=== PATIENT | female | born 1980 | race Caucasian/White ===

== ENCOUNTER 2018-04-12 13:35 | Day surgery (SDC) | payer BC, OTHER ==
[2018-04-09 17:32] VITALS: BMI 43.0
[2018-04-12 14:33] VITALS: BP 146/87; PULSE 96; TEMP 98.4
== END 2018-04-12 19:50 | disposition home or self-care (01) ==
LOC: UNDOADMIN 13:35 → JSAMEDAYSX 13:35 → JASUSAT 13:35 → EDSTATUS 15:00 → JASUSAT 19:50 → UNDODISIN 19:50
PROVIDERS: ATTEND Orthopaedic Surgery Orthopaedic Surgery of the Spine
PROC: 0SJC4ZZ Inspection of Right Knee Joint, Percutaneous Endoscopic Approach (ICD-10-PCS; principal; 2018-04-12)
DX: Z53.8 Procedure and treatment not carried out for other reasons (principal)
CPT/HCPCS: 36415; 84703; 86850; 86900; 86901

== ENCOUNTER 2018-04-19 06:12 | Inpatient (IN) | payer BC, OTHER ==
[~2018-04-19 06:12] MED LIST: VANCOMYCIN 1,000 MG VIAL (RESTRICTED TO ID ONLY) IVPB ONE; ceFAZolin SODIUM 1 GM VIAL IVPB ONE
[2018-04-19] MEDS ORDERED: HEPARIN NA (PORCINE) 5,000 UNITS/ML 1ML VIAL ONE (07:14)
[2018-04-19] MEDS ORDERED: THROMBIN (BOVINE) 20,000 UNIT VIAL TP ONE (07:14)
[2018-04-19] MEDS ORDERED: MIDAZOLAM HCL 2 MG/2 ML SINGLE DOSE VIAL ONE ×2 (08:07→08:32)
[2018-04-19] MEDS ORDERED: fentaNYL CITRATE 250 MCG/5 ML VIAL ONE (08:08)
[2018-04-19] MEDS ORDERED: ROCURONIUM BROMIDE 50 MG/5 ML VIAL ONE ×2 (08:08→09:48)
[2018-04-19] MEDS ORDERED: SUCCINYLCHOLINE CHLORIDE 200 MG/10 ML VIAL ONE (08:08)
[2018-04-19] MEDS ORDERED: PROPOFOL 20 ML ONE ×27 (08:08→12:50)
[2018-04-19] MEDS ORDERED: ceFAZolin SODIUM 1 GM VIAL IVPB ONE ×2 (08:53→13:05)
[2018-04-19] MEDS ORDERED: VANCOMYCIN 1,000 MG VIAL (RESTRICTED TO ID ONLY) IVPB ONE (09:05)
[2018-04-19] MEDS ORDERED: TRANEXAMIC ACID 1000 MG/10 ML VIAL ONE (09:56)
[2018-04-19] MEDS ORDERED: LIDOCAINE HCL 2% JELLY (5 ML/TUBE) ONE (09:56)
[2018-04-19] MEDS ORDERED: ceFAZolin SODIUM 1 GM VIAL ONE ×2 (09:56→13:04)
[2018-04-19] MEDS ORDERED: VANCOMYCIN 1,000 MG VIAL (RESTRICTED TO ID ONLY) ONE (09:56)
[2018-04-19] MEDS ORDERED: ONDANSETRON 4 MG/2 ML VIAL ONE (09:56)
[2018-04-19] MEDS ORDERED: DEXAMETHASONE SOD PHOSPHATE 4 MG/1 ML VIAL ONE (09:56)
[2018-04-19] MEDS ORDERED: LIDOCAINE HCL/PF 2% SDV 5ML VIAL ONE (09:56)
[2018-04-19] MEDS ORDERED: METOPROLOL TARTRATE 5 MG/5 ML VIAL ONE (09:56)
[2018-04-19] MEDS ORDERED: LABETALOL HCL 5 MG/1 ML (100MG/20 ML VIAL) ONE (10:29)
[2018-04-19] MEDS ORDERED: CARVEDILOL 3.125 MG TABLET (FP) PO PRN (13:57)
[2018-04-19] MEDS ORDERED: ONDANSETRON 4 MG/2 ML VIAL IVPUSH PRN ×2 (14:04→14:23)
--- NOTE | 2018-04-19 14:04 | PN ---
Progress Note (short form) - Note Progress Note: 38F s/p L4-S1 laminectomies, L4-L5 PLIF, L3-S1 PISF POD #0. -Pain control: per anaesthesia team; recommend CUSTODY OFFICER. -DVT PPx: - Mechanical only: BONITA's, SCD's. -Incentive spirometry. -PT/OT/Rehab, OOB. -WBAT B/L LE. -q4h B/L LE NV checks. -Post-op antibiotics x 2 doses. -NPO until flatus. -f/u AM labs. -f/u drain output. -(+) Cloudy urine; f/u UA; d/c cruz catheter when ambulating. -Care per medical hospitalist team. -Discharge planning: f/u 7-10 days after discharge at [facility] office; call for appointment; . -Will follow. Brant Arana MD (Orthopaedic Surgery).
--- NOTE | 2018-04-19 14:11 | OP ---
Operative Note - Note: Operative Date: 04/19/18 Pre-Operative Diagnosis: Lumbar spinal stenosis Operation: 1. L4-S1 laminectomies. 2. L4-L5 PLIF. 3. L3-S1 PISF. 4. Autograft. 5. Allograft Post-Operative Diagnosis: Same as Pre-op Surgeon: Brant Arana Desk Director: Wilian Arana Anesthesiologist/FACILITATOR: Chelita Hickman MD Anesthesia: General Estimated Blood Loss (mls): 800 Blood Volume Replaced (mls): 250 (Cell Saver) Fluid Volume Replaced (mls): 3,000 (Crystalloid) Operative Report Dictated: Yes
[2018-04-19] MEDS ORDERED: LACTATED RINGERS SOLUTION 1,000 ML IV SCH (14:15)
[2018-04-19] MEDS ORDERED: PROMETHAZINE HCL 25 MG/1 ML VIAL IVPB PRN (14:23)
[2018-04-19] MEDS ORDERED: DEXAMETHASONE SOD PHOSPHATE 4 MG/1 ML VIAL IVPUSH PRN (14:23)
[2018-04-19] MEDS ORDERED: ACETAMINOPHEN INJECTION 100 ML IVPB ONE (14:27)
[2018-04-19] MEDS ORDERED: HYDROmorphone *PCA* 10MG/50ML DISP.SYRIN PCA SCH ×2 (14:30→20:00)
[2018-04-19] MEDS: ACETAMINOPHEN 1000 MG/100 ML VIAL (NON FORMULARY) IVPB SCH ×2 (14:35→22:49)
[2018-04-19] MEDS ORDERED: LORazepam 2 MG/ML SDV VIAL ONE (14:45)
[2018-04-19] MEDS: LACTATED RINGERS SOLUTION 1,000 ML IV SCH (14:45)
[2018-04-19] MEDS ORDERED: CALCITRIOL 0.25 MCG CAPSULE (FP) PO ONE (16:30)
--- NOTE | 2018-04-19 16:33 | CONSULT ---
Consultation: REQUESTING PROVIDER: Dr. Arana CONSULT REQUEST: We have been asked to medically evaluate this patient for (post -op). HISTORY OF PRESENT ILLNESS: 38 yo female admitted to the ICU s/p L4-S1 Laminectomy, L4-L5 PLIF, L3-S1 PISF. Post-op Day 0. Pt is still drowsy from anesthesia and not responding to questioning. She is arousable by conversation, but goes back to sleep soon after. No complaints or visual signs of pain currently. Pt is moving around in the bed. Intra-op note states 800cc blood loss, 250 cc replaced via cell-saver, 3L crystalloid fluid replacement. No reported complications. REVIEW OF SYSTEMS: CONSTITUTIONAL: Absent: fever, chills, diaphoresis, generalized weakness, malaise, loss of appetite, weight change HEENT: Absent: rhinorrhea, nasal congestion, throat pain, throat swelling, difficulty swallowing, mouth swelling, ear pain, eye pain, visual changes CARDIOVASCULAR: Absent: chest pain, syncope, palpitations, irregular heart rate, lightheadedness , peripheral edema RESPIRATORY: Absent: cough, shortness of breath, dyspnea with exertion, orthopnea, wheezing, stridor, hemoptysis GASTROINTESTINAL: Absent: abdominal pain, abdominal distension, nausea, vomiting, diarrhea, constipation, melena, hematochezia GENITOURINARY: Absent: dysuria, frequency, urgency, hesitancy, hematuria, flank pain, genital pain MUSCULOSKELETAL: Absent: myalgia, arthralgia, joint swelling, back pain, neck pain SKIN: Absent: rash, itching, pallor HEMATOLOGIC/IMMUNOLOGIC: Absent: easy bleeding, easy bruising, lymphadenopathy, frequent infections ENDOCRINE: Absent: unexplained weight gain, unexplained weight loss, heat intolerance, cold intolerance NEUROLOGIC: Absent: headache, focal weakness or paresthesias, dizziness, unsteady gait, seizure, mental status changes, bladder or bowel incontinence PSYCHIATRIC: Absent: anxiety, depression, suicidal or homicidal ideation, hallucinations. PHYSICAL EXAMINATION Vital Signs - 24 hr 04/19/18 06:49 Temperature 98.7 F Pulse Rate 88 Respiratory 20 Rate Blood Pressure 121/85 O2 Sat by Pulse 100 Oximetry (%) GENERAL: in no acute distress. HEAD: Normal with no signs of trauma. EYES: sclera anicteric, conjunctiva clear. No lid lag. EARS, NOSE, THROAT: Ears normal, nares patent, oropharynx clear without exudates. Moist mucous membranes. NECK: supple without lymphadenopathy, JVD, or masses. LUNGS: Breath sounds equal, clear to auscultation bilaterally. No wheezes, and no crackles. No accessory muscle use. HEART: Tachycardic with regular rhythm, normal S1 and S2 without murmur, rub or gallop. ABDOMEN: Obese, Soft, nontender, not distended, hypoactive bowel sounds, no guarding, no rebound, no masses. MUSCULOSKELETAL: No bony deformities or tenderness. No CVA tenderness. UPPER EXTREMITIES: 2+ pulses, warm, well-perfused. No cyanosis. No clubbing. Cap refill <2 seconds. No peripheral edema. LOWER EXTREMITIES: 2+ pulses, warm, well-perfused. No calf tenderness. No peripheral edema. NEUROLOGICAL: Cranial nerves II-XII grossly intact. Normal gait. SKIN: Warm, dry, normal turgor, no rashes or lesions noted. Laboratory Results - last 24 hr 04/19/18 06:16 Urine HCG, Qual Negative Active Medications Generic Name Dose Route Start Last Admin Trade Name Freq PRN Reason Stop Dose Admin Acetaminophen 1,000 mg 04/19/18 14:15 Ofirmev Injection - IVPB 04/21/18 06:16 Q8H RANDAL Carvedilol 3.125 mg 04/19/18 13:57 Coreg - PO PRN PRN RAPID HEART RATE Dexamethasone Sodium Phosphate 4 mg 04/19/18 14:23 Decadron Injection - IVPUSH ONCE PRN NAUSEA AND/OR VOMITING Diphenhydramine HCl 12.5 mg 04/19/18 14:23 Benadryl Injection - IVPUSH ONCE PRN FOR ITCHING Fentanyl 50 mcg 04/19/18 14:23 Sublimaze Injection - IVPUSH [id number] PRN PAIN-PACU ORDER X 4 DOSES ONLY Hydromorphone HCl 0 mg 04/19/18 14:30 Dilaudid Machine Made Shoe Unit Worker - LIPCOAT SPRAYER 04/26/18 14:24 LIPCOAT SPRAYER [facility] Protocol Lactated Ringer's 1,000 mls @ 125 mls/hr 04/19/18 14:30 Lactated Ringers Solution IV ASDIR RANDAL Cefazolin Sodium/Dextrose 2 gm in 50 mls @ 100 mls/hr 04/19/18 19:00 Ancef 2 Gm Premixed Ivpb - IVPB 04/20/18 07:29 Q6H RANDAL Levothyroxine Sodium 150 mcg 04/20/18 07:00 Synthroid - PO DAILY@0700 RANDAL Ondansetron HCl 4 mg 04/19/18 14:23 Zofran Injection IVPUSH Q6H PRN NAUSEA AND/OR VOMITING Ondansetron HCl 4 mg 04/19/18 14:23 Zofran Injection IVPUSH Q4H PRN NAUSEA AND/OR VOMITING Promethazine HCl 12.5 mg 04/19/18 14:23 Phenergan Injection - IVPB Q6H PRN NAUSEA AND/OR VOMITING Thyroid 60 mg 04/20/18 10:00 [place] Thyroid - PO DAILY RANDAL ASSESSMENT/PLAN: 38 yo Female admitted to the ICU s/p L4-S1 laminectomy, L4-L5 PLIF, L3-S1 PISF. Post-op day 0 Neuro -post-op day 0 -Neuro checks Q4 as per surgery recommendation Cardio -Rapid heart rate reported intra-op Coreg 3.125 mg PO PRN to keep rate <130 states she has seen cardiology in the past and elevated HR is most likely due to thyroid condition -Post-op CBC Respiratory -No known respiratory problems -Incentive spirometry to decrease risk of post-op atelectasis/pneumonia GI -NPO until flatus -Will add bowel regimen as necessary -Zofran and Promethazine PRN for nausea/vomiting Endocrine -Hx Hypothyroidism Synthroid 150mcg PO Daily [place] Thyroid 60 mg PO Daily Post-op Management -Pain control: LIPCOAT SPRAYER as per anesthesia Will monitor pain and switch to PO pain medication when able -OOB as tolerated -Post-op Ancef X 2 doses -d/c cruz when Ambulating DVT Prophylaxis -TEDs/SCDs only as per surgery FEN -Fluids: LR @ 125 cc/hr -Electrolytes: No known electrolyte abnormalities as of now, BMP in AM -Nutrition: NPO until Flatus Disposition Monitor in the ICU for now Visit type - Emergency Visit Emergency Visit: No - New Patient This patient is new to me today: Yes Date on this admission: 04/19/18 - Critical Care Critical Care patient: Yes Total Critical Care Time (in minutes): 35 Critical Care Statement: The care of this patient involved high complexity decision making to prevent further life threatening deterioration of the patient 's condition and/or to evaluate & treat vital organ system(s) failure or risk of failure.
[2018-04-19] MEDS ORDERED: LORazepam 2 MG/ML SDV VIAL IVPUSH ONE (16:45)
[2018-04-19] MEDS: CEFAZOLIN 2 GM/D5W 2 GM/50 ML ML IVPB SCH (18:02)
[2018-04-19] MEDS: ONDANSETRON 4 MG/2 ML VIAL IVPUSH PRN (18:23)
[2018-04-19] MEDS ORDERED: ceFAZolin 2 GRAM PREMIX BAG IVPB SCH (19:00)
[2018-04-19] MEDS ORDERED: LORazepam 2 MG/ML SDV VIAL IVPUSH PRN (19:53)
--- NOTE | 2018-04-19 21:03 | OP ---
DATE OF OPERATION: 04/19/2018 SURGEON: Brant Arana MD GROUND SCHOOL INSTRUCTOR: Wilian Arana MD ANESTHESIA: General. PREOPERATIVE DIAGNOSIS: Spinal stenosis L3-L4, L5-S1 with associated segmental instability secondary to lumbar spondylosis and disk prolapse disease. POSTOPERATIVE DIAGNOSIS: Spinal stenosis L3-L4, L5-S1 with associated segmental instability secondary to lumbar spondylosis and disk prolapse disease. OPERATION PERFORMED: 1. Laminectomy, L3 to S1. 2. Posterior lumbar interbody fusion, L4-5. 3. Transpedicular instrumented stabilization with pedicle screw fixation L3-L4, L5-S1. 4. Posterior lateral arthrodesis L3-L4, L5-S1. 5. Complex wound closure, 30 cm. 6. Use of biplanar fluoroscopy and intraoperative neuromonitoring. ANTIBIOTICS USED: Kefzol 2 g, vancomycin 1 g. OPERATION DETAILS: With the patient correctly identified, brought to the operating room, placed prone on a gel roll spinal frame table. The pelvis was held in as much extension as possible. The lumbar spine was prepped with Betadine scrub solution, wiped off with alcohol, DuraPrep applied. Draping was routine window draping accordingly. Neuromonitoring was set up appropriately. All pressure points were padded appropriately in detail with the anesthesia team and the nursing team. Timeout was called. Imaging was available for intraoperative evaluation. A midline incision utilized. Dissection was taken down to the tips of the spinous processes, over the lamina, over the facet joints, to the tips of the transverse processes. The muscle was gently dissected off the transverse processes to the intertransverse plane, packed with graft. The appropriate levels were identified using lateral fluoroscopic x-ray with appropriate anatomical guidelines. Midline dissection was performed. All bone was removed and saved for bone graft; that was spinous processes and laminae. An undercutting facetectomy was performed, freeing the entire theca and all nerve roots, all clearly identified and evaluated. The dura was freed completely. The right-sided L4-5 level was exposed, explored. A bipolar Bovie was utilized in order to diathermize the epidural veins. The disk was identified. This was a heaped up, large, bulging disk. This was resected in the following manner. An annulotomy with an 11 blade, shaving to size 9 and a size 10 cage ultimately inserted. This was a TETRAfuse cage called Fortilink spacer inserted into the interbody space. Prior to that, after the entire disk had been removed and the endplate bleeding, healthy bone visualized, the disk interbody space was packed with autologous bone that was milled in the [employer] from the dissection of the posterior elements and the saved bone. This was packed into the interbody space. The cage was then followed, reconstituting the disk height significantly. Once this had been performed, it was elected to leave all the other disks alone as their heights were well maintained. Pedicle screws at L3-L4, L5-S1 were inserted. We used anatomical guidelines as well as lateral fluoroscopy. Each screw measured 40 x 6.5. Each screw was tested with appropriate neuromonitoring team, well above the safe zones of each screw. Once this had been ascertained, the rods were contoured to the screw heads, fixed solidly into position with the caps. The torque device finally tightened all screws onto the rods appropriately. The rods were bent into lordosis. The remaining procedure was as follows. The muscle was lifted off the intertransverse plane, packed with a combination of allograft mixed, expanding the autograft but more importantly, 120 mL of marrow was aspirated from her left posterior ilium using a Jamshidi needle, this spun down for the CD34 cells. This was then mixed with the bone graft. Combined with all these factors, this was packed into the intertransverse plane for a rich bone grafting of the intertransverse plane right down to the denuded ala of the sacrum, all to form a fusion mass. The wounds were thoroughly lavaged throughout. The rods were then augmented with 1 crosslink. The bone graft being in situ, the wound was noted to be completely dry. We elected to close without a drain as follows. Muscle was debrided gently, muscle 1 Vicryl, fascia 1 Vicryl, subcutaneous 1 and 2-0 Vicryl, skin 3-0 Monocryl with Steri-Strips. This completed a 30-cm complex wound closure. No complications. MD LEONILA Ibrahim/[id number]
[2018-04-19] MEDS: CARVEDILOL 6.25 MG TABLET (FP) PO SCH ×2 (21:41→23:38)
[2018-04-20] MEDS: CEFAZOLIN 2 GM/D5W 2 GM/50 ML ML IVPB SCH ×2 (00:31→06:14)
[2018-04-20] MEDS ORDERED: MORPHINE SULFATE 2 MG/ML VIAL IVPUSH ONE (01:07)
[2018-04-20] MEDS: LORazepam 2 MG/ML SDV VIAL IVPUSH PRN ×2 (03:58→09:16)
[2018-04-20] MEDS: ACETAMINOPHEN 1000 MG/100 ML VIAL (NON FORMULARY) IVPB SCH ×3 (05:33→22:02)
[2018-04-20] MEDS: LACTATED RINGERS SOLUTION 1,000 ML IV SCH ×2 (05:55→16:43)
[2018-04-20] MEDS: LEVOTHYROXINE NA 150 MCG TABLET PO SCH (06:15)
[2018-04-20 06:27] LABS: HEMATOCRIT 35.5 % (32.4-45.2); HEMOGLOBIN 12.1 GM/dL (10.7-15.3); MCH 29.6 pg (25.7-33.7); MCHC 34.1 g/dl (32.0-36.0); MEAN CELL VOLUME 86.7 fl (80-96); MEAN PLT VOLUME 7.9 fl (7.5-11.1); PLATELET COUNT 327 K/MM3 (134-434); RDW 13.4 % (11.6-15.6); WHITE BLOOD COUNT 13.2 K/mm3 (4.0-10.0)
[2018-04-20 06:52] LABS: CHLORIDE 102 mmol/L (98-107); POTASSIUM 3.8 mmol/L (3.5-5.1); SODIUM 138 mmol/L (136-145)
[2018-04-20 06:59] LABS: INR 1.2 (0.82-1.09); PROTHROMBIN TIME (PATIENT) 13.6 SEC (9.7-13.0)
[2018-04-20 07:00] LABS: ANION GAP 8 (8-16); BLOOD UREA NITROGEN 6 mg/dL (7-18); CALCIUM 7.8 mg/dL (8.5-10.1); CO2 28 mmol/L (21-32); CREATININE 0.6 mg/dL (0.55-1.02); GLUCOSE,RANDOM 123 mg/dL (74-106); MAGNESIUM 1.8 mg/dL (1.8-2.4)
[2018-04-20] MEDS: ONDANSETRON 4 MG/2 ML VIAL IVPUSH PRN (07:04)
[2018-04-20] MEDS ORDERED: MAGNESIUM OXIDE 400 MG TABLET (FP) PO ONE (08:00)
--- NOTE | 2018-04-20 08:18 | PN ---
Physical Exam: SUBJECTIVE: Patient seen and examined in the ICU. Resting in bed. Fell back asleep multiple times during conversation. Complaining that she is "in agony." States she has not passed flatus yet or moved her bowels. Has had some nausea and received zofran which helped. OBJECTIVE: Vital Signs Period Temp Pulse Resp BP Sys/Donnelly Pulse Ox Last 24 Hr 98.6 F-99.7 F 88-137 10-23 109-163/64-100 95-100 GENERAL: Awake, in no acute distress. HEAD: Normal with no signs of trauma. EYES: sclera anicteric, conjunctiva clear. No lid lag. EARS, NOSE, THROAT: Ears normal, nares patent, oropharynx clear without exudates. Moist mucous membranes. NECK: supple without lymphadenopathy, JVD, or masses. LUNGS: Breath sounds equal, clear to auscultation bilaterally, though upper airway obstruction noted on inspiration. No wheezes, and no crackles. No accessory muscle use. HEART: Tachycardic with regular rhythm, normal S1 and S2 without murmur, rub or gallop. ABDOMEN: Obese, Soft, nontender, not distended, hypoactive bowel sounds, no guarding, no rebound, no masses. MUSCULOSKELETAL: No bony deformities or tenderness. No CVA tenderness. UPPER EXTREMITIES: 2+ pulses, warm, well-perfused. No cyanosis. No clubbing. Cap refill <2 seconds. No peripheral edema. LOWER EXTREMITIES: 2+ pulses, warm, well-perfused. No calf tenderness. No peripheral edema. NEUROLOGICAL: Cranial nerves II-XII grossly intact. Normal gait. SKIN: Warm, dry, normal turgor, no rashes or lesions noted. Laboratory Results - last 24 hr 04/20/18 04/20/18 04/20/18 05:30 05:30 05:30 WBC 13.2 H RBC 4.10 Hgb 12.1 Hct 35.5 MCV 86.7 MCH 29.6 MCHC 34.1 RDW 13.4 Plt Count 327 MPV 7.9 PT with INR 13.60 H INR 1.20 H Sodium 138 Potassium 3.8 Chloride 102 Carbon Dioxide 28 Anion Gap 8 BUN 6 L Creatinine 0.6 Creat Clearance w eGFR > 60 Random Glucose 123 H Calcium 7.8 L Phosphorus 3.0 Magnesium 1.8 Active Medications Generic Name Dose Route Start Last Admin Trade Name Freq PRN Reason Stop Dose Admin Acetaminophen 1,000 mg 04/19/18 14:15 04/20/18 05:33 Ofirmev Injection - IVPB 04/21/18 06:16 1,000 mg Q8H RANDAL Administration Carvedilol 6.25 mg 04/19/18 22:00 04/19/18 23:38 Coreg - PO Not Given BID [facility] Dexamethasone Sodium Phosphate 4 mg 04/19/18 14:23 Decadron Injection - IVPUSH ONCE PRN NAUSEA AND/OR VOMITING Diphenhydramine HCl 12.5 mg 04/19/18 14:23 04/20/18 00:43 Benadryl Injection - IVPUSH 12.5 mg ONCE PRN Administration FOR ITCHING Fentanyl 50 mcg 04/19/18 14:23 04/19/18 14:30 Sublimaze Injection - IVPUSH 50 mcg [id number] PRN Administration PAIN-PACU ORDER X 4 DOSES ONLY Hydromorphone HCl 10 mg 04/19/18 20:00 04/19/18 20:05 Dilaudid Research [employer] - SPINNING LATHE OPERATOR HYDRAULIC 04/26/18 19:59 10 mg SPINNING LATHE OPERATOR HYDRAULIC RANDAL Administration Protocol Lactated Ringer's 1,000 mls @ 125 mls/hr 04/19/18 14:30 04/20/18 05:55 Lactated Ringers Solution IV 125 mls/hr ASDIR RANDAL Administration Levothyroxine Sodium 150 mcg 04/20/18 07:00 04/20/18 06:15 Synthroid - PO Not Given DAILY@0700 RANDAL Lorazepam 1 mg 04/19/18 21:14 04/20/18 03:58 Ativan Injection - IVPUSH 1 mg Q6H PRN Administration MUSCLE SPASMS Ondansetron HCl 4 mg 04/19/18 14:23 Zofran Injection IVPUSH Q4H PRN NAUSEA AND/OR VOMITING Promethazine HCl 12.5 mg 04/19/18 14:23 Phenergan Injection - IVPB Q6H PRN NAUSEA AND/OR VOMITING Thyroid 60 mg 04/20/18 10:00 [place] Thyroid - PO DAILY RANDAL ASSESSMENT/PLAN: 38 yo Female admitted to the ICU s/p L4-S1 laminectomy, L4-L5 PLIF, L3-S1 PISF. Post-op day 1 Neuro -post-op day 1 -Neuro checks Q4 as per surgery recommendation Cardio -Rapid heart rate reported intra-op Coreg 6.25 mg PO BID Lopressor 5 mg Q4 PRN Tachycardia states she has seen cardiology in the past and elevated HR is most likely due to thyroid condition Respiratory -No known respiratory problems -Incentive spirometry to decrease risk of post-op atelectasis/pneumonia GI -NPO until flatus -Will add bowel regimen as necessary -Zofran and Promethazine PRN for nausea/vomiting Endocrine -Hx Hypothyroidism Synthroid 150mcg PO Daily [place] Thyroid 60 mg PO Daily Post-op Management -Pain control: SPINNING LATHE OPERATOR HYDRAULIC as per anesthesia Will monitor pain and switch to PO pain medication when able Will switch home ativan to valium for now for muscle spasm -OOB as tolerated -d/c cruz when Ambulating DVT Prophylaxis -TEDs/SCDs only as per surgery FEN -Fluids: LR @ 125 cc/hr -Electrolytes: M.8, repleted with MagOx 400mg PO, BMP in AM -Nutrition: NPO until Flatus Disposition Monitor in the ICU for now Visit type - Emergency Visit Emergency Visit: No - New Patient This patient is new to me today: No - Critical Care Critical Care patient: Yes Total Critical Care Time (in minutes): 40 Critical Care Statement: The care of this patient involved high complexity decision making to prevent further life threatening deterioration of the patient 's condition and/or to evaluate & treat vital organ system(s) failure or risk of failure.
[2018-04-20] MEDS ORDERED: THYROID 60 MG TABLET PO SCH (10:00)
[2018-04-20] MEDS: CARVEDILOL 6.25 MG TABLET (FP) PO SCH ×3 (10:25→22:00)
--- NOTE | 2018-04-20 11:19 | PN ---
Teaching Attending Note Name of Resident: Jamie Rubio ATTENDING PHYSICIAN STATEMENT I saw and evaluated the patient. I reviewed the resident's note and discussed the case with the resident. I agree with the resident's findings and plan as documented. SUBJECTIVE: Patient seen and examined in the ICU. Reports significant pain. Denies CP or SOB. No nausea or vomiting. Intake & Output 04/17/18 04/18/18 04/19/18 04/20/18 23:59 23:59 23:59 23:59 Intake Total 4032 Output Total 4550 Balance -518 Weight 297 lb 3.2 oz Last Vital Signs Temp Pulse Resp BP Pulse Ox 98.8 F 120 H 14 151/91 100 04/20/18 10:00 04/20/18 10:00 04/20/18 10:00 04/20/18 10:00 04/20/18 09:00 Active Medications Acetaminophen (Ofirmev Injection -) 1,000 mg IVPB Q8H [facility] Stop: 04/21/18 06:16 Last Admin: 04/20/18 05:33 Dose: 1,000 mg Carvedilol (Coreg -) 6.25 mg PO BID [facility] Last Admin: 04/20/18 10:25 Dose: Not Given Dexamethasone Sodium Phosphate (Decadron Injection -) 4 mg IVPUSH ONCE PRN PRN Reason: NAUSEA AND/OR VOMITING Last Admin: 04/20/18 10:48 Dose: 4 mg Diphenhydramine HCl (Benadryl Injection -) 12.5 mg IVPUSH ONCE PRN PRN Reason: FOR ITCHING Last Admin: 04/20/18 00:43 Dose: 12.5 mg Fentanyl (Sublimaze Injection -) 50 mcg IVPUSH [id number] PRN PRN Reason: PAIN-PACU ORDER X 4 DOSES ONLY Last Admin: 04/19/18 14:30 Dose: 50 mcg Hydromorphone HCl (Dilaudid Documentation Specialist -) 10 mg REPORTING COORDINATOR REPORTING COORDINATOR [facility]; Protocol Stop: 04/26/18 19:59 Last Admin: 04/19/18 20:05 Dose: 10 mg Lactated Ringer's (Lactated Ringers Solution) 1,000 mls @ 125 mls/hr IV ASDIR [facility] Last Admin: 04/20/18 05:55 Dose: 125 mls/hr Levothyroxine Sodium (Synthroid -) 150 mcg PO DAILY@0700 [facility] Last Admin: 04/20/18 06:15 Dose: Not Given Lorazepam (Ativan Injection -) 1 mg IVPUSH Q6H PRN PRN Reason: MUSCLE SPASMS Last Admin: 04/20/18 09:16 Dose: 1 mg Ondansetron HCl (Zofran Injection) 4 mg IVPUSH Q4H PRN PRN Reason: NAUSEA AND/OR VOMITING Promethazine HCl (Phenergan Injection -) 12.5 mg IVPB Q6H PRN PRN Reason: NAUSEA AND/OR VOMITING Thyroid ([place] Thyroid -) 60 mg PO DAILY [facility] Last Admin: 04/20/18 10:24 Dose: Not Given GENERAL: Awake and alert, uncomfortable due to pain HEAD: Normal with no signs of trauma. EYES: sclera anicteric, conjunctiva clear. No lid lag. EARS, NOSE, THROAT: Ears normal, nares patent, oropharynx clear without exudates. Moist mucous membranes. NECK: supple without lymphadenopathy, JVD, or masses. LUNGS: clear to auscultation bilaterally. No wheezes, and no crackles. No accessory muscle use. HEART: Tachycardic with regular rhythm. No murmur, rub or gallop. ABDOMEN: Obese, Soft, nontender, not distended, (+) bowel sounds, no guarding, no rebound, no masses. MUSCULOSKELETAL: No bony deformities or tenderness. No CVA tenderness. UPPER EXTREMITIES: 2+ pulses, warm, well-perfused. No cyanosis. No clubbing. Cap refill <2 seconds. No peripheral edema. LOWER EXTREMITIES: 2+ pulses, warm, well-perfused. No calf tenderness. No peripheral edema. NEUROLOGICAL: Non-focal SKIN: Warm, dry, normal turgor, no rashes or lesions noted. Laboratory Results - last 24 hr 04/20/18 04/20/18 04/20/18 05:30 05:30 05:30 WBC 13.2 H RBC 4.10 Hgb 12.1 Hct 35.5 MCV 86.7 MCH 29.6 MCHC 34.1 RDW 13.4 Plt Count 327 MPV 7.9 PT with INR 13.60 H INR 1.20 H Sodium 138 Potassium 3.8 Chloride 102 Carbon Dioxide 28 Anion Gap 8 BUN 6 L Creatinine 0.6 Creat Clearance w eGFR > 60 Random Glucose 123 H Calcium 7.8 L Phosphorus 3.0 Magnesium 1.8 ASSESSMENT/PLAN: POD #1: L4-S1 laminectomy, L4-L5 PLIF, L3-S1 PISF. 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
[2018-04-20] MEDS ORDERED: METOPROLOL TARTRATE 5 MG/5 ML VIAL IVPUSH PRN (11:29)
--- NOTE | 2018-04-20 11:35 | PN ---
Progress Note (short form) - Note Progress Note: Anesthesia Post op/Pain Pt seen and examined S:sedated from ativan O; Vital Signs Temperature 98.8 F 04/20/18 10:00 Pulse Rate 120 H 04/20/18 10:00 Respiratory Rate 14 04/20/18 10:00 Blood Pressure 151/91 04/20/18 10:00 O2 Sat by Pulse Oximetry (%) 100 04/20/18 09:00 CBC, BMP 04/20/18 05:30 04/20/18 05:30 A/P: s/p PLIF L3-S1 Sedation for muscle tension per nursing Uses IV SHEETFED PRESS OPERATOR Continue current care Miguel Story MD
[2018-04-20] MEDS: diazePAM 5 MG TABLET PO PRN (14:37)
[2018-04-20] MEDS ORDERED: SODIUM CHLORIDE 250 ML IV STA (19:11)
[2018-04-20] MEDS ORDERED: ACETAMINOPHEN 1000 MG/100 ML VIAL (NON FORMULARY) IVPB ONE (19:15)
[2018-04-21] MEDS ORDERED: PT OWN MED DRAWER 7, Y5N ONE ×2 (05:49→05:59)
[2018-04-21] MEDS: ACETAMINOPHEN 1000 MG/100 ML VIAL (NON FORMULARY) IVPB SCH (05:51)
[2018-04-21 06:00] LABS: BASO % 0.2 % (0-2.0); HEMATOCRIT 31.7 % (32.4-45.2); LYMPH % 8.6 % (8-40); MCH 30.1 pg (25.7-33.7); MCHC 34.6 g/dl (32.0-36.0); MEAN CELL VOLUME 87.1 fl (80-96); MEAN PLT VOLUME 7.8 fl (7.5-11.1); MONO % 8.5 % (3.8-10.2); NEUT % 82.7 % (42.8-82.8); PLATELET COUNT 298 K/MM3 (134-434); RBC 3.64 M/mm3 (3.60-5.2); RDW 13.4 % (11.6-15.6)
[2018-04-21] MEDS: LEVOTHYROXINE NA 150 MCG TABLET PO SCH ×2 (06:03→06:20)
[2018-04-21] MEDS: THYROID 60 MG TABLET PO SCH ×2 (06:04→09:25)
[2018-04-21 06:57] LABS: ALBUMIN 2.8 g/dl (3.4-5.0); ANION GAP 6 (8-16); BLOOD UREA NITROGEN 8 mg/dL (7-18); CALCIUM 7.8 mg/dL (8.5-10.1); CHLORIDE 104 mmol/L (98-107); CO2 31 mmol/L (21-32); GLUCOSE,RANDOM 98 mg/dL (74-106); POTASSIUM 3.9 mmol/L (3.5-5.1); SODIUM 141 mmol/L (136-145)
[2018-04-21 07:01] LABS: ALK PHOS 64 U/L (45-117); BILIRUBIN,TOTAL 0.4 mg/dL (0.2-1.0); CREATININE 0.5 mg/dL (0.55-1.02); PHOSPHOROUS 2.2 mg/dL (2.5-4.9); SGOT/AST 31 U/L (15-37); SGPT/ALT 28 U/L (12-78); TOT PROT 5.7 g/dl (6.4-8.2)
[2018-04-21] MEDS: LACTATED RINGERS SOLUTION 1,000 ML IV SCH ×2 (08:43→17:00)
[2018-04-21] MEDS ORDERED: NAPH,MB-DB/K PH,MBDB POWDER PACKET PO ONE (08:49)
[2018-04-21] MEDS ORDERED: IBUPROFEN 400 MG TABLET (FP) PO ONE (08:52)
[2018-04-21] MEDS: CARVEDILOL 6.25 MG TABLET (FP) PO SCH ×2 (09:24→21:48)
[2018-04-21] MEDS ORDERED: DOCUSATE SODIUM 100 MG CAPSULE (FP) PO PRN (10:45)
[2018-04-21] MEDS ORDERED: DOCUSATE SODIUM 100 MG CAPSULE (FP) PO SCH (10:45)
--- NOTE | 2018-04-21 10:54 | PN ---
Teaching Attending Note Name of Resident: Jamie Rubio ATTENDING PHYSICIAN STATEMENT I saw and evaluated the patient. I reviewed the resident's note and discussed the case with the resident. I agree with the resident's findings and plan as documented. SUBJECTIVE: Pt seen and examined in the ICU. Still with significant pain. No nausea or vomiting. No flatus. OBJECTIVE: Vital Signs Period Temp Pulse Resp BP Sys/Donnelly Pulse Ox Last 24 Hr 98.7 F-99.2 F 108-125 10-19 110-151/67-91 100-100 Intake & Output 04/18/18 04/19/18 04/20/18 04/21/18 23:59 23:59 23:59 23:59 Intake Total 4032 2000 1650 Output Total 4550 1400 400 Balance -402 913 7590 Weight 134.808 kg 97.522 kg Gen: NAD at rest Heart: tachycardic, regular Lung: decreased breath sounds at the bases Abd: soft, nontender Ext: no edema CBC, BMP 04/21/18 05:30 04/21/18 05:30 Active Medications Carvedilol (Coreg -) 6.25 mg PO BID RANDAL Last Admin: 04/21/18 09:24 Dose: 6.25 mg Dexamethasone Sodium Phosphate (Decadron Injection -) 4 mg IVPUSH ONCE PRN PRN Reason: NAUSEA AND/OR VOMITING Last Admin: 04/20/18 10:48 Dose: 4 mg Diazepam (Valium -) 5 mg PO Q6H PRN PRN Reason: BACK PAIN Stop: 04/23/18 12:32 Last Admin: 04/20/18 14:37 Dose: 5 mg Diphenhydramine HCl (Benadryl Injection -) 12.5 mg IVPUSH ONCE PRN PRN Reason: FOR ITCHING Last Admin: 04/20/18 00:43 Dose: 12.5 mg Docusate Sodium (Colace -) 100 mg PO BID PRN PRN Reason: CONSTIPATION Fentanyl (Sublimaze Injection -) 50 mcg IVPUSH [id number] PRN PRN Reason: PAIN-PACU ORDER X 4 DOSES ONLY Last Admin: 04/19/18 14:30 Dose: 50 mcg Hydromorphone HCl (Dilaudid Buckle Strap Puncher -) 10 mg TECHNICAL PROJECT LEAD TECHNICAL PROJECT LEAD RANDAL; Protocol Stop: 04/26/18 19:59 Last Admin: 04/19/18 20:05 Dose: 10 mg Lactated Ringer's (Lactated Ringers Solution) 1,000 mls @ 125 mls/hr IV ASDIR [facility] Last Admin: 04/21/18 08:43 Dose: 125 mls/hr Levothyroxine Sodium (Synthroid -) 150 mcg PO DAILY@0700 [facility] Last Admin: 04/21/18 06:20 Dose: Not Given Metoprolol Tartrate (Lopressor Injection -) 5 mg IVPUSH Q4H PRN PRN Reason: TACHYCARDIA Last Admin: 04/20/18 11:59 Dose: 5 mg Ondansetron HCl (Zofran Injection) 4 mg IVPUSH Q4H PRN PRN Reason: NAUSEA AND/OR VOMITING Promethazine HCl (Phenergan Injection -) 12.5 mg IVPB Q6H PRN PRN Reason: NAUSEA AND/OR VOMITING Last Admin: 04/20/18 12:42 Dose: 12.5 mg Thyroid ([place] Thyroid -) 60 mg PO DAILY [facility] Last Admin: 04/21/18 09:25 Dose: Not Given ASSESSMENT AND PLAN: Lumbar spinal stenosis s/p L4-S1 Laminectomies/L4-L5 PLIF/L3-S1 PISF HTN Hypothyroidism - pain control - incentive spirometry - antiemetics as needed - bowel regimen - d/c cruz when out of bed - PO as tolerated, can start clears - rehab/PT - DVT prophylaxis
--- NOTE | 2018-04-21 11:01 | PN ---
Physical Exam: SUBJECTIVE: Patient seen and examined in the ICU. Resting comfortably in bed, awakened for interview and exam. Pt still complaining of severe pain and difficulty moving but that pain is slightly improved from yesterday. Still having no flatus, but requesting food. States she has had a headache and would like motrin. She explains adequately that she does not have an allergy to ibuprofen, she has had an unrelated response to celecoxib in the past but takes ibuprofen at home regularly for headaches with no adverse response. OBJECTIVE: Vital Signs Period Temp Pulse Resp BP Sys/Donnelly Pulse Ox Last 24 Hr 98.7 F-99.2 F 108-125 10-19 110-151/67-91 100-100 GENERAL: Awake, in no acute distress. HEAD: Normal with no signs of trauma. EYES: sclera anicteric, conjunctiva clear. No lid lag. EARS, NOSE, THROAT: Ears normal, nares patent, oropharynx clear without exudates. Moist mucous membranes. NECK: supple without lymphadenopathy, JVD, or masses. LUNGS: Breath sounds equal, clear to auscultation bilaterally. No wheezes, and no crackles. No accessory muscle use. HEART: Tachycardic with regular rhythm, normal S1 and S2 without murmur, rub or gallop. ABDOMEN: Obese, Soft, nontender, not distended, hypoactive bowel sounds, no guarding, no rebound, no masses. MUSCULOSKELETAL: No bony deformities or tenderness. No CVA tenderness. UPPER EXTREMITIES: warm, well-perfused. No cyanosis. No clubbing. Cap refill <2 seconds. No peripheral edema. LOWER EXTREMITIES: warm, well-perfused. No calf tenderness. No peripheral edema. NEUROLOGICAL: Cranial nerves II-XII grossly intact. Normal gait. SKIN: Warm, dry, normal turgor, no rashes or lesions noted. Laboratory Results - last 24 hr 04/21/18 04/21/18 05:30 05:30 WBC 14.0 H RBC 3.64 Hgb 11.0 Hct 31.7 L MCV 87.1 MCH 30.1 MCHC 34.6 RDW 13.4 Plt Count 298 MPV 7.8 Absolute Neuts (auto) 11.6 Neutrophils % 82.7 Lymphocytes % 8.6 Monocytes % 8.5 Eosinophils % 0.0 Basophils % 0.2 Nucleated RBC % 0 Sodium 141 Potassium 3.9 Chloride 104 Carbon Dioxide 31 Anion Gap 6 L BUN 8 Creatinine 0.5 L Creat Clearance w eGFR > 60 Random Glucose 98 Calcium 7.8 L Phosphorus 2.2 L Magnesium 2.0 Total Bilirubin 0.4 AST 31 ALT 28 Alkaline Phosphatase 64 Total Protein 5.7 L Albumin 2.8 L Active Medications Generic Name Dose Route Start Last Admin Trade Name Freq PRN Reason Stop Dose Admin Carvedilol 6.25 mg 04/19/18 22:00 04/21/18 09:24 Coreg - PO 6.25 mg BID RANDAL Administration Dexamethasone Sodium Phosphate 4 mg 04/19/18 14:23 04/20/18 10:48 Decadron Injection - IVPUSH 4 mg ONCE PRN Administration NAUSEA AND/OR VOMITING Diazepam 5 mg 04/20/18 12:31 04/20/18 14:37 Valium - PO 04/23/18 12:32 5 mg Q6H PRN Administration BACK PAIN Diphenhydramine HCl 12.5 mg 04/19/18 14:23 04/20/18 00:43 Benadryl Injection - IVPUSH 12.5 mg ONCE PRN Administration FOR ITCHING Docusate Sodium 100 mg 04/21/18 10:45 Colace - PO BID PRN CONSTIPATION Fentanyl 50 mcg 04/19/18 14:23 04/19/18 14:30 Sublimaze Injection - IVPUSH 50 mcg [id number] PRN Administration PAIN-PACU ORDER X 4 DOSES ONLY Hydromorphone HCl 10 mg 04/19/18 20:00 04/19/18 20:05 Dilaudid Director Career Services - RE RECORDING MIXER 04/26/18 19:59 10 mg RE RECORDING MIXER RANDAL Administration Protocol Lactated Ringer's 1,000 mls @ 125 mls/hr 04/19/18 14:30 04/21/18 08:43 Lactated Ringers Solution IV 125 mls/hr ASDIR RANDAL Administration Ibuprofen 400 mg 04/21/18 10:55 Motrin - PO Q6H PRN PAIN LEVEL 6-10 Levothyroxine Sodium 150 mcg 04/20/18 07:00 04/21/18 06:20 Synthroid - PO Not Given DAILY@0700 RANDAL Metoprolol Tartrate 5 mg 04/20/18 11:29 04/20/18 11:59 Lopressor Injection - IVPUSH 5 mg Q4H PRN Administration TACHYCARDIA Ondansetron HCl 4 mg 04/19/18 14:23 Zofran Injection IVPUSH Q4H PRN NAUSEA AND/OR VOMITING Promethazine HCl 12.5 mg 04/19/18 14:23 04/20/18 12:42 Phenergan Injection - IVPB 12.5 mg Q6H PRN Administration NAUSEA AND/OR VOMITING Thyroid 60 mg 04/21/18 05:59 04/21/18 09:25 [place] Thyroid - PO Not Given DAILY RANDAL ASSESSMENT/PLAN: 38 yo Female admitted to the ICU s/p L4-S1 laminectomy, L4-L5 PLIF, L3-S1 PISF. Post-op day 2 Neuro -post-op day 2 -Neuro checks Q4 as per surgery recommendation Cardio -Rapid heart rate reported intra-op Coreg 6.25 mg PO BID Lopressor 5 mg Q4 PRN Tachycardia states she has seen cardiology in the past and elevated HR is most likely due to thyroid condition Respiratory -No known respiratory problems -Incentive spirometry to decrease risk of post-op atelectasis/pneumonia GI -Clear liquids, will advance as tolerated -Colace 100 mg PO BID PRN -Zofran and Promethazine PRN for nausea/vomiting Endocrine -Hx Hypothyroidism - pt requires brand only, generics have been ineffective in the past Synthroid 150mcg PO Daily [place] Thyroid 60 mg PO Daily Post-op Management -Pain control: RE RECORDING MIXER as per anesthesia, increase from 0.4 to 0.6 per bolus Will monitor pain and switch to PO pain medication when able Valium 5mg PO Q6 PRN for muscle spasm Motrin 400 mg PO Q6 PRN for pain and headache -OOB as tolerated -d/c cruz when Ambulating DVT Prophylaxis -TEDs/SCDs only as per surgery FEN -Fluids: LR @ 125 cc/hr -Electrolytes: Phos: 2.2, repleted with Na-K-Phos packet, BMP in AM -Nutrition: Advance to Clear Liquids with bowel regimen, will advance as tolerated Disposition Monitor in the ICU for now Problem List - Problems (1) Chronic back pain Code(s): M54.9 - DORSALGIA, UNSPECIFIED; G89.29 - OTHER CHRONIC PAIN (2) Tachycardia Code(s): R00.0 - TACHYCARDIA, UNSPECIFIED (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
--- NOTE | 2018-04-21 11:06 | PN ---
Progress Note, Physician Chief Complaint: day #2 s/p PLIF - Current Medication List Current Medications: Active Medications Carvedilol (Coreg -) 6.25 mg PO BID [facility] Last Admin: 04/21/18 09:24 Dose: 6.25 mg Dexamethasone Sodium Phosphate (Decadron Injection -) 4 mg IVPUSH ONCE PRN PRN Reason: NAUSEA AND/OR VOMITING Last Admin: 04/20/18 10:48 Dose: 4 mg Diazepam (Valium -) 5 mg PO Q6H PRN PRN Reason: BACK PAIN Stop: 04/23/18 12:32 Last Admin: 04/20/18 14:37 Dose: 5 mg Diphenhydramine HCl (Benadryl Injection -) 12.5 mg IVPUSH ONCE PRN PRN Reason: FOR ITCHING Last Admin: 04/20/18 00:43 Dose: 12.5 mg Docusate Sodium (Colace -) 100 mg PO BID PRN PRN Reason: CONSTIPATION Fentanyl (Sublimaze Injection -) 50 mcg IVPUSH [id number] PRN PRN Reason: PAIN-PACU ORDER X 4 DOSES ONLY Last Admin: 04/19/18 14:30 Dose: 50 mcg Hydromorphone HCl (Dilaudid Alarm Mechanic -) 10 mg VISUAL STYLIST VISUAL STYLIST [facility]; Protocol Stop: 04/26/18 19:59 Lactated Ringer's (Lactated Ringers Solution) 1,000 mls @ 125 mls/hr IV ASDIR [facility] Last Admin: 04/21/18 08:43 Dose: 125 mls/hr Ibuprofen (Motrin -) 400 mg PO Q6H PRN PRN Reason: PAIN LEVEL 6-10 Levothyroxine Sodium (Synthroid -) 150 mcg PO DAILY@0700 [facility] Last Admin: 04/21/18 06:20 Dose: Not Given Metoprolol Tartrate (Lopressor Injection -) 5 mg IVPUSH Q4H PRN PRN Reason: TACHYCARDIA Last Admin: 04/20/18 11:59 Dose: 5 mg Ondansetron HCl (Zofran Injection) 4 mg IVPUSH Q4H PRN PRN Reason: NAUSEA AND/OR VOMITING Promethazine HCl (Phenergan Injection -) 12.5 mg IVPB Q6H PRN PRN Reason: NAUSEA AND/OR VOMITING Last Admin: 04/20/18 12:42 Dose: 12.5 mg Thyroid ([place] Thyroid -) 60 mg PO DAILY RANDAL Last Admin: 04/21/18 09:25 Dose: Not Given - Objective Vital Signs: Vital Signs Temperature 99 F 04/21/18 02:00 Pulse Rate 122 H 04/21/18 08:00 Respiratory Rate 19 04/21/18 08:00 Blood Pressure 123/69 04/21/18 08:00 O2 Sat by Pulse Oximetry (%) 100 04/20/18 22:00 Labs: CBC, BMP 04/21/18 05:30 04/21/18 05:30 INR, PTT INR 1.20 (0.82-1.09) H 04/20/18 05:30 Assessment/Plan Encouraged correct usage of VISUAL STYLIST (she was comfortable, didn't press VISUAL STYLIST until it was too late, then experienced much increased pain resulting in multiple VISUAL STYLIST presses) In addition, will increase demand dose from 0.4mg to 0.6mg; also recommeded one time prn dose of ibuprofen for excessive pain.
[2018-04-21] MEDS: HYDROmorphone *PCA* 10MG/50ML DISP.SYRIN PCA SCH (11:59)
[2018-04-21] MEDS: diazePAM 5 MG TABLET PO PRN ×2 (13:52→21:48)
[2018-04-21] MEDS: PANTOPRAZOLE 20 MG TABLET (FP) PO SCH (14:01)
--- NOTE | 2018-04-21 14:04 | PATH ---
Surgical Pathology Report Patient Name: AUNDREA PLASENCIA [facility]. Rec. #: [id number] /Age/Gender: 1980 (Age: 38) / F Account: [id number] Location: ICU PROFESSOR OF CHEMICAL ENGINEERING Taken: 04/19/2018 Received: 04/20/2018 Reported: 04/21/2018 Physicians: Brant Arana M.D. Specimen(s) Received L4-L5 DISC Clinical History L4-L5 disc Final Diagnosis L4-L5, DISC, LUMBAR INTERBODY FUSION: FRAGMENTS OF INTERVERTEBRAL DISC TISSUE AND BONE. Electronically Signed Raysa Rendon M.D. Gross Description Received in formalin labeled "L4-L5 disc," is a 2.5 x 2.3 x 0.3 cm aggregate of graham fragments of fibrocartilaginous tissue and possible bone. A roofing sales representative portion is submitted in one cassette, following decalcification. /04/20/2018 saudi/04/20/2018
[2018-04-21] MEDS: IBUPROFEN 400 MG TABLET (FP) PO PRN (21:48)
[2018-04-22] MEDS: HYDROmorphone *PCA* 10MG/50ML DISP.SYRIN PCA SCH ×2 (01:58→14:10)
[2018-04-22] MEDS ORDERED: KETOROLAC TROMETHAMINE 30 MG/1 ML VIAL IVPUSH ONE ×2 (02:03→10:00)
[2018-04-22] MEDS: LACTATED RINGERS SOLUTION 1,000 ML IV SCH ×2 (02:11→05:56)
[2018-04-22] MEDS ORDERED: PT OWN MED DRAWER 7, Y5N ONE ×2 (06:19→06:33)
[2018-04-22 06:25] LABS: BASO % 0.2 % (0-2.0); EOS % 1.2 % (0-4.5); HEMATOCRIT 27.8 % (32.4-45.2); HEMOGLOBIN 9.5 GM/dL (10.7-15.3); LYMPH % 18.3 % (8-40); MCH 30.1 pg (25.7-33.7); MCHC 34.4 g/dl (32.0-36.0); MEAN CELL VOLUME 87.7 fl (80-96); MEAN PLT VOLUME 7.9 fl (7.5-11.1); MONO % 8.2 % (3.8-10.2); NEUT % 72.1 % (42.8-82.8); PLATELET COUNT 259 K/MM3 (134-434); RBC 3.17 M/mm3 (3.60-5.2); RDW 13.1 % (11.6-15.6); WHITE BLOOD COUNT 9.2 K/mm3 (4.0-10.0)
[2018-04-22] MEDS: diazePAM 5 MG TABLET PO PRN ×3 (06:28→21:04)
[2018-04-22] MEDS: LEVOTHYROXINE 150 MCG PO SCH (06:29)
[2018-04-22] MEDS: IBUPROFEN 400 MG TABLET (FP) PO PRN ×3 (06:29→21:04)
[2018-04-22] MEDS: THYROID 60 MG TABLET PO SCH ×2 (06:29→09:23)
[2018-04-22 06:53] LABS: ALBUMIN 2.5 g/dl (3.4-5.0); ANION GAP 6 (8-16); BLOOD UREA NITROGEN 10 mg/dL (7-18); CALCIUM 7.9 mg/dL (8.5-10.1); CHLORIDE 102 mmol/L (98-107); CO2 32 mmol/L (21-32); CREATININE 0.5 mg/dL (0.55-1.02); GLUCOSE,RANDOM 87 mg/dL (74-106); MAGNESIUM 1.8 mg/dL (1.8-2.4); PHOSPHOROUS 2.8 mg/dL (2.5-4.9); POTASSIUM 3.7 mmol/L (3.5-5.1); SGOT/AST 23 U/L (15-37); SGPT/ALT 24 U/L (12-78); SODIUM 140 mmol/L (136-145)
[2018-04-22 06:55] LABS: ALK PHOS 56 U/L (45-117); BILIRUBIN,TOTAL 0.3 mg/dL (0.2-1.0); TOT PROT 5.2 g/dl (6.4-8.2)
[2018-04-22] MEDS ORDERED: KETOROLAC TROMETHAMINE 15 MG/ML VIAL IVPUSH ONE (09:00)
[2018-04-22] MEDS ORDERED: MAGNESIUM OXIDE 400 MG TABLET (FP) PO ONE (09:00)
[2018-04-22] MEDS ORDERED: POTASSIUM CHLORIDE TABS 10 MEQ TABLET.ER (FP) PO ONE (09:15)
[2018-04-22] MEDS ORDERED: NAPH,MB-DB/K PH,MBDB POWDER PACKET PO ONE (09:15)
[2018-04-22] MEDS: PANTOPRAZOLE 20 MG TABLET (FP) PO SCH (09:23)
[2018-04-22] MEDS: CARVEDILOL 6.25 MG TABLET (FP) PO SCH ×2 (09:23→21:04)
[2018-04-22] MEDS: oxyCODONE HCL 5 MG TABLET PO PRN ×3 (11:23→23:11)
--- NOTE | 2018-04-22 11:50 | PN ---
Teaching Attending Note Name of Resident: Jamie Rubio ATTENDING PHYSICIAN STATEMENT I saw and evaluated the patient. I reviewed the resident's note and discussed the case with the resident. I agree with the resident's findings and plan as documented. SUBJECTIVE: Patient seen and examined in the ICU. Still reports significant pain. Denies CP or SOB. No nausea or vomiting. She was positioned on her side and the surgical site was inspected. The dressing appeared dry and clean without areas of oozing or obvious fluid collection. Intake & Output 04/19/18 04/20/18 04/21/18 04/22/18 23:59 23:59 23:59 23:59 Intake Total 4032 2000 3658 1980 Output Total 4550 1400 1300 1300 Balance -215 115 3555 680 Weight 297 lb 3.2 oz 215 lb 298 lb Last Vital Signs Temp Pulse Resp BP Pulse Ox 98.6 F 102 H 18 124/79 98 04/22/18 08:00 04/22/18 10:00 04/22/18 10:00 04/22/18 10:00 04/22/18 10:00 Home Medication List Medication Instructions Recorded Confirmed Type Carvedilol 6.25 mg PO BID 04/09/18 04/22/18 History Cyclobenzaprine HCl 10 mg PO DAILY 04/09/18 04/22/18 History Ibuprofen 600 mg PO TID PRN 04/09/18 04/22/18 History Levothyroxine [Synthroid -] 150 mcg PO DAILY 04/09/18 04/19/18 History Lorazepam 1 mg PO BID 04/09/18 04/22/18 History Omeprazole 40 mg PO DAILY 04/09/18 04/19/18 History Oxycodone HCl [Oxaydo] 7.5 mg PO PRN PRN 04/09/18 04/22/18 History Thyroid,Pork [[place] Thyroid] 60 mg PO DAILY 04/09/18 04/19/18 History Aspirin [ASA -] 81 mg PO DAILY 04/19/18 04/22/18 History Ferrous Sulfate 325 mg PO DAILY 04/19/18 04/22/18 History Hydrochlorothiazide [Hctz -] 12.5 mg PO DAILY 04/19/18 04/22/18 History Levothyroxine [Synthroid -] 150 mcg PO DAILY 04/19/18 04/22/18 History Montelukast Sodium [Singulair] 10 mg PO HS 04/19/18 04/22/18 History Ranitidine [Zantac -] 150 mg PO BID 04/19/18 04/22/18 History Active Medications Generic Name Dose Route Start Last Admin Trade Name Ramírezq PRN Reason Stop Dose Admin Carvedilol 6.25 mg 04/19/18 22:00 04/22/18 09:23 Coreg - PO 6.25 mg BID RANDAL Administration Dexamethasone Sodium Phosphate 4 mg 04/19/18 14:23 04/20/18 10:48 Decadron Injection - IVPUSH 4 mg ONCE PRN Administration NAUSEA AND/OR VOMITING Diazepam 5 mg 04/20/18 12:31 04/22/18 06:28 Valium - PO 04/23/18 12:32 5 mg Q6H PRN Administration BACK PAIN Diphenhydramine HCl 12.5 mg 04/19/18 14:23 04/20/18 00:43 Benadryl Injection - IVPUSH 12.5 mg ONCE PRN Administration FOR ITCHING Docusate Sodium 100 mg 04/21/18 10:45 04/21/18 13:29 Colace - PO 100 mg BID PRN Administration CONSTIPATION Fentanyl 50 mcg 04/19/18 14:23 04/19/18 14:30 Sublimaze Injection - IVPUSH 50 mcg [id number] PRN Administration PAIN-PACU ORDER X 4 DOSES ONLY Hydromorphone HCl 10 mg 04/21/18 10:58 04/22/18 01:58 Dilaudid Garage Door Technician - TESTER WASTE DISPOSAL LEAKAGE 04/26/18 19:59 10 mg TESTER WASTE DISPOSAL LEAKAGE RANDAL Administration Protocol Lactated Ringer's 1,000 mls @ 125 mls/hr 04/19/18 14:30 04/22/18 05:56 Lactated Ringers Solution IV Not Given ASDIR RANDAL Ibuprofen 400 mg 04/21/18 10:55 04/22/18 06:29 Motrin - PO 400 mg Q6H PRN Administration PAIN LEVEL 6-10 Metoprolol Tartrate 5 mg 04/20/18 11:29 04/20/18 11:59 Lopressor Injection - IVPUSH 5 mg Q4H PRN Administration TACHYCARDIA Non-Formulary Med_Pt 150 each 04/22/18 07:00 04/22/18 06:29 Own Med_Synthroid PO 150 each 150 Mcg Tab) DAILY@0700 RANDAL Administration Ondansetron HCl 4 mg 04/19/18 14:23 Zofran Injection IVPUSH Q4H PRN NAUSEA AND/OR VOMITING Oxycodone HCl 10 mg 04/22/18 08:00 04/22/18 11:23 Roxicodone - PO 10 mg Q4H PRN Administration PAIN LEVEL 6-10 Pantoprazole Sodium 20 mg 04/21/18 14:00 04/22/18 09:23 Protonix - PO 20 mg DAILY RANDAL Administration Promethazine HCl 12.5 mg 04/19/18 14:23 04/20/18 12:42 Phenergan Injection - IVPB 12.5 mg Q6H PRN Administration NAUSEA AND/OR VOMITING Thyroid 60 mg 04/21/18 05:59 04/22/18 09:23 [place] Thyroid - PO Not Given DAILY RANDAL GENERAL: Awake and alert, uncomfortable due to pain HEAD: Normal with no signs of trauma. EYES: sclera anicteric, conjunctiva clear. No lid lag. EARS, NOSE, THROAT: Ears normal, nares patent, oropharynx clear without exudates. Moist mucous membranes. NECK: supple without lymphadenopathy, JVD, or masses. LUNGS: clear to auscultation bilaterally. No wheezes, and no crackles. No accessory muscle use. HEART: Tachycardic with regular rhythm. No murmur, rub or gallop. ABDOMEN: Obese, Soft, nontender, not distended, (+) bowel sounds, no guarding, no rebound, no masses. MUSCULOSKELETAL: No bony deformities or tenderness. No CVA tenderness. UPPER EXTREMITIES: 2+ pulses, warm, well-perfused. No cyanosis. No clubbing. Cap refill <2 seconds. No peripheral edema. LOWER EXTREMITIES: 2+ pulses, warm, well-perfused. No calf tenderness. No peripheral edema. NEUROLOGICAL: Non-focal SKIN: Warm, dry, normal turgor, no rashes or lesions noted. Laboratory Results - last 24 hr 04/22/18 04/22/18 05:30 05:30 WBC 9.2 RBC 3.17 L Hgb 9.5 L Hct 27.8 L MCV 87.7 MCH 30.1 MCHC 34.4 RDW 13.1 Plt Count 259 MPV 7.9 Absolute Neuts (auto) 6.6 Neutrophils % 72.1 Lymphocytes % 18.3 D Monocytes % 8.2 Eosinophils % 1.2 D Basophils % 0.2 Nucleated RBC % 0 Sodium 140 Potassium 3.7 Chloride 102 Carbon Dioxide 32 Anion Gap 6 L BUN 10 Creatinine 0.5 L Creat Clearance w eGFR > 60 Random Glucose 87 Calcium 7.9 L Phosphorus 2.8 Magnesium 1.8 Total Bilirubin 0.3 AST 23 ALT 24 Alkaline Phosphatase 56 Total Protein 5.2 L Albumin 2.5 L ASSESSMENT/PLAN: POD #3: L4-S1 laminectomy, L4-L5 PLIF, L3-S1 PISF. 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
--- NOTE | 2018-04-22 12:37 | PN ---
Physical Exam: SUBJECTIVE: Patient seen and examined in the ICU. Pt still complaining of severe pain in her lower back. She is asking for something else to eat other than full liquid diet, though she is presently nauseous, holding a basin. I discussed her pain control with surgeon, and it was decided to give a one time dose of toradol and add PO pain meds. Pt seems to be slightly more comfortable and even tolerated turning to check dressing. OBJECTIVE: Vital Signs Period Temp Pulse Resp BP Sys/Donnelly Pulse Ox Last 24 Hr 98.1 F-99.2 F 97-114 10-22 96-165/48-92 98-98 GENERAL: Awake, in no acute distress. HEAD: Normal with no signs of trauma. EYES: sclera anicteric, conjunctiva clear. No lid lag. EARS, NOSE, THROAT: Ears normal, nares patent, oropharynx clear without exudates. Moist mucous membranes. NECK: supple without lymphadenopathy, JVD, or masses. LUNGS: Breath sounds equal, clear to auscultation bilaterally. No wheezes, and no crackles. No accessory muscle use. HEART: Tachycardic with regular rhythm, normal S1 and S2 without murmur, rub or gallop. ABDOMEN: Obese, Soft, nontender, not distended, hypoactive bowel sounds, no guarding, no rebound, no masses. MUSCULOSKELETAL: No bony deformities or tenderness. No CVA tenderness. UPPER EXTREMITIES: warm, well-perfused. No cyanosis. No clubbing. Cap refill <2 seconds. No peripheral edema. LOWER EXTREMITIES: warm, well-perfused. No calf tenderness. No peripheral edema. NEUROLOGICAL: Cranial nerves II-XII grossly intact. Normal gait. SKIN: Warm, dry, normal turgor, no rashes or lesions noted. Laboratory Results - last 24 hr 04/22/18 04/22/18 05:30 05:30 WBC 9.2 RBC 3.17 L Hgb 9.5 L Hct 27.8 L MCV 87.7 MCH 30.1 MCHC 34.4 RDW 13.1 Plt Count 259 MPV 7.9 Absolute Neuts (auto) 6.6 Neutrophils % 72.1 Lymphocytes % 18.3 D Monocytes % 8.2 Eosinophils % 1.2 D Basophils % 0.2 Nucleated RBC % 0 Sodium 140 Potassium 3.7 Chloride 102 Carbon Dioxide 32 Anion Gap 6 L BUN 10 Creatinine 0.5 L Creat Clearance w eGFR > 60 Random Glucose 87 Calcium 7.9 L Phosphorus 2.8 Magnesium 1.8 Total Bilirubin 0.3 AST 23 ALT 24 Alkaline Phosphatase 56 Total Protein 5.2 L Albumin 2.5 L Active Medications Generic Name Dose Route Start Last Admin Trade Name Freq PRN Reason Stop Dose Admin Carvedilol 6.25 mg 04/19/18 22:00 04/22/18 09:23 Coreg - PO 6.25 mg BID RANDAL Administration Dexamethasone Sodium Phosphate 4 mg 04/19/18 14:23 04/20/18 10:48 Decadron Injection - IVPUSH 4 mg ONCE PRN Administration NAUSEA AND/OR VOMITING Diazepam 5 mg 04/20/18 12:31 04/22/18 06:28 Valium - PO 04/23/18 12:32 5 mg Q6H PRN Administration BACK PAIN Diphenhydramine HCl 12.5 mg 04/19/18 14:23 04/20/18 00:43 Benadryl Injection - IVPUSH 12.5 mg ONCE PRN Administration FOR ITCHING Docusate Sodium 100 mg 04/21/18 10:45 04/21/18 13:29 Colace - PO 100 mg BID PRN Administration CONSTIPATION Fentanyl 50 mcg 04/19/18 14:23 04/19/18 14:30 Sublimaze Injection - IVPUSH 50 mcg [id number] PRN Administration PAIN-PACU ORDER X 4 DOSES ONLY Hydromorphone HCl 10 mg 04/21/18 10:58 04/22/18 01:58 Dilaudid Service Center Specialist - ECONOMIC GEOGRAPHER 04/26/18 19:59 10 mg ECONOMIC GEOGRAPHER RANDAL Administration Protocol Lactated Ringer's 1,000 mls @ 125 mls/hr 04/19/18 14:30 04/22/18 05:56 Lactated Ringers Solution IV Not Given ASDIR RANDAL Ibuprofen 400 mg 04/21/18 10:55 04/22/18 06:29 Motrin - PO 400 mg Q6H PRN Administration PAIN LEVEL 6-10 Metoprolol Tartrate 5 mg 04/20/18 11:29 04/20/18 11:59 Lopressor Injection - IVPUSH 5 mg Q4H PRN Administration TACHYCARDIA Non-Formulary Med_Pt 150 each 04/22/18 07:00 04/22/18 06:29 Own Med_Synthroid PO 150 each 150 Mcg Tab) DAILY@0700 RANDAL Administration Ondansetron HCl 4 mg 04/19/18 14:23 Zofran Injection IVPUSH Q4H PRN NAUSEA AND/OR VOMITING Oxycodone HCl 10 mg 04/22/18 08:00 04/22/18 11:23 Roxicodone - PO 10 mg Q4H PRN Administration PAIN LEVEL 6-10 Pantoprazole Sodium 20 mg 04/21/18 14:00 04/22/18 09:23 Protonix - PO 20 mg DAILY RANDAL Administration Promethazine HCl 12.5 mg 04/19/18 14:23 04/20/18 12:42 Phenergan Injection - IVPB 12.5 mg Q6H PRN Administration NAUSEA AND/OR VOMITING Thyroid 60 mg 04/21/18 05:59 04/22/18 09:[address] [place] [address] [place] Thyroid - PO Not Given DAILY RANDAL ASSESSMENT/PLAN: 38 yo Female admitted to the ICU s/p L4-S1 laminectomy, L4-L5 PLIF, L3-S1 PISF. Post-op day 3 Neuro -post-op day 3 -No neuro deficits Cardio -Rapid heart rate reported intra-op Coreg 6.25 mg PO BID Lopressor 5 mg Q4 PRN Tachycardia states she has seen cardiology in the past and elevated HR is most likely due to thyroid condition Respiratory -No known respiratory problems -Incentive spirometry to decrease risk of post-op atelectasis/pneumonia GI -Full liquids, will advance as tolerated -Colace 100 mg PO TID RANDAL -Zofran and Promethazine PRN for nausea/vomiting Endocrine -Hx Hypothyroidism - pt requires brand only, generics have been ineffective in the past Synthroid 150mcg PO Daily [place] Thyroid 60 mg PO Daily Post-op Management -Pain control: ECONOMIC GEOGRAPHER as per anesthesia, 0.6 per bolus Will monitor pain and switch to PO pain medication when able Valium 5mg PO Q6 PRN for muscle spasm Motrin 400 mg PO Q6 PRN for pain and headache Oxocodone 10mg PO Q4 PRN as per surgeon Toradol 15mg IV once -OOB as tolerated -d/c cruz when Ambulating DVT Prophylaxis -TEDs/SCDs only as per surgery FEN -Fluids: LR @ 75 cc/hr -Electrolytes: Phos: 2.8, Mg 1.8, K: 3.7, repleted. 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 - New Patient This patient is new to me today: No - Critical Care Critical Care patient: Yes Total Critical Care Time (in minutes): 45 Critical Care Statement: The care of this patient involved high complexity decision making to prevent further life threatening deterioration of the patient 's condition and/or to evaluate & treat vital organ system(s) failure or risk of failure.
[2018-04-22] MEDS ORDERED: LACTATED RINGERS SOLUTION 1,000 ML IV SCH (13:00)
[2018-04-22] MEDS: DOCUSATE SODIUM 100 MG CAPSULE (FP) PO SCH ×3 (13:48→21:04)
--- NOTE | 2018-04-22 18:49 | PN ---
Physical Exam: SUBJECTIVE: Patient seen and examined at bedside. Pain 5-6/10. Feels better since eating regular food. Anxious about cruz being taken out tonight, fearful she will not be able to get to the bathroom. present, adamant cruz not be taken out. OBJECTIVE: Vital Signs Period Temp Pulse Resp BP Sys/Donnelly Pulse Ox Last 24 Hr 98.5 F-99.2 F 94-114 10-22 96-165/48-92 98-98 GENERAL: The patient is awake, alert, and fully oriented, in no acute distress. LUNGS: Breath sounds equal, clear to auscultation bilaterally, no wheezes, no crackles, no accessory muscle use. HEART: Regular rate and rhythm, S1, S2 without murmur, rub or gallop. ABDOMEN: Soft, nontender, nondistended, normoactive bowel sounds EXTREMITIES: 2+ pulses, warm, well-perfused, no edema. SCDs/TEDs NEUROLOGICAL: Cranial nerves II through XII grossly intact. Normal speech. PSYCH: Normal mood, normal affect. SKIN: Warm, dry, normal turgor; patient refused to be rolled to look at surgical dressing but was seen earlier today by ICU team Laboratory Results - last 24 hr 04/22/18 04/22/18 05:30 05:30 WBC 9.2 RBC 3.17 L Hgb 9.5 L Hct 27.8 L MCV 87.7 MCH 30.1 MCHC 34.4 RDW 13.1 Plt Count 259 MPV 7.9 Absolute Neuts (auto) 6.6 Neutrophils % 72.1 Lymphocytes % 18.3 D Monocytes % 8.2 Eosinophils % 1.2 D Basophils % 0.2 Nucleated RBC % 0 Sodium 140 Potassium 3.7 Chloride 102 Carbon Dioxide 32 Anion Gap 6 L BUN 10 Creatinine 0.5 L Creat Clearance w eGFR > 60 Random Glucose 87 Calcium 7.9 L Phosphorus 2.8 Magnesium 1.8 Total Bilirubin 0.3 AST 23 ALT 24 Alkaline Phosphatase 56 Total Protein 5.2 L Albumin 2.5 L Active Medications Generic Name Dose Route Start Last Admin Trade Name Freq PRN Reason Stop Dose Admin Carvedilol 6.25 mg 04/19/18 22:00 04/22/18 09:23 Coreg - PO 6.25 mg BID RANDAL Administration Dexamethasone Sodium Phosphate 4 mg 04/19/18 14:23 04/20/18 10:48 Decadron Injection - IVPUSH 4 mg ONCE PRN Administration NAUSEA AND/OR VOMITING Diazepam 5 mg 04/20/18 12:31 04/22/18 13:48 Valium - PO 04/23/18 12:32 5 mg Q6H PRN Administration BACK PAIN Diphenhydramine HCl 12.5 mg 04/19/18 14:23 04/20/18 00:43 Benadryl Injection - IVPUSH 12.5 mg ONCE PRN Administration FOR ITCHING Docusate Sodium 100 mg 04/22/18 13:00 04/22/18 14:00 Colace - PO Not Given TID RANDAL Fentanyl 50 mcg 04/19/18 14:23 04/19/18 14:30 Sublimaze Injection - IVPUSH 50 mcg [id number] PRN Administration PAIN-PACU ORDER X 4 DOSES ONLY Hydromorphone HCl 10 mg 04/21/18 10:58 04/22/18 14:10 Dilaudid Needle Loom Weaver - ROOM DESIGNER 04/26/18 19:59 10 mg ROOM DESIGNER RANDAL Administration Protocol Lactated Ringer's 1,000 mls @ 75 mls/hr 04/22/18 13:00 04/22/18 13:48 Lactated Ringers Solution IV 75 mls/hr ASDIR RANDAL Administration Ibuprofen 400 mg 04/21/18 10:55 04/22/18 13:48 Motrin - PO 400 mg Q6H PRN Administration PAIN LEVEL 6-10 Metoprolol Tartrate 5 mg 04/20/18 11:29 04/20/18 11:59 Lopressor Injection - IVPUSH 5 mg Q4H PRN Administration TACHYCARDIA Non-Formulary Med_Pt 150 each 04/22/18 07:00 04/22/18 06:29 Own Med_Synthroid PO 150 each 150 Mcg Tab) DAILY@0700 RANDAL Administration Ondansetron HCl 4 mg 04/19/18 14:23 Zofran Injection IVPUSH Q4H PRN NAUSEA AND/OR VOMITING Oxycodone HCl 10 mg 04/22/18 08:00 04/22/18 18:22 Roxicodone - PO 10 mg Q4H PRN Administration PAIN LEVEL 6-10 Pantoprazole Sodium 20 mg 04/21/18 14:00 04/22/18 09:23 Protonix - PO 20 mg DAILY RANDAL Administration Promethazine HCl 12.5 mg 04/19/18 14:23 04/20/18 12:42 Phenergan Injection - IVPB 12.5 mg Q6H PRN Administration NAUSEA AND/OR VOMITING Thyroid 60 mg 04/21/18 05:59 04/22/18 09:23 [place] Thyroid - PO Not Given DAILY RANDAL ASSESSMENT/PLAN 38 year-old female with a PMH significant for DDD, morbid obesity, and hypothyrodism. s/p L4-S1 laminectomies, L4-L5 PLIF, L3-S1 PISF 04/19 --POD #3 --pain reasonably well-managed, ROOM DESIGNER and PO meds --did well today with PT, walked around unit, passed flatus --refusing cruz being d/c tonight; d/c in am --no BM since surgery; miralax, colace, bisocodyl supp daily PRN DVT prophylaxis: mechanical only Visit type - Emergency Visit Emergency Visit: Yes ED Registration Date: 04/19/18 Care time: The patient presented to the Emergency Department on the above date and was hospitalized for further evaluation of their emergent condition. - New Patient This patient is new to me today: Yes Date on this admission: 04/24/18 - Critical Care Critical Care patient: Yes Total Critical Care Time (in minutes): 35 Critical Care Statement: The care of this patient involved high complexity decision making to prevent further life threatening deterioration of the patient 's condition and/or to evaluate & treat vital organ system(s) failure or risk of failure.
[2018-04-22] MEDS ORDERED: DOCUSATE SODIUM 100 MG CAPSULE (FP) PO SCH (22:00)
[2018-04-22] MEDS ORDERED: BISACODYL 10 MG SUPP.RECT RC PRN (22:36)
[2018-04-22] MEDS: POLYETHYLENE GLYCOL 3350 119 GM BTL PO SCH (23:23)
[2018-04-23] MEDS: oxyCODONE HCL 5 MG TABLET PO PRN ×3 (05:19→21:41)
[2018-04-23] MEDS: HYDROmorphone *PCA* 10MG/50ML DISP.SYRIN PCA SCH ×3 (05:20→22:09)
[2018-04-23] MEDS ORDERED: PT OWN MED DRAWER 7, Y5N ONE ×3 (05:28→16:46)
[2018-04-23 06:14] LABS: BASO % 0.5 % (0-2.0); EOS % 2.4 % (0-4.5); HEMATOCRIT 26.3 % (32.4-45.2); HEMOGLOBIN 9.1 GM/dL (10.7-15.3); MCH 30.3 pg (25.7-33.7); MCHC 34.6 g/dl (32.0-36.0); MEAN CELL VOLUME 87.6 fl (80-96); MEAN PLT VOLUME 7.3 fl (7.5-11.1); MONO % 8.4 % (3.8-10.2); NEUT % 64.7 % (42.8-82.8); PLATELET COUNT 292 K/MM3 (134-434); RDW 13.2 % (11.6-15.6); WHITE BLOOD COUNT 7.6 K/mm3 (4.0-10.0)
[2018-04-23] MEDS: LEVOTHYROXINE 150 MCG PO SCH (06:22)
[2018-04-23] MEDS: THYROID 60 MG TABLET PO SCH ×2 (06:22→11:21)
[2018-04-23 06:50] LABS: ALBUMIN 2.4 g/dl (3.4-5.0); ALK PHOS 54 U/L (45-117); ANION GAP 6 (8-16); BILIRUBIN,TOTAL 0.3 mg/dL (0.2-1.0); BLOOD UREA NITROGEN 10 mg/dL (7-18); CALCIUM 7.6 mg/dL (8.5-10.1); CHLORIDE 104 mmol/L (98-107); CO2 30 mmol/L (21-32); CREATININE 0.5 mg/dL (0.55-1.02); GLUCOSE,RANDOM 91 mg/dL (74-106); MAGNESIUM 1.8 mg/dL (1.8-2.4); PHOSPHOROUS 4.2 mg/dL (2.5-4.9); POTASSIUM 3.8 mmol/L (3.5-5.1); SGOT/AST 24 U/L (15-37); SGPT/ALT 23 U/L (12-78); SODIUM 140 mmol/L (136-145); TOT PROT 5.1 g/dl (6.4-8.2)
[2018-04-23] MEDS ORDERED: diazePAM 5 MG TABLET PO PRN (07:31)
[2018-04-23] MEDS: IBUPROFEN 400 MG TABLET (FP) PO PRN (09:19)
[2018-04-23] MEDS: PANTOPRAZOLE 20 MG TABLET (FP) PO SCH (09:20)
[2018-04-23] MEDS: CARVEDILOL 6.25 MG TABLET (FP) PO SCH ×2 (09:20→21:36)
[2018-04-23] MEDS: POLYETHYLENE GLYCOL 3350 119 GM BTL PO SCH ×2 (09:23→21:35)
--- NOTE | 2018-04-23 09:28 | PN ---
Progress Note (short form) - Note Progress Note: Subjective: The patient was seen and examined at the bedside, she reports when she doesn't move her pain is a 6/10, when she moves it goes up to a 7/10 Lan catheter removed at 6am today Remains on PILE DRIVING SUPERVISOR Current Medications Generic Name Dose Route Start Last Admin Trade Name Freq PRN Reason Stop Dose Admin Bisacodyl 10 mg 04/22/18 22:36 Dulcolax Suppository - RC DAILY PRN CONSTIPATION Carvedilol 6.25 mg 04/19/18 22:00 04/23/18 09:20 Coreg - PO 6.25 mg BID RANDAL Administration Diazepam 5 mg 04/23/18 07:31 Valium - PO Q6H PRN WITHDRAWAL(CONT SUBST) Docusate Sodium 300 mg 04/22/18 22:00 04/22/18 22:42 Colace - PO Not Given HS RANDAL Hydromorphone HCl 10 mg 04/21/18 10:58 04/23/18 05:20 Dilaudid Block[place] - PILE DRIVING SUPERVISOR 04/26/18 19:59 10 mg PILE DRIVING SUPERVISOR RANDAL Administration Protocol Ibuprofen 400 mg 04/21/18 10:55 04/23/18 09:19 Motrin - PO 400 mg Q6H PRN Administration PAIN LEVEL 6-10 Non-Formulary Med_Pt 150 each 04/22/18 07:00 04/23/18 06:22 Own Med_Synthroid PO 150 each 150 Mcg Tab) DAILY@0700 RANDAL Administration Oxycodone HCl 10 mg 04/22/18 08:00 04/23/18 05:19 Roxicodone - PO 10 mg Q4H PRN Administration PAIN LEVEL 6-10 Pantoprazole Sodium 20 mg 04/21/18 14:00 04/23/18 09:20 Protonix - PO 20 mg DAILY RANDAL Administration Polyethylene Glycol 17 gm 04/22/18 22:45 04/23/18 09:23 Miralax (For Daily Use) - PO 17 grams BID RANDAL Administration Thyroid 60 mg 04/21/18 05:59 04/23/18 06:22 [place] Thyroid - PO 60 mg DAILY RANDAL Administration Objective: Vital Signs Period Temp Pulse Resp BP Sys/Donnelly Pulse Ox Last 24 Hr 98 F-99.2 F 92-112 11-18 90-144/45-79 98-98 Physical Exam: General: NAD, A&Ox3 Lungs: CTA bilaterally Heart: RRR, S1S2 Abd: Soft, non-tender, non-distended. Normoactive bowel sounds Ext: Warm, well-perfused. 2+ DP/PT bilaterally CBCD WBC 7.6 K/mm3 (4.0-10.0) 04/23/18 05:30 RBC 3.00 M/mm3 (3.60-5.2) L 04/23/18 05:30 Hgb 9.1 GM/dL (10.7-15.3) L 04/23/18 05:30 Hct 26.3 % (32.4-45.2) L 04/23/18 05:30 MCV 87.6 fl (80-96) 04/23/18 05:30 MCHC 34.6 g/dl (32.0-36.0) 04/23/18 05:30 RDW 13.2 % (11.6-15.6) 04/23/18 05:30 Plt Count 292 K/MM3 (134-434) 04/23/18 05:30 MPV 7.3 fl (7.5-11.1) L 04/23/18 05:30 CMP Sodium 140 mmol/L (136-145) 04/23/18 05:30 Potassium 3.8 mmol/L (3.5-5.1) 04/23/18 05:30 Chloride 104 mmol/L (98-107) 04/23/18 05:30 Carbon Dioxide 30 mmol/L (21-32) 04/23/18 05:30 Anion Gap 6 (8-16) L 04/23/18 05:30 BUN 10 mg/dL (7-18) 04/23/18 05:30 Creatinine 0.5 mg/dL (0.55-1.02) L 04/23/18 05:30 Creat Clearance w eGFR > 60 (>60) 04/23/18 05:30 Random Glucose 91 mg/dL (74-106) 04/23/18 05:30 Calcium 7.6 mg/dL (8.5-10.1) L 04/23/18 05:30 Total Bilirubin 0.3 mg/dL (0.2-1.0) 04/23/18 05:30 AST 24 U/L (15-37) 04/23/18 05:30 ALT 23 U/L (12-78) 04/23/18 05:30 Alkaline Phosphatase 54 U/L (45-117) 04/23/18 05:30 Total Protein 5.1 g/dl (6.4-8.2) L 04/23/18 05:30 Albumin 2.4 g/dl (3.4-5.0) L 04/23/18 05:30 Microbiology 04/19/18 15:00 Urine - Urine Lan Urine Culture - Final NO GROWTH OBTAINED Assessment: This is a 38 year old female with PMHx DDD, morbid obesity, hypothyroidism who is s/p L4-S1 laminectomies, L4-L5 PLIF, L3-S1 PISF 04/19 Plan: 1) L4-S1 laminectomies, L4-L5 PLIF, L3-S1 PISF 04/19 - Continue on PILE DRIVING SUPERVISOR per anesthesia - Lan catheter removed this morning - PT: 80ft yesterday - Bowel regimen - Appreciate surgery consult 2) Hypothyroidism - Continue Thyroid 3) F/E/N: - Soft diet - Monitor electrolytes 4) Prophylaxis: - PT - Mechanical DVT prophylaxis only CODE STATUS: FULL CODE Visit type - Emergency Visit Emergency Visit: Yes ED Registration Date: 04/19/18 Care time: The patient presented to the Emergency Department on the above date and was hospitalized for further evaluation of their emergent condition. - New Patient This patient is new to me today: Yes Date on this admission: 04/23/18 - Critical Care Critical Care patient: No
--- NOTE | 2018-04-23 11:12 | PN ---
Teaching Attending Note Name of Resident: Jamie Rubio ATTENDING PHYSICIAN STATEMENT I saw and evaluated the patient. I reviewed the resident's note and discussed the case with the resident. I agree with the resident's findings and plan as documented. SUBJECTIVE: Patient seen and examined in the ICU. Still reports significant pain, but appears better overall. Denies CP or SOB. Noted to desaturate to mid 80's during sleep -> related to undiagnosed OSAS. No nausea or vomiting. Seen by surgery today. Intake & Output 04/20/18 04/21/18 04/22/18 04/23/18 23:59 23:59 23:59 23:59 Intake Total 1999 3658 4310 1025 Output Total 1400 1300 2050 1650 Balance 600 2358 2260 -625 Weight 297 lb 3.2 oz 215 lb 298 lb Last Vital Signs Temp Pulse Resp BP Pulse Ox 98.3 F 103 H 18 109/65 98 04/23/18 02:00 04/23/18 06:00 04/23/18 06:00 04/23/18 06:00 04/22/18 23:00 Active Medications Bisacodyl (Dulcolax Suppository -) 10 mg RC DAILY PRN PRN Reason: CONSTIPATION Carvedilol (Coreg -) 6.25 mg PO BID [facility] Last Admin: 04/23/18 09:20 Dose: 6.25 mg Diazepam (Valium -) 5 mg PO Q6H PRN PRN Reason: WITHDRAWAL(CONT SUBST) Docusate Sodium (Colace -) 300 mg PO [facility] Last Admin: 04/22/18 22:42 Dose: Not Given Hydromorphone HCl (Dilaudid Mental Health Technician -) 10 mg CARDIAC EXERCISE SPECIALIST CARDIAC EXERCISE SPECIALIST [facility]; Protocol Stop: 04/26/18 19:59 Last Admin: 04/23/18 05:20 Dose: 10 mg Ibuprofen (Motrin -) 400 mg PO Q6H PRN PRN Reason: PAIN LEVEL 6-10 Last Admin: 04/23/18 09:19 Dose: 400 mg Non-Formulary Med_Pt Own Med_Synthroid 150 Mcg Tab) 150 each PO DAILY@0700 [facility] Last Admin: 04/23/18 06:22 Dose: 150 each Oxycodone HCl (Roxicodone -) 10 mg PO Q4H PRN PRN Reason: PAIN LEVEL 6-10 Last Admin: 04/23/18 05:19 Dose: 10 mg Pantoprazole Sodium (Protonix -) 20 mg PO DAILY [facility] Last Admin: 04/23/18 09:20 Dose: 20 mg Polyethylene Glycol (Miralax (For Daily Use) -) 17 gm PO BID [facility] Last Admin: 04/23/18 09:23 Dose: 17 grams Thyroid ([place] Thyroid -) 60 mg PO DAILY [facility] Last Admin: 04/23/18 06:22 Dose: 60 mg GENERAL: Awake and alert, mildly uncomfortable due to pain HEAD: Normal with no signs of trauma. EYES: sclera anicteric, conjunctiva clear. No lid lag. EARS, NOSE, THROAT: Ears normal, nares patent, oropharynx clear without exudates. Moist mucous membranes. NECK: supple without lymphadenopathy, JVD, or masses. LUNGS: clear to auscultation bilaterally. No wheezes, and no crackles. No accessory muscle use. HEART: Tachycardic with regular rhythm. No murmur, rub or gallop. ABDOMEN: Obese, Soft, nontender, not distended, (+) bowel sounds, no guarding, no rebound, no masses. MUSCULOSKELETAL: No bony deformities or tenderness. No CVA tenderness. UPPER EXTREMITIES: 2+ pulses, warm, well-perfused. No cyanosis. No clubbing. Cap refill <2 seconds. No peripheral edema. LOWER EXTREMITIES: 2+ pulses, warm, well-perfused. No calf tenderness. No peripheral edema. NEUROLOGICAL: Non-focal SKIN: Warm, dry, normal turgor, no rashes or lesions noted. Laboratory Results - last 24 hr 04/23/18 04/23/18 05:30 05:30 WBC 7.6 RBC 3.00 L Hgb 9.1 L Hct 26.3 L MCV 87.6 MCH 30.3 MCHC 34.6 RDW 13.2 Plt Count 292 MPV 7.3 L Absolute Neuts (auto) 4.9 Neutrophils % 64.7 Lymphocytes % 24.0 D Monocytes % 8.4 Eosinophils % 2.4 D Basophils % 0.5 Nucleated RBC % 0 Sodium 140 Potassium 3.8 Chloride 104 Carbon Dioxide 30 Anion Gap 6 L BUN 10 Creatinine 0.5 L Creat Clearance w eGFR > 60 Random Glucose 91 Calcium 7.6 L Phosphorus 4.2 Magnesium 1.8 Total Bilirubin 0.3 AST 24 ALT 23 Alkaline Phosphatase 54 Total Protein 5.1 L Albumin 2.4 L ASSESSMENT/PLAN: POD #4: L4-S1 laminectomy, L4-L5 PLIF, L3-S1 PISF. Probable OSAS by clinical history / findings Morbid Obesity Hypothyroidism Pain control as ordered BZ for anxiety/muscle spasm O2 as needed Incentive Spirometry VTE prophylaxis PO as tolerated CPAP QHS and will need formal sleep testing after D/C Floor: D/W Dr Sumit Valle Critical care time spent in reviewing chart, evaluating patient and formulating plan - 36 minutes.
--- NOTE | 2018-04-23 11:33 | PN ---
Physical Exam: SUBJECTIVE: Patient seen and examined in the ICU. Pt states that she is still in pain, but it was much improved yesterday afternoon and today. Yesterday she was able to stand with PT and walk around the nurses station. Denies: headache, fever, chills, nausea, vomiting at this time OBJECTIVE: Vital Signs Period Temp Pulse Resp BP Sys/Donnelly Pulse Ox Last 24 Hr 98 F-99.2 F 92-112 11-18 90-144/45-80 98-98 GENERAL: Awake, in no acute distress. HEAD: Normal with no signs of trauma. EYES: sclera anicteric, conjunctiva clear. No lid lag. EARS, NOSE, THROAT: Ears normal, nares patent, oropharynx clear without exudates. Moist mucous membranes. NECK: supple without lymphadenopathy, JVD, or masses. LUNGS: Breath sounds equal, clear to auscultation bilaterally. No wheezes, and no crackles. No accessory muscle use. HEART: Tachycardic with regular rhythm, normal S1 and S2 without murmur, rub or gallop. ABDOMEN: Obese, Soft, nontender, not distended, hypoactive bowel sounds, no guarding, no rebound, no masses. MUSCULOSKELETAL: No bony deformities or tenderness. No CVA tenderness. UPPER EXTREMITIES: warm, well-perfused. No cyanosis. No clubbing. Cap refill <2 seconds. No peripheral edema. LOWER EXTREMITIES: warm, well-perfused. No calf tenderness. No peripheral edema. NEUROLOGICAL: Cranial nerves II-XII grossly intact. Normal gait. SKIN: Warm, dry, normal turgor, no rashes or lesions noted. Laboratory Results - last 24 hr 04/23/18 04/23/18 05:30 05:30 WBC 7.6 RBC 3.00 L Hgb 9.1 L Hct 26.3 L MCV 87.6 MCH 30.3 MCHC 34.6 RDW 13.2 Plt Count 292 MPV 7.3 L Absolute Neuts (auto) 4.9 Neutrophils % 64.7 Lymphocytes % 24.0 D Monocytes % 8.4 Eosinophils % 2.4 D Basophils % 0.5 Nucleated RBC % 0 Sodium 140 Potassium 3.8 Chloride 104 Carbon Dioxide 30 Anion Gap 6 L BUN 10 Creatinine 0.5 L Creat Clearance w eGFR > 60 Random Glucose 91 Calcium 7.6 L Phosphorus 4.2 Magnesium 1.8 Total Bilirubin 0.3 AST 24 ALT 23 Alkaline Phosphatase 54 Total Protein 5.1 L Albumin 2.4 L Active Medications Generic Name Dose Route Start Last Admin Trade Name Ramírezq PRN Reason Stop Dose Admin Bisacodyl 10 mg 04/22/18 22:36 Dulcolax Suppository - RC DAILY PRN CONSTIPATION Carvedilol 6.25 mg 04/19/18 22:00 04/23/18 09:20 Coreg - PO 6.25 mg BID RANDAL Administration Diazepam 5 mg 04/23/18 07:31 Valium - PO Q6H PRN WITHDRAWAL(CONT SUBST) Docusate Sodium 300 mg 04/22/18 22:00 04/22/18 22:42 Colace - PO Not Given HS RANDAL Hydromorphone HCl 10 mg 04/21/18 10:58 04/23/18 05:20 Dilaudid Burr Bench Hand - PERINATAL INSTRUCTOR 04/26/18 19:59 10 mg PERINATAL INSTRUCTOR RANDAL Administration Protocol Ibuprofen 400 mg 04/21/18 10:55 04/23/18 09:19 Motrin - PO 400 mg Q6H PRN Administration PAIN LEVEL 6-10 Non-Formulary Med_Pt 150 each 04/22/18 07:00 04/23/18 06:22 Own Med_Synthroid PO 150 each 150 Mcg Tab) DAILY@0700 RANDAL Administration Oxycodone HCl 10 mg 04/22/18 08:00 04/23/18 05:19 Roxicodone - PO 10 mg Q4H PRN Administration PAIN LEVEL 6-10 Pantoprazole Sodium 20 mg 04/21/18 14:00 04/23/18 09:20 Protonix - PO 20 mg DAILY RANDAL Administration Polyethylene Glycol 17 gm 04/22/18 22:45 04/23/18 09:23 Miralax (For Daily Use) - PO 17 grams BID RANDAL Administration Thyroid 60 mg 04/21/18 05:59 04/23/18 11:21 [place] Thyroid - PO Not Given DAILY RANDAL ASSESSMENT/PLAN: 38 yo Female admitted to the ICU s/p L4-S1 laminectomy, L4-L5 PLIF, L3-S1 PISF. Post-op day 4 Neuro -post-op day 4 -No neuro deficits Cardio -Rapid heart rate reported intra-op Coreg 6.25 mg PO BID Lopressor 5 mg Q4 PRN Tachycardia states she has seen cardiology in the past and elevated HR is most likely due to thyroid condition Respiratory -No known respiratory problems -Incentive spirometry to decrease risk of post-op atelectasis/pneumonia GI -Soft diet, can advance as tolerated -Colace 300 mg PO HS -Zofran and Promethazine PRN for nausea/vomiting Endocrine -Hx Hypothyroidism - pt requires brand only, generics have been ineffective in the past Synthroid 150mcg PO Daily [place] Thyroid 60 mg PO Daily Post-op Management -Pain control: PERINATAL INSTRUCTOR as per anesthesia, 0.6 per bolus PERINATAL INSTRUCTOR can be decreased or d/c today most likely Valium 5mg PO Q6 PRN for muscle spasm Motrin 400 mg PO Q6 PRN for pain and headache Oxocodone 10mg PO Q4 PRN as per surgeon -OOB and working with PT -nancy d/c yesterday DVT Prophylaxis -TEDs/SCDs only as per surgery FEN -Fluids: none -Electrolytes: K: 3.8, repleted. 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
[2018-04-23] MEDS ORDERED: POTASSIUM CHLORIDE TABS 20 MEQ TABLET.ER (FP) PO ONE (12:00)
--- NOTE | 2018-04-23 15:21 | PN ---
Progress Note (short form) - Note Progress Note: Pain Follow up Still feel a lot of pain on movement Continue the DATABASE ADMINISTRATION MANAGER till tomorrow. Lidya Romero MD.
[2018-04-23] MEDS ORDERED: BISACODYL 10 MG SUPP.RECT RC PRN (17:53)
--- NOTE | 2018-04-23 18:24 | PN ---
Progress Note (short form) - Note Progress Note: POD#4 C/O incisional pain No leg pain Headache worse when standing Walked in the hallway [facility] Stable RSP Clear ABD Soft passing flatus Wound dry NEURO At baseline ASSESS Difficult ambulation due to morbid obesity Overall doing well Headache secondary to possible CSF dural leak on Right L$ dural nerve root sleeve PLAN PT Mobilze Pain M Will review re Iand D and attempt at sealing the dural sleeve
[2018-04-23] MEDS: DOCUSATE SODIUM 100 MG CAPSULE (FP) PO SCH (21:36)
[2018-04-23] MEDS: diazePAM 5 MG TABLET PO PRN (21:41)
[2018-04-24] MEDS: oxyCODONE HCL 5 MG TABLET PO PRN ×4 (02:04→23:16)
[2018-04-24] MEDS ORDERED: PT OWN MED DRAWER 7, Y5N ONE ×2 (06:06→17:39)
[2018-04-24] MEDS: NON-FORMULARY MED PO SCH (06:26)
[2018-04-24] MEDS: THYROID 60 MG TABLET PO SCH ×2 (06:28→10:00)
[2018-04-24 07:58] LABS: BASO % 0.6 % (0-2.0); EOS % 2.5 % (0-4.5); HEMATOCRIT 27.6 % (32.4-45.2); HEMOGLOBIN 9.5 GM/dL (10.7-15.3); LYMPH % 20.3 % (8-40); MCH 30.5 pg (25.7-33.7); MCHC 34.5 g/dl (32.0-36.0); MEAN CELL VOLUME 88.4 fl (80-96); MEAN PLT VOLUME 7.6 fl (7.5-11.1); MONO % 8.6 % (3.8-10.2); PLATELET COUNT 358 K/MM3 (134-434); RBC 3.12 M/mm3 (3.60-5.2); RDW 12.9 % (11.6-15.6); WHITE BLOOD COUNT 7.6 K/mm3 (4.0-10.0)
[2018-04-24 08:52] LABS: ALBUMIN 2.6 g/dl (3.4-5.0); ANION GAP 9 (8-16); BLOOD UREA NITROGEN 7 mg/dL (7-18); CHLORIDE 100 mmol/L (98-107); CO2 31 mmol/L (21-32); CREATININE 0.6 mg/dL (0.55-1.02); GLUCOSE,RANDOM 87 mg/dL (74-106); MAGNESIUM 1.8 mg/dL (1.8-2.4); PHOSPHOROUS 4.3 mg/dL (2.5-4.9); POTASSIUM 3.7 mmol/L (3.5-5.1); SGOT/AST 26 U/L (15-37); SGPT/ALT 28 U/L (12-78); SODIUM 140 mmol/L (136-145)
[2018-04-24 08:54] LABS: ALK PHOS 61 U/L (45-117); BILIRUBIN,TOTAL 0.4 mg/dL (0.2-1.0); TOT PROT 5.4 g/dl (6.4-8.2)
--- NOTE | 2018-04-24 09:05 | PN ---
Progress Note (short form) - Note Progress Note: Patient stable and c/o pain score of 5-6/10 on movement.will continue supervisor sound technician and Oxycodone and will f/u tomorrow.Also ordered zofran for nausia.
--- NOTE | 2018-04-24 09:55 | PN ---
Progress Note (short form) - Note Progress Note: Subjective: The patient was seen and examined at the bedside, she is still reporting pain in her back and a headache when she gets up Remains on COLLEGE BASKETBALL COACH Further plan per surgery regarding pain Current Medications Generic Name Dose Route Start Last Admin Trade Name Freq PRN Reason Stop Dose Admin Bisacodyl 10 mg 04/22/18 22:36 Dulcolax Suppository - RC DAILY PRN CONSTIPATION Carvedilol 6.25 mg 04/19/18 22:00 04/23/18 09:20 Coreg - PO 6.25 mg BID RANDAL Administration Diazepam 5 mg 04/23/18 07:31 Valium - PO Q6H PRN WITHDRAWAL(CONT SUBST) Docusate Sodium 300 mg 04/22/18 22:00 04/22/18 22:42 Colace - PO Not Given HS RANDAL Hydromorphone HCl 10 mg 04/21/18 10:58 04/23/18 05:20 Dilaudid Manager Route - COLLEGE BASKETBALL COACH 04/26/18 19:59 10 mg COLLEGE BASKETBALL COACH RANDAL Administration Protocol Ibuprofen 400 mg 04/21/18 10:55 04/23/18 09:19 Motrin - PO 400 mg Q6H PRN Administration PAIN LEVEL 6-10 Non-Formulary Med_Pt 150 each 04/22/18 07:00 04/23/18 06:22 Own Med_Synthroid PO 150 each 150 Mcg Tab) DAILY@0700 RANDAL Administration Oxycodone HCl 10 mg 04/22/18 08:00 04/23/18 05:19 Roxicodone - PO 10 mg Q4H PRN Administration PAIN LEVEL 6-10 Pantoprazole Sodium 20 mg 04/21/18 14:00 04/23/18 09:20 Protonix - PO 20 mg DAILY RANDAL Administration Polyethylene Glycol 17 gm 04/22/18 22:45 04/23/18 09:23 Miralax (For Daily Use) - PO 17 grams BID RANDAL Administration Thyroid 60 mg 04/21/18 05:59 04/23/18 06:22 [place] Thyroid - PO 60 mg DAILY RANDAL Administration Objective: Vital Signs Period Temp Pulse Resp BP Sys/Donnelly Pulse Ox Last 24 Hr 98 F-99.2 F 92-112 11-18 90-144/45-79 98-98 Physical Exam: General: NAD, A&Ox3 Lungs: CTA bilaterally Heart: RRR, S1S2 Abd: Soft, non-tender, non-distended. Normoactive bowel sounds Ext: Warm, well-perfused. 2+ DP/PT bilaterally CBCD WBC 7.6 K/mm3 (4.0-10.0) 04/24/18 06:40 RBC 3.12 M/mm3 (3.60-5.2) L 04/24/18 06:40 Hgb 9.5 GM/dL (10.7-15.3) L 04/24/18 06:40 Hct 27.6 % (32.4-45.2) L 04/24/18 06:40 MCV 88.4 fl (80-96) 04/24/18 06:40 MCHC 34.5 g/dl (32.0-36.0) 04/24/18 06:40 RDW 12.9 % (11.6-15.6) 04/24/18 06:40 Plt Count 358 K/MM3 (134-434) D 04/24/18 06:40 MPV 7.6 fl (7.5-11.1) 04/24/18 06:40 CMP Sodium 140 mmol/L (136-145) 04/24/18 06:40 Potassium 3.7 mmol/L (3.5-5.1) 04/24/18 06:40 Chloride 100 mmol/L (98-107) 04/24/18 06:40 Carbon Dioxide 31 mmol/L (21-32) 04/24/18 06:40 Anion Gap 9 (8-16) 04/24/18 06:40 BUN 7 mg/dL (7-18) 04/24/18 06:40 Creatinine 0.6 mg/dL (0.55-1.02) 04/24/18 06:40 Creat Clearance w eGFR > 60 (>60) 04/24/18 06:40 Random Glucose 87 mg/dL (74-106) 04/24/18 06:40 Calcium 8.0 mg/dL (8.5-10.1) L 04/24/18 06:40 Total Bilirubin 0.4 mg/dL (0.2-1.0) 04/24/18 06:40 AST 26 U/L (15-37) 04/24/18 06:40 ALT 28 U/L (12-78) 04/24/18 06:40 Alkaline Phosphatase 61 U/L (45-117) 04/24/18 06:40 Total Protein 5.4 g/dl (6.4-8.2) L 04/24/18 06:40 Albumin 2.6 g/dl (3.4-5.0) L 04/24/18 06:40 Microbiology 04/19/18 15:00 Urine - Urine Lan Urine Culture - Final NO GROWTH OBTAINED Assessment: This is a 38 year old female with PMHx DDD, morbid obesity, hypothyroidism who is s/p L4-S1 laminectomies, L4-L5 PLIF, L3-S1 PISF 04/19 Plan: 1) L4-S1 laminectomies, L4-L5 PLIF, L3-S1 PISF 04/19 - POD#5 - Continue on COLLEGE BASKETBALL COACH per anesthesia - Bowel regimen - Appreciate surgery consult 2) Hypothyroidism - Continue Thyroid - Continue Synthroid 3) F/E/N: - Soft diet - Monitor electrolytes 4) Prophylaxis: - PT - Mechanical DVT prophylaxis only CODE STATUS: FULL CODE Visit type - Emergency Visit Emergency Visit: Yes ED Registration Date: 04/19/18 Care time: The patient presented to the Emergency Department on the above date and was hospitalized for further evaluation of their emergent condition. - New Patient This patient is new to me today: No - Critical Care Critical Care patient: No
[2018-04-24] MEDS ORDERED: MAG HYDROX/AL HYDROX/SIMETH 30 ML UNIT-DOSE CUP PO PRN (10:00)
[2018-04-24] MEDS: POLYETHYLENE GLYCOL 3350 119 GM BTL PO SCH ×2 (10:00→22:19)
[2018-04-24] MEDS ORDERED: PANTOPRAZOLE 20 MG TABLET (FP) PO SCH (10:00)
[2018-04-24] MEDS: HYDROmorphone *PCA* 10MG/50ML DISP.SYRIN PCA SCH ×2 (10:03→18:43)
[2018-04-24] MEDS: ONDANSETRON 4 MG/2 ML VIAL IVPB PRN (10:11)
[2018-04-24] MEDS: CARVEDILOL 6.25 MG TABLET (FP) PO SCH ×2 (10:13→22:17)
[2018-04-24] MEDS: PANTOPRAZOLE 40 MG TABLET (FP) PO SCH (10:19)
[2018-04-24] MEDS: IBUPROFEN 400 MG TABLET (FP) PO PRN (17:44)
[2018-04-24] MEDS: DOCUSATE SODIUM 100 MG CAPSULE (FP) PO SCH (22:18)
[2018-04-24] MEDS: SODIUM CHLORIDE 1,000 ML IV SCH (22:29)
[2018-04-24] MEDS: diazePAM 5 MG TABLET PO PRN (23:15)
[2018-04-25] MEDS ORDERED: PT OWN MED DRAWER 7, Y5N ONE ×2 (02:47→07:07)
[2018-04-25] MEDS: oxyCODONE HCL 5 MG TABLET PO PRN (05:56)
[2018-04-25] MEDS: NON-FORMULARY MED PO SCH (06:30)
[2018-04-25] MEDS: THYROID 60 MG TABLET PO SCH (06:37)
[2018-04-25] MEDS: HYDROmorphone *PCA* 10MG/50ML DISP.SYRIN PCA SCH ×4 (07:10→15:55)
[2018-04-25] MEDS: diazePAM 5 MG TABLET PO PRN ×3 (08:25→22:22)
--- NOTE | 2018-04-25 09:16 | PN ---
Progress Note, Physician Chief Complaint: day 6 s/p PLIF - Current Medication List Current Medications: Active Medications Al Hydroxide/Mg Hydroxide (Mylanta Oral Suspension -) 30 ml PO Q6H PRN PRN Reason: DYSPEPSIA Last Admin: 04/24/18 17:45 Dose: 30 ml Bisacodyl (Dulcolax Suppository -) 10 mg RC DAILY PRN PRN Reason: CONSTIPATION Carvedilol (Coreg -) 6.25 mg PO BID [facility] Last Admin: 04/24/18 22:17 Dose: 6.25 mg Diazepam (Valium -) 5 mg PO Q6H PRN PRN Reason: WITHDRAWAL(CONT SUBST) Last Admin: 04/25/18 08:25 Dose: 5 mg Docusate Sodium (Colace -) 300 mg PO HS [facility] Last Admin: 04/24/18 22:18 Dose: 300 mg Hydromorphone HCl (Dilaudid Air Pumper -) 10 mg ONLINE FACILITATOR ONLINE FACILITATOR [facility]; Protocol Stop: 04/26/18 19:59 Last Admin: 04/25/18 08:02 Dose: Not Given Sodium Chloride (Normal Saline -) 1,000 mls @ 42 mls/hr IV ASDIR [facility] Last Admin: 04/24/18 22:29 Dose: 42 mls/hr Ibuprofen (Motrin -) 400 mg PO Q6H PRN PRN Reason: PAIN LEVEL 6-10 Last Admin: 04/24/18 17:44 Dose: 400 mg Non-Formulary Medication (Non-Formulary Med) 1 each PO DAILY@0700 [facility] Last Admin: 04/25/18 06:30 Dose: 1 each Ondansetron HCl (Zofran Injection) 8 mg IVPB Q6H PRN PRN Reason: NAUSEA Last Admin: 04/24/18 10:11 Dose: 8 mg Oxycodone HCl (Roxicodone -) 10 mg PO Q4H PRN PRN Reason: PAIN LEVEL 6-10 Last Admin: 04/25/18 05:56 Dose: 10 mg Pantoprazole Sodium (Protonix -) 40 mg PO DAILY [facility] Last Admin: 04/24/18 10:19 Dose: 40 mg Polyethylene Glycol (Miralax (For Daily Use) -) 17 gm PO BID [facility] Last Admin: 04/24/18 22:19 Dose: 17 grams Thyroid ([place] Thyroid -) 60 mg PO AM [facility] Last Admin: 04/25/18 06:37 Dose: 60 mg - Objective Vital Signs: Vital Signs Temperature 98.4 F 04/25/18 06:00 Pulse Rate 70 04/25/18 07:10 Respiratory Rate 18 04/25/18 07:10 Blood Pressure 138/81 04/25/18 07:10 O2 Sat by Pulse Oximetry (%) 98 04/24/18 21:00 Labs: CBC, BMP 04/24/18 06:40 04/24/18 06:40 INR, PTT INR 1.20 (0.82-1.09) H 04/20/18 05:30 Assessment/Plan Pt's pain is decreased but still present- pt still using ONLINE FACILITATOR intermittently and does not want it to be d/c'ed. Will keep for now
[2018-04-25] MEDS ORDERED: SENNOSIDES 8.6MG TABLET (FP) PO ONE (09:36)
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
[2018-04-25] MEDS: CARVEDILOL 6.25 MG TABLET (FP) PO SCH ×2 (11:42→22:22)
[2018-04-25] MEDS: POLYETHYLENE GLYCOL 3350 119 GM BTL PO SCH ×2 (11:42→20:16)
[2018-04-25] MEDS: PANTOPRAZOLE 40 MG TABLET (FP) PO SCH (11:42)
[2018-04-25] MEDS: IBUPROFEN 400 MG TABLET (FP) PO PRN (11:45)
[2018-04-25] MEDS: SODIUM CHLORIDE 1,000 ML IV SCH ×2 (19:04→22:22)
[2018-04-25] MEDS: DOCUSATE SODIUM 100 MG CAPSULE (FP) PO SCH (22:22)
[2018-04-26] MEDS ORDERED: oxyCODONE HCL 5 MG TABLET PO PRN (00:19)
[2018-04-26] MEDS ORDERED: ACETAMINOPHEN 325 MG TABLET (FP) PO PRN (00:19)
[2018-04-26] MEDS: HYDROmorphone *PCA* 10MG/50ML DISP.SYRIN PCA SCH ×3 (01:20→23:30)
[2018-04-26] MEDS: THYROID 60 MG TABLET PO SCH (06:33)
[2018-04-26] MEDS: NON-FORMULARY MED PO SCH (06:34)
--- NOTE | 2018-04-26 08:55 | PN ---
Progress Note (short form) - Note Progress Note: C/O LBP no leg pain Headache persists Wound Draining. Vitals and medical parameters as per chart. PLAN Keep NPO For Iand D inspect and repair dura as necessary
[2018-04-26] MEDS: CARVEDILOL 6.25 MG TABLET (FP) PO SCH (10:12)
[2018-04-26] MEDS: PANTOPRAZOLE 40 MG TABLET (FP) PO SCH (10:12)
[2018-04-26] MEDS: POLYETHYLENE GLYCOL 3350 119 GM BTL PO SCH (10:13)
--- NOTE | 2018-04-26 12:52 | PN ---
Progress Note (short form) - Note Progress Note: POD #7 - s/p PLIF L3-S1. VSS. Pt. has been on dilaudid CROWD CONTROLLER postop. Pt. still complaining of lower back pain and headache. Pt. to go back to OR later today for exploration/lumbar dural repair. Will keep CROWD CONTROLLER for now and will need postop.
--- NOTE | 2018-04-26 13:04 | PN ---
Progress Note (short form) - Note Progress Note: Subjective: The patient was seen and examined at the bedside, she still has complaints of lower back pain and headache. Current Medications Generic Name Dose Route Start Last Admin Trade Name Freq PRN Reason Stop Dose Admin Al Hydroxide/Mg Hydroxide 30 ml 04/24/18 10:00 04/24/18 17:45 Mylanta Oral Suspension - PO 30 ml Q6H PRN Administration DYSPEPSIA Bisacodyl 10 mg 04/23/18 17:53 Dulcolax Suppository - RC DAILY PRN CONSTIPATION Carvedilol 6.25 mg 04/23/18 22:00 04/24/18 22:17 Coreg - PO 6.25 mg BID RANDAL Administration Diazepam 5 mg 04/23/18 17:53 04/25/18 08:25 Valium - PO 5 mg Q6H PRN Administration WITHDRAWAL(CONT SUBST) Docusate Sodium 300 mg 04/23/18 22:00 04/24/18 22:18 Colace - PO 300 mg HS RANDAL Administration Hydromorphone HCl 10 mg 04/23/18 17:53 04/25/18 08:02 Dilaudid Home Health Nurse - RAIL PROJECT ENGINEER 04/26/18 19:59 Not Given RAIL PROJECT ENGINEER RANDAL Protocol Sodium Chloride 1,000 mls @ 42 mls/hr 04/23/18 16:15 04/24/18 22:29 Normal Saline - IV 42 mls/hr ASDIR RANDAL Administration Ibuprofen 400 mg 04/23/18 17:53 04/24/18 17:44 Motrin - PO 400 mg Q6H PRN Administration PAIN LEVEL 6-10 Non-Formulary Medication 1 each 04/24/18 07:00 04/25/18 06:30 Non-Formulary Med PO 1 each DAILY@0700 RANDAL Administration Ondansetron HCl 8 mg 04/24/18 09:02 04/24/18 10:11 Zofran Injection IVPB 8 mg Q6H PRN Administration NAUSEA Oxycodone HCl 10 mg 04/23/18 17:53 04/25/18 05:56 Roxicodone - PO 10 mg Q4H PRN Administration PAIN LEVEL 6-10 Pantoprazole Sodium 40 mg 04/24/18 10:00 04/24/18 10:19 Protonix - PO 40 mg DAILY RANDAL Administration Polyethylene Glycol 17 gm 04/23/18 22:00 04/24/18 22:19 Miralax (For Daily Use) - PO 17 grams BID RANDAL Administration Senna 2 tab 04/25/18 09:36 Senna - PO 04/25/18 09:37 NOW ONE Thyroid 60 mg 04/25/18 06:05 04/25/18 06:37 [place] Thyroid - PO 60 mg AM RANDAL Administration Objective: Vital Signs Period Temp Pulse Resp BP Sys/Donnelly Pulse Ox Last 24 Hr 98 F-98.7 F 81-106 20-20 110-135/58-93 98-98 Physical Exam: General: NAD, A&Ox3 Lungs: CTA bilaterally Heart: RRR, S1S2 Abd: Soft, non-tender, non-distended. Normoactive bowel sounds Ext: Warm, well-perfused. 2+ DP/PT bilaterally CBCD WBC 7.6 K/mm3 (4.0-10.0) 04/24/18 06:40 RBC 3.12 M/mm3 (3.60-5.2) L 04/24/18 06:40 Hgb 9.5 GM/dL (10.7-15.3) L 04/24/18 06:40 Hct 27.6 % (32.4-45.2) L 04/24/18 06:40 MCV 88.4 fl (80-96) 04/24/18 06:40 MCHC 34.5 g/dl (32.0-36.0) 04/24/18 06:40 RDW 12.9 % (11.6-15.6) 04/24/18 06:40 Plt Count 358 K/MM3 (134-434) D 04/24/18 06:40 MPV 7.6 fl (7.5-11.1) 04/24/18 06:40 CMP Sodium 140 mmol/L (136-145) 04/24/18 06:40 Potassium 3.7 mmol/L (3.5-5.1) 04/24/18 06:40 Chloride 100 mmol/L (98-107) 04/24/18 06:40 Carbon Dioxide 31 mmol/L (21-32) 04/24/18 06:40 Anion Gap 9 (8-16) 04/24/18 06:40 BUN 7 mg/dL (7-18) 04/24/18 06:40 Creatinine 0.6 mg/dL (0.55-1.02) 04/24/18 06:40 Creat Clearance w eGFR > 60 (>60) 04/24/18 06:40 Random Glucose 87 mg/dL (74-106) 04/24/18 06:40 Calcium 8.0 mg/dL (8.5-10.1) L 04/24/18 06:40 Total Bilirubin 0.4 mg/dL (0.2-1.0) 04/24/18 06:40 AST 26 U/L (15-37) 04/24/18 06:40 ALT 28 U/L (12-78) 04/24/18 06:40 Alkaline Phosphatase 61 U/L (45-117) 04/24/18 06:40 Total Protein 5.4 g/dl (6.4-8.2) L 04/24/18 06:40 Albumin 2.6 g/dl (3.4-5.0) L 04/24/18 06:40 Microbiology 04/19/18 15:00 Urine - Urine Lan Urine Culture - Final NO GROWTH OBTAINED Assessment: This is a 38 year old female with PMHx DDD, morbid obesity, hypothyroidism who is s/p L4-S1 laminectomies, L4-L5 PLIF, L3-S1 PISF 04/19 Plan: 1) L4-S1 laminectomies, L4-L5 PLIF, L3-S1 PISF 04/19 - POD#7 - Still complains of back pain and headache. To be taken back to OR this afternoon for exploration - Continue on RAIL PROJECT ENGINEER per anesthesia - Bowel regimen - Appreciate surgery consult 2) Hypothyroidism - Continue Thyroid - Continue Synthroid 3) Constipation - Senna - Colace - Miralax - Patient refusing suppository 4) F/E/N: - NPO - Monitor electrolytes 5) Prophylaxis: - PT - Mechanical DVT prophylaxis only CODE STATUS: FULL CODE Visit type - Emergency Visit Emergency Visit: Yes ED Registration Date: 04/19/18 Care time: The patient presented to the Emergency Department on the above date and was hospitalized for further evaluation of their emergent condition. - New Patient This patient is new to me today: No - Critical Care Critical Care patient: No
[2018-04-26] MEDS: SODIUM CHLORIDE 1,000 ML IV SCH ×2 (16:58)
[2018-04-26] MEDS: ONDANSETRON 4 MG/2 ML VIAL IVPB PRN (17:40)
[2018-04-26] MEDS ORDERED: MIDAZOLAM HCL 2 MG/2 ML SINGLE DOSE VIAL IVPUSH STA ×2 (18:54→22:54)
[2018-04-26] MEDS ORDERED: DESFLURANE GAS 240 ML BOTTLE IH ONE ×2 (19:03→19:30)
[2018-04-26] MEDS ORDERED: MIDAZOLAM HCL 5 MG/1 ML Single Dose Vial ONE (19:08)
[2018-04-26] MEDS ORDERED: PROPOFOL 20 ML ONE ×10 (19:09→19:10)
[2018-04-26] MEDS ORDERED: LIDOCAINE HCL/PF 2% SDV 5ML VIAL ONE (19:09)
[2018-04-26] MEDS ORDERED: fentaNYL CITRATE 250 MCG/5 ML VIAL ONE (19:09)
[2018-04-26] MEDS ORDERED: ROCURONIUM BROMIDE 50 MG/5 ML VIAL ONE (19:10)
[2018-04-26] MEDS ORDERED: SUCCINYLCHOLINE CHLORIDE 200 MG/10 ML VIAL ONE (19:10)
[2018-04-26] MEDS ORDERED: THROMBIN (BOVINE) 5,000 UNIT VIAL TP ONE ×2 (19:30→21:11)
[2018-04-26] MEDS ORDERED: TRANEXAMIC ACID 1000 MG/10 ML VIAL ONE (20:31)
[2018-04-26] MEDS ORDERED: ceFAZolin SODIUM 1 GM VIAL IVPB ONE ×2 (20:40→21:37)
[2018-04-26] MEDS ORDERED: VANCOMYCIN 1,000 MG VIAL (RESTRICTED TO ID ONLY) IVPB ONE ×2 (20:40→21:37)
[2018-04-26] MEDS ORDERED: NEOSTIGMINE METHYLSULFATE 0.5 MG/ML - 10 ML MDV ONE (20:56)
[2018-04-26] MEDS ORDERED: GELATIN, ABSORBABLE 100 EACH SPONGE TP ONE (21:11)
--- NOTE | 2018-04-26 22:33 | PN ---
Progress Note (short form) - Note Progress Note: 38F s/p right L4 durotomy repair POD #0. -Admit to ICU post-op. -Strict bedrest FLAT x 72-96 hrs. post-op. -Important that patient remains calm and avoids Valsalva maneuvers; increased intra-thecal pressure compromises dural repair. -Patient has paradoxical response to Ativan; avoid use of Ativan; pt. responds well to Versed; use Versed instead. -Pain control: per anaesthesia team; recommend VERIFY REP. -DVT PPx: - Mechanical only: BONITA's, SCD's. -Incentive spirometry. -q4h B/L LE NV checks. -Post-op antibiotics x 2 doses. -NPO until flatus. -f/u AM labs. -Care per medical hospitalist team. -Discharge planning: [facility]; call for appointment; . -Will follow. Brant Arana MD (Orthopaedic Surgery).
--- NOTE | 2018-04-26 22:34 | OP ---
Operative Note - Note: Operative Date: 04/26/18 Pre-Operative Diagnosis: Lumbar durotomy Operation: Right L4 nerve sheath durotomy at axillary junction with thecal sac. Post-Operative Diagnosis: Same as Pre-op Surgeon: Brant Arana Hand Box Coverer: Wilian Arana Anesthesiologist/NEGATIVE CUTTER: Miguel Story Anesthesia: General Estimated Blood Loss (mls): 25 Fluid Volume Replaced (mls): 800 (Crystalloid) Operative Report Dictated: Yes
[2018-04-26] MEDS ORDERED: MIDAZOLAM HCL 2 MG/2 ML SINGLE DOSE VIAL IVPUSH PRN (22:37)
[2018-04-26] MEDS ORDERED: PROMETHAZINE HCL 25 MG/1 ML VIAL IVPUSH PRN (22:38)
[2018-04-26] MEDS ORDERED: ONDANSETRON 4 MG/2 ML VIAL IVPUSH PRN (22:38)
[2018-04-26] MEDS ORDERED: MIDAZOLAM HCL 2 MG/2 ML SINGLE DOSE VIAL ONE ×2 (22:43→23:04)
[2018-04-26] MEDS ORDERED: ceFAZolin 2 GRAM PREMIX BAG IVPB SCH (22:45)
[2018-04-26] MEDS ORDERED: LACTATED RINGERS SOLUTION 1,000 ML IV SCH (22:45)
[2018-04-26] MEDS ORDERED: HYDROmorphone *PCA* 10MG/50ML DISP.SYRIN PCA ONE (22:49)
[2018-04-26] MEDS ORDERED: MAG HYDROX/AL HYDROX/SIMETH 30 ML UNIT-DOSE CUP PO PRN (22:54)
[2018-04-26] MEDS ORDERED: ONDANSETRON 4 MG/2 ML VIAL IVPB PRN (22:54)
[2018-04-26] MEDS ORDERED: BISACODYL 10 MG SUPP.RECT RC PRN (22:54)
[2018-04-26] MEDS ORDERED: ACETAMINOPHEN INJECTION 100 ML IVPB ONE (22:58)
[2018-04-26] MEDS: ACETAMINOPHEN 1000 MG/100 ML VIAL (NON FORMULARY) IVPB SCH (23:00)
[2018-04-26] MEDS: MIDAZOLAM HCL 2 MG/2 ML SINGLE DOSE VIAL IVPUSH PRN (23:45)
--- NOTE | 2018-04-27 00:01 | PN ---
Physical Exam: SUBJECTIVE: Patient seen and examined Patient received from pacu after, Right L4 nerve sheath durotomy at axillary junction with thecal sac.. OBJECTIVE: Vital Signs Period Temp Pulse Resp BP Sys/Donnelly Pulse Ox Last 24 Hr 98.6 F-98.9 F 82-106 20-20 114-135/65-93 98 GENERAL: Awake, crying. EYES: sclera anicteric, conjunctiva clear. No lid lag. EARS, NOSE, THROAT: dry mucous membranes. LUNGS: Breath sounds equal, clear to auscultation bilaterally. No wheezes, and no crackles. HEART: Tachycardic with regular rhythm, normal S1 and S2 without murmur, rub or gallop. ABDOMEN: Obese, Soft, nontender, not distended, hypoactive bowel sounds, no guarding, no rebound, no masses. UPPER EXTREMITIES: warm, well-perfused. No cyanosis. No clubbing. LOWER EXTREMITIES: warm, well-perfused. No calf tenderness. No peripheral edema. SKIN: Warm, dry, Active Medications Generic Name Dose Route Start Last Admin Trade Name Freq PRN Reason Stop Dose Admin Acetaminophen 1,000 mg 04/26/18 22:45 Ofirmev Injection - IVPB 04/28/18 14:46 Q8H RANDAL Al Hydroxide/Mg Hydroxide 30 ml 04/26/18 22:54 Mylanta Oral Suspension - PO Q6H PRN DYSPEPSIA Bisacodyl 10 mg 04/26/18 22:54 Dulcolax Suppository - RC DAILY PRN CONSTIPATION Carvedilol 6.25 mg 04/27/18 10:00 Coreg - PO BID [facility] Chlorhexidine Gluconate 1 applic 04/27/18 22:00 Hibiclens For Decolonization - TP HS [facility] Docusate Sodium 300 mg 04/27/18 22:00 Colace - PO HS [facility] Fentanyl 50 mcg 04/26/18 22:38 Sublimaze Injection - IVPUSH [id number] PRN PAIN-PACU ORDER X 4 DOSES ONLY Hydrochlorothiazide 12.5 mg 04/27/18 10:00 Hctz - PO DAILY [facility] Hydromorphone HCl 0 mg 04/26/18 22:45 Dilaudid Retirement Assistant - CAR STORER 05/03/18 22:40 CAR STORER [facility] Protocol Lactated Ringer's 1,000 mls @ 75 mls/hr 04/26/18 22:45 Lactated Ringers Solution IV ASDIR [facility] Cefazolin Sodium/Dextrose 2 gm in 50 mls @ 100 mls/hr 04/26/18 22:45 Ancef 2 Gm Premixed Ivpb - IVPB 04/27/18 07:14 Q8H [facility] Sodium Chloride 1,000 mls @ 42 mls/hr 04/26/18 22:54 Normal Saline - IV ASDIR [facility] Levothyroxine Sodium 150 mcg 04/27/18 10:00 Synthroid - PO DAILY RANDAL Midazolam HCl 4 mg 04/26/18 22:54 Versed - IVPUSH Q6H PRN AGITATION Mupirocin 1 applic 04/27/18 10:00 Bactroban Ointment (For Decolonization) - NS 05/02/18 09:59 BID RANDAL Ondansetron HCl 4 mg 04/26/18 22:38 Zofran Injection IVPUSH Q6H PRN NAUSEA AND/OR VOMITING Ondansetron HCl 8 mg 04/26/18 22:54 Zofran Injection IVPB Q6H PRN NAUSEA Promethazine HCl 12.5 mg 04/26/18 22:38 Phenergan Injection - IVPUSH Q6H PRN NAUSEA-FOR RESCUE AFTER 15 MIN Thyroid 60 mg 04/27/18 07:00 [place] Thyroid - PO AM [facility] ASSESSMENT/PLAN: s/p L4-S1 laminectomy, L4-L5 PLIF, L3-S1 PISF. s/p Right L4 nerve sheath durotomy at axillary junction with thecal sac.. 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 on IV fluid LR BZ for anxiety/muscle spasm O2 as needed Incentive Spirometry VTE prophylaxis PO when return of bowel function Continue home meds FLAT x 72-96 hrs. post-op. scd. repeat labs in am. Visit type - Emergency Visit Emergency Visit: Yes ED Registration Date: 04/19/18 Care time: The patient presented to the Emergency Department on the above date and was hospitalized for further evaluation of their emergent condition. - New Patient This patient is new to me today: Yes Date on this admission: 04/27/18 - Critical Care Critical Care patient: Yes Total Critical Care Time (in minutes): 45 Critical Care Statement: The care of this patient involved high complexity decision making to prevent further life threatening deterioration of the patient 's condition and/or to evaluate & treat vital organ system(s) failure or risk of failure.
[2018-04-27 05:55] LABS: BASO % 0.4 % (0-2.0); EOS % 0.1 % (0-4.5); HEMATOCRIT 32.2 % (32.4-45.2); LYMPH % 9.2 % (8-40); MCH 29.7 pg (25.7-33.7); MCHC 34.1 g/dl (32.0-36.0); MEAN CELL VOLUME 87.1 fl (80-96); MEAN PLT VOLUME 7.4 fl (7.5-11.1); MONO % 2.7 % (3.8-10.2); NEUT % 87.6 % (42.8-82.8); PLATELET COUNT 463 K/MM3 (134-434); RBC 3.69 M/mm3 (3.60-5.2); RDW 13.1 % (11.6-15.6); WHITE BLOOD COUNT 7.9 K/mm3 (4.0-10.0)
[2018-04-27 06:32] LABS: ALBUMIN 2.9 g/dl (3.4-5.0); ANION GAP 7 (8-16); BLOOD UREA NITROGEN 6 mg/dL (7-18); CALCIUM 8.5 mg/dL (8.5-10.1); CHLORIDE 101 mmol/L (98-107); CO2 31 mmol/L (21-32); CREATININE 0.6 mg/dL (0.55-1.02); GLUCOSE,RANDOM 122 mg/dL (74-106); POTASSIUM 4.6 mmol/L (3.5-5.1); SGOT/AST 25 U/L (15-37); SGPT/ALT 34 U/L (12-78); SODIUM 139 mmol/L (136-145)
[2018-04-27 06:35] LABS: ALK PHOS 66 U/L (45-117); BILIRUBIN,TOTAL 0.3 mg/dL (0.2-1.0); TOT PROT 6.1 g/dl (6.4-8.2)
[2018-04-27] MEDS: CEFAZOLIN 2 GM/D5W 2 GM/50 ML ML IVPB SCH (06:37)
[2018-04-27] MEDS: ACETAMINOPHEN 1000 MG/100 ML VIAL (NON FORMULARY) IVPB SCH ×2 (06:40→15:32)
[2018-04-27] MEDS ORDERED: LEVOTHYROXINE NA 150 MCG TABLET PO SCH ×2 (07:00→10:00)
[2018-04-27] MEDS ORDERED: NON-FORMULARY MED PO SCH (07:00)
[2018-04-27] MEDS ORDERED: PT OWN MED DRAWER 7, Y5N ONE ×2 (07:43→08:56)
--- NOTE | 2018-04-27 07:49 | OP ---
DATE OF OPERATION: DATE OF DICTATION: 04/26/2018 SURGEON: Brant Arana MD GRAFFITI CLEANER: Wilian Arana MD PREOPERATIVE DIAGNOSIS: Draining wound, lumbar spine. 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 OPERATION PERFORMED: 1. Incision and drainage, washout, debridement of the entire wound including subcutaneous tissue, muscle, and bone; removal of sutures. 2. Primary dural repair. ANESTHESIA: General. ANTIBIOTICS GIVEN: Kefzol 2 g, vancomycin 1 g. PROCEDURE: Patient brought in the operating room, placed prone on Gelfoams. All relevant bony prominences were padded appropriately as was the face and facial structures by the anesthesia team. Neural monitoring was utilized. Patient was catheterized. The initial appearance was that of serosanguinous-type fluid draining from the wound. This was copious and led to the diagnosis of a dural leak which required the appropriate exploration. Timeout was called. Skin was prepped with Betadine scrub solution, wiped off with alcohol. A DuraPrep applied. The wound was opened. All sutures removed. Retractors were placed in the subfascial plane to expose the theca which was washed and freed of all debris, bony elements from the previous surgery. The toxic effects of the CSF fluid on the soft tissues were readily noted. No sign of infection. We elected not to take a culture stick because of the pristine state of the tissue bed. No sign of infection. Inspecting the dura under light microscopy, a longitudinal rent in the right L4 dural sleeve was noted. This was repaired with a single 4-0 Nurolon suture. This was sealed. We performed approximately 4 or 5 repeated Valsalva maneuvers, spaced across over about a 5- to 10-minute period and found this to be completely sealed, and this was inspected by both surgeon and web assistant under the microscope and found to be completely dry. A Surgicel was folded in half, placed onto the dural sleeve, and the entire sleeve flooded with the surrounding area with DuraSeal. The wounds were thoroughly lavaged throughout. Closure: Fascia muscle 1 Vicryl, subcutaneous 1 and 2-0 Vicryl, skin rita. No drains. Patient to be nursed in the ICU. MD LEONILA Ibrahim/[id number]
--- NOTE | 2018-04-27 09:47 | PN ---
Progress Note (short form) - Note Progress Note: Subjective: The patient was seen at the bedside, she is tearful and anxious this morning S/p Right L4 nerve sheath durotomy at axillary junction with thecal sac on 04/26 Current Medications Generic Name Dose Route Start Last Admin Trade Name Freq PRN Reason Stop Dose Admin Acetaminophen 1,000 mg 04/26/18 22:45 04/27/18 06:40 Ofirmev Injection - IVPB 04/28/18 14:46 1,000 mg Q8H RANDAL Administration Al Hydroxide/Mg Hydroxide 30 ml 04/26/18 22:54 Mylanta Oral Suspension - PO Q6H PRN DYSPEPSIA Bisacodyl 10 mg 04/26/18 22:54 Dulcolax Suppository - RC DAILY PRN CONSTIPATION Carvedilol 6.25 mg 04/27/18 10:00 Coreg - PO BID [facility]AL Chlorhexidine Gluconate 1 applic 04/27/18 22:00 Hibiclens For Decolonization - TP HS [facility]AL Docusate Sodium 300 mg 04/27/18 22:00 Colace - PO HS [facility]AL Fentanyl 50 mcg 04/26/18 22:38 04/26/18 22:40 Sublimaze Injection - IVPUSH 50 mcg [id number] PRN Administration PAIN-PACU ORDER X 4 DOSES ONLY Hydrochlorothiazide 12.5 mg 04/27/18 10:00 Hctz - PO DAILY [facility]AL Hydromorphone HCl 0 mg 04/26/18 22:45 04/26/18 23:30 Dilaudid Truck Safety Inspector - STORE PRODUCT DEMONSTRATOR 05/03/18 22:40 10 mg STORE PRODUCT DEMONSTRATOR RANDAL Administration Protocol Sodium Chloride 1,000 mls @ 42 mls/hr 04/26/18 22:54 04/26/18 00:00 Normal Saline - IV 42 mls/hr ASDIR RANDAL Administration Midazolam HCl 4 mg 04/26/18 22:54 04/26/18 23:45 Versed - IVPUSH 2 mg Q6H PRN Administration AGITATION Mupirocin 1 applic 04/27/18 10:00 Bactroban Ointment (For Decolonization) - NS 05/02/18 09:59 BID RANDAL Synthroid 150mcg 1 each 04/27/18 09:30 Tabs PO DAILY@0700 RANDAL Ondansetron HCl 4 mg 04/26/18 22:38 Zofran Injection IVPUSH Q6H PRN NAUSEA AND/OR VOMITING Ondansetron HCl 8 mg 04/26/18 22:54 Zofran Injection IVPB Q6H PRN NAUSEA Promethazine HCl 12.5 mg 04/26/18 22:38 Phenergan Injection - IVPUSH Q6H PRN NAUSEA-FOR RESCUE AFTER 15 MIN Thyroid 60 mg 04/27/18 07:00 [place] Thyroid - PO AM RANDAL Objective: Vital Signs Period Temp Pulse Resp BP Sys/Donnelly Pulse Ox Last 24 Hr 97.6 F-98.9 F 88-115 12-28 94-163/37-91 94-100 Physical Exam: General: NAD, A&Ox3, tearful Lungs: CTA bilaterally Heart: RRR, S1S2 Abd: Soft, non-tender, non-distended. Normoactive bowel sounds Ext: Warm, well-perfused. 2+ DP/PT bilaterally CBCD WBC 7.9 K/mm3 (4.0-10.0) 04/27/18 05:30 RBC 3.69 M/mm3 (3.60-5.2) 04/27/18 05:30 Hgb 11.0 GM/dL (10.7-15.3) 04/27/18 05:30 Hct 32.2 % (32.4-45.2) L D 04/27/18 05:30 MCV 87.1 fl (80-96) 04/27/18 05:30 MCHC 34.1 g/dl (32.0-36.0) 04/27/18 05:30 RDW 13.1 % (11.6-15.6) 04/27/18 05:30 Plt Count 463 K/MM3 (134-434) H D 04/27/18 05:30 MPV 7.4 fl (7.5-11.1) L 04/27/18 05:30 CMP Sodium 139 mmol/L (136-145) 04/27/18 05:30 Potassium 4.6 mmol/L (3.5-5.1) 04/27/18 05:30 Chloride 101 mmol/L (98-107) 04/27/18 05:30 Carbon Dioxide 31 mmol/L (21-32) 04/27/18 05:30 Anion Gap 7 (8-16) L 04/27/18 05:30 BUN 6 mg/dL (7-18) L 04/27/18 05:30 Creatinine 0.6 mg/dL (0.55-1.02) 04/27/18 05:30 Creat Clearance w eGFR > 60 (>60) 04/27/18 05:30 Random Glucose 122 mg/dL (74-106) H 04/27/18 05:30 Calcium 8.5 mg/dL (8.5-10.1) 04/27/18 05:30 Total Bilirubin 0.3 mg/dL (0.2-1.0) 04/27/18 05:30 AST 25 U/L (15-37) 04/27/18 05:30 ALT 34 U/L (12-78) 04/27/18 05:30 Alkaline Phosphatase 66 U/L (45-117) 04/27/18 05:30 Total Protein 6.1 g/dl (6.4-8.2) L 04/27/18 05:30 Albumin 2.9 g/dl (3.4-5.0) L 04/27/18 05:30 Microbiology 04/19/18 15:00 Urine - Urine Lan Urine Culture - Final NO GROWTH OBTAINED Assessment: This is a 38 year old female with PMHx DDD, morbid obesity, hypothyroidism who is s/p L4-S1 laminectomies, L4-L5 PLIF, L3-S1 PISF 04/19 Plan: 1) L4-S1 laminectomies, L4-L5 PLIF, L3-S1 PISF 04/19 - POD#8 from above surgery - 04/26/18: S/p right L4 nerve sheath durotomy at axillary junction with thecal sac - Strict Bedrest flat for 71-96 hours - Continue on STORE PRODUCT DEMONSTRATOR per anesthesia - Bowel regimen - Appreciate surgery consult 2) Hypothyroidism - Continue Thyroid - Continue Synthroid 3) Constipation - Senna - Colace - Miralax - Patient refusing suppository 4) F/E/N: - NPO - Monitor electrolytes 5) Prophylaxis: - PT - Mechanical DVT prophylaxis only CODE STATUS: FULL CODE Visit type - Emergency Visit Emergency Visit: Yes ED Registration Date: 04/19/18 Care time: The patient presented to the Emergency Department on the above date and was hospitalized for further evaluation of their emergent condition. - New Patient This patient is new to me today: No - Critical Care Critical Care patient: Yes Total Critical Care Time (in minutes): 45 Critical Care Statement: The care of this patient involved high complexity decision making to prevent further life threatening deterioration of the patient 's condition and/or to evaluate & treat vital organ system(s) failure or risk of failure.
[2018-04-27] MEDS ORDERED: HYDROCHLOROTHIAZIDE 12.5 MG CAPSULE (FP) PO SCH (10:00)
[2018-04-27] MEDS: THYROID 60 MG TABLET PO SCH (10:46)
[2018-04-27] MEDS: SYNTHROID 150 MCG PO SCH (10:46)
[2018-04-27] MEDS: CARVEDILOL 6.25 MG TABLET (FP) PO SCH ×2 (10:47→22:22)
[2018-04-27] MEDS: HYDROCHLOROTHIAZIDE 12.5 MG CAPSULE (FP) PO SCH (10:47)
--- NOTE | 2018-04-27 11:21 | PN ---
Teaching Attending Note Name of Resident: Jamie Rubio ATTENDING PHYSICIAN STATEMENT I saw and evaluated the patient. I reviewed the resident's note and discussed the case with the resident. I agree with the resident's findings and plan as documented. SUBJECTIVE: Patient seen and examined in the ICU. POD #1: Right Lumbar4 nerve sheath durotomy at axillary junction with thecal sac repair. Still reports significant pain. Very anxious. Denies CP or SOB. No nausea or vomiting. Intake & Output 04/24/18 04/25/18 04/26/18 04/27/18 23:59 23:59 23:59 23:59 Intake Total 1280 1330 1000 704 Output Total 929 4500 Balance 1280 1330 71 -3796 Weight 305 lb 9.6 oz 307 lb 11.2 oz 303 lb 302 lb 14.642 oz Last Vital Signs Temp Pulse Resp BP Pulse Ox 99.3 F 95 H 16 148/93 97 04/27/18 10:00 04/27/18 10:00 04/27/18 10:00 04/27/18 10:00 04/27/18 09:00 Active Medications Acetaminophen (Ofirmev Injection -) 1,000 mg IVPB Q8H [facility] Stop: 04/28/18 14:46 Last Admin: 04/27/18 06:40 Dose: 1,000 mg Al Hydroxide/Mg Hydroxide (Mylanta Oral Suspension -) 30 ml PO Q6H PRN PRN Reason: DYSPEPSIA Bisacodyl (Dulcolax Suppository -) 10 mg RC DAILY PRN PRN Reason: CONSTIPATION Carvedilol (Coreg -) 6.25 mg PO BID [facility] Last Admin: 04/27/18 10:47 Dose: 6.25 mg Chlorhexidine Gluconate (Hibiclens For Decolonization -) 1 applic TP HS RANDAL Docusate Sodium (Colace -) 300 mg PO HS [facility]AL Fentanyl (Sublimaze Injection -) 50 mcg IVPUSH [id number] PRN PRN Reason: PAIN-PACU ORDER X 4 DOSES ONLY Last Admin: 04/26/18 22:40 Dose: 50 mcg Hydrochlorothiazide (Hctz -) 12.5 mg PO DAILY [facility] Last Admin: 04/27/18 10:47 Dose: 12.5 mg Hydromorphone HCl (Dilaudid Bus System Operator -) 0 mg SECONDARY SET UP MAN SECONDARY SET UP MAN [facility]; Protocol Stop: 05/03/18 22:40 Last Admin: 04/26/18 23:30 Dose: 10 mg Sodium Chloride (Normal Saline -) 1,000 mls @ 42 mls/hr IV ASDIR [facility] Last Admin: 04/26/18 00:00 Dose: 42 mls/hr Midazolam HCl (Versed -) 4 mg IVPUSH Q6H PRN PRN Reason: AGITATION Last Admin: 04/26/18 23:45 Dose: 2 mg Mupirocin (Bactroban Ointment (For Decolonization) -) 1 applic NS BID [facility] Stop: 05/02/18 09:59 Synthroid 150mcg (Tabs) 1 each PO DAILY@0700 [facility] Last Admin: 04/27/18 10:46 Dose: 1 each Ondansetron HCl (Zofran Injection) 4 mg IVPUSH Q6H PRN PRN Reason: NAUSEA AND/OR VOMITING Ondansetron HCl (Zofran Injection) 8 mg IVPB Q6H PRN PRN Reason: NAUSEA Promethazine HCl (Phenergan Injection -) 12.5 mg IVPUSH Q6H PRN PRN Reason: NAUSEA-FOR RESCUE AFTER 15 MIN Thyroid ([place] Thyroid -) 60 mg PO AM [facility] Last Admin: 04/27/18 10:46 Dose: 60 mg GENERAL: Awake and alert, Anxious, NAD HEAD: Normal with no signs of trauma. EYES: sclera anicteric, conjunctiva clear. No lid lag. EARS, NOSE, THROAT: Ears normal, nares patent, oropharynx clear without exudates. Moist mucous membranes. NECK: supple without lymphadenopathy, JVD, or masses. LUNGS: clear to auscultation bilaterally. No wheezes, and no crackles. No accessory muscle use. HEART: Tachycardic with regular rhythm. No murmur, rub or gallop. ABDOMEN: Obese, Soft, nontender, not distended, (+) bowel sounds, no guarding, no rebound, no masses. MUSCULOSKELETAL: No bony deformities or tenderness. No CVA tenderness. UPPER EXTREMITIES: 2+ pulses, warm, well-perfused. No cyanosis. No clubbing. Cap refill <2 seconds. No peripheral edema. LOWER EXTREMITIES: 2+ pulses, warm, well-perfused. No calf tenderness. No peripheral edema. NEUROLOGICAL: Non-focal SKIN: Warm, dry, normal turgor, no rashes or lesions noted. Laboratory Results - last 24 hr 04/27/18 04/27/18 05:30 05:30 WBC 7.9 RBC 3.69 Hgb 11.0 Hct 32.2 L D MCV 87.1 MCH 29.7 MCHC 34.1 RDW 13.1 Plt Count 463 H D MPV 7.4 L Absolute Neuts (auto) 6.9 Neutrophils % 87.6 H D Lymphocytes % 9.2 D Monocytes % 2.7 L Eosinophils % 0.1 D Basophils % 0.4 Nucleated RBC % 0 Sodium 139 Potassium 4.6 Chloride 101 Carbon Dioxide 31 Anion Gap 7 L BUN 6 L Creatinine 0.6 Creat Clearance w eGFR > 60 Random Glucose 122 H Calcium 8.5 Total Bilirubin 0.3 AST 25 ALT 34 Alkaline Phosphatase 66 Total Protein 6.1 L Albumin 2.9 L ASSESSMENT/PLAN: OOD #1: Right Lumbar4 nerve sheath durotomy at axillary junction with thecal sac repair. POD #8: L4-S1 laminectomy, L4-L5 PLIF, L3-S1 PISF. 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 Can be at 45degrees with meals. Dr Valle Critical care time spent in reviewing chart, evaluating patient and formulating plan - 36 minutes.
--- NOTE | 2018-04-27 13:04 | PN ---
Physical Exam: SUBJECTIVE: Patient seen and examined in the ICU. Very anxious during interview and stating she is having pain. Discussed current plan with patient and need for bed rest as to allow for healing. Was able to lessen pt's anxiety by discussing her current situation with her. OBJECTIVE: Vital Signs Period Temp Pulse Resp BP Sys/Donnelly Pulse Ox Last 24 Hr 97.6 F-99.3 F 87-115 12-28 94-163/37-93 94-100 GENERAL: Awake and alert, very anxious. HEAD: Normal with no signs of trauma. EYES: sclera anicteric, conjunctiva clear. No lid lag. EARS, NOSE, THROAT: Ears normal, nares patent, oropharynx clear without exudates. Moist mucous membranes. NECK: supple without lymphadenopathy, JVD, or masses. LUNGS: Breath sounds decreased, clear to auscultation bilaterally. No wheezes, and no crackles. No accessory muscle use. HEART: Regular rate and rhythm, normal S1 and S2 without murmur, rub or gallop. ABDOMEN: Obese, Soft, nontender, not distended, hypoactive bowel sounds, no guarding, no rebound, no masses. MUSCULOSKELETAL: No bony deformities or tenderness. No CVA tenderness. UPPER EXTREMITIES: warm, well-perfused. No cyanosis. No clubbing. Cap refill <2 seconds. No peripheral edema. LOWER EXTREMITIES: warm, well-perfused. No calf tenderness. No peripheral edema. NEUROLOGICAL: Cranial nerves II-XII grossly intact. gait not observed. SKIN: Warm, dry, normal turgor, no rashes or lesions noted. Laboratory Results - last 24 hr 04/27/18 04/27/18 05:30 05:30 WBC 7.9 RBC 3.69 Hgb 11.0 Hct 32.2 L D MCV 87.1 MCH 29.7 MCHC 34.1 RDW 13.1 Plt Count 463 H D MPV 7.4 L Absolute Neuts (auto) 6.9 Neutrophils % 87.6 H D Lymphocytes % 9.2 D Monocytes % 2.7 L Eosinophils % 0.1 D Basophils % 0.4 Nucleated RBC % 0 Sodium 139 Potassium 4.6 Chloride 101 Carbon Dioxide 31 Anion Gap 7 L BUN 6 L Creatinine 0.6 Creat Clearance w eGFR > 60 Random Glucose 122 H Calcium 8.5 Total Bilirubin 0.3 AST 25 ALT 34 Alkaline Phosphatase 66 Total Protein 6.1 L Albumin 2.9 L Active Medications Generic Name Dose Route Start Last Admin Trade Name Ramírezq PRN Reason Stop Dose Admin Acetaminophen 1,000 mg 04/26/18 22:45 04/27/18 06:40 Ofirmev Injection - IVPB 04/28/18 14:46 1,000 mg Q8H RANDAL Administration Al Hydroxide/Mg Hydroxide 30 ml 04/26/18 22:54 Mylanta Oral Suspension - PO Q6H PRN DYSPEPSIA Bisacodyl 10 mg 04/26/18 22:54 Dulcolax Suppository - RC DAILY PRN CONSTIPATION Carvedilol 6.25 mg 04/27/18 10:00 04/27/18 10:47 Coreg - PO 6.25 mg BID RANDAL Administration Chlorhexidine Gluconate 1 applic 04/27/18 22:00 Hibiclens For Decolonization - TP HS RANDAL Diazepam 5 mg 04/27/18 22:00 Valium - PO BID RANDAL Docusate Sodium 300 mg 04/27/18 22:00 Colace - PO HS [facility]ANDAL Fentanyl 50 mcg 04/26/18 22:38 04/26/18 22:40 Sublimaze Injection - IVPUSH 50 mcg [id number] PRN Administration PAIN-PACU ORDER X 4 DOSES ONLY Hydrochlorothiazide 12.5 mg 04/27/18 10:00 04/27/18 10:47 Hctz - PO 12.5 mg DAILY [facility]ANDAL Administration Hydromorphone HCl 0 mg 04/26/18 22:45 04/26/18 23:30 Dilaudid Job Setter Honing - BINDER FIXER 05/03/18 22:40 10 mg BINDER FIXER RANDAL Administration Protocol Sodium Chloride 1,000 mls @ 42 mls/hr 04/26/18 22:54 04/26/18 00:00 Normal Saline - IV 42 mls/hr ASDIR RANDAL Administration Midazolam HCl 4 mg 04/26/18 22:54 04/26/18 23:45 Versed - IVPUSH 2 mg Q6H PRN Administration AGITATION Mupirocin 1 applic 04/27/18 10:00 Bactroban Ointment (For Decolonization) - NS 05/02/18 09:59 BID RANDAL Synthroid 150mcg 1 each 04/27/18 09:30 04/27/18 10:46 Tabs PO 1 each DAILY@0700 RANDAL Administration Ondansetron HCl 4 mg 04/26/18 22:38 Zofran Injection IVPUSH Q6H PRN NAUSEA AND/OR VOMITING Ondansetron HCl 8 mg 04/26/18 22:54 Zofran Injection IVPB Q6H PRN NAUSEA Promethazine HCl 12.5 mg 04/26/18 22:38 Phenergan Injection - IVPUSH Q6H PRN NAUSEA-FOR RESCUE AFTER 15 MIN Thyroid 60 mg 04/27/18 07:00 04/27/18 10:46 [place] Thyroid - PO 60 mg AM RANDAL Administration ASSESSMENT/PLAN: 38 yo Female admitted to the ICU s/p L4-S1 laminectomy, L4-L5 PLIF, L3-S1 PISF Now s/p L4 durotomy repair post op day 1 Neuro -post-op day 1 -No neuro deficits Cardio -Hx tachycardia Coreg 6.25 mg PO BID -HTN HCTZ 12.5 mg PO Daily Respiratory -No known respiratory problems -Incentive spirometry to decrease risk of post-op atelectasis/pneumonia GI -NPO until flatus -Bowel regimen -Zofran and Promethazine PRN for nausea/vomiting Endocrine -Hx Hypothyroidism - as before, pt requires brand only, generics have been ineffective in the past Synthroid 150mcg PO Daily [place] Thyroid 60 mg PO Daily Post-op Management -Pain control: BINDER FIXER as per anesthesia Valium 5 mg PO BID for muscle relaxants Versed PRN -Strict flat bed rest for 72 hours, can elevate to 45 degrees for meals once diet is advanced -cruz DVT Prophylaxis -TEDs/SCDs only as per surgery FEN -Fluids: NS @ 42 cc/hr -Electrolytes: no electrolyte abnormalities today. 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
[2018-04-27] MEDS: MUPIROCIN 2% TOPICAL OINTMENT FOR DECOLONIZATION NS SCH ×2 (14:01→22:23)
--- NOTE | 2018-04-27 14:51 | PN ---
Progress Note (short form) - Note Progress Note: Anesthesia postop note 38 y/o F s/p GA for Rexploration of wound, dural tear repair, dilaudid production clerks supervisor for postop pain management. POD#1, vss, aaox3, pain fairly well controlled Continue production clerks supervisor, no anesthesia complications.
[2018-04-27] MEDS: MIDAZOLAM HCL 2 MG/2 ML SINGLE DOSE VIAL IVPUSH PRN (15:33)
[2018-04-27] MEDS ORDERED: HYDROmorphone *PCA* 10MG/50ML DISP.SYRIN PCA ONE (17:48)
[2018-04-27] MEDS: SODIUM CHLORIDE 1,000 ML IV SCH (22:00)
[2018-04-27] MEDS: DOCUSATE SODIUM 100 MG CAPSULE (FP) PO SCH (22:22)
[2018-04-27] MEDS: diazePAM 5 MG TABLET PO SCH (22:22)
[2018-04-28] MEDS: MIDAZOLAM HCL 2 MG/2 ML SINGLE DOSE VIAL IVPUSH PRN (01:02)
[2018-04-28] MEDS: ACETAMINOPHEN 1000 MG/100 ML VIAL (NON FORMULARY) IVPB SCH ×4 (01:16→15:06)
[2018-04-28 05:53] LABS: BASO % 0.4 % (0-2.0); EOS % 1.7 % (0-4.5); HEMOGLOBIN 10.5 GM/dL (10.7-15.3); LYMPH % 21.8 % (8-40); MCH 29.3 pg (25.7-33.7); MCHC 33.7 g/dl (32.0-36.0); MEAN PLT VOLUME 7.2 fl (7.5-11.1); MONO % 6.7 % (3.8-10.2); NEUT % 69.4 % (42.8-82.8); PLATELET COUNT 460 K/MM3 (134-434); RBC 3.57 M/mm3 (3.60-5.2); WHITE BLOOD COUNT 8.2 K/mm3 (4.0-10.0)
[2018-04-28] MEDS: HYDROmorphone *PCA* 10MG/50ML DISP.SYRIN PCA SCH ×2 (06:13→09:25)
[2018-04-28 06:15] LABS: ALBUMIN 2.7 g/dl (3.4-5.0); ANION GAP 4 (8-16); BLOOD UREA NITROGEN 9 mg/dL (7-18); CALCIUM 8.4 mg/dL (8.5-10.1); CHLORIDE 100 mmol/L (98-107); CO2 34 mmol/L (21-32); GLUCOSE,RANDOM 111 mg/dL (74-106); MAGNESIUM 2.2 mg/dL (1.8-2.4); SODIUM 138 mmol/L (136-145)
[2018-04-28] MEDS ORDERED: HYDROmorphone HCL CARPU-JECT 1 MG/1 ML DISP.SYRIN IVPB ONE (06:15)
[2018-04-28 06:20] LABS: ALK PHOS 66 U/L (45-117); BILIRUBIN,TOTAL 0.2 mg/dL (0.2-1.0); CREATININE 0.8 mg/dL (0.55-1.02); PHOSPHOROUS 5.2 mg/dL (2.5-4.9); SGOT/AST 20 U/L (15-37); SGPT/ALT 31 U/L (12-78); TOT PROT 5.9 g/dl (6.4-8.2)
[2018-04-28] MEDS: THYROID 60 MG TABLET PO SCH (06:36)
[2018-04-28] MEDS: SYNTHROID 150 MCG PO SCH (06:37)
--- NOTE | 2018-04-28 09:18 | PN ---
Progress Note (short form) - Note Progress Note: POD#3 Post I and D R L4 dural sleeve tear and repair In ICU at strict bedrest for 48 hours post op Marked improvement Headache resolved Pain better controlled no leg pain. Anxiety affect better controlled. All medical parameters stable as per chart Neuro at base line Wound dressing sealed some drainage into the dressing. No drain Abd Soft No bowel function as . Assess Difficult problem doing well post repeat surgery PLAN Pain and anxiolytic meds to continue. Continue in ICU for log rolling and continued medical Pain management Cathartics to get the bowel moving PT Mobize FWBAT tomorrow Today continue bedrest ie flat can sit at45 to eat.
[2018-04-28] MEDS: HYDROCHLOROTHIAZIDE 12.5 MG CAPSULE (FP) PO SCH (09:33)
[2018-04-28] MEDS: diazePAM 5 MG TABLET PO SCH ×2 (09:33→21:21)
[2018-04-28] MEDS: MUPIROCIN 2% TOPICAL OINTMENT FOR DECOLONIZATION NS SCH ×2 (09:33→21:25)
[2018-04-28] MEDS: CARVEDILOL 6.25 MG TABLET (FP) PO SCH ×2 (09:34→21:21)
--- NOTE | 2018-04-28 11:00 | PN ---
Teaching Attending Note Name of Resident: Jamie Rubio ATTENDING PHYSICIAN STATEMENT I saw and evaluated the patient. I reviewed the resident's note and discussed the case with the resident. I agree with the resident's findings and plan as documented. SUBJECTIVE: Patient seen and examined in the ICU. POD #2: Right Lumbar4 nerve sheath durotomy at axillary junction with thecal sac repair. Pain is somewhat better today. Denies CP or SOB. No nausea or vomiting. Intake & Output 04/25/18 04/26/18 04/27/18 04/28/18 23:59 23:59 23:59 23:59 Intake Total 1330 1000 1473 512 Output Total 929 7400 500 Balance 1330 71 -5927 12 Weight 307 lb 11.2 oz 303 lb 302 lb 14.642 oz 286 lb Last Vital Signs Temp Pulse Resp BP Pulse Ox 98.2 F 78 16 111/62 98 04/28/18 06:11 04/28/18 10:00 04/28/18 10:00 04/28/18 10:00 04/28/18 10:00 Active Medications Acetaminophen (Ofirmev Injection -) 1,000 mg IVPB Q8H [facility] Stop: 04/28/18 14:46 Last Admin: 04/28/18 06:57 Dose: 1,000 mg Al Hydroxide/Mg Hydroxide (Mylanta Oral Suspension -) 30 ml PO Q6H PRN PRN Reason: DYSPEPSIA Last Admin: 04/28/18 09:35 Dose: 30 ml Bisacodyl (Dulcolax Suppository -) 10 mg RC DAILY PRN PRN Reason: CONSTIPATION Carvedilol (Coreg -) 6.25 mg PO BID [facility] Last Admin: 04/28/18 09:34 Dose: 6.25 mg Chlorhexidine Gluconate (Hibiclens For Decolonization -) 1 applic TP [facility] Last Admin: 04/28/18 00:00 Dose: 1 applic Diazepam (Valium -) 5 mg PO BID [facility] Last Admin: 04/28/18 09:33 Dose: 5 mg Docusate Sodium (Colace -) 300 mg PO HS [facility] Last Admin: 04/27/18 22:22 Dose: 300 mg Hydrochlorothiazide (Hctz -) 12.5 mg PO DAILY [facility] Last Admin: 04/28/18 09:33 Dose: 12.5 mg Sodium Chloride (Normal Saline -) 1,000 mls @ 42 mls/hr IV ASDIR [facility] Last Admin: 04/27/18 22:00 Dose: 42 mls/hr Midazolam HCl (Versed -) 4 mg IVPUSH Q6H PRN PRN Reason: AGITATION Last Admin: 04/28/18 01:02 Dose: 4 mg Mupirocin (Bactroban Ointment (For Decolonization) -) 1 applic NS BID [facility] Stop: 05/02/18 09:59 Last Admin: 04/28/18 09:33 Dose: 1 applic Synthroid 150mcg (Tabs) 1 each PO DAILY@0700 [facility] Last Admin: 04/28/18 06:37 Dose: 1 each Ondansetron HCl (Zofran Injection) 4 mg IVPUSH Q6H PRN PRN Reason: NAUSEA AND/OR VOMITING Ondansetron HCl (Zofran Injection) 8 mg IVPB Q6H PRN PRN Reason: NAUSEA Oxycodone HCl (Roxicodone -) 10 mg PO Q4H PRN PRN Reason: PAIN LEVEL 4 - 6 Stop: 04/29/18 10:20 Thyroid ([place] Thyroid -) 60 mg PO AM [facility] Last Admin: 04/28/18 06:36 Dose: 60 mg GENERAL: Awake and alert, Anxious, NAD HEAD: Normal with no signs of trauma. EYES: sclera anicteric, conjunctiva clear. No lid lag. EARS, NOSE, THROAT: Ears normal, nares patent, oropharynx clear without exudates. Moist mucous membranes. NECK: supple without lymphadenopathy, JVD, or masses. LUNGS: clear to auscultation bilaterally. No wheezes, and no crackles. No accessory muscle use. HEART: Tachycardic with regular rhythm. No murmur, rub or gallop. ABDOMEN: Obese, Soft, nontender, not distended, (+) bowel sounds, no guarding, no rebound, no masses. MUSCULOSKELETAL: No bony deformities or tenderness. No CVA tenderness. UPPER EXTREMITIES: 2+ pulses, warm, well-perfused. No cyanosis. No clubbing. Cap refill <2 seconds. No peripheral edema. LOWER EXTREMITIES: 2+ pulses, warm, well-perfused. No calf tenderness. No peripheral edema. NEUROLOGICAL: Non-focal SKIN: Warm, dry, normal turgor, no rashes or lesions noted. Laboratory Results - last 24 hr 04/28/18 04/28/18 05:30 05:30 WBC 8.2 RBC 3.57 L Hgb 10.5 L Hct 31.0 L MCV 87.0 MCH 29.3 MCHC 33.7 RDW 13.0 Plt Count 460 H MPV 7.2 L Absolute Neuts (auto) 5.7 Neutrophils % 69.4 D Lymphocytes % 21.8 D Monocytes % 6.7 D Eosinophils % 1.7 D Basophils % 0.4 Nucleated RBC % 0 Sodium 138 Potassium 4.0 Chloride 100 Carbon Dioxide 34 H Anion Gap 4 L BUN 9 Creatinine 0.8 Creat Clearance w eGFR > 60 Random Glucose 111 H Calcium 8.4 L Phosphorus 5.2 H Magnesium 2.2 Total Bilirubin 0.2 AST 20 ALT 31 Alkaline Phosphatase 66 Total Protein 5.9 L Albumin 2.7 L ASSESSMENT/PLAN: OOD #1: Right Lumbar4 nerve sheath durotomy at axillary junction with thecal sac repair. POD #8: L4-S1 laminectomy, L4-L5 PLIF, L3-S1 PISF. 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 Can be at [address] Valle Critical care time spent in reviewing chart, evaluating patient and formulating plan - 36 minutes.
[2018-04-28] MEDS: oxyCODONE HCL 5 MG TABLET PO PRN ×3 (11:03→21:21)
--- NOTE | 2018-04-28 11:19 | PN ---
Physical Exam: SUBJECTIVE: Patient seen and examined in the ICU, states she was having pain overnight and anxiety, which is much improved when I saw her this morning. She is still anxious but greatly improved from yesterday. OBJECTIVE: Vital Signs Period Temp Pulse Resp BP Sys/Donnelly Pulse Ox Last 24 Hr 98.2 F-99.0 F 72-98 12-20 78-122/53-78 98-100 GENERAL: Awake and alert, very anxious. HEAD: Normal with no signs of trauma. EYES: sclera anicteric, conjunctiva clear. No lid lag. EARS, NOSE, THROAT: Ears normal, nares patent, oropharynx clear without exudates. Moist mucous membranes. NECK: supple without lymphadenopathy, JVD, or masses. LUNGS: Breath sounds decreased, clear to auscultation bilaterally. No wheezes, and no crackles. No accessory muscle use. HEART: Regular rate and rhythm, normal S1 and S2 without murmur, rub or gallop. ABDOMEN: Obese, Soft, nontender, not distended, hypoactive bowel sounds, no guarding, no rebound, no masses. MUSCULOSKELETAL: No bony deformities or tenderness. No CVA tenderness. UPPER EXTREMITIES: warm, well-perfused. No cyanosis. No clubbing. Cap refill <2 seconds. No peripheral edema. LOWER EXTREMITIES: warm, well-perfused. No calf tenderness. No peripheral edema. NEUROLOGICAL: Cranial nerves II-XII grossly intact. gait not observed. SKIN: Warm, dry, normal turgor, no rashes or lesions noted. Laboratory Results - last 24 hr 04/28/18 04/28/18 05:30 05:30 WBC 8.2 RBC 3.57 L Hgb 10.5 L Hct 31.0 L MCV 87.0 MCH 29.3 MCHC 33.7 RDW 13.0 Plt Count 460 H MPV 7.2 L Absolute Neuts (auto) 5.7 Neutrophils % 69.4 D Lymphocytes % 21.8 D Monocytes % 6.7 D Eosinophils % 1.7 D Basophils % 0.4 Nucleated RBC % 0 Sodium 138 Potassium 4.0 Chloride 100 Carbon Dioxide 34 H Anion Gap 4 L BUN 9 Creatinine 0.8 Creat Clearance w eGFR > 60 Random Glucose 111 H Calcium 8.4 L Phosphorus 5.2 H Magnesium 2.2 Total Bilirubin 0.2 AST 20 ALT 31 Alkaline Phosphatase 66 Total Protein 5.9 L Albumin 2.7 L Active Medications Generic Name Dose Route Start Last Admin Trade Name Ramírezq PRN Reason Stop Dose Admin Acetaminophen 1,000 mg 04/26/18 22:45 04/28/18 06:57 Ofirmev Injection - IVPB 04/28/18 14:46 1,000 mg Q8H [facility]AL Administration Al Hydroxide/Mg Hydroxide 30 ml 04/26/18 22:54 04/28/18 09:35 Mylanta Oral Suspension - PO 30 ml Q6H PRN Administration DYSPEPSIA Bisacodyl 10 mg 04/26/18 22:54 Dulcolax Suppository - RC DAILY PRN CONSTIPATION Carvedilol 6.25 mg 04/27/18 10:00 04/28/18 09:34 Coreg - PO 6.25 mg BID [facility]AL Administration Chlorhexidine Gluconate 1 applic 04/27/18 22:00 04/28/18 00:00 Hibiclens For Decolonization - TP 1 applic HS [facility]AL Administration Diazepam 5 mg 04/27/18 22:00 04/28/18 09:33 Valium - PO 5 mg BID R[facility]AL Administration Docusate Sodium 300 mg 04/27/18 22:00 04/27/18 22:22 Colace - PO 300 mg HS [facility]AL Administration Hydrochlorothiazide 12.5 mg 04/27/18 10:00 04/28/18 09:33 Hctz - PO 12.5 mg DAILY [facility]AL Administration Sodium Chloride 1,000 mls @ 42 mls/hr 04/26/18 22:54 04/27/18 22:00 Normal Saline - IV 42 mls/hr ASDIR RANDAL Administration Midazolam HCl 4 mg 04/26/18 22:54 04/28/18 01:02 Versed - IVPUSH 4 mg Q6H PRN Administration AGITATION Mupirocin 1 applic 04/27/18 10:00 04/28/18 09:33 Bactroban Ointment (For Decolonization) - NS 05/02/18 09:59 1 applic BID [facility] Administration Synthroid 150mcg 1 each 04/27/18 09:30 04/28/18 06:37 Tabs PO 1 each DAILY@0700 [facility]AL Administration Ondansetron HCl 4 mg 04/26/18 22:38 Zofran Injection IVPUSH Q6H PRN NAUSEA AND/OR VOMITING Ondansetron HCl 8 mg 04/26/18 22:54 Zofran Injection IVPB Q6H PRN NAUSEA Oxycodone HCl 10 mg 04/28/18 10:21 04/28/18 11:03 Roxicodone - PO 04/29/18 10:20 10 mg Q4H PRN Administration PAIN LEVEL 4 - 6 Thyroid 60 mg 04/27/18 07:00 04/28/18 06:36 [place] Thyroid - PO 60 mg AM [facility]AL Administration ASSESSMENT/PLAN: 38 yo Female admitted to the ICU s/p L4-S1 laminectomy, L4-L5 PLIF, L3-S1 PISF Now s/p L4 durotomy repair post op day 2 Neuro -post-op day 2 -No neuro deficits Cardio -Hx tachycardia Coreg 6.25 mg PO BID -HTN HCTZ 12.5 mg PO Daily Respiratory -No known respiratory problems -Incentive spirometry to decrease risk of post-op atelectasis/pneumonia GI -Tolerating diet well with no nausea/vomiting -Bowel regimen -Zofran and Promethazine PRN for nausea/vomiting Endocrine -Hx Hypothyroidism - as before, pt requires brand only, generics have been ineffective in the past Synthroid 150mcg PO Daily [place] Thyroid 60 mg PO Daily Post-op Management -Pain control: FLAT CLOTHIER as per anesthesia Valium 5 mg PO BID for muscle relaxants Versed PRN -Strict flat bed rest for one more day, can elevate to 45 degrees for meals once diet is advanced -cruz DVT Prophylaxis -TEDs/SCDs only as per surgery FEN -Fluids: NS @ 42 cc/hr -Electrolytes: no electrolyte abnormalities today. 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
--- NOTE | 2018-04-28 13:04 | PN ---
Physical Exam: SUBJECTIVE: Patient seen and examined in ICU. C/o MORSE over right eye this AM, no resolved. Pain and burning to back no referring down legs. OBJECTIVE: Vital Signs Period Temp Pulse Resp BP Sys/Donnelly Pulse Ox Last 24 Hr 98.2 F-99.0 F 72-98 12-20 78-122/53-78 98-100 PE Neuro: alert, awake, cn 2-12intact Pulm: diminished anteriorly CV: s1 s2 rrr Abd: obese abd s nt +bs Ext: no le edema Laboratory Results - last 24 hr 04/28/18 04/28/18 05:30 05:30 WBC 8.2 RBC 3.57 L Hgb 10.5 L Hct 31.0 L MCV 87.0 MCH 29.3 MCHC 33.7 RDW 13.0 Plt Count 460 H MPV 7.2 L Absolute Neuts (auto) 5.7 Neutrophils % 69.4 D Lymphocytes % 21.8 D Monocytes % 6.7 D Eosinophils % 1.7 D Basophils % 0.4 Nucleated RBC % 0 Sodium 138 Potassium 4.0 Chloride 100 Carbon Dioxide 34 H Anion Gap 4 L BUN 9 Creatinine 0.8 Creat Clearance w eGFR > 60 Random Glucose 111 H Calcium 8.4 L Phosphorus 5.2 H Magnesium 2.2 Total Bilirubin 0.2 AST 20 ALT 31 Alkaline Phosphatase 66 Total Protein 5.9 L Albumin 2.7 L Active Medications Generic Name Dose Route Start Last Admin Trade Name Freq PRN Reason Stop Dose Admin Acetaminophen 1,000 mg 04/26/18 22:45 04/28/18 06:57 Ofirmev Injection - IVPB 04/28/18 14:46 1,000 mg Q8H [facility]AL Administration Al Hydroxide/Mg Hydroxide 30 ml 04/26/18 22:54 04/28/18 09:35 Mylanta Oral Suspension - PO 30 ml Q6H PRN Administration DYSPEPSIA Bisacodyl 10 mg 04/26/18 22:54 Dulcolax Suppository - RC DAILY PRN CONSTIPATION Carvedilol 6.25 mg 04/27/18 10:00 04/28/18 09:34 Coreg - PO 6.25 mg BID [facility]AL Administration Chlorhexidine Gluconate 1 applic 04/27/18 22:00 04/28/18 00:00 Hibiclens For Decolonization - TP 1 applic HS [facility] Administration Diazepam 5 mg 04/27/18 22:00 04/28/18 09:33 Valium - PO 5 mg BID [facility] Administration Docusate Sodium 300 mg 04/27/18 22:00 04/27/18 22:22 Colace - PO 300 mg HS [facility]AL Administration Hydrochlorothiazide 12.5 mg 04/27/18 10:00 04/28/18 09:33 Hctz - PO 12.5 mg DAILY [facility] Administration Sodium Chloride 1,000 mls @ 42 mls/hr 04/26/18 22:54 04/27/18 22:00 Normal Saline - IV 42 mls/hr ASDIR [facility] Administration Midazolam HCl 4 mg 04/26/18 22:54 04/28/18 01:02 Versed - IVPUSH 4 mg Q6H PRN Administration AGITATION Mupirocin 1 applic 04/27/18 10:00 04/28/18 09:33 Bactroban Ointment (For Decolonization) - NS 05/02/18 09:59 1 applic BID [facility] Administration Synthroid 150mcg 1 each 04/27/18 09:30 04/28/18 06:37 Tabs PO 1 each DAILY@0700 [facility] Administration Ondansetron HCl 4 mg 04/26/18 22:38 Zofran Injection IVPUSH Q6H PRN NAUSEA AND/OR VOMITING Ondansetron HCl 8 mg 04/26/18 22:54 Zofran Injection IVPB Q6H PRN NAUSEA Oxycodone HCl 10 mg 04/28/18 10:21 04/28/18 11:03 Roxicodone - PO 04/29/18 10:20 10 mg Q4H PRN Administration PAIN LEVEL 4 - 6 Thyroid 60 mg 04/27/18 07:00 04/28/18 06:36 [place] Thyroid - PO 60 mg AM [facility] Administration Assessment: 38 year old female with PMHx DDD, morbid obesity, hypothyroidism, HTN who is s/p L4-S1 laminectomies, L4-L5 PLIF, L3-S1 PISF 04/19 Plan: 1. L4-S1 laminectomies, L4-L5 PLIF, L3-S1 PISF 04/19 - 04/26/18: S/p right L4 nerve sheath durotomy at axillary junction with thecal sac - Strict Bedrest flat for additional 24 hrs, 45 HOB w/ meals - [employer] pump dc this am, monitor on PO oxy - Bowel regimen - Advance diet 2. Hypothyroidism - Continue Thyroid - Continue Synthroid 3. Constipation - Senna - Colace - Miralax - Patient refusing suppository 4. Prophylaxis - PT - Mechanical DVT prophylaxis only CODE STATUS: FULL CODE Visit type - Emergency Visit Emergency Visit: Yes ED Registration Date: 04/19/18 Care time: The patient presented to the Emergency Department on the above date and was hospitalized for further evaluation of their emergent condition. - New Patient This patient is new to me today: Yes Date on this admission: 04/28/18 - Critical Care Critical Care patient: No
[2018-04-28] MEDS ORDERED: HYDROmorphone HCL CARPU-JECT 1 MG/1 ML DISP.SYRIN IVPB PRN (16:33)
[2018-04-28] MEDS ORDERED: morphine CARPU-JECT 4 MG/1 ML DISP.SYRIN IVPUSH ONE (16:45)
[2018-04-28] MEDS ORDERED: diazePAM 5 MG TABLET PO ONE (16:45)
[2018-04-28] MEDS ORDERED: MORPHINE SULFATE 2 MG/ML VIAL IVPUSH PRN (16:49)
[2018-04-28 16:57] VITALS: BMI 43.4
[2018-04-28] MEDS: SODIUM CHLORIDE 1,000 ML IV SCH (20:30)
[2018-04-28] MEDS: DOCUSATE SODIUM 100 MG CAPSULE (FP) PO SCH (21:21)
[2018-04-28] MEDS: CHLORHEXIDINE GLUCONATE 4% CLEANSER FOR DECOLONIZATION TP SCH ×2 (21:25)
[2018-04-29] MEDS: oxyCODONE HCL 5 MG TABLET PO PRN ×4 (01:25→22:09)
[2018-04-29] MEDS: morphine SULFATE 4 MG/ML VIAL IVPUSH PRN ×3 (04:00→20:24)
[2018-04-29] MEDS ORDERED: morphine SULFATE 4 MG/ML VIAL IVPUSH ONE (04:22)
[2018-04-29] MEDS: THYROID 60 MG TABLET PO SCH (06:32)
[2018-04-29] MEDS: SYNTHROID 150 MCG PO SCH (06:32)
[2018-04-29 06:34] LABS: HEMATOCRIT 32.7 % (32.4-45.2); HEMOGLOBIN 11.2 GM/dL (10.7-15.3); MCH 29.7 pg (25.7-33.7); MCHC 34.3 g/dl (32.0-36.0); MEAN CELL VOLUME 86.5 fl (80-96); MEAN PLT VOLUME 7.4 fl (7.5-11.1); PLATELET COUNT 473 K/MM3 (134-434); RBC 3.78 M/mm3 (3.60-5.2); RDW 13.1 % (11.6-15.6); WHITE BLOOD COUNT 8.9 K/mm3 (4.0-10.0)
[2018-04-29 06:57] LABS: ANION GAP 8 (8-16); BLOOD UREA NITROGEN 8 mg/dL (7-18); CALCIUM 8.4 mg/dL (8.5-10.1); CHLORIDE 101 mmol/L (98-107); CO2 29 mmol/L (21-32); GLUCOSE,RANDOM 86 mg/dL (74-106); POTASSIUM 4.2 mmol/L (3.5-5.1); SODIUM 138 mmol/L (136-145)
[2018-04-29 06:59] LABS: CREATININE 0.7 mg/dL (0.55-1.02); MAGNESIUM 2.1 mg/dL (1.8-2.4); PHOSPHOROUS 4.9 mg/dL (2.5-4.9)
[2018-04-29] MEDS ORDERED: PT OWN MED DRAWER 7, Y5N ONE (08:22)
[2018-04-29] MEDS: diazePAM 5 MG TABLET PO SCH ×2 (09:51→22:09)
[2018-04-29] MEDS: CARVEDILOL 6.25 MG TABLET (FP) PO SCH ×3 (09:51→22:09)
[2018-04-29] MEDS: HYDROCHLOROTHIAZIDE 12.5 MG CAPSULE (FP) PO SCH (09:51)
[2018-04-29] MEDS: MUPIROCIN 2% TOPICAL OINTMENT FOR DECOLONIZATION NS SCH (10:00)
--- NOTE | 2018-04-29 12:13 | PN ---
Teaching Attending Note Name of Resident: Jamie Rubio ATTENDING PHYSICIAN STATEMENT I saw and evaluated the patient. I reviewed the resident's note and discussed the case with the resident. I agree with the resident's findings and plan as documented. SUBJECTIVE: Patient seen and examined in the ICU. POD #3: Right Lumbar nerve sheath durotomy at axillary junction with thecal sac repair. Pain continues to slowly continue. Denies CP or SOB. No nausea or vomiting. Intake & Output 04/26/18 04/27/18 04/28/18 04/29/18 23:59 23:59 23:59 23:59 Intake Total 1000 1473 1702 Output Total 929 7400 2200 3400 Balance 71 -5927 -498 -3400 Weight 303 lb 302 lb 14.642 oz 286 lb 279 lb 5.211 oz Last Vital Signs Temp Pulse Resp BP Pulse Ox 98.6 F 87 16 118/78 95 04/29/18 02:00 04/29/18 10:00 04/29/18 10:00 04/29/18 10:00 04/29/18 09:00 Active Medications Al Hydroxide/Mg Hydroxide (Mylanta Oral Suspension -) 30 ml PO Q6H PRN PRN Reason: DYSPEPSIA Last Admin: 04/28/18 09:35 Dose: 30 ml Bisacodyl (Dulcolax Suppository -) 10 mg RC DAILY PRN PRN Reason: CONSTIPATION Carvedilol (Coreg -) 6.25 mg PO BID [facility] Last Admin: 04/29/18 09:51 Dose: 6.25 mg Chlorhexidine Gluconate (Hibiclens For Decolonization -) 1 applic TP [facility] Last Admin: 04/28/18 21:25 Dose: 1 applic Diazepam (Valium -) 5 mg PO BID [facility] Last Admin: 04/29/18 09:51 Dose: 5 mg Docusate Sodium (Colace -) 300 mg PO [facility] Last Admin: 04/28/18 21:21 Dose: 300 mg Hydrochlorothiazide (Hctz -) 12.5 mg PO DAILY [facility] Last Admin: 04/29/18 09:51 Dose: 12.5 mg Sodium Chloride (Normal Saline -) 1,000 mls @ 42 mls/hr IV ASDIR [facility] Last Admin: 04/28/18 20:30 Dose: 42 mls/hr Midazolam HCl (Versed -) 4 mg IVPUSH Q6H PRN PRN Reason: AGITATION Last Admin: 04/28/18 01:02 Dose: 4 mg Morphine Sulfate (Morphine Sulfate) 4 mg IVPUSH Q4H PRN PRN Reason: PAIN LEVEL 6-10 Last Admin: 04/29/18 12:01 Dose: 4 mg Mupirocin (Bactroban Ointment (For Decolonization) -) 1 applic NS BID [facility] Stop: 05/02/18 09:59 Last Admin: 04/29/18 10:00 Dose: 1 applic Synthroid 150mcg (Tabs) 1 each PO DAILY@0700 [facility] Last Admin: 04/29/18 06:32 Dose: 1 each Ondansetron HCl (Zofran Injection) 4 mg IVPUSH Q6H PRN PRN Reason: NAUSEA AND/OR VOMITING Ondansetron HCl (Zofran Injection) 8 mg IVPB Q6H PRN PRN Reason: NAUSEA Thyroid ([place] Thyroid -) 60 mg PO AM [facility] Last Admin: 04/29/18 06:32 Dose: 60 mg GENERAL: Awake and alert, Mildly Anxious, NAD HEAD: Normal with no signs of trauma. EYES: sclera anicteric, conjunctiva clear. No lid lag. EARS, NOSE, THROAT: Ears normal, nares patent, oropharynx clear without exudates. Moist mucous membranes. NECK: supple without lymphadenopathy, JVD, or masses. LUNGS: clear to auscultation bilaterally. No wheezes, and no crackles. No accessory muscle use. HEART: Tachycardic with regular rhythm. No murmur, rub or gallop. ABDOMEN: Obese, Soft, nontender, not distended, (+) bowel sounds, no guarding, no rebound, no masses. MUSCULOSKELETAL: No bony deformities or tenderness. No CVA tenderness. UPPER EXTREMITIES: 2+ pulses, warm, well-perfused. No cyanosis. No clubbing. Cap refill <2 seconds. No peripheral edema. LOWER EXTREMITIES: 2+ pulses, warm, well-perfused. No calf tenderness. No peripheral edema. NEUROLOGICAL: Non-focal SKIN: Warm, dry, normal turgor, no rashes or lesions noted. Laboratory Results - last 24 hr 04/29/18 04/29/18 05:30 05:30 WBC 8.9 RBC 3.78 Hgb 11.2 Hct 32.7 MCV 86.5 MCH 29.7 MCHC 34.3 RDW 13.1 Plt Count 473 H MPV 7.4 L Sodium 138 Potassium 4.2 Chloride 101 Carbon Dioxide 29 Anion Gap 8 BUN 8 Creatinine 0.7 Creat Clearance w eGFR > 60 Random Glucose 86 Calcium 8.4 L Phosphorus 4.9 Magnesium 2.1 ASSESSMENT/PLAN: POD #3: Right Lumbar4 nerve sheath durotomy at axillary junction with thecal sac repair. POD #8: L4-S1 laminectomy, L4-L5 PLIF, L3-S1 PISF. 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 Dr Valle Critical care time spent in reviewing chart, evaluating patient and formulating plan - 36 minutes.
--- NOTE | 2018-04-29 12:55 | PN ---
Physical Exam: SUBJECTIVE: Patient seen and examined in ICU. Mostly sleeping OBJECTIVE: Vital Signs Period Temp Pulse Resp BP Sys/Donnelly Pulse Ox Last 24 Hr 98.3 F-98.6 F 68-89 13-22 111-132/69-86 95-98 PE Neuro: alert, awake, cn 2-12intact Pulm: diminished anteriorly CV: s1 s2 rrr Abd: obese abd s nt +bs Ext: no le edema Laboratory Results - last 24 hr 04/29/18 04/29/18 05:30 05:30 WBC 8.9 RBC 3.78 Hgb 11.2 Hct 32.7 MCV 86.5 MCH 29.7 MCHC 34.3 RDW 13.1 Plt Count 473 H MPV 7.4 L Sodium 138 Potassium 4.2 Chloride 101 Carbon Dioxide 29 Anion Gap 8 BUN 8 Creatinine 0.7 Creat Clearance w eGFR > 60 Random Glucose 86 Calcium 8.4 L Phosphorus 4.9 Magnesium 2.1 Active Medications Generic Name Dose Route Start Last Admin Trade Name Freq PRN Reason Stop Dose Admin Al Hydroxide/Mg Hydroxide 30 ml 04/26/18 22:54 04/28/18 09:35 Mylanta Oral Suspension - PO 30 ml Q6H PRN Administration DYSPEPSIA Bisacodyl 10 mg 04/26/18 22:54 Dulcolax Suppository - RC DAILY PRN CONSTIPATION Carvedilol 6.25 mg 04/27/18 10:00 04/29/18 09:51 Coreg - PO 6.25 mg BID RANDAL Administration Chlorhexidine Gluconate 1 applic 04/27/18 22:00 04/28/18 21:25 Hibiclens For Decolonization - TP 1 applic HS RANDAL Administration Diazepam 5 mg 04/27/18 22:00 04/29/18 09:51 Valium - PO 5 mg BID RANDAL Administration Docusate Sodium 300 mg 04/27/18 22:00 04/28/18 21:21 Colace - PO 300 mg HS RANDAL Administration Hydrochlorothiazide 12.5 mg 04/27/18 10:00 04/29/18 09:51 Hctz - PO 12.5 mg DAILY RANDAL Administration Midazolam HCl 4 mg 04/26/18 22:54 04/28/18 01:02 Versed - IVPUSH 4 mg Q6H PRN Administration AGITATION Morphine Sulfate 4 mg 04/28/18 16:49 04/29/18 12:01 Morphine Sulfate IVPUSH 4 mg Q4H PRN Administration PAIN LEVEL 6-10 Mupirocin 1 applic 04/27/18 10:00 04/29/18 10:00 Bactroban Ointment (For Decolonization) - NS 05/02/18 09:59 1 applic BID RANDAL Administration Synthroid 150mcg 1 each 04/27/18 09:30 04/29/18 06:32 Tabs PO 1 each DAILY@0700 RANDAL Administration Ondansetron HCl 4 mg 04/26/18 22:38 Zofran Injection IVPUSH Q6H PRN NAUSEA AND/OR VOMITING Ondansetron HCl 8 mg 04/26/18 22:54 Zofran Injection IVPB Q6H PRN NAUSEA Thyroid 60 mg 04/27/18 07:00 04/29/18 06:32 [place] Thyroid - PO 60 mg AM RANDAL Administration Assessment: 38 year old female with PMHx DDD, morbid obesity, hypothyroidism, HTN who is s/p L4-S1 laminectomies, L4-L5 PLIF, L3-S1 PISF 04/19 Plan: 1. L4-S1 laminectomies, L4-L5 PLIF, L3-S1 PISF 04/19 - 04/26/18: S/p right L4 nerve sheath durotomy at axillary junction with thecal sac - Can mobilize per surgery - Continue PO oxy - Bowel regimen - Advance diet 2. Hypothyroidism - Continue Thyroid - Continue Synthroid 3. Constipation - Senna - Colace - Miralax - [place] today 4. Prophylaxis - PT - Mechanical DVT prophylaxis only CODE STATUS: FULL CODE Visit type - Emergency Visit Emergency Visit: Yes ED Registration Date: 04/19/18 Care time: The patient presented to the Emergency Department on the above date and was hospitalized for further evaluation of their emergent condition. - New Patient This patient is new to me today: No - Critical Care Critical Care patient: No
--- NOTE | 2018-04-29 12:57 | PN ---
Physical Exam: SUBJECTIVE: Patient seen and examined in the ICU. States she is anxious and in pain. states she does not think she can lay flat in the bed much longer. Discussed with her that she would probably be able to get out of bed today and work with physical therapy. OBJECTIVE: Vital Signs Period Temp Pulse Resp BP Sys/Donnelly Pulse Ox Last 24 Hr 98.3 F-98.6 F 68-89 13-22 111-132/69-86 95-98 GENERAL: Awake and alert, very anxious. HEAD: Normal with no signs of trauma. EYES: sclera anicteric, conjunctiva clear. EARS, NOSE, THROAT: Moist mucous membranes. NECK: supple without lymphadenopathy, JVD, or masses. LUNGS: Breath sounds equal, clear to auscultation bilaterally. No wheezes, and no crackles. No accessory muscle use. HEART: Regular rate and rhythm, normal S1 and S2 without murmur, rub or gallop. ABDOMEN: Obese, Soft, nontender, not distended, normoactive bowel sounds, no guarding, no rebound, no masses. MUSCULOSKELETAL: No bony deformities or tenderness. No CVA tenderness. UPPER EXTREMITIES: warm, well-perfused. No cyanosis. No clubbing. No peripheral edema. LOWER EXTREMITIES: warm, well-perfused. No calf tenderness. No peripheral edema. NEUROLOGICAL: Cranial nerves II-XII grossly intact. gait not observed. SKIN: Warm, dry, normal turgor, no rashes or lesions noted. Laboratory Results - last 24 hr 04/29/18 04/29/18 05:30 05:30 WBC 8.9 RBC 3.78 Hgb 11.2 Hct 32.7 MCV 86.5 MCH 29.7 MCHC 34.3 RDW 13.1 Plt Count 473 H MPV 7.4 L Sodium 138 Potassium 4.2 Chloride 101 Carbon Dioxide 29 Anion Gap 8 BUN 8 Creatinine 0.7 Creat Clearance w eGFR > 60 Random Glucose 86 Calcium 8.4 L Phosphorus 4.9 Magnesium 2.1 Active Medications Generic Name Dose Route Start Last Admin Trade Name Freq PRN Reason Stop Dose Admin Al Hydroxide/Mg Hydroxide 30 ml 04/26/18 22:54 04/28/18 09:35 Mylanta Oral Suspension - PO 30 ml Q6H PRN Administration DYSPEPSIA Bisacodyl 10 mg 04/26/18 22:54 Dulcolax Suppository - RC DAILY PRN CONSTIPATION Carvedilol 6.25 mg 04/27/18 10:00 04/29/18 09:51 Coreg - PO 6.25 mg BID RANDAL Administration Chlorhexidine Gluconate 1 applic 04/27/18 22:00 04/28/18 21:25 Hibiclens For Decolonization - TP 1 applic HS RANDAL Administration Diazepam 5 mg 04/27/18 22:00 04/29/18 09:51 Valium - PO 5 mg BID RANDAL Administration Docusate Sodium 300 mg 04/27/18 22:00 04/28/18 21:21 Colace - PO 300 mg HS RANDAL Administration Hydrochlorothiazide 12.5 mg 04/27/18 10:00 04/29/18 09:51 Hctz - PO 12.5 mg DAILY RANDAL Administration Midazolam HCl 4 mg 04/26/18 22:54 04/28/18 01:02 Versed - IVPUSH 4 mg Q6H PRN Administration AGITATION Morphine Sulfate 4 mg 04/28/18 16:49 04/29/18 12:01 Morphine Sulfate IVPUSH 4 mg Q4H PRN Administration PAIN LEVEL 6-10 Mupirocin 1 applic 04/27/18 10:00 04/29/18 10:00 Bactroban Ointment (For Decolonization) - NS 05/02/18 09:59 1 applic BID RANDAL Administration Synthroid 150mcg 1 each 04/27/18 09:30 04/29/18 06:32 Tabs PO 1 each DAILY@0700 RANDAL Administration Ondansetron HCl 4 mg 04/26/18 22:38 Zofran Injection IVPUSH Q6H PRN NAUSEA AND/OR VOMITING Ondansetron HCl 8 mg 04/26/18 22:54 Zofran Injection IVPB Q6H PRN NAUSEA Thyroid 60 mg 04/27/18 07:00 04/29/18 06:32 [place] Thyroid - PO 60 mg AM RANDAL Administration ASSESSMENT/PLAN: 38 yo Female admitted to the ICU s/p L4-S1 laminectomy, L4-L5 PLIF, L3-S1 PISF Now s/p L4 durotomy repair post op day 3 Neuro -post-op day 3 -No neuro deficits Cardio -Hx tachycardia Coreg 6.25 mg PO BID -HTN HCTZ 12.5 mg PO Daily Respiratory -No known respiratory problems -Incentive spirometry to decrease risk of post-op atelectasis/pneumonia GI -Tolerating diet well with no nausea/vomiting -Bowel regimen -Zofran and Promethazine PRN for nausea/vomiting Endocrine -Hx Hypothyroidism - as before, pt requires brand only, generics have been ineffective in the past Synthroid 150mcg PO Daily [place] Thyroid 60 mg PO Daily Post-op Management -Pain control: 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
[2018-04-29] MEDS ORDERED: MAG HYDROX/AL HYDROX/SIMETH 30 ML UNIT-DOSE CUP PO PRN (16:34)
[2018-04-29] MEDS ORDERED: ONDANSETRON 4 MG/2 ML VIAL IVPB PRN (16:34)
[2018-04-29] MEDS ORDERED: BISACODYL 10 MG SUPP.RECT RC PRN (16:34)
[2018-04-29] MEDS ORDERED: ONDANSETRON 4 MG/2 ML VIAL IVPUSH PRN (16:34)
[2018-04-29] MEDS ORDERED: oxyCODONE HCL 5 MG TABLET ONE (17:31)
[2018-04-29] MEDS ORDERED: oxyCODONE HCL 5 MG TABLET PO PRN (17:34)
[2018-04-29] MEDS: CEFAZOLIN 2 GM/D5W 2 GM/50 ML ML IVPB SCH (18:18)
[2018-04-29] MEDS: DOCUSATE SODIUM 100 MG CAPSULE (FP) PO SCH ×2 (18:30→22:09)
[2018-04-29] MEDS: HYDROmorphone *PCA* 10MG/50ML DISP.SYRIN PCA SCH (18:30)
[2018-04-29] MEDS: POLYETHYLENE GLYCOL 3350 119 GM BTL PO SCH (18:30)
[2018-04-29] MEDS: ACETAMINOPHEN 325 MG TABLET (FP) PO PRN (19:34)
[2018-04-30] MEDS: morphine SULFATE 4 MG/ML VIAL IVPUSH PRN ×2 (01:22→06:44)
[2018-04-30] MEDS: oxyCODONE HCL 5 MG TABLET PO PRN ×4 (02:44→20:14)
[2018-04-30] MEDS: THYROID 60 MG TABLET PO SCH (06:44)
[2018-04-30 07:26] LABS: ANION GAP 11 (8-16); BLOOD UREA NITROGEN 11 mg/dL (7-18); CHLORIDE 99 mmol/L (98-107); CO2 27 mmol/L (21-32); CREATININE 0.8 mg/dL (0.55-1.02); GLUCOSE,RANDOM 92 mg/dL (74-106); MAGNESIUM 2.2 mg/dL (1.8-2.4); PHOSPHOROUS 5.2 mg/dL (2.5-4.9); POTASSIUM 4.2 mmol/L (3.5-5.1); SODIUM 137 mmol/L (136-145)
[2018-04-30 07:32] LABS: HEMATOCRIT 34.8 % (32.4-45.2); HEMOGLOBIN 11.9 GM/dL (10.7-15.3); MCH 29.3 pg (25.7-33.7); MCHC 34.1 g/dl (32.0-36.0); MEAN PLT VOLUME 7.4 fl (7.5-11.1); PLATELET COUNT 543 K/MM3 (134-434); RBC 4.05 M/mm3 (3.60-5.2); RDW 13.5 % (11.6-15.6); WHITE BLOOD COUNT 12.7 K/mm3 (4.0-10.0)
[2018-04-30] MEDS: CARVEDILOL 6.25 MG TABLET (FP) PO SCH ×2 (09:42→21:48)
[2018-04-30] MEDS: HYDROCHLOROTHIAZIDE 12.5 MG CAPSULE (FP) PO SCH (09:42)
[2018-04-30] MEDS: diazePAM 5 MG TABLET PO SCH ×2 (09:42→21:48)
--- NOTE | 2018-04-30 09:42 | PN ---
Physical Exam: SUBJECTIVE: Patient seen and examined. She has increased pain with movement and returning to bed after. She has not moved bowels yet. OBJECTIVE: Vital Signs Period Temp Pulse Resp BP Sys/Donnelly Pulse Ox Last 24 Hr 98.3 F-99.0 F 87-98 15-21 118-145/70-94 95-97 PE Neuro: alert, awake, cn 2-12intact tearful Pulm: diminished anteriorly CV: s1 s2 rrr Abd: obese abd s nt +bs Ext: no le edema MSK:L gluteal tendernes radiating to back , back dressing cdi Laboratory Results - last 24 hr 04/30/18 04/30/18 06:10 06:10 WBC 12.7 H RBC 4.05 Hgb 11.9 Hct 34.8 MCV 86.0 MCH 29.3 MCHC 34.1 RDW 13.5 Plt Count 543 H MPV 7.4 L Sodium 137 Potassium 4.2 Chloride 99 Carbon Dioxide 27 Anion Gap 11 BUN 11 Creatinine 0.8 Creat Clearance w eGFR > 60 Random Glucose 92 Calcium 9.0 Phosphorus 5.2 H Magnesium 2.2 Active Medications Generic Name Dose Route Start Last Admin Trade Name Freq PRN Reason Stop Dose Admin Acetaminophen 650 mg 04/29/18 19:24 04/29/18 19:34 Tylenol - PO 650 mg Q6H PRN Administration PAIN LEVEL 7 - 10 Al Hydroxide/Mg Hydroxide 30 ml 04/29/18 16:34 Mylanta Oral Suspension - PO Q6H PRN DYSPEPSIA Bisacodyl 10 mg 04/29/18 16:34 Dulcolax Suppository - RC Q24H PRN CONSTIPATION Carvedilol 6.25 mg 04/29/18 22:00 04/29/18 22:09 Coreg - PO 6.25 mg BID RANDAL Administration Diazepam 5 mg 04/29/18 22:00 04/29/18 22:09 Valium - PO 5 mg BID RANDAL Administration Docusate Sodium 300 mg 04/29/18 22:00 04/29/18 22:09 Colace - PO 300 mg HS RANDAL Administration Hydrochlorothiazide 12.5 mg 04/30/18 10:00 Hctz - PO DAILY RANDAL Methylnaltrexone [place] 8 mg 04/30/18 09:31 Relistor - SQ 04/30/18 09:32 ONCE ONE Non-Formulary Medication 1 each 04/30/18 07:00 04/30/18 06:44 Patient's Own Med PO 1 each DAILY@0700 RANDAL Administration Ondansetron HCl 4 mg 04/29/18 16:34 Zofran Injection IVPUSH Q6H PRN NAUSEA AND/OR VOMITING Ondansetron HCl 8 mg 04/29/18 16:34 Zofran Injection IVPB Q6H PRN NAUSEA Oxycodone HCl 5 mg 04/29/18 17:34 Roxicodone - PO Q4H PRN PAIN LEVEL 1 - 3 Oxycodone HCl 10 mg 04/29/18 17:34 04/30/18 02:44 Roxicodone - PO 10 mg Q4H PRN Administration PAIN LEVEL 4 - 6 Thyroid 60 mg 04/30/18 07:00 04/30/18 06:44 [place] Thyroid - PO 60 mg AM RANDAL Administration Assessment: 38 year old female with PMHx DDD, morbid obesity, hypothyroidism, HTN who is s/p L4-S1 laminectomies, L4-L5 PLIF, L3-S1 PISF 04/19 Plan: 1. L4-S1 laminectomies, L4-L5 PLIF, L3-S1 PISF 04/19 - 04/26/18: S/p right L4 nerve sheath durotomy at axillary junction with thecal sac - Can mobilize per surgery - Continue PO oxy - Stop morphine - Pt wants home PT 2. Hypothyroidism - Continue Thyroid - Continue Synthroid 3. Constipation - Trial relistol and mineral enema x1 now - Senna - Colace - Miralax 4. Prophylaxis - PT - Mechanical DVT prophylaxis only CODE STATUS: FULL CODE Visit type - Emergency Visit Emergency Visit: Yes ED Registration Date: 04/19/18 Care time: The patient presented to the Emergency Department on the above date and was hospitalized for further evaluation of their emergent condition. - New Patient This patient is new to me today: No - Critical Care Critical Care patient: No
[2018-04-30] MEDS ORDERED: Methylnaltrexone Bromide 12 MG/0.6 ML KIT SQ ONE (11:00)
[2018-04-30] MEDS: ACETAMINOPHEN 325 MG TABLET (FP) PO PRN (18:15)
[2018-04-30] MEDS: DOCUSATE SODIUM 100 MG CAPSULE (FP) PO SCH (21:48)
[2018-05-01] MEDS: oxyCODONE HCL 5 MG TABLET PO PRN ×5 (00:13→21:07)
[2018-05-01] MEDS: ACETAMINOPHEN 325 MG TABLET (FP) PO PRN (03:12)
[2018-05-01] MEDS: IBUPROFEN 600 MG TABLET (FP) PO PRN (03:44)
[2018-05-01] MEDS: THYROID 60 MG TABLET PO SCH (06:04)
[2018-05-01 07:39] LABS: BASO % 0.5 % (0-2.0); EOS % 2.3 % (0-4.5); HEMATOCRIT 34.3 % (32.4-45.2); HEMOGLOBIN 11.9 GM/dL (10.7-15.3); LYMPH % 17.8 % (8-40); MCH 29.6 pg (25.7-33.7); MCHC 34.6 g/dl (32.0-36.0); MEAN CELL VOLUME 85.4 fl (80-96); MEAN PLT VOLUME 7.5 fl (7.5-11.1); MONO % 7.3 % (3.8-10.2); NEUT % 72.1 % (42.8-82.8); PLATELET COUNT 563 K/MM3 (134-434); RBC 4.01 M/mm3 (3.60-5.2); RDW 13.3 % (11.6-15.6)
--- NOTE | 2018-05-01 08:45 | PN ---
Physical Exam: SUBJECTIVE: Patient seen and examined at the bedside. Feels well, still has intermittent back pain. She is aware that she needs to ambulate better before discharge. Walked 80 feet yesterday with a close guard of 2 Awaiting SW to set up [facility] services. A shower chair and rolling walker will be ordered for her for home use She is s/p Right L4 nerve sheath durotomy at axillary junction with thecal sac. OBJECTIVE: Vital Signs Period Temp Pulse Resp BP Sys/Donnelly Pulse Ox Last 24 Hr 98.1 F-99.2 F 97-98 20-20 118-133/70-94 97 GENERAL: The patient is awake, alert, and fully oriented, in no acute distress. HEAD: Normal with no signs of trauma. EYES: PERRL, extraocular movements intact, sclera anicteric, conjunctiva clear. No ptosis. ENT: Ears normal, nares patent, oropharynx clear without exudates, moist mucous membranes. NECK: Trachea midline, full range of motion, supple. LUNGS: Breath sounds equal, clear to auscultation bilaterally, no wheezes HEART: Regular rate and rhythm ABDOMEN: Soft, nontender, nondistended, normoactive bowel sounds EXTREMITIES: no edema. NEUROLOGICAL: Normal speech, gait not observed. PSYCH: Normal mood, normal affect. SKIN: large back incision s/p back surgery Laboratory Results - last 24 hr 05/01/18 06:00 WBC 12.0 H RBC 4.01 Hgb 11.9 Hct 34.3 MCV 85.4 MCH 29.6 MCHC 34.6 RDW 13.3 Plt Count 563 H MPV 7.5 Absolute Neuts (auto) 8.6 Neutrophils % 72.1 Lymphocytes % 17.8 Monocytes % 7.3 Eosinophils % 2.3 Basophils % 0.5 Nucleated RBC % 0 Active Medications Generic Name Dose Route Start Last Admin Trade Name Freq PRN Reason Stop Dose Admin Acetaminophen 650 mg 04/29/18 19:24 04/30/18 18:15 Tylenol - PO 650 mg Q6H PRN Administration PAIN LEVEL 7 - 10 Al Hydroxide/Mg Hydroxide 30 ml 04/29/18 16:34 Mylanta Oral Suspension - PO Q6H PRN DYSPEPSIA Bisacodyl 10 mg 04/29/18 16:34 Dulcolax Suppository - RC Q24H PRN CONSTIPATION Carvedilol 6.25 mg 04/29/18 22:00 04/30/18 21:48 Coreg - PO 6.25 mg BID RANDAL Administration Diazepam 5 mg 04/29/18 22:00 04/30/18 21:48 Valium - PO 5 mg BID RANDAL Administration Docusate Sodium 300 mg 04/29/18 22:00 04/30/18 21:48 Colace - PO 300 mg HS RANDAL Administration Hydrochlorothiazide 12.5 mg 04/30/18 10:00 04/30/18 09:42 Hctz - PO 12.5 mg DAILY RANDAL Administration Ibuprofen 600 mg 05/01/18 03:34 05/01/18 03:44 Motrin - PO 600 mg Q4H PRN Administration FEVER Non-Formulary Medication 1 each 04/30/18 07:00 05/01/18 06:04 Patient's Own Med PO 1 each DAILY@0700 RANDAL Administration Ondansetron HCl 4 mg 04/29/18 16:34 Zofran Injection IVPUSH Q6H PRN NAUSEA AND/OR VOMITING Ondansetron HCl 8 mg 04/29/18 16:34 Zofran Injection IVPB Q6H PRN NAUSEA Oxycodone HCl 5 mg 04/29/18 17:34 Roxicodone - PO Q4H PRN PAIN LEVEL 1 - 3 Oxycodone HCl 10 mg 04/29/18 17:34 05/01/18 06:03 Roxicodone - PO 10 mg Q4H PRN Administration PAIN LEVEL 4 - 6 Thyroid 60 mg 04/30/18 07:00 05/01/18 06:04 [place] Thyroid - PO 60 mg AM RANDAL Administration ASSESSMENT/PLAN: Patient is a 38 year old female with a past medical history of morbid obesity, hypothyroidism and hypertension. She is/p L4-S1 laminectomies, L4-L5 PLIF, L3- S1 PISF 04/19 and now s/p S/p right L4 nerve sheath durotomy at axillary junction with thecal sac on 04/26/[address] Arana. Back Surgery/Ortho: S/p right L4 nerve sheath durotomy at axillary junction with thecal sac on 2017: Manage pain with oxycodone. Valium for muscle spasms. Ambulated yesterday with a close guard of 2 and 80 feet. Await repeat PT evaluation as well as [facility] service set up at home prior to discharge for safety. Shower chair and RW to be ordered for home use. GI: Opioid induced constipation: resolved. Given Relistor. On bowel regimen Endocrine: Hypothyroidism: On [place] 60mg PO Card: Hypertension: controlled. On HCTZ and coreq BID. fen tolerating PO monitor electrolytes low salt diet prophy SCDs ambulation as tolerated Physical therapy follow up full code Visit type - Emergency Visit Emergency Visit: Yes ED Registration Date: 04/19/18 Care time: The patient presented to the Emergency Department on the above date and was hospitalized for further evaluation of their emergent condition. - New Patient This patient is new to me today: Yes Date on this admission: 05/01/18 - Critical Care Critical Care patient: No - Discharge Referral Referred to [facility] Med P.C.: No
[2018-05-01] MEDS: HYDROCHLOROTHIAZIDE 12.5 MG CAPSULE (FP) PO SCH (09:49)
[2018-05-01] MEDS: diazePAM 5 MG TABLET PO SCH ×2 (09:49→21:07)
[2018-05-01] MEDS: CARVEDILOL 6.25 MG TABLET (FP) PO SCH ×2 (09:49→21:07)
[2018-05-01] MEDS: DOCUSATE SODIUM 100 MG CAPSULE (FP) PO SCH (21:06)
[2018-05-02] MEDS: oxyCODONE HCL 5 MG TABLET PO PRN ×6 (01:03→21:15)
[2018-05-02] MEDS: THYROID 60 MG TABLET PO SCH (06:04)
[2018-05-02] MEDS: CARVEDILOL 6.25 MG TABLET (FP) PO SCH ×2 (09:49→21:14)
[2018-05-02] MEDS: HYDROCHLOROTHIAZIDE 12.5 MG CAPSULE (FP) PO SCH (09:49)
[2018-05-02] MEDS: diazePAM 5 MG TABLET PO SCH ×2 (09:49→21:14)
--- NOTE | 2018-05-02 13:21 | PN ---
Physical Exam: SUBJECTIVE: Patient seen. Spoke to her in great detail about going to [facility] for rehab. patient refusing. Wants to go home. Explained to her that we are waiting for [facility] to be set up for physical therapy at home. Spoke to ALEXANDRE Lujan who confirmed that this is being set up, but not yet confirmed. Shower chair and RW are also being set up to be delivered to patient's home prior to discharge. OBJECTIVE: Awaiting SW to set up [facility] services. A shower chair and rolling walker will be ordered for her for home use She is s/p Right L4 nerve sheath durotomy at axillary junction with thecal sac. Vital Signs Period Temp Pulse Resp BP Sys/Donnelly Pulse Ox Last 24 Hr 98.1 F-98.7 F 88-116 18-20 112-156/63-99 GENERAL: The patient is awake, alert, and fully oriented, in no acute distress. HEAD: Normal with no signs of trauma. EYES: PERRL, extraocular movements intact, sclera anicteric, conjunctiva clear. No ptosis. ENT: Ears normal, nares patent, oropharynx clear without exudates, moist mucous membranes. NECK: Trachea midline, full range of motion, supple. LUNGS: Breath sounds equal, clear to auscultation bilaterally, no wheezes HEART: Regular rate and rhythm ABDOMEN: Soft, nontender, nondistended, normoactive bowel sounds EXTREMITIES: no edema. NEUROLOGICAL: Normal speech, gait not observed. PSYCH: Normal mood, normal affect. SKIN: large back incision s/p back surgery Active Medications Generic Name Dose Route Start Last Admin Trade Name Freq PRN Reason Stop Dose Admin Acetaminophen 650 mg 04/29/18 19:24 04/30/18 18:15 Tylenol - PO 650 mg Q6H PRN Administration PAIN LEVEL 7 - 10 Al Hydroxide/Mg Hydroxide 30 ml 04/29/18 16:34 05/01/18 23:51 Mylanta Oral Suspension - PO 30 ml Q6H PRN Administration DYSPEPSIA Bisacodyl 10 mg 04/29/18 16:34 Dulcolax Suppository - RC Q24H PRN CONSTIPATION Carvedilol 6.25 mg 04/29/18 22:00 05/02/18 09:49 Coreg - PO 6.25 mg BID RANDAL Administration Diazepam 5 mg 04/29/18 22:00 05/02/18 09:49 Valium - PO 5 mg BID RANDAL Administration Docusate Sodium 300 mg 04/29/18 22:00 05/01/18 21:06 Colace - PO 300 mg HS RANDAL Administration Hydrochlorothiazide 12.5 mg 04/30/18 10:00 05/02/18 09:49 Hctz - PO 12.5 mg DAILY RANDAL Administration Ibuprofen 600 mg 05/01/18 03:34 05/01/18 03:44 Motrin - PO 600 mg Q4H PRN Administration FEVER Non-Formulary Medication 1 each 04/30/18 07:00 05/02/18 06:03 Patient's Own Med PO 1 each DAILY@0700 RANDAL Administration Ondansetron HCl 4 mg 04/29/18 16:34 Zofran Injection IVPUSH Q6H PRN NAUSEA AND/OR VOMITING Ondansetron HCl 8 mg 04/29/18 16:34 Zofran Injection IVPB Q6H PRN NAUSEA Oxycodone HCl 5 mg 04/29/18 17:34 Roxicodone - PO Q4H PRN PAIN LEVEL 1 - 3 Oxycodone HCl 10 mg 04/29/18 17:34 05/02/18 13:18 Roxicodone - PO 10 mg Q4H PRN Administration PAIN LEVEL 4 - 6 Thyroid 60 mg 04/30/18 07:00 05/02/18 06:04 [place] Thyroid - PO 60 mg AM RANDAL Administration ASSESSMENT/PLAN: Patient is a 38 year old female with a past medical history of morbid obesity, hypothyroidism and hypertension. She is/p L4-S1 laminectomies, L4-L5 PLIF, L3- S1 PISF 04/19 and now s/p S/p right L4 nerve sheath durotomy at axillary junction with thecal sac on 04/26/[address] Arana. Back Surgery/Ortho: S/p right L4 nerve sheath durotomy at axillary junction with thecal sac on 2017: Manage pain with oxycodone. Valium for muscle spasms. Ambulated on 04/30 with a close guard of 2 and 80 feet. Await repeat PT evaluation as well as [facility] service set up at home prior to discharge for safety. Shower chair and RW to be ordered for home use. Confirmed that this is being worked on by ALEXANDRE. Patient refusing [place]. GI: Opioid induced constipation: resolved. Given Relistor. On bowel regimen. Endocrine: Hypothyroidism: On [place] 60mg PO Card: Hypertension: controlled. On HCTZ and coreq BID. fen tolerating PO monitor electrolytes low salt diet prophy SCDs ambulation as tolerated Physical therapy follow up full code discharge tomorrow once home services and home equipment have been set up. discussed in detail with patient. Visit type - Emergency Visit Emergency Visit: Yes ED Registration Date: 04/19/18 Care time: The patient presented to the Emergency Department on the above date and was hospitalized for further evaluation of their emergent condition. - New Patient This patient is new to me today: No - Critical Care Critical Care patient: No - Discharge Referral Referred to [facility] Med P.C.: No
[2018-05-02] MEDS: IBUPROFEN 600 MG TABLET (FP) PO PRN (14:01)
[2018-05-02] MEDS: RANITIDINE HCL 150 MG TABLET (FP) PO SCH ×2 (18:05→21:14)
[2018-05-02] MEDS: DOCUSATE SODIUM 100 MG CAPSULE (FP) PO SCH (21:14)
[2018-05-03] MEDS: oxyCODONE HCL 5 MG TABLET PO PRN ×4 (01:08→13:18)
[2018-05-03] MEDS ORDERED: PT OWN MED DRAWER 7, Y5N ONE ×2 (05:11→06:51)
[2018-05-03] MEDS: THYROID 60 MG TABLET PO SCH (06:03)
[2018-05-03] MEDS: ACETAMINOPHEN 325 MG TABLET (FP) PO PRN (08:56)
--- NOTE | 2018-05-03 08:59 | DS ---
Physical Exam: SUBJECTIVE: Patient seen and examined at the bedside. Back dressing changed by Dr. Arana. OBJECTIVE: Patient will need a rolling walker to take with her on discharge. [facility] will [facility] here for her to fruit or nut picker. Vital Signs Period Temp Pulse Resp BP Sys/Donnelly Pulse Ox Last 24 Hr 98.1 F-99.1 F 88-107 18-20 122-156/60-103 PHYSICAL EXAM GENERAL: The patient is awake, alert, and fully oriented, in no acute distress. HEAD: Normal with no signs of trauma. EYES: PERRL, extraocular movements intact, sclera anicteric, conjunctiva clear. No ptosis. ENT: Ears normal, nares patent, oropharynx clear without exudates, moist mucous membranes. NECK: Trachea midline, full range of motion, supple. ABDOMEN: Soft, nontender, nondistended, normoactive bowel sounds EXTREMITIES: no edema. NEUROLOGICAL: Normal speech, gait not observed. PSYCH: Normal mood, normal affect. SKIN: large back incision s/p back surgery changed today by [facility] COURSE: Date of Admission:04/19/18 Date of Discharge: 05/03/18 Hospital discharge by problem list: ASSESSMENT/PLAN: Patient is a 38 year old female with a past medical history of morbid obesity, hypothyroidism and hypertension. She is/p L4-S1 laminectomies, L4-L5 PLIF, L3- S1 PISF on 04/19 and now s/p S/p right L4 nerve sheath durotomy at axillary junction with thecal sac on 04/26/[address] Arana. Back Surgery/Ortho: S/p right L4 nerve sheath durotomy at axillary junction with thecal sac on 2017: Manage pain with oxycodone. Valium for muscle spasms. Ambulated with physical therapy and will continue physical therapy with the [facility] at home. Patient accepted to [place] but refused to go. Patient instructed to ambulate with at all times. Follow up with Dr. Arana on Thursday. GI: Opioid induced constipation: resolved. On bowel regimen. Endocrine: Hypothyroidism: On [place] 60mg PO Card: Hypertension: controlled. On HCTZ and coreq BID. full code discharge with home services and DME. discussed in detail with patient. Minutes to complete discharge: 60 Discharge Summary Reason For Visit: SPINAL STENOSIS, LUMBAR REGION WITHOUT NEUROGENIC Current Active Problems Chronic back pain (Acute) Rosalie's disease (Acute) Lumbar spinal stenosis (Acute) Tachycardia (Acute) - Instructions Diet, Activity, Other Instructions: CPAP QHS and will need formal sleep testing after D/C - Home Medications Comprehensive Discharge Medication List: Ambulatory Orders Carvedilol 6.25 mg PO BID 04/09/18 Cyclobenzaprine HCl 10 mg PO DAILY 04/09/18 Ibuprofen 600 mg PO TID PRN 04/09/18 Levothyroxine [Synthroid -] 150 mcg PO DAILY 04/09/18 Lorazepam 1 mg PO BID 04/09/18 Omeprazole 40 mg PO DAILY 04/09/18 Oxycodone HCl [Oxaydo] 7.5 mg PO PRN PRN 04/09/18 Thyroid,Pork [[place] Thyroid] 60 mg PO DAILY 04/09/18 Aspirin [ASA -] 81 mg PO DAILY 04/19/18 Ferrous Sulfate 325 mg PO DAILY 04/19/18 Hydrochlorothiazide [Hctz -] 12.5 mg PO DAILY 04/19/18 Levothyroxine [Synthroid -] 150 mcg PO DAILY 04/19/18 Montelukast Sodium [Singulair] 10 mg PO HS 04/19/18 Ranitidine [Zantac -] 150 mg PO BID 04/19/18 Oxycodone HCl/Acetaminophen [Percocet 10-325 mg Tablet] 1 each PO Q8H PRN #10 tablet MDD 3 tabs 05/03/18 This patient is new to me today: No Emergency Visit: Yes ED Registration Date: 04/19/18 Care time: The patient presented to the Emergency Department on the above date and was hospitalized for further evaluation of their emergent condition. Critical Care patient: No - Discharge Referral Referred to [facility] Med P.C.: No
[2018-05-03] MEDS: HYDROCHLOROTHIAZIDE 12.5 MG CAPSULE (FP) PO SCH (09:01)
[2018-05-03] MEDS: CARVEDILOL 6.25 MG TABLET (FP) PO SCH (09:01)
[2018-05-03] MEDS: diazePAM 5 MG TABLET PO SCH (09:01)
[2018-05-03] MEDS: RANITIDINE HCL 150 MG TABLET (FP) PO SCH (09:01)
[2018-05-03 14:35] VITALS: BP 138/67; PULSE 90; TEMP 98.7
== END 2018-05-03 15:28 | disposition home or self-care (01) | DRG 460 ==
LOC: JSAMEDAYSX 06:12 → EDSTATUS 08:00 → JICU 16:11 → J8W 04-23 17:15 → JICU 04-26 23:55 → J6S 04-29 17:44
PROVIDERS: ADMIT Orthopaedic Surgery Orthopaedic Surgery of the Spine; ATTEND Nurse Practitioner Family
PROC: 0SG30AJ Fusion of Lumbosacral Joint with Interbody Fusion Device, Posterior Approach, Anterior Column, Open Approach (ICD-10-PCS; 2018-04-19)
PROC: 0ST20ZZ Resection of Lumbar Vertebral Disc, Open Approach (ICD-10-PCS; principal; 2018-04-19 08:00)
PROC: 00QT0ZZ Repair Spinal Meninges, Open Approach (ICD-10-PCS; 2018-04-26)
PROC: 0QB00ZZ Excision of Lumbar Vertebra, Open Approach (ICD-10-PCS; 2018-04-26)
PROC: 3E10X8Z Irrigation of Skin and Mucous Membranes using Irrigating Substance (ICD-10-PCS; 2018-04-26)
DX: M51.27 Other intervertebral disc displacement, lumbosacral region (principal); Z68.41 Body mass index [BMI] 40.0-44.9, adult; G97.82 Other postprocedural complications and disorders of nervous system; G96.0 Cerebrospinal fluid leak; M51.37 Other intervertebral disc degeneration, lumbosacral region; M47.897 Other spondylosis, lumbosacral region; I10 Essential (primary) hypertension; E03.9 Hypothyroidism, unspecified; F41.8 Other specified anxiety disorders; M62.838 Other muscle spasm; R00.0 Tachycardia, unspecified; M54.9 Dorsalgia, unspecified; K59.03 Drug induced constipation; T40.2X5A Adverse effect of other opioids, initial encounter; G89.29 Other chronic pain; E06.3 Autoimmune thyroiditis; R51 Headache; G47.33 Obstructive sleep apnea (adult) (pediatric); E66.01 Morbid (severe) obesity due to excess calories; Y83.8 Other surgical procedures as the cause of abnormal reaction of the patient, or of later complication, without mention of misadventure at the time of the procedure; S31.000A Unspecified open wound of lower back and pelvis without penetration into retroperitoneum, initial encounter; X58.XXXA Exposure to other specified factors, initial encounter; Y92.238 Other place in hospital as the place of occurrence of the external cause
CPT/HCPCS: 36415; 71045-TC-FY; 76000-TC-FY; 80048; 80053; 83735; 84100; 84703; 85025; 85027; 85610; 87086; 88304-TC; 88311-TC; 94760; 97116-GP; 97161-GP; J0131; J1644; J7030

== ENCOUNTER 2018-11-25 06:50 | Inpatient (IN) | payer BC, OTHER ==
[2018-11-24 11:36] VITALS: BMI 37.5
[2018-11-25] MEDS ORDERED: fentaNYL CITRATE 250 MCG/5 ML VIAL ONE (07:24)
[2018-11-25] MEDS ORDERED: PROPOFOL 20 ML ONE ×16 (07:24→09:37)
[2018-11-25] MEDS ORDERED: SUCCINYLCHOLINE CHLORIDE 200 MG/10 ML VIAL ONE (07:25)
[2018-11-25] MEDS ORDERED: MIDAZOLAM HCL 2 MG/2 ML SINGLE DOSE VIAL ONE ×2 (07:25→08:16)
[2018-11-25] MEDS ORDERED: LIDOCAINE HCL/PF 2% SDV 5ML VIAL ONE (07:28)
[2018-11-25] MEDS ORDERED: DEXAMETHASONE SOD PHOSPHATE 4 MG/1 ML VIAL ONE (07:28)
[2018-11-25] MEDS ORDERED: BENZOIN TINCTURE SWABSTICK TP ONE (07:30)
[2018-11-25] MEDS ORDERED: BUPIVACAINE LIPOSOME/PF (EXPAREL) 266 MG/20 ML VIAL ONE (07:30)
[2018-11-25] MEDS ORDERED: BUPIVACAINE HCL/PF 0.25% (2.5MG/ML) 10 ML VIAL ONE (07:30)
[2018-11-25] MEDS ORDERED: HEPARIN NA (PORCINE) 5,000 UNITS/ML 1ML VIAL ONE (07:30)
[2018-11-25] MEDS ORDERED: THROMBIN (BOVINE) 5,000 UNIT VIAL TP ONE (07:31)
[2018-11-25] MEDS ORDERED: VANCOMYCIN 1,000 MG VIAL (RESTRICTED TO ID ONLY) IVPB ONE (08:00)
[2018-11-25] MEDS ORDERED: VANCOMYCIN 1,000 MG VIAL (RESTRICTED TO ID ONLY) ONE (08:15)
[2018-11-25] MEDS ORDERED: ceFAZolin SODIUM 1 GM VIAL IVPB ONE (09:00)
[2018-11-25] MEDS ORDERED: LACTATED RINGERS SOLUTION 1,000 ML IV SCH (09:00)
[2018-11-25] MEDS ORDERED: ceFAZolin SODIUM 1 GM VIAL ONE (09:02)
[2018-11-25] MEDS ORDERED: TRANEXAMIC ACID 1000 MG/10 ML VIAL ONE (09:02)
[2018-11-25] MEDS ORDERED: HYDROmorphone *PCA* 10MG/50ML DISP.SYRIN PCA ONE (11:05)
[2018-11-25] MEDS: HYDROmorphone *PCA* 10MG/50ML DISP.SYRIN PCA SCH (11:08)
[2018-11-25] MEDS ORDERED: PATIENT'S OWN MEDICATION (NON-FORMULARY) (Diazepam [Diazepam] 10 MG) PO PRN ×2 (11:08→12:14)
[2018-11-25] MEDS ORDERED: PATIENT'S OWN MEDICATION (NON-FORMULARY) (Oxycodone Hcl [Oxycodone Hcl] 15 MG) PO PRN ×2 (11:08→12:14)
[2018-11-25] MEDS ORDERED: CYCLOBENZAPRINE HCL 10 MG TABLET (FP) PO PRN ×2 (11:08→12:14)
[2018-11-25] MEDS ORDERED: ONDANSETRON 4 MG/2 ML VIAL IVPUSH PRN (11:09)
--- NOTE | 2018-11-25 11:12 | CONSULT ---
Consultation: REQUESTING PROVIDER: Dr. Arana CONSULT REQUEST: We have been asked to medically evaluate this patient for ICU admission, postoperative management HISTORY OF PRESENT ILLNESS: Patient is a 38 year old female with history of hypothyroidism, anxiety, gastro- esophageal reflux disease, and prior L4-S1 laminectomies, L4-L5 PLIF, L3-S1 PISF , and Autograft, with subsequent right L4 nerve sheath durotomy presents s/p lumbar spine incision and drainage with wound vac application. Patient admits that after her back surgeries in April, she experienced wound dehiscence (? allergy to nickel used in wound rita as reported by at bedside) requiring post-operative antibiotics (Bactrim, Doxycycline, Augmentin). She is tearful upon my encounter and endorses significant back pain. She denies subjective fevers, chills. Denies chest pain, palpitations, abdominal pain, nausea, vomiting, dysuria. EBL 200cc, with 1000 crystalloid volume replacement. REVIEW OF SYSTEMS: CONSTITUTIONAL: Absent: fever, chills, diaphoresis, generalized weakness, malaise, loss of appetite, weight change HEENT: Absent: rhinorrhea, nasal congestion, throat pain, throat swelling, difficulty swallowing, mouth swelling, ear pain, eye pain, visual changes CARDIOVASCULAR: Absent: chest pain, syncope, palpitations, irregular heart rate, lightheadedness , peripheral edema RESPIRATORY: Absent: cough, shortness of breath, dyspnea with exertion, orthopnea, wheezing, stridor, hemoptysis GASTROINTESTINAL: Absent: abdominal pain, abdominal distension, nausea, vomiting, diarrhea, constipation, melena, hematochezia GENITOURINARY: Absent: dysuria, frequency, urgency, hesitancy, hematuria, flank pain, genital pain MUSCULOSKELETAL: Admits: back pain. Absent: myalgia, arthralgia, joint swelling SKIN: Absent: rash, itching, pallor HEMATOLOGIC/IMMUNOLOGIC: Absent: easy bleeding, easy bruising, lymphadenopathy, frequent infections ENDOCRINE: Absent: unexplained weight gain, unexplained weight loss, heat intolerance, cold intolerance NEUROLOGIC: Absent: headache, focal weakness or paresthesias, dizziness, unsteady gait, seizure, mental status changes, bladder or bowel incontinence PSYCHIATRIC: Absent: anxiety, depression, suicidal or homicidal ideation, hallucinations. PHYSICAL EXAMINATION Vital Signs - 24 hr 11/24/18 11/25/18 11/25/18 11:25 07:16 07:17 Temperature 98.4 F 98.4 F Pulse Rate 98 H 98 H Respiratory 16 16 Rate Blood Pressure 108/62 108/62 O2 Sat by Pulse 100 Oximetry (%) GENERAL: Obese, female. Awake, alert, and fully oriented, in acute distress due to back pain. HEAD: Normocephalic, atraumatic. EYES: PERRLA, EOMI. Sclera anicteric, conjunctiva clear. EARS, NOSE, THROAT: Oropharynx clear without exudates. Dry mucous membranes. NECK: Normal range of motion, supple without lymphadenopathy, JVD, or masses. LUNGS: Breath sounds equal, clear to auscultation bilaterally. No wheezes, and no crackles. No accessory muscle use. HEART: Regular rate and rhythm, normal S1 and S2 without murmur, rub or gallop. ABDOMEN: Obese. Soft, not distended, nontender to light and deep palpation X4 quadrants. Normoactive bowel sounds X4 quadrants. MUSCULOSKELETAL: Back significantly tender to light palpation. Freely moves all 4 extremities, limited by back pain. UPPER EXTREMITIES: 2+ radial pulses bilaterally. Warm, well-perfused. Cap refill <2 seconds. LOWER EXTREMITIES: 2+ dorsalis pedis pulses bilaterally, warm, well-perfused. No calf tenderness. Trace lower extremity edema bilaterally. NEUROLOGICAL: Cranial nerves II-XII intact. Normal speech. PSYCHIATRIC: Tearful affect. Cooperative. SKIN: Warm, dry. Vertical spinal surgical site bandaged clean, dry, with wound vac in place. Laboratory Results - last 24 hr 11/25/18 11/25/18 07:04 07:04 Serum , Qual Negative Blood Type A POSITIVE Antibody Screen Negative Active Medications Generic Name Dose Route Start Last Admin Trade Name Freq PRN Reason Stop Dose Admin Acetaminophen 1,000 mg 11/25/18 11:15 Ofirmev Injection - IVPB 11/26/18 03:16 Q8H RANDAL Cyclobenzaprine HCl 10 mg 11/25/18 11:08 Flexeril - PO PRN PRN PAIN Fentanyl 100 mcg 11/25/18 10:48 11/25/18 11:01 Sublimaze Injection - IVPUSH 100 mcg [id number] PRN Administration PAIN-PACU ORDER X 4 DOSES ONLY Hydromorphone HCl 10 mg 11/25/18 09:15 Dilaudid Retail Cosmetics Sales Counter Manager - LOG COOKER 11/28/18 09:03 LOG COOKER RANDAL Protocol Lactated Ringer's 1,000 mls @ 125 mls/hr 11/25/18 09:00 Lactated Ringers Solution IV ASDIR RANDAL Lactated Ringer's 1,000 mls @ 125 mls/hr 11/25/18 11:15 Lactated Ringers Solution IV ASDIR RANDAL Levothyroxine Sodium 150 mcg 11/26/18 10:00 Synthroid - PO DAILY RANDAL Non-Formulary Medication 10 mg 11/25/18 11:08 Diazepam [Diazepam] PO PRN PRN PAIN Non-Formulary Medication 40 mg 11/26/18 10:00 Omeprazole PO DAILY RANDAL Non-Formulary Medication 15 mg 11/25/18 11:08 Oxycodone Hcl [Oxycodone Hcl] PO PRN PRN PAIN Ondansetron HCl 4 mg 11/25/18 09:00 Zofran Injection IVPUSH Q6H PRN NAUSEA AND/OR VOMITING Ondansetron HCl 4 mg 11/25/18 11:09 Zofran Injection IVPUSH Q6H PRN NAUSEA AND/OR VOMITING Thyroid 60 mg 11/26/18 10:00 [place] Thyroid - PO DAILY [facility] ASSESSMENT/PLAN: Patient is a 38 year old female with history of hypothyroidism, anxiety, gastro- esophageal reflux disease, and prior L4-S1 laminectomies, L4-L5 PLIF, L3-S1 PISF , and autograft, with subsequent right L4 nerve sheath durotomy presents s/p lumbar spine incision and drainage with wound vac application. Neurological/ Psychiatric Anxiety -Patient is awake, alert, oriented. -Holding home Diazepam -Neuro checks Q4 hours Pulmonary -Currently saturating 98% on room air. -Maintain oxygen saturation greater than 90% -Incentive spirometer Q15 minutes Cardiac Hypertension -Patient states that she has not taken any antihypertensives for the past week. -Follow vital signs closely. Gastrointestinal Gastro-esophageal reflux -Patient is NPO until passing flatus -IV Lactated Ringer's at 125mL/ hour -Omeprazole 40mg PO daily Genitourinary -Patient currently draining clear yellow urine within curz catheter -Follow cruz catheter output -Discontinue cruz catheter once patient is ambulatory. Musculoskeletal -Patient is POD #0 s/p lumbar spine incision and drainage with wound vac application -Pain control with Dilaudid LOG COOKER -Monitor wound vac output -Physical therapy Endocrine Hypothyroidism -Synthroid 75mcg IV daily -Thyroid [place] 60mg PO daily ID -Ancef 2 grams IV Q8H x2 doses post-operatively -Follow wound, tissue cultures. -Consider ID consult, pending culture results Fluids/ Electrolytes/ Nutrition -IV Lactated Ringer's at 125mL/ hour -Follow CMP, replete as necessary -NPO until patient is passing flatus Lines/ Tubes/ Drains -Wound vac placed intra-operatively 11/25 -Cruz catheter placed 11/25 Prophylaxis -No chemical anticoagulation per Dr. Arana. -SCDs, TEDs bilateral lower extremities -Omeprazole 40mg PO daily Disposition: We will continue to follow the patient. Thank you for this consultative opportunity. Visit type - Emergency Visit Emergency Visit: Yes ED Registration Date: 11/25/18 Care time: The patient presented to the Emergency Department on the above date and was hospitalized for further evaluation of their emergent condition. - New Patient This patient is new to me today: Yes Date on this admission: 11/25/18 - Critical Care Critical Care patient: Yes Total Critical Care Time (in minutes): 37 Critical Care Statement: The care of this patient involved high complexity decision making to prevent further life threatening deterioration of the patient 's condition and/or to evaluate & treat vital organ system(s) failure or risk of failure.
--- NOTE | 2018-11-25 11:16 | PN ---
Progress Note (short form) - Note Progress Note: 38F s/p I&D lumbar spine w/placement of wound vac POD #0. -Pain control: per anaesthesia team; recommend OIL FURNACE INSTALLER; No NSAID's. -DVT PPx: - Mechanical only: BONITA's, SCD's. -Incentive spirometry q15min. -PT/OT/Rehab, OOB. -WBAT B/L LE. -q4h B/L LE NV checks. -Post-op antibiotics x 2 doses. -f/u intra-operative wound cultures; if (+) bacteriology, consult ID service for antibiotic guidance. -NPO until flatus. -f/u AM labs. -(+) Wound vac management; ensure battery is charged at all times. -d/c Lan catheter when patient ambulating comfortably. -Care per ICU & medical hospitalist team. -Will follow. Brant Arana MD (Orthopaedic Surgery).
--- NOTE | 2018-11-25 11:18 | OP ---
Operative Note - Note: Operative Date: 11/25/18 Pre-Operative Diagnosis: Lumbar spine drainage Operation: 1. I&D lumbar spine. 2. Application lumbar spine wound vac Post-Operative Diagnosis: Same as Pre-op (Lumbar spine infection) Surgeon: Brant Arana Rehabilitation Construction Specialist: Wilian Arana Anesthesiologist/SALES TRAINER: Emerson Jarrett Anesthesia: General Specimens Removed: Infected tissue Estimated Blood Loss (mls): 200 Drains & Tubes with Location: 1 x WoundVac (Deep) Fluid Volume Replaced (mls): 1,000 (Crystalloid) Operative Report Dictated: Yes
[2018-11-25] MEDS: LACTATED RINGERS SOLUTION 1,000 ML IV SCH (11:24)
--- NOTE | 2018-11-25 13:00 | PN ---
Physical Exam: SUBJECTIVE: Patient seen and examined in ICU. Patient c/o pain at the surgical site. OBJECTIVE: Vital Signs Period Temp Pulse Resp BP Sys/Donnelly Pulse Ox Last 24 Hr 97.6 F-98.4 F 90-103 14-18 104-141/62-91 99-100 GENERAL: The patient is awake, alert, and fully oriented, in moderate acute distress. HEAD: Normal with no signs of trauma. NECK: Trachea midline, full range of motion, supple. LUNGS: Breath sounds equal, clear to auscultation bilaterally, no wheezes, no crackles, no accessory muscle use. HEART: Regular rate and rhythm, S1, S2 without murmur, rub or gallop. ABDOMEN: Soft, nontender, nondistended, normoactive bowel sounds, no guarding, no rebound, no hepatosplenomegaly, no masses. EXTREMITIES: 2+ pulses, warm, well-perfused, no edema. NEUROLOGICAL: Cranial nerves II through X grossly intact. Normal speech. Strength 5/5 at the ankles b/l SKIN: Warm, dry, normal turgor. There is a post op incision which extends from the thoracic spine down into the lumbar spine. The incision is left open and there is a wound vac in place and operating. No overt erythema, swelling or purulence. Laboratory Results - last 24 hr 11/25/18 11/25/18 07:04 07:04 Serum , Qual Negative Blood Type A POSITIVE Antibody Screen Negative Active Medications Generic Name Dose Route Start Last Admin Trade Name Freq PRN Reason Stop Dose Admin Acetaminophen 1,000 mg 11/25/18 12:00 Ofirmev Injection - IVPB 11/26/18 04:01 Q8H RANDAL Fentanyl 100 mcg 11/25/18 10:48 11/25/18 11:01 Sublimaze Injection - IVPUSH 100 mcg [id number] PRN Administration PAIN-PACU ORDER X 4 DOSES ONLY Hydromorphone HCl 10 mg 11/25/18 09:15 11/25/18 11:08 Dilaudid Field Crop Grower - ELECTRICAL TEST TECHNICIAN 11/28/18 09:03 10 mg ELECTRICAL TEST TECHNICIAN RANDAL Administration Protocol Lactated Ringer's 1,000 mls @ 125 mls/hr 11/25/18 11:15 11/25/18 11:24 Lactated Ringers Solution IV 125 mls/hr ASDIR RANDAL Administration Cefazolin Sodium/Dextrose 2 gm in 50 mls @ 100 mls/hr 11/25/18 13:00 Ancef 2 Gm Premixed Ivpb - IVPB Q8H-IV RANDAL Levothyroxine Sodium 150 mcg 11/26/18 10:00 Synthroid - PO DAILY RANDAL Ondansetron HCl 4 mg 11/25/18 09:00 Zofran Injection IVPUSH Q6H PRN NAUSEA AND/OR VOMITING Ondansetron HCl 4 mg 11/25/18 11:09 Zofran Injection IVPUSH Q6H PRN NAUSEA AND/OR VOMITING Pantoprazole Sodium 40 mg 11/26/18 10:00 Protonix - PO DAILY RANDAL Thyroid 60 mg 11/26/18 10:00 [place] Thyroid - PO DAILY RANDAL ASSESSMENT/PLAN: The patient is a 38 yo f w/ PMH HLD, Hypothyroidism who is admitted to ICU as she is POD#0 debridement in OR. #POD #0 debridement on OR w/ Dr. Arana -on dilaudid ELECTRICAL TEST TECHNICIAN pump -fentanyl PRN per Dr. Arana -holding home pain meds -SCDs, TEDs for dvt prophylaxis per Dr. Arana -NPO until flatus -PT as per Dr. Arana -will f/u intraop cultures & cover w/ ABX accordingly -PT, weight bearing #hypothyroidism -converted the patient's PO synthroid to 1/2 dose IV while pt NPO #FEN -no fluids indicated -lytes WNL -NPO until flatus #Prophy -SCDs -TEDs #Dispo -admit ICU Visit type - Emergency Visit Emergency Visit: Yes ED Registration Date: 11/25/18 Care time: The patient presented to the Emergency Department on the above date and was hospitalized for further evaluation of their emergent condition. - New Patient This patient is new to me today: Yes Date on this admission: 11/25/18 - Critical Care Critical Care patient: Yes Total Critical Care Time (in minutes): 40 Critical Care Statement: The care of this patient involved high complexity decision making to prevent further life threatening deterioration of the patient 's condition and/or to evaluate & treat vital organ system(s) failure or risk of failure. - Discharge Referral Referred to [facility] Med [facility].: No
[2018-11-25 13:10] LABS: HEMATOCRIT 37.7 % (32.4-45.2); MCH 28.4 pg (25.7-33.7); MCHC 34.4 g/dl (32.0-36.0); MEAN CELL VOLUME 82.5 fl (80-96); MEAN PLT VOLUME 7.4 fl (7.5-11.1); PLATELET COUNT 352 K/MM3 (134-434); RBC 4.57 M/mm3 (3.60-5.2); RDW 14.5 % (11.6-15.6); WHITE BLOOD COUNT 8.8 K/mm3 (4.0-10.0)
[2018-11-25] MEDS: ACETAMINOPHEN 1000 MG/100 ML VIAL (NON FORMULARY) IVPB SCH (13:10)
[2018-11-25] MEDS: CEFAZOLIN 2 GM/D5W 2 GM/50 ML ML IVPB SCH ×2 (13:12→17:55)
[2018-11-25 13:47] LABS: ALBUMIN 3.7 g/dl (3.4-5.0); ALK PHOS 98 U/L (45-117); ANION GAP 7 MMOL/L (8-16); BILIRUBIN,TOTAL 0.2 mg/dL (0.2-1); BLOOD UREA NITROGEN 10 mg/dL (7-18); CALCIUM 8.5 mg/dL (8.5-10.1); CHLORIDE 106 mmol/L (98-107); CO2 27 mmol/L (21-32); CREATININE 0.8 mg/dL (0.55-1.3); GLUCOSE,RANDOM 109 mg/dL (74-106); POTASSIUM 4.1 mmol/L (3.5-5.1); SGOT/AST 14 U/L (15-37); SGPT/ALT 21 U/L (13-61); SODIUM 140 mmol/L (136-145); TOT PROT 6.7 g/dl (6.4-8.2)
--- NOTE | 2018-11-25 14:24 | PN ---
Teaching Attending Note Name of Resident: Fly Cartwright ATTENDING PHYSICIAN STATEMENT I saw and evaluated the patient. I reviewed the resident's note and discussed the case with the resident. I agree with the resident's findings and plan as documented. SUBJECTIVE: Patient seen and examined in ICU. Just from OR. POD #0: 1. I&D lumbar spine. 2. Application lumbar spine wound vac. Pain/discomfort from the surgical site. No CP or SOB. Intake & Output 11/22/18 11/23/18 11/24/18 11/25/18 23:59 23:59 23:59 23:59 Intake Total 1000 Output Total 250 Balance 750 Weight 254 lb Last Vital Signs Temp Pulse Resp BP Pulse Ox 97.9 F 99 H 18 104/70 99 11/25/18 12:15 11/25/18 12:15 11/25/18 12:15 11/25/18 12:15 11/25/18 12:15 Active Medications Acetaminophen (Ofirmev Injection -) 1,000 mg IVPB Q8H RANDAL Stop: 11/26/18 04:01 Last Admin: 11/25/18 13:10 Dose: 1,000 mg Fentanyl (Sublimaze Injection -) 100 mcg IVPUSH [id number] PRN PRN Reason: PAIN-PACU ORDER X 4 DOSES ONLY Last Admin: 11/25/18 11:01 Dose: 100 mcg Hydromorphone HCl (Dilaudid Lmft -) 10 mg FINANCIAL MANAGEMENT ANALYST FINANCIAL MANAGEMENT ANALYST RANDAL; Protocol Stop: 11/28/18 09:03 Last Admin: 11/25/18 11:08 Dose: 10 mg Lactated Ringer's (Lactated Ringers Solution) 1,000 mls @ 125 mls/hr IV ASDIR RANDAL Last Admin: 11/25/18 11:24 Dose: 125 mls/hr Cefazolin Sodium/Dextrose (Ancef 2 Gm Premixed Ivpb -) 2 gm in 50 mls @ 100 mls /hr IVPB Q8H-IV RANDAL Last Admin: 11/25/18 13:12 Dose: 100 mls/hr Levothyroxine Sodium (Synthroid Injection -) 75 mcg IVPUSH DAILY RANDAL Ondansetron HCl (Zofran Injection) 4 mg IVPUSH Q6H PRN PRN Reason: NAUSEA AND/OR VOMITING Ondansetron HCl (Zofran Injection) 4 mg IVPUSH Q6H PRN PRN Reason: NAUSEA AND/OR VOMITING Pantoprazole Sodium (Protonix -) 40 mg PO DAILY RANDAL Thyroid ([place] Thyroid -) 60 mg PO DAILY RANDAL OBJECTIVE: GENERAL: The patient is awake, alert, oriented, uncomfortable due to pain HEAD: Normal with no signs of trauma. NECK: Trachea midline, full range of motion, supple. LUNGS: Clear to auscultation bilaterally, no wheezes, no crackles, no accessory muscle use. HEART: Regular rate and rhythm, S1, S2 without murmur, rub or gallop. ABDOMEN: Soft, nontender, nondistended, normoactive bowel sounds, no guarding, no rebound, no hepatosplenomegaly, no masses. EXTREMITIES: 2+ pulses, warm, well-perfused, no edema. NEUROLOGICAL: Non-focal. strength 5/5 SKIN: Wound VAC in place Laboratory Results - last 24 hr 11/25/18 11/25/18 07:04 07:04 Serum , Qual Negative Blood Type A POSITIVE Antibody Screen Negative ASSESSMENT/PLAN: POD#0; 1. I&D lumbar spine. 2. Application lumbar spine wound vac. HLD Hypothyroidism Pain control with Dilaudid FINANCIAL MANAGEMENT ANALYST pump SCDs for VTE prophylaxis NPO until flatus PT as per surgery ABX coverage Follow intra-op cultures Incentive Spirometry O2 as needed Dr Valle
--- NOTE | 2018-11-25 18:05 | PN ---
Teaching Attending Note Name of Resident: Brent Hsu ATTENDING PHYSICIAN STATEMENT I saw and evaluated the patient. I reviewed the resident's note and discussed the case with the resident. I agree with the resident's findings and plan as documented. SUBJECTIVE: CC: POD0 after I&D of lumbar wound HPI: 38 y/o lady with h/o Lumbar spinal stenosis s/p L4-S1 laminectomies and fusion 04/19/18, followed by r L4 nerve sheath durotomy on 04/26/18, hypothyroidism, obesity, HLP, who presneted now for I&D of her lumbar spine wound . She is POD 0 now. complains of a lot of painin back. has numbness in R lateral thigh which is not new. has no SOB or CP or SOB. OBJECTIVE: tearful during enconter, difficulty moving in bed. No facial droop, EOMI, round equal pupils. MMM. CV; RRR, no MRG Lungs CTAB Abd: obese, soft, NT, Nd , NL BS Ext: no edema or erythema. Neuro of LE limited due to pain and difficulty moving. strength 4/5 in R hip flexion , 5/5 R knee flexion/extension, and ankle dorsiflexion and plantar flexion. 5/5 L ankle dorsiflexion and plantar flexion. unable to evaluate LLe. Knee jerk 2+ on R. sensation decreased to light touch in R laterl thigh, otherwise nL MS: wound vac over lower thoracic and lumbar area . with intact dressing ASSESSMENT AND PLAN: 38 y/o lady with h/o Lumbar spinal stenosis s/p L4-S1 laminectomies and fusion 04/19/18, followed by r L4 nerve sheath durotomy on 04/26/18, hypothyroidism, obesity, HLP, who presneted now for I&D of her lumbar spine wound . 1- S/p Lumbar wound I&D: POD 0 - cont SPACE OPERATIONS - PT eval - cruz , NPO , SCDs , NO NSAIDs - IVF - follow cx for need for abx 2- Hypothyroidism, cont synthroid and armor thyroid 3- GERD , cont PPI 4- Anxiety, if needed can give Valium per home dose dispo : [facility]
--- NOTE | 2018-11-25 19:12 | OP ---
DATE OF OPERATION: 11/25/2018 SURGEON: Brant Arana MD SYSTEM MANAGER: Wilian Arana MD PREOPERATIVE DIAGNOSIS: Infected spinal wound with epidural abscess. POSTOPERATIVE DIAGNOSIS: Infected spinal wound with epidural abscess. OPERATION PERFORMED: 1. Scar excision and excision of multiple pyogenic granulomata, all within the confines of the original wound. 2. Inspection of the fusion mass. 3. Incision and drainage of bone, muscle, subcutaneous tissue. 4. Insertion of wound VAC. ANESTHESIA: General. ANTIBIOTICS GIVEN: Kefzol 2 g, 1 g vancomycin. DESCRIPTION OF PROCEDURE: Patient correctly identified and brought to the operating room. Patient was placed on a Nico frame. The skin was prepped with betadine scrub solution and wiped off with alcohol and DuraPrep applied. Timeout was called. Imaging was available for intraoperative evaluation. This was assessed as a superficial infection, but the diagnosis changed as the wound was explored. An elliptical skin incision, excising the entire wound and utilizing Bovie to cauterize with cutting a wedge of tissue from the skin to the posterior layer of the erector spinae muscle mass and fascia. The entire lesion was resected. At the very distal end of the lesion, a sinus-like granulation wad was noted. This was explored and we then opened up the deep layer as this revealed extensive necrotic mucopurulent material along the hardware and along the confined space. The dura was covered. Tissues were relatively healthy and granulating. The tissues were debrided completely, excising small fragments of loose bone, muscle, fascia, skin, subcutaneous tissue using a curette. All that was visible and required removal was performed. Washout was with 5 L of pulse lavage saline. Betadine scrub was utilized to wash the hardware as well as the tissues to rid the tissues of biofilm. Once this had been performed, a wound VAC was inserted into the deep space. This was sealed and was functioning completely well following this debridement. No complications. Brant Arana MD [id number]
[2018-11-26] MEDS: CEFAZOLIN 2 GM/D5W 2 GM/50 ML ML IVPB SCH ×3 (01:08→18:24)
[2018-11-26 05:53] LABS: HEMATOCRIT 31.8 % (32.4-45.2); HEMOGLOBIN 10.8 GM/dL (10.7-15.3); MCH 27.9 pg (25.7-33.7); MCHC 34.1 g/dl (32.0-36.0); MEAN CELL VOLUME 81.8 fl (80-96); MEAN PLT VOLUME 7.6 fl (7.5-11.1); PLATELET COUNT 351 K/MM3 (134-434); RBC 3.89 M/mm3 (3.60-5.2); RDW 14.8 % (11.6-15.6); WHITE BLOOD COUNT 8.6 K/mm3 (4.0-10.0)
[2018-11-26] MEDS ORDERED: PT OWN MED DRAWER 7, Y5N ONE ×2 (05:53→09:40)
[2018-11-26] MEDS: THYROID 60 MG TABLET PO SCH (06:13)
[2018-11-26 06:22] LABS: ANION GAP 5 MMOL/L (8-16); BLOOD UREA NITROGEN 7 mg/dL (7-18); CALCIUM 8.1 mg/dL (8.5-10.1); CHLORIDE 102 mmol/L (98-107); CO2 30 mmol/L (21-32); CREATININE 0.6 mg/dL (0.55-1.3); GLUCOSE,RANDOM 101 mg/dL (74-106); MAGNESIUM 2.2 mg/dL (1.8-2.4); POTASSIUM 4.2 mmol/L (3.5-5.1); SODIUM 137 mmol/L (136-145)
[2018-11-26] MEDS ORDERED: LEVOTHYROXINE SODIUM 100 MCG VIAL IVPUSH SCH (07:00)
--- NOTE | 2018-11-26 07:03 | PN ---
Physical Exam: SUBJECTIVE: Patient seen and examined at bedside this morning. She endorses back pain is intermittently controlled with Dilaudid YEAST TENDER. She is currently NPO, and admits passing flatus overnight. Has not yet passed bowel movement. Denies subjective fevers, chills, shortness of breath, chest pain, palpitations, abdominal pain, nausea, vomiting. OBJECTIVE: Vital Signs Period Temp Pulse Resp BP Sys/Donnelly Pulse Ox Last 24 Hr 97.6 F-98.4 F 77-103 7-22 96-141/52-91 97-100 GENERAL: Obese, female. Awake, alert, and fully oriented, in no acute distress. HEAD: Normocephalic, atraumatic. EYES: PERRLA, EOMI. Sclera anicteric, conjunctiva clear. EARS, NOSE, THROAT: Oropharynx clear without exudates. Dry mucous membranes. NECK: Normal range of motion, supple without lymphadenopathy, JVD, or masses. LUNGS: Breath sounds equal, clear to auscultation bilaterally. No wheezes, and no crackles. No accessory muscle use. HEART: Regular rate and rhythm, normal S1 and S2 without murmur, rub or gallop. ABDOMEN: Obese. Soft, not distended, nontender to light and deep palpation X4 quadrants. Hypoactive bowel sounds X4 quadrants. MUSCULOSKELETAL: Freely moves all 4 extremities, limited by back pain. Strength 5/5 bilateral upper and lower extremities. UPPER EXTREMITIES: 2+ radial pulses bilaterally. Warm, well-perfused. Cap refill <2 seconds. LOWER EXTREMITIES: 2+ dorsalis pedis pulses bilaterally, warm, well-perfused. No calf tenderness. Trace lower extremity edema bilaterally. NEUROLOGICAL: Cranial nerves II-XII intact. Normal speech. PSYCHIATRIC: Cooperative. Mood and affect appropriate upon my encounter. SKIN: Warm, dry. Vertical spinal surgical site bandaged clean, dry, intact, with wound vac in place. Laboratory Results - last 24 hr 11/25/18 11/25/18 11/25/18 07:04 07:04 12:55 WBC 8.8 RBC 4.57 Hgb 13.0 Hct 37.7 MCV 82.5 MCH 28.4 MCHC 34.4 RDW 14.5 Plt Count 352 D MPV 7.4 L Sodium Potassium Chloride Carbon Dioxide Anion Gap BUN Creatinine Creat Clearance w eGFR Random Glucose Calcium Phosphorus Magnesium Total Bilirubin AST ALT Alkaline Phosphatase Total Protein Albumin Serum , Qual Negative Blood Type A POSITIVE Antibody Screen Negative 11/25/18 11/26/18 11/26/18 12:55 05:30 05:30 WBC 8.6 RBC 3.89 Hgb 10.8 Hct 31.8 L D MCV 81.8 MCH 27.9 MCHC 34.1 RDW 14.8 Plt Count 351 MPV 7.6 Sodium 140 137 Potassium 4.1 4.2 Chloride 106 102 Carbon Dioxide 27 30 Anion Gap 7 L 5 L BUN 10 7 Creatinine 0.8 0.6 Creat Clearance w eGFR > 60 > 60 Random Glucose 109 H 101 Calcium 8.5 8.1 L Phosphorus 3.0 Magnesium 2.2 Total Bilirubin 0.2 AST 14 L ALT 21 Alkaline Phosphatase 98 Total Protein 6.7 Albumin 3.7 Serum , Qual Blood Type Antibody Screen Active Medications Generic Name Dose Route Start Last Admin Trade Name Freq PRN Reason Stop Dose Admin Fentanyl 100 mcg 11/25/18 10:48 11/25/18 11:01 Sublimaze Injection - IVPUSH 100 mcg [id number] PRN Administration PAIN-PACU ORDER X 4 DOSES ONLY Hydromorphone HCl 10 mg 11/25/18 09:15 11/25/18 11:08 Dilaudid Medical Staff Manager - YEAST TENDER 11/28/18 09:03 10 mg YEAST TENDER RANDAL Administration Protocol Lactated Ringer's 1,000 mls @ 125 mls/hr 11/25/18 11:15 11/25/18 11:24 Lactated Ringers Solution IV 125 mls/hr ASDIR RANDAL Administration Cefazolin Sodium/Dextrose 2 gm in 50 mls @ 100 mls/hr 11/25/18 13:00 01:08 Ancef 2 Gm Premixed Ivpb - IVPB 100 mls/hr Q8H-IV RANDAL Administration Levothyroxine Sodium 75 mcg 11/26/18 07:00 Synthroid Injection - IVPUSH DAILY@0700 RANDAL Ondansetron HCl 4 mg 11/25/18 09:00 Zofran Injection IVPUSH Q6H PRN NAUSEA AND/OR VOMITING Ondansetron HCl 4 mg 11/25/18 11:09 Zofran Injection IVPUSH Q6H PRN NAUSEA AND/OR VOMITING Pantoprazole Sodium 40 mg 11/26/18 10:00 Protonix - PO DAILY RANDAL Thyroid 60 mg 11/26/18 07:00 11/26/18 06:13 [place] Thyroid - PO 60 mg DAILY@0700 [facility] Administration ASSESSMENT/PLAN: Patient is a 38 year old female with history of hypothyroidism, anxiety, gastro- esophageal reflux disease, and prior L4-S1 laminectomies, L4-L5 PLIF, L3-S1 PISF , and autograft, with subsequent right L4 nerve sheath durotomy presents s/p lumbar spine incision and drainage with wound vac application. Admitted to ICU for postoperative management. Neurological/ Psychiatric Anxiety -Patient is awake, alert, oriented. -Reinstate home Diazepam 10mg PO daily -Neuro checks Q4 hours Pulmonary -Currently saturating well on room air. -Maintain oxygen saturation greater than 90% -Incentive spirometer Q15 minutes Cardiac Hypertension -Patient states that she has not taken any antihypertensives for the past week. -Follow vital signs closely. Gastrointestinal Gastro-esophageal reflux -Patient is passing flatus. Diet advanced to clear liquid diet. -IV Lactated Ringer's at 125mL/ hour -Omeprazole 40mg PO daily Genitourinary -Patient currently draining clear yellow urine within cruz catheter -Follow cruz catheter output -Discontinue cruz catheter once patient is ambulatory. Musculoskeletal -Patient is POD #1 s/p lumbar spine incision and drainage with wound vac application -Pain control with Dilaudid YEAST TENDER -Monitor wound vac output -Physical therapy Endocrine Hypothyroidism -Synthroid 75mcg IV daily -Thyroid [place] 60mg PO daily ID -Ancef 2 grams IV Q8H x2 doses post-operatively -Follow wound, tissue cultures. -Consider ID consult, pending culture results Fluids/ Electrolytes/ Nutrition -IV Lactated Ringer's at 125mL/ hour -Follow CMP, replete as necessary -Clear liquid diet. Advance as tolerated Lines/ Tubes/ Drains -Wound vac placed intra-operatively 11/25 -Cruz catheter placed 11/25 Prophylaxis -No chemical anticoagulation per Dr. Arana. -SCDs, TEDs bilateral lower extremities -Omeprazole 40mg PO daily Disposition: -Continue care in ICU Visit type - Emergency Visit Emergency Visit: Yes ED Registration Date: 11/25/18 Care time: The patient presented to the Emergency Department on the above date and was hospitalized for further evaluation of their emergent condition. - New Patient This patient is new to me today: No - Critical Care Critical Care patient: Yes Total Critical Care Time (in minutes): 35 Critical Care Statement: The care of this patient involved high complexity decision making to prevent further life threatening deterioration of the patient 's condition and/or to evaluate & treat vital organ system(s) failure or risk of failure. - Discharge Referral Referred to [facility] No
[2018-11-26] MEDS: HYDROmorphone *PCA* 10MG/50ML DISP.SYRIN PCA SCH ×3 (08:31→22:11)
[2018-11-26] MEDS: diazePAM 5 MG TABLET PO ONE ×2 (08:54→10:38)
--- NOTE | 2018-11-26 08:57 | PN ---
Physical Exam: SUBJECTIVE: Patient seen and examined at bedside- patient required the SHUTTLE FILLER pump multiple times overnight- she is still complaining of a lot of a pain however she passed flatus OBJECTIVE: Vital Signs Period Temp Pulse Resp BP Sys/Donnelly Pulse Ox Last 24 Hr 97.6 F-98.0 F 77-103 7-22 96-141/52-91 97-100 GENERAL: The patient is awake, alert, in acute distress.. EYES: PEERLA; EOMI; no scleral icterus . NECK: no JVD; no lymphadenopathy. LUNGS: CTA B/L; no rales, rhonchi or wheezing. HEART: Regular rate and rhythm, S1, S2 without murmur, rub or gallop. ABDOMEN: Soft, nontender, nondistended, normoactive bowel sounds, no guarding, no rebound, no hepatosplenomegaly, no masses. EXTREMITIES: 2+ pulses, warm, well-perfused, trace edema. MSK: wound vac in place NEUROLOGICAL: Cranial nerves II through XII grossly intact. Normal speech, gait not observed. PSYCH: Normal mood, normal affect. SKIN: Warm, dry, normal turgor, no rashes or lesions noted Laboratory Results - last 24 hr 11/25/18 11/25/18 11/26/18 12:55 12:55 05:30 WBC 8.8 8.6 RBC 4.57 3.89 Hgb 13.0 10.8 Hct 37.7 31.8 L D MCV 82.5 81.8 MCH 28.4 27.9 MCHC 34.4 34.1 RDW 14.5 14.8 Plt Count 352 D 351 MPV 7.4 L 7.6 Sodium 140 Potassium 4.1 Chloride 106 Carbon Dioxide 27 Anion Gap 7 L BUN 10 Creatinine 0.8 Creat Clearance w eGFR > 60 Random Glucose 109 H Calcium 8.5 Phosphorus 3.0 Magnesium Total Bilirubin 0.2 AST 14 L ALT 21 Alkaline Phosphatase 98 Total Protein 6.7 Albumin 3.7 11/26/18 05:30 WBC RBC Hgb Hct MCV MCH MCHC RDW Plt Count MPV Sodium 137 Potassium 4.2 Chloride 102 Carbon Dioxide 30 Anion Gap 5 L BUN 7 Creatinine 0.6 Creat Clearance w eGFR > 60 Random Glucose 101 Calcium 8.1 L Phosphorus Magnesium 2.2 Total Bilirubin AST ALT Alkaline Phosphatase Total Protein Albumin Active Medications Generic Name Dose Route Start Last Admin Trade Name Freq PRN Reason Stop Dose Admin Fentanyl 100 mcg 11/25/18 10:48 11/25/18 11:01 Sublimaze Injection - IVPUSH 100 mcg [id number] PRN Administration PAIN-PACU ORDER X 4 DOSES ONLY Hydromorphone HCl 10 mg 11/25/18 09:15 11/25/18 11:08 Dilaudid Marketing Production Specialist - SHUTTLE FILLER 11/28/18 09:03 10 mg SHUTTLE FILLER RANDAL Administration Protocol Lactated Ringer's 1,000 mls @ 125 mls/hr 11/25/18 11:15 11/25/18 11:24 Lactated Ringers Solution IV 125 mls/hr ASDIR RANDAL Administration Cefazolin Sodium/Dextrose 2 gm in 50 mls @ 100 mls/hr 11/25/18 13:00 01:08 Ancef 2 Gm Premixed Ivpb - IVPB 100 mls/hr Q8H-IV RANDAL Administration Levothyroxine Sodium 75 mcg 11/26/18 07:00 11/26/18 08:05 Synthroid Injection - IVPUSH 75 mcg DAILY@0700 RANDAL Administration Ondansetron HCl 4 mg 11/25/18 09:00 Zofran Injection IVPUSH Q6H PRN NAUSEA AND/OR VOMITING Ondansetron HCl 4 mg 11/25/18 11:09 Zofran Injection IVPUSH Q6H PRN NAUSEA AND/OR VOMITING Pantoprazole Sodium 40 mg 11/26/18 10:00 Protonix - PO DAILY RANDAL Thyroid 60 mg 11/26/18 07:00 11/26/18 06:13 [place] Thyroid - PO 60 mg DAILY@0700 RANDAL Administration ASSESSMENT/PLAN: The patient is a 38 yo f w/ PMH HLD, Hypothyroidism who is admitted to ICU as she is POD#0 debridement in OR. #POD #1 debridement on OR w/ Dr. Arana -on dilaudid SHUTTLE FILLER pump -fentanyl PRN per Dr. Arana -holding home pain meds -SCDs, TEDs for dvt prophylaxis per Dr. Arana -flatus passed- advance diet -PT as per Dr. 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 - New Patient This patient is new to me today: Yes Date on this admission: 11/26/18 - Critical Care Critical Care patient: No
[2018-11-26] MEDS: PANTOPRAZOLE 40 MG TABLET (FP) PO SCH (09:00)
[2018-11-26] MEDS ORDERED: LEVOTHYROXINE NA 150 MCG TABLET PO SCH (10:00)
[2018-11-26] MEDS: LACTATED RINGERS SOLUTION 1,000 ML IV SCH ×2 (10:41→14:08)
--- NOTE | 2018-11-26 10:58 | PN ---
Teaching Attending Note Name of Resident: Fly Cartwright ATTENDING PHYSICIAN STATEMENT I saw and evaluated the patient. I reviewed the resident's note and discussed the case with the resident. I agree with the resident's findings and plan as documented. SUBJECTIVE: Patient seen and examined in ICU. POD #1: 1. I&D lumbar spine. 2. Application lumbar spine wound vac. Pain/discomfort is better today. Able to tolerate some clears liquids this AM. Intake & Output 11/23/18 11/24/18 11/25/18 11/26/18 23:59 23:59 23:59 23:59 Intake Total 1000 Output Total 1450 1700 Balance -450 -1700 Weight 254 lb Last Vital Signs Temp Pulse Resp BP Pulse Ox 98.0 F 80 16 116/87 100 11/25/18 18:00 11/26/18 10:01 11/26/18 10:01 11/26/18 10:01 11/26/18 09:00 Active Medications Fentanyl (Sublimaze Injection -) 100 mcg IVPUSH [id number] PRN PRN Reason: PAIN-PACU ORDER X 4 DOSES ONLY Last Admin: 11/25/18 11:01 Dose: 100 mcg Hydromorphone HCl (Dilaudid Funeral Service Apprentice -) 10 mg MEMORIAL MARKER DESIGNER MEMORIAL MARKER DESIGNER [facility]; Protocol Stop: 11/28/18 09:03 Last Admin: 11/26/18 08:31 Dose: 10 mg Lactated Ringer's (Lactated Ringers Solution) 1,000 mls @ 125 mls/hr IV ASDIR [facility] Last Admin: 11/26/18 10:41 Dose: 125 mls/hr Cefazolin Sodium/Dextrose (Ancef 2 Gm Premixed Ivpb -) 2 gm in 50 mls @ 100 mls /hr IVPB Q8H-IV RANDAL Last Admin: 11/26/18 10:38 Dose: 100 mls/hr Non-Formulary Med ( (Synthroid 150mcg)) 1 each PO DAILY@0700 [facility] Ondansetron HCl (Zofran Injection) 4 mg IVPUSH Q6H PRN PRN Reason: NAUSEA AND/OR VOMITING Ondansetron HCl (Zofran Injection) 4 mg IVPUSH Q6H PRN PRN Reason: NAUSEA AND/OR VOMITING Pantoprazole Sodium (Protonix -) 40 mg PO DAILY [facility] Last Admin: 11/26/18 09:00 Dose: 40 mg Thyroid ([place] Thyroid -) 60 mg PO DAILY@0700 RANDAL Last Admin: 11/26/18 06:13 Dose: 60 mg OBJECTIVE: GENERAL: The patient is awake, alert, oriented, more comfortable HEAD: Normal with no signs of trauma. NECK: Trachea midline, full range of motion, supple. LUNGS: Clear to auscultation bilaterally, no wheezes, no crackles, no accessory muscle use. HEART: Regular rate and rhythm, S1, S2 without murmur, rub or gallop. ABDOMEN: Soft, nontender, nondistended, normoactive bowel sounds, no guarding, no rebound, no hepatosplenomegaly, no masses. EXTREMITIES: 2+ pulses, warm, well-perfused, no edema. NEUROLOGICAL: Non-focal. strength 5/5 SKIN: Wound VAC in place Laboratory Results - last 24 hr 11/25/18 11/25/18 11/26/18 12:55 12:55 05:30 WBC 8.8 8.6 RBC 4.57 3.89 Hgb 13.0 10.8 Hct 37.7 31.8 L D MCV 82.5 81.8 MCH 28.4 27.9 MCHC 34.4 34.1 RDW 14.5 14.8 Plt Count 352 D 351 MPV 7.4 L 7.6 Sodium 140 Potassium 4.1 Chloride 106 Carbon Dioxide 27 Anion Gap 7 L BUN 10 Creatinine 0.8 Creat Clearance w eGFR > 60 Random Glucose 109 H Calcium 8.5 Phosphorus 3.0 Magnesium Total Bilirubin 0.2 AST 14 L ALT 21 Alkaline Phosphatase 98 Total Protein 6.7 Albumin 3.7 11/26/18 05:30 WBC RBC Hgb Hct MCV MCH MCHC RDW Plt Count MPV Sodium 137 Potassium 4.2 Chloride 102 Carbon Dioxide 30 Anion Gap 5 L BUN 7 Creatinine 0.6 Creat Clearance w eGFR > 60 Random Glucose 101 Calcium 8.1 L Phosphorus Magnesium 2.2 Total Bilirubin AST ALT Alkaline Phosphatase Total Protein Albumin ASSESSMENT/PLAN: POD#1: 1. I&D lumbar spine. 2. Application lumbar spine wound vac. HLD Hypothyroidism Pain control with Dilaudid MEMORIAL MARKER DESIGNER pump SCDs for VTE prophylaxis NPO until flatus PT as per surgery ABX coverage Follow intra-op cultures Incentive Spirometry O2 as needed Dr Valle
--- NOTE | 2018-11-26 12:14 | PN ---
Progress Note (short form) - Note Progress Note: POD #1 - s/p lumbar spine I&D with wound vac application. VSS. Pt. on dilaudid MASTER GLAZIER with adequate pain relief. No apparent anesthetic complications noted. Continue current care.
[2018-11-26] MEDS: ACETAMINOPHEN 1000 MG/100 ML VIAL (NON FORMULARY) IVPB SCH (17:36)
[2018-11-26] MEDS ORDERED: RAPID SEQUENCE INTUBATION KIT NR ONE (17:46)
--- NOTE | 2018-11-26 18:33 | PATH ---
Surgical Pathology Report Patient Name: AUNDREA PLASENCIA Med. Rec. #: [id number] /Age/Gender: 1980 (Age: 38) / F Account: [id number] Location: ICU [facility] Taken: 11/25/2018 Received: 11/25/2018 Reported: 11/26/2018 Physicians: Brant Arana M.D. Specimen(s) Received LUMBAR SPINE WOUND TISSUE Clinical History Fusion of spine Final Diagnosis LUMBAR SPINE, WOUND TISSUE, EXCISION: SKIN AND UNDERLYING SUBCUTANEOUS TISSUE WITH MILD CHRONIC INFLAMMATION, HEMORRHAGE, REACTIVE CHANGES, AND DERMAL FIBROSIS Electronically Signed Raysa Rendon M.D. Gross Description Received in formalin labeled "lumbar spine wound tissue," is a 23.0 x 1.7 cm graham, elongated portion of skin excised to a depth of 6 cm. The epidermal surface displays a central, linear lesion. Sectioning reveals focally hemorrhagic soft tissue. A dealer compliance representative section is submitted in one cassette. /11/25/2018 [facility]/25/[facility]
--- NOTE | 2018-11-26 19:41 | PN ---
Teaching Attending Note Name of Resident: Herlinda Rothman ATTENDING PHYSICIAN STATEMENT I saw and evaluated the patient. I reviewed the resident's note and discussed the case with the resident. I agree with the resident's findings and plan as documented. SUBJECTIVE: back pain. OBJECTIVE: CV; RRR, no MRG Lungs declined Ext: no edema or erythema. Neuro of LE limited due to pain and patinet refusal. nl sensation of LE though ASSESSMENT AND PLAN: 38 y/o lady with h/o Lumbar spinal stenosis s/p L4-S1 laminectomies and fusion 04/19/18, followed by r L4 nerve sheath durotomy on 04/26/18, hypothyroidism, obesity, HLP, who presneted now for I&D of her lumbar spine wound . 1- S/p Lumbar wound I&D: POD 1 - cont FILM EXAMINER - PT eval - follow cx for need for abx 2- Hypothyroidism, cont synthroid and armor thyroid 3- GERD , cont PPI 4- Anxiety, if needed can give Valium per home dose dispo : HLOC
[2018-11-26] MEDS ORDERED: diazePAM 5 MG TABLET PO ONE (19:50)
[2018-11-27] MEDS: CEFAZOLIN 2 GM/D5W 2 GM/50 ML ML IVPB SCH ×3 (02:38→17:19)
[2018-11-27] MEDS ORDERED: PT OWN MED DRAWER 7, Y5N ONE ×3 (05:33→17:36)
[2018-11-27] MEDS: SYNTHROID 150 MCG PO SCH (06:00)
[2018-11-27] MEDS: THYROID 60 MG TABLET PO SCH (06:00)
[2018-11-27] MEDS: LEVOTHYROXINE 100 MCG, LEVOTHYROXINE 50 MCG PO SCH (06:01)
[2018-11-27] MEDS ORDERED: HYDROmorphone *PCA* 10MG/50ML DISP.SYRIN PCA ONE ×2 (06:05→23:01)
[2018-11-27 06:53] LABS: HEMATOCRIT 32.2 % (32.4-45.2); HEMOGLOBIN 11.1 GM/dL (10.7-15.3); MCH 28.5 pg (25.7-33.7); MCHC 34.4 g/dl (32.0-36.0); MEAN CELL VOLUME 82.8 fl (80-96); MEAN PLT VOLUME 7.6 fl (7.5-11.1); PLATELET COUNT 321 K/MM3 (134-434); RBC 3.88 M/mm3 (3.60-5.2); RDW 14.7 % (11.6-15.6); WHITE BLOOD COUNT 7.4 K/mm3 (4.0-10.0)
[2018-11-27 07:00] LABS: ALBUMIN 3.2 g/dl (3.4-5.0); ALK PHOS 79 U/L (45-117); ANION GAP 5 MMOL/L (8-16); BILIRUBIN,TOTAL 0.2 mg/dL (0.2-1); BLOOD UREA NITROGEN 12 mg/dL (7-18); CALCIUM 8.3 mg/dL (8.5-10.1); CHLORIDE 102 mmol/L (98-107); CO2 31 mmol/L (21-32); CREATININE 0.7 mg/dL (0.55-1.3); GLUCOSE,RANDOM 88 mg/dL (74-106); MAGNESIUM 1.9 mg/dL (1.8-2.4); PHOSPHOROUS 3.9 mg/dL (2.5-4.9); SGOT/AST 8 U/L (15-37); SGPT/ALT 14 U/L (13-61); SODIUM 137 mmol/L (136-145)
[2018-11-27] MEDS ORDERED: LEVOTHYROXINE NA 150 MCG TABLET PO SCH (07:00)
--- NOTE | 2018-11-27 08:55 | PN ---
Progress Note (short form) - Note Progress Note: Anesthesia/Pain Pt seen and examined S:Alert and awake comfortable O: Vital Signs Temperature 98 F 11/27/18 06:00 Pulse Rate 76 11/27/18 06:00 Respiratory Rate 22 H 11/27/18 06:00 Blood Pressure 146/94 11/27/18 06:00 O2 Sat by Pulse Oximetry (%) 100 11/26/18 21:00 CBC, BMP 11/27/18 05:30 11/27/18 05:30 A/P: s/p Lumbar spine I and D with would vac application Doing well post op Continue current care Continue CYCLE LIAISON Miguel Story MD
[2018-11-27] MEDS: HYDROmorphone *PCA* 10MG/50ML DISP.SYRIN PCA SCH ×4 (09:57→15:00)
[2018-11-27] MEDS: PANTOPRAZOLE 40 MG TABLET (FP) PO SCH (09:57)
--- NOTE | 2018-11-27 12:27 | PN ---
Physical Exam: SUBJECTIVE: Patient seen and examined at bedside. Has been tolerating her diet so far well. Has some nausea but no vomiting. Refused PT yesterday due to pain. Denies fevers, chills, cp, sob. Is using SHOWROOM EXECUTIVE DIRECTOR pump with some relief. Still has back pain. OBJECTIVE: Vital Signs Temperature 98 F 11/27/18 06:00 Pulse Rate 76 11/27/18 06:00 Respiratory Rate 22 H 11/27/18 06:00 Blood Pressure 146/94 11/27/18 06:00 O2 Sat by Pulse Oximetry (%) 100 11/26/18 21:00 GENERAL: The patient is awake, alert, and fully oriented, in no acute distress. HEAD: Normal with no signs of trauma. EYES: extraocular movements intact. ENT: Ears normal, nares patent NECK: Trachea midline, full range of motion, supple. LUNGS: Breath sounds equal, clear to auscultation bilaterally, no wheezes, no crackles, no accessory muscle use. HEART: Regular rate and rhythm, S1, S2 ABDOMEN: Soft, nontender, nondistended, hypoactive BS EXTREMITIES:warm, well-perfused NEUROLOGICAL: Cranial nerves II through XII grossly intact. Normal speech, gait not observed. PSYCH: Normal mood, normal affect. SKIN: Warm, dry Laboratory Results - last 24 hr 11/27/18 11/27/18 05:30 05:30 WBC 7.4 RBC 3.88 Hgb 11.1 Hct 32.2 L MCV 82.8 MCH 28.5 MCHC 34.4 RDW 14.7 Plt Count 321 MPV 7.6 Sodium 137 Potassium 4.0 Chloride 102 Carbon Dioxide 31 Anion Gap 5 L BUN 12 Creatinine 0.7 Creat Clearance w eGFR > 60 Random Glucose 88 Calcium 8.3 L Phosphorus 3.9 Magnesium 1.9 Total Bilirubin 0.2 AST 8 L ALT 14 Alkaline Phosphatase 79 Total Protein 6.0 L Albumin 3.2 L Active Medications Generic Name Dose Route Start Last Admin Trade Name Freq PRN Reason Stop Dose Admin Fentanyl 100 mcg 11/25/18 10:48 11/25/18 11:01 Sublimaze Injection - IVPUSH 100 mcg [id number] PRN Administration PAIN-PACU ORDER X 4 DOSES ONLY Hydromorphone HCl 10 mg 11/25/18 09:15 11/27/18 09:57 Dilaudid Fly Winder - SHOWROOM EXECUTIVE DIRECTOR 11/28/18 09:03 Not Given SHOWROOM EXECUTIVE DIRECTOR RANDAL Protocol Cefazolin Sodium/Dextrose 2 gm in 50 mls @ 100 mls/hr 11/25/18 13:00 09:56 Ancef 2 Gm Premixed Ivpb - IVPB 100 mls/hr Q8H-IV RANDAL Administration Levothyroxine Sodium 100 mcg/ 150 mcg 11/27/18 07:00 11/27/18 06:01 Levothyroxine Sodium 50 mcg PO Not Given DAILY@0700 [facility] Non-Formulary Med ( 1 each 11/27/18 07:00 11/27/18 06:00 Synthroid 150mcg) PO 1 each DAILY@0700 RANDAL Administration Ondansetron HCl 4 mg 11/25/18 09:00 Zofran Injection IVPUSH Q6H PRN NAUSEA AND/OR VOMITING Ondansetron HCl 4 mg 11/25/18 11:09 Zofran Injection IVPUSH Q6H PRN NAUSEA AND/OR VOMITING Pantoprazole Sodium 40 mg 11/26/18 10:00 11/27/18 09:57 Protonix - PO 40 mg DAILY RANDAL Administration Thyroid 60 mg 11/26/18 07:00 11/27/18 06:00 [place] Thyroid - PO 60 mg DAILY@0700 RANDAL Administration ASSESSMENT/PLAN: 38 y/o F w/PMH of HLD, hypothyroidism, lumbar spine stenosis currently in the ICU after I&D of spinal wound. -I&D of lumbar spine wound -POD #2, wound vac in place, still draining -dilaudid SHOWROOM EXECUTIVE DIRECTOR pump for pain control as per anesthesia -tolerating her diet currently -keep cruz until ambulating -PT -Hypothyroidism -c/w 60 mg armour thyroid PO -FEN -No fluids currently -monitor electrolytes -Regular diet -Dispo: continue ICU monitoring Visit type - Emergency Visit Emergency Visit: Yes ED Registration Date: 11/25/18 Care time: The patient presented to the Emergency Department on the above date and was hospitalized for further evaluation of their emergent condition. - New Patient This patient is new to me today: Yes Date on this admission: 11/27/18 - Critical Care Critical Care patient: Yes Total Critical Care Time (in minutes): 35 Critical Care Statement: The care of this patient involved high complexity decision making to prevent further life threatening deterioration of the patient 's condition and/or to evaluate & treat vital organ system(s) failure or risk of failure.
--- NOTE | 2018-11-27 14:19 | PN ---
Progress Note (short form) - Note Progress Note: POD#2 ICU Stable C/O burning pain VAC working well PLAN OR Thursday for ?vac change or delayed primary closure
--- NOTE | 2018-11-27 14:53 | PN ---
Teaching Attending Note Name of Resident: Erickson Terrell ATTENDING PHYSICIAN STATEMENT I saw and evaluated the patient. I reviewed the resident's note and discussed the case with the resident. I agree with the resident's findings and plan as documented. SUBJECTIVE: No fever or chills. has abd pain , no BM . no soB . back pain OBJECTIVE: CV; RRR, no MRG Lungs declined Ext: no edema or erythema. Neuro of LE limited due to pain and patient refusal. nl sensation of LE though , ankle dorsiflexion and plantar flexion nl Abd: sfot, Nd, TTP in upper areas, no rebound ASSESSMENT AND PLAN: 38 y/o lady with h/o Lumbar spinal stenosis s/p L4-S1 laminectomies and fusion 04/19/18, followed by r L4 nerve sheath durotomy on 04/26/18, hypothyroidism, obesity, HLP, who presneted now for I&D of her lumbar spine wound . 1- S/p Lumbar wound I&D: POD 2 - cont NATIONAL ACCOUNTS RECRUITER - PT - follow cx for need for abx 2- Hypothyroidism, cont synthroid and armor thyroid 3- GERD , cont PPI 4- abd pain, likley due to gas distention with dilaudid use. she declined laxatives dispo : OC
[2018-11-27] MEDS: ONDANSETRON 4 MG/2 ML VIAL IVPUSH PRN (20:06)
[2018-11-28] MEDS: diazePAM 5 MG TABLET PO PRN ×2 (00:35→15:57)
[2018-11-28] MEDS: CEFAZOLIN 2 GM/D5W 2 GM/50 ML ML IVPB SCH ×2 (01:24→09:52)
[2018-11-28] MEDS ORDERED: LEVOTHYROXINE NA 100 MCG TABLET (FP) ONE (05:52)
[2018-11-28] MEDS ORDERED: LEVOTHYROXINE NA 50 MCG TABLET (FP) ONE (05:53)
[2018-11-28] MEDS ORDERED: PT OWN MED DRAWER 7, Y5N ONE ×2 (05:53→06:28)
[2018-11-28 06:03] LABS: BASO % 0.5 % (0-2.0); EOS % 1.9 % (0-4.5); HEMOGLOBIN 10.9 GM/dL (10.7-15.3); LYMPH % 27.7 % (8-40); MCH 28.2 pg (25.7-33.7); MCHC 34.2 g/dl (32.0-36.0); MEAN CELL VOLUME 82.5 fl (80-96); MEAN PLT VOLUME 7.5 fl (7.5-11.1); NEUT % 60.9 % (42.8-82.8); PLATELET COUNT 325 K/MM3 (134-434); RBC 3.88 M/mm3 (3.60-5.2); RDW 14.6 % (11.6-15.6); WHITE BLOOD COUNT 6.8 K/mm3 (4.0-10.0)
[2018-11-28] MEDS: LEVOTHYROXINE 100 MCG, LEVOTHYROXINE 50 MCG PO SCH (06:18)
[2018-11-28] MEDS: THYROID 60 MG TABLET PO SCH (06:19)
[2018-11-28] MEDS: SYNTHROID 150 MCG PO SCH (06:19)
[2018-11-28 06:37] LABS: ALK PHOS 78 U/L (45-117); ANION GAP 6 MMOL/L (8-16); BILIRUBIN,TOTAL 0.2 mg/dL (0.2-1); BLOOD UREA NITROGEN 10 mg/dL (7-18); CHLORIDE 101 mmol/L (98-107); CO2 30 mmol/L (21-32); CREATININE 0.7 mg/dL (0.55-1.3); GLUCOSE,RANDOM 98 mg/dL (74-106); POTASSIUM 3.8 mmol/L (3.5-5.1); SGOT/AST 14 U/L (15-37); SGPT/ALT 14 U/L (13-61); SODIUM 137 mmol/L (136-145); TOT PROT 5.7 g/dl (6.4-8.2)
[2018-11-28] MEDS: SODIUM CHLORIDE 1,000 ML IV SCH (08:28)
[2018-11-28] MEDS: PANTOPRAZOLE 40 MG TABLET (FP) PO SCH (09:51)
[2018-11-28] MEDS ORDERED: HYDROmorphone *PCA* 6MG/30ML DISP.SYRIN PCA SCH (12:15)
[2018-11-28] MEDS ORDERED: HYDROmorphone *PCA* 10MG/50ML DISP.SYRIN PCA ONE (13:04)
[2018-11-28] MEDS ORDERED: HYDROmorphone *PCA* 10MG/50ML DISP.SYRIN PCA SCH (13:30)
--- NOTE | 2018-11-28 15:59 | PN ---
Progress Note (short form) - Note Progress Note: Subjective: no fever or chills. No abd pain . no SOB. back pain Objective: Vital Signs: Last Vital Signs Temp Pulse Resp BP Pulse Ox 97.9 F 89 16 107/65 100 11/28/18 08:00 11/28/18 12:30 11/28/18 12:30 11/28/18 12:30 11/28/18 08:00 Laboratory Results - last 24 hr 11/28/18 11/28/18 05:30 05:30 WBC 6.8 RBC 3.88 Hgb 10.9 Hct 32.0 L MCV 82.5 MCH 28.2 MCHC 34.2 RDW 14.6 Plt Count 325 MPV 7.5 Absolute Neuts (auto) 4.1 Neutrophils % 60.9 Lymphocytes % 27.7 D Monocytes % 9.0 Eosinophils % 1.9 Basophils % 0.5 Nucleated RBC % 0 Sodium 137 Potassium 3.8 Chloride 101 Carbon Dioxide 30 Anion Gap 6 L BUN 10 Creatinine 0.7 Creat Clearance w eGFR > 60 Random Glucose 98 Calcium 8.0 L Total Bilirubin 0.2 AST 14 L ALT 14 Alkaline Phosphatase 78 Total Protein 5.7 L Albumin 3.0 L Physical Exam: CV; RRR, no MRG Lungs CTAB Ext: no edema or erythema. Neuro of LE : not cooperative Abd: soft, Nd, NT. NL BS ASSESSMENT AND PLAN: 38 y/o lady with h/o Lumbar spinal stenosis s/p L4-S1 laminectomies and fusion 04/19/18, followed by r L4 nerve sheath durotomy on 04/26/18, hypothyroidism, obesity, HLP, who presneted now for I&D of her lumbar spine wound . 1- S/p Lumbar wound I&D: POD 3 - cont WASTEWATER PROJECT ENGINEER - PT - follow cx for need for abx - to OR otmorrow . NPO after MN 2- Hypothyroidism, cont synthroid and armor thyroid 3- GERD , cont PPI 4- Constipation : declined laxatives mechanical DVT px per sx Visit type - Emergency Visit Emergency Visit: Yes ED Registration Date: 11/25/18 Care time: The patient presented to the Emergency Department on the above date and was hospitalized for further evaluation of their emergent condition. - New Patient This patient is new to me today: No - Critical Care Critical Care patient: No
[2018-11-28] MEDS: HYDROmorphone *PCA* 10MG/50ML DISP.SYRIN PCA SCH ×2 (16:23→20:08)
[2018-11-28] MEDS: ACETAMINOPHEN 500 MG TABLET (FP) PO SCH (17:52)
[2018-11-29] MEDS: diazePAM 5 MG TABLET PO PRN ×2 (00:27→10:26)
[2018-11-29] MEDS: ACETAMINOPHEN 500 MG TABLET (FP) PO SCH ×4 (00:27→14:58)
[2018-11-29] MEDS: HYDROmorphone *PCA* 10MG/50ML DISP.SYRIN PCA SCH ×4 (03:18→23:00)
[2018-11-29] MEDS ORDERED: LEVOTHYROXINE NA 50 MCG TABLET (FP) ONE (06:21)
[2018-11-29] MEDS ORDERED: PT OWN MED DRAWER 7, Y5N ONE ×2 (06:21→06:45)
[2018-11-29] MEDS ORDERED: LEVOTHYROXINE NA 100 MCG TABLET (FP) ONE (06:21)
[2018-11-29] MEDS: LEVOTHYROXINE 100 MCG, LEVOTHYROXINE 50 MCG PO SCH (06:31)
[2018-11-29] MEDS: THYROID 60 MG TABLET PO SCH (06:31)
[2018-11-29] MEDS: SYNTHROID 150 MCG PO SCH (06:33)
--- NOTE | 2018-11-29 07:05 | PN ---
Progress Note (short form) - Note Progress Note: Pain Management Went to bedside to assess the patient who was complaining of intractable pain despite MILLER HELPER use. Advised the patient to take tylenol, valium, and MILLER HELPER all together in order to have the synergistic effects. Also increased MILLER HELPER dose to 0.4mg per demand and 1mg for breakthrough. Will continue to monitor.
--- NOTE | 2018-11-29 07:57 | PN ---
Physical Exam: SUBJECTIVE: Patient seen and examined at bedside- no acute events overnight; patient states she is still having pain however was able to sleep throughout the night- patient going back to the OR today- denies any CP/SOB/N/V fevers or chills OBJECTIVE: Vital Signs Period Temp Pulse Resp BP Sys/Donnelly Pulse Ox Last 24 Hr 97.9 F-98.4 F 15-97 7-20 100-122/58-90 100-100 GENERAL: The patient is awake, alert, and fully oriented, in slight acute distress. EYES: PEERLA; EOMI; no scleral icterus . NECK: no JVD; no lymphadenopathy. LUNGS: CTA B/L; no rales, rhonchi or wheezing. HEART: Regular rate and rhythm, S1, S2 without murmur, rub or gallop. ABDOMEN: Soft, nontender, nondistended, normoactive bowel sounds, no guarding, no rebound, no hepatosplenomegaly, no masses. EXTREMITIES: 2+ pulses, warm, well-perfused, no edema. MSK: wound vac in place; draining serosanguinous fluid NEUROLOGICAL: Cranial nerves II through XII grossly intact. Normal speech, gait not observed. PSYCH: Normal mood, normal affect. SKIN: Warm, dry, normal turgor, no rashes or lesions noted Active Medications Generic Name Dose Route Start Last Admin Trade Name Freq PRN Reason Stop Dose Admin Acetaminophen 1,000 mg 11/28/18 18:00 11/29/18 06:29 Tylenol - PO 1,000 mg Q6HPO RANDAL Administration Diazepam 10 mg 11/28/18 00:23 11/29/18 00:27 Valium - PO 10 mg DAILY PRN Administration ANXIETY Fentanyl 100 mcg 11/25/18 10:48 11/25/18 11:01 Sublimaze Injection - IVPUSH 100 mcg [id number] PRN Administration PAIN-PACU ORDER X 4 DOSES ONLY Hydromorphone HCl 10 mg 11/28/18 16:03 11/29/18 03:18 Dilaudid Brush Stainer - PUBLIC HEALTH AIDE 10 mg PUBLIC HEALTH AIDE RANDAL Administration Protocol Sodium Chloride 1,000 mls @ 100 mls/hr 11/28/18 08:00 11/28/18 08:28 Normal Saline - IV 100 mls/hr ASDIR RANDAL Administration Levothyroxine Sodium 100 mcg/ 150 mcg 11/27/18 07:00 02/25/19 06:31 Levothyroxine Sodium 50 mcg PO 150 mcg DAILY@0700 RANDAL Administration Non-Formulary Med ( 1 each 11/27/18 07:00 11/29/18 06:33 Synthroid 150mcg) PO 1 each DAILY@0700 RANDAL Administration Ondansetron HCl 4 mg 11/25/18 09:00 11/27/18 20:06 Zofran Injection IVPUSH 4 mg Q6H PRN Administration NAUSEA AND/OR VOMITING Ondansetron HCl 4 mg 11/25/18 11:09 Zofran Injection IVPUSH Q6H PRN NAUSEA AND/OR VOMITING Pantoprazole Sodium 40 mg 11/26/18 10:00 11/28/18 09:51 Protonix - PO 40 mg DAILY RANDAL Administration Thyroid 60 mg 11/26/18 07:00 11/29/18 06:31 [place] Thyroid - PO 60 mg DAILY@0700 RANDAL Administration ASSESSMENT/PLAN: 38 y/o F w/PMH of HLD, hypothyroidism, lumbar spine stenosis currently in the ICU after I&D of spinal wound. 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 - New Patient This patient is new to me today: No - Critical Care Critical Care patient: No
--- NOTE | 2018-11-29 09:06 | PN ---
Progress Note (short form) - Note Progress Note: POD #4 s/p lumbar spine I&D/wound vac application. VSS. Pt. for possible return to OR today. MANAGER ORDER dose increased over the weekend. Will continue MANAGER ORDER for now as part of multimodal pain management.
[2018-11-29 09:10] LABS: BASO % 0.5 % (0-2.0); EOS % 2.5 % (0-4.5); HEMATOCRIT 35.1 % (32.4-45.2); HEMOGLOBIN 12.1 GM/dL (10.7-15.3); LYMPH % 24.5 % (8-40); MCH 28.6 pg (25.7-33.7); MCHC 34.4 g/dl (32.0-36.0); MEAN CELL VOLUME 83.1 fl (80-96); MEAN PLT VOLUME 7.6 fl (7.5-11.1); MONO % 6.9 % (3.8-10.2); NEUT % 65.6 % (42.8-82.8); PLATELET COUNT 353 K/MM3 (134-434); RBC 4.23 M/mm3 (3.60-5.2); RDW 14.4 % (11.6-15.6); WHITE BLOOD COUNT 6.6 K/mm3 (4.0-10.0)
[2018-11-29 09:37] LABS: ALBUMIN 3.1 g/dl (3.4-5.0); ALK PHOS 79 U/L (45-117); ANION GAP 8 MMOL/L (8-16); BILIRUBIN,TOTAL 0.2 mg/dL (0.2-1); BLOOD UREA NITROGEN 9 mg/dL (7-18); CALCIUM 8.1 mg/dL (8.5-10.1); CHLORIDE 104 mmol/L (98-107); CO2 28 mmol/L (21-32); CREATININE 0.6 mg/dL (0.55-1.3); GLUCOSE,RANDOM 85 mg/dL (74-106); POTASSIUM 4.1 mmol/L (3.5-5.1); SGOT/AST 15 U/L (15-37); SGPT/ALT 15 U/L (13-61); SODIUM 140 mmol/L (136-145); TOT PROT 5.8 g/dl (6.4-8.2)
--- NOTE | 2018-11-29 11:55 | PN ---
Physical Exam: SUBJECTIVE: Patient seen and examined at bedside this morning. She is anxious regarding her procedure today, and asks what time she will go to the operating room today. Denies subjective fevers, chills overnight. She is NPO today for possible wound vac change, or delayed wound closure. Denies chest pain, palpitations, abdominal pain, nausea, vomiting. She has passed flatus, however has not yet passed bowel movement. OBJECTIVE: Vital Signs Period Temp Pulse Resp BP Sys/Donnelly Pulse Ox Last 24 Hr 98.2 F-98.4 F 15-91 7-20 102-117/58-90 100 GENERAL: Obese, female. Awake, alert, and fully oriented, in no acute distress. HEAD: Normocephalic, atraumatic. EYES: PERRLA, EOMI. Sclera anicteric, conjunctiva clear. EARS, NOSE, THROAT: Oropharynx clear without exudates. Dry mucous membranes. NECK: Normal range of motion, supple without lymphadenopathy, JVD, or masses. LUNGS: Breath sounds equal, clear to auscultation bilaterally. No wheezes, and no crackles. No accessory muscle use. HEART: Regular rate and rhythm, normal S1 and S2 without murmur, rub or gallop. ABDOMEN: Obese. Soft, not distended, nontender to light and deep palpation X4 quadrants. Hypoactive bowel sounds X4 quadrants. MUSCULOSKELETAL: Freely moves all 4 extremities, limited by back pain. Strength 5/5 bilateral upper and lower extremities. UPPER EXTREMITIES: 2+ radial pulses bilaterally. Warm, well-perfused. LOWER EXTREMITIES: 2+ dorsalis pedis pulses bilaterally, warm, well-perfused. No calf tenderness. Trace lower extremity edema bilaterally. NEUROLOGICAL: Cranial nerves II-XII intact. Normal speech. PSYCHIATRIC: Anxious. Cooperative upon my encounter. SKIN: Warm, dry. Vertical spinal surgical site bandaged clean, dry, intact, with wound vac in place. Laboratory Results - last 24 hr 11/29/18 11/29/18 08:35 08:35 WBC 6.6 RBC 4.23 Hgb 12.1 Hct 35.1 MCV 83.1 MCH 28.6 MCHC 34.4 RDW 14.4 Plt Count 353 MPV 7.6 Absolute Neuts (auto) 4.3 Neutrophils % 65.6 Lymphocytes % 24.5 Monocytes % 6.9 Eosinophils % 2.5 Basophils % 0.5 Nucleated RBC % 0 Sodium 140 Potassium 4.1 Chloride 104 Carbon Dioxide 28 Anion Gap 8 BUN 9 Creatinine 0.6 Creat Clearance w eGFR > 60 Random Glucose 85 Calcium 8.1 L Total Bilirubin 0.2 AST 15 ALT 15 Alkaline Phosphatase 79 Total Protein 5.8 L Albumin 3.1 L Active Medications Generic Name Dose Route Start Last Admin Trade Name Freq PRN Reason Stop Dose Admin Acetaminophen 1,000 mg 11/28/18 18:00 11/29/18 10:26 Tylenol - PO 1,000 mg Q6HPO RANDAL Administration Diazepam 10 mg 11/28/18 00:23 11/29/18 10:26 Valium - PO 10 mg DAILY PRN Administration ANXIETY Fentanyl 100 mcg 11/25/18 10:48 11/25/18 11:01 Sublimaze Injection - IVPUSH 100 mcg [id number] PRN Administration PAIN-PACU ORDER X 4 DOSES ONLY Hydromorphone HCl 10 mg 11/28/18 16:03 11/29/18 03:18 Dilaudid Machine Tracer - OWNER/OPERATOR 10 mg OWNER/OPERATOR RANDAL Administration Protocol Sodium Chloride 1,000 mls @ 100 mls/hr 11/28/18 08:00 11/28/18 08:28 Normal Saline - IV 100 mls/hr ASDIR RANDAL Administration Levothyroxine Sodium 100 mcg/ 150 mcg 11/27/18 07:00 11/29/18 06:31 Levothyroxine Sodium 50 mcg PO 150 mcg DAILY@0700 RANDAL Administration Non-Formulary Med ( 1 each 11/27/18 07:00 11/29/18 06:33 Synthroid 150mcg) PO 1 each DAILY@0700 RANDAL Administration Ondansetron HCl 4 mg 11/25/18 09:00 11/27/18 20:06 Zofran Injection IVPUSH 4 mg Q6H PRN Administration NAUSEA AND/OR VOMITING Ondansetron HCl 4 mg 11/25/18 11:09 Zofran Injection IVPUSH Q6H PRN NAUSEA AND/OR VOMITING Pantoprazole Sodium 40 mg 11/26/18 10:00 11/28/18 09:51 Protonix - PO 40 mg DAILY RANDAL Administration Thyroid 60 mg 11/26/18 07:00 11/29/18 06:31 [place] Thyroid - PO 60 mg DAILY@0700 RANDAL Administration ASSESSMENT/PLAN: Patient is a 38 year old female with history of hypothyroidism, anxiety, gastro- esophageal reflux disease, and prior L4-S1 laminectomies, L4-L5 PLIF, L3-S1 PISF , and autograft, with subsequent right L4 nerve sheath durotomy presents s/p lumbar spine incision and drainage with wound vac application. Admitted to ICU for postoperative management. Neurological/ Psychiatric Anxiety -Patient is awake, alert, oriented. -Diazepam 10mg PO daily for anxiety -Neuro checks Q4 hours Pulmonary -Currently saturating well on room air. -Maintain oxygen saturation greater than 90% -Incentive spirometer Q15 minutes Cardiac Hypertension -Currently not on antihypertensive medication -Follow vital signs closely. Gastrointestinal Gastro-esophageal reflux -NPO for wound closure today -IV normal saline at 100mL/ hour -Omeprazole 40mg PO daily Genitourinary -Patient currently draining clear yellow urine within cruz catheter -Follow cruz catheter output Musculoskeletal -Patient is POD #4 s/p lumbar spine incision and drainage with wound vac application. Patient for OR today for wound closure. -Pain control with Dilaudid OWNER/OPERATOR -Monitor wound vac output -Physical therapy Endocrine Hypothyroidism -Synthroid 75mcg IV daily -Thyroid [place] 60mg PO daily ID -Follow wound, tissue cultures. -Consider ID consult, pending culture results Fluids/ Electrolytes/ Nutrition -IV normal saline at 100mL/ hour -Follow CMP, replete as necessary -NPO Lines/ Tubes/ Drains -Wound vac placed intra-operatively 11/25 -Cruz catheter placed 11/25 Prophylaxis -No chemical anticoagulation per Dr. Arana. -SCDs, TEDs bilateral lower extremities -Omeprazole 40mg PO daily Disposition: -Continue care in ICU Visit type - Emergency Visit Emergency Visit: Yes ED Registration Date: 11/25/18 Care time: The patient presented to the Emergency Department on the above date and was hospitalized for further evaluation of their emergent condition. - New Patient This patient is new to me today: No - Critical Care Critical Care patient: Yes Total Critical Care Time (in minutes): 36 Critical Care Statement: The care of this patient involved high complexity decision making to prevent further life threatening deterioration of the patient 's condition and/or to evaluate & treat vital organ system(s) failure or risk of failure. - Discharge Referral Referred to [facility] Med [facility] No
--- NOTE | 2018-11-29 12:04 | PN ---
Teaching Attending Note Name of Resident: Herlinda Rothman ATTENDING PHYSICIAN STATEMENT I saw and evaluated the patient. I reviewed the resident's note and discussed the case with the resident. I agree with the resident's findings and plan as documented. refused evaluation and exam today ASSESSMENT AND PLAN: 38 y/o lady with h/o Lumbar spinal stenosis s/p L4-S1 laminectomies and fusion 04/19/18, followed by r L4 nerve sheath durotomy on 04/26/18, hypothyroidism, obesity, HLP, who presneted now for I&D of her lumbar spine wound . 1- S/p Lumbar wound I&D: POD 4 - To OR today for evaluation of wound and maybe dc wound vac - pushes of SUPERVISOR MOLD CONSTRUCTION were increased. will d/w anesthesia the possibility of adding a continuous infusion instead. - bacterial wound cx neg . fungal pending 2- Hypothyroidism, cont synthroid and armor thyroid 3- GERD , cont PPI 4- Constipation : declined laxatives previously mechanical DVT px per sx
--- NOTE | 2018-11-29 12:52 | PN ---
Teaching Attending Note Name of Resident: Fly Cartwright ATTENDING PHYSICIAN STATEMENT I saw and evaluated the patient. I reviewed the resident's note and discussed the case with the resident. I agree with the resident's findings and plan as documented. SUBJECTIVE: SUBJECTIVE: Patient seen and examined in ICU. POD #4: 1. I&D lumbar spine. 2. Application lumbar spine wound vac. Still with significant pain/discomfort. For return to the OR today for possible closure of wound. Intake & Output 11/26/18 11/27/18 11/28/18 11/29/18 23:59 23:59 23:59 23:59 Intake Total 1525 975 Output Total 2700 3500 2000 900 Balance -1175 -2525 -2000 -900 Weight 254 lb Last Vital Signs Temp Pulse Resp BP Pulse Ox 98.2 F 83 18 119/73 100 11/29/18 10:25 11/29/18 12:38 11/29/18 12:38 11/29/18 12:38 11/29/18 09:00 Active Medications Acetaminophen (Tylenol -) 1,000 mg PO Q6HPO [facility] Last Admin: 11/29/18 10:26 Dose: 1,000 mg Diazepam (Valium -) 10 mg PO DAILY PRN PRN Reason: ANXIETY Last Admin: 11/29/18 10:26 Dose: 10 mg Fentanyl (Sublimaze Injection -) 100 mcg IVPUSH [id number] PRN PRN Reason: PAIN-PACU ORDER X 4 DOSES ONLY Last Admin: 11/25/18 11:01 Dose: 100 mcg Hydromorphone HCl (Dilaudid Stevedoring Supervisor -) 10 mg DIRECTOR OF ACCOUNTS RECEIVABLE DIRECTOR OF ACCOUNTS RECEIVABLE [facility]; Protocol Last Admin: 11/29/18 03:18 Dose: 10 mg Sodium Chloride (Normal Saline -) 1,000 mls @ 100 mls/hr IV ASDIR RANDAL Last Admin: 11/28/18 08:28 Dose: 100 mls/hr Levothyroxine Sodium 100 mcg/ (Levothyroxine Sodium 50 mcg) 150 mcg PO DAILY@ 0700 [facility] Last Admin: 11/29/18 06:31 Dose: 150 mcg Non-Formulary Med ( (Synthroid 150mcg)) 1 each PO DAILY@0700 [facility] Last Admin: 11/29/18 06:33 Dose: 1 each Ondansetron HCl (Zofran Injection) 4 mg IVPUSH Q6H PRN PRN Reason: NAUSEA AND/OR VOMITING Last Admin: 11/27/18 20:06 Dose: 4 mg Ondansetron HCl (Zofran Injection) 4 mg IVPUSH Q6H PRN PRN Reason: NAUSEA AND/OR VOMITING Pantoprazole Sodium (Protonix -) 40 mg PO DAILY [facility] Last Admin: 11/28/18 09:51 Dose: 40 mg Thyroid ([place] Thyroid -) 60 mg PO DAILY@0700 [facility] Last Admin: 11/29/18 06:31 Dose: 60 mg OBJECTIVE: GENERAL: The patient is awake, alert, oriented, uncomfortable due to pain HEAD: Normal with no signs of trauma. NECK: Trachea midline, full range of motion, supple. LUNGS: Clear to auscultation bilaterally, no wheezes, no crackles, no accessory muscle use. HEART: Regular rate and rhythm, S1, S2 without murmur, rub or gallop. ABDOMEN: Soft, nontender, nondistended, normoactive bowel sounds, no guarding, no rebound, no hepatosplenomegaly, no masses. EXTREMITIES: 2+ pulses, warm, well-perfused, no edema. NEUROLOGICAL: Non-focal. strength 5/5 SKIN: Wound VAC in place Laboratory Results - last 24 hr 11/29/18 11/29/18 08:35 08:35 WBC 6.6 RBC 4.23 Hgb 12.1 Hct 35.1 MCV 83.1 MCH 28.6 MCHC 34.4 RDW 14.4 Plt Count 353 MPV 7.6 Absolute Neuts (auto) 4.3 Neutrophils % 65.6 Lymphocytes % 24.5 Monocytes % 6.9 Eosinophils % 2.5 Basophils % 0.5 Nucleated RBC % 0 Sodium 140 Potassium 4.1 Chloride 104 Carbon Dioxide 28 Anion Gap 8 BUN 9 Creatinine 0.6 Creat Clearance w eGFR > 60 Random Glucose 85 Calcium 8.1 L Total Bilirubin 0.2 AST 15 ALT 15 Alkaline Phosphatase 79 Total Protein 5.8 L Albumin 3.1 L ASSESSMENT/PLAN: POD#2: 1. I&D lumbar spine. 2. Application lumbar spine wound vac. HLD Hypothyroidism Pain control with Dilaudid DIRECTOR OF ACCOUNTS RECEIVABLE pump SCDs for VTE prophylaxis ABX coverage Follow intra-op cultures Incentive Spirometry O2 as needed For OR today Dr Valle
[2018-11-29] MEDS ORDERED: DEXAMETHASONE SOD PHOSPHATE 4 MG/1 ML VIAL ONE (20:01)
[2018-11-29] MEDS ORDERED: MIDAZOLAM HCL 2 MG/2 ML SINGLE DOSE VIAL ONE ×3 (20:02→22:15)
[2018-11-29] MEDS ORDERED: PROPOFOL 20 ML ONE ×2 (20:03→20:11)
[2018-11-29] MEDS ORDERED: SUCCINYLCHOLINE CHLORIDE 200 MG/10 ML VIAL ONE (20:04)
[2018-11-29] MEDS ORDERED: ceFAZolin SODIUM 1 GM VIAL ONE (20:39)
[2018-11-29] MEDS ORDERED: VANCOMYCIN 1,000 MG VIAL (RESTRICTED TO ID ONLY) ONE (20:39)
[2018-11-29] MEDS ORDERED: ceFAZolin SODIUM 1 GM VIAL IVPB ONE (20:39)
[2018-11-29] MEDS ORDERED: VANCOMYCIN 1,000 MG VIAL (RESTRICTED TO ID ONLY) IVPB ONE (20:42)
[2018-11-29] MEDS ORDERED: METOPROLOL TARTRATE 5 MG/5 ML VIAL ONE (21:15)
[2018-11-29] MEDS ORDERED: hydrALAZINE HCL 20 MG/ML VIAL ONE (21:26)
[2018-11-29] MEDS ORDERED: BENZOIN TINCTURE SWABSTICK TP ONE (21:50)
--- NOTE | 2018-11-29 21:56 | PN ---
Progress Note (short form) - Note Progress Note: 38F s/p removal of wound vac and I&D lumbar spine POD #0. -Pain control: per anaesthesia team; recommend CATALYST SUPERVISOR. -DVT PPx: - Mechanical only: BONITA's, SCD's. -Incentive spirometry q15min. -PT/OT/Rehab, OOB. -WBAT B/L LE. -q4h B/L LE [place] checks. -Post-op antibiotics: Ancef x 7 days. -f/u new intra-operative wound cultures; if (+) bacteriology, consult ID service for antibiotic guidance. -f/u drain output. -NPO until flatus. -f/u AM labs. -d/c Lan catheter when patient ambulating comfortably. -Care per ICU & medical hospitalist team. -Will follow. Brant Arana MD (Orthopaedic Surgery).
--- NOTE | 2018-11-29 22:01 | OP ---
Operative Note - Note: Operative Date: 11/29/18 Pre-Operative Diagnosis: Chronic, clean contaminated lumbar spine wound Operation: ThoracoLumbar spine: 1. Removal of wound vac. 2. I&D. 3. Complex wound closure: 45cm. Post-Operative Diagnosis: Same as Pre-op Surgeon: Brant Arana Retail Event And Sales Assistant: Wilian Arana Anesthesiologist/CAD INTERN: Greg Perez Anesthesia: General Specimens Removed: 3 x deep spine wound culture sticks Estimated Blood Loss (mls): 25 Drains & Tubes with Location: 1 x deep drain; 1 x superficial drain. Fluid Volume Replaced (mls): 1,300 (Crystalloid) Operative Report Dictated: Yes
[2018-11-29] MEDS ORDERED: diazePAM CARPU-JECT 10 MG/2 ML DISP.SYRIN IVPUSH ONE (22:37)
[2018-11-30] MEDS: ONDANSETRON 4 MG/2 ML VIAL IVPUSH PRN (02:59)
[2018-11-30] MEDS: ceFAZolin 2 GRAM PREMIX BAG IVPB SCH ×3 (03:30→21:12)
[2018-11-30] MEDS ORDERED: LEVOTHYROXINE NA 100 MCG TABLET (FP) ONE (05:06)
[2018-11-30] MEDS ORDERED: LEVOTHYROXINE NA 50 MCG TABLET (FP) ONE (05:06)
[2018-11-30] MEDS: ACETAMINOPHEN 500 MG TABLET (FP) PO SCH ×4 (05:17→17:53)
[2018-11-30 06:31] LABS: HEMATOCRIT 38.4 % (32.4-45.2); HEMOGLOBIN 13.2 GM/dL (10.7-15.3); MCH 28.1 pg (25.7-33.7); MCHC 34.3 g/dl (32.0-36.0); MEAN CELL VOLUME 82.1 fl (80-96); MEAN PLT VOLUME 7.6 fl (7.5-11.1); PLATELET COUNT 445 K/MM3 (134-434); RBC 4.68 M/mm3 (3.60-5.2); RDW 14.4 % (11.6-15.6); WHITE BLOOD COUNT 10.8 K/mm3 (4.0-10.0)
[2018-11-30 07:14] LABS: ANION GAP 5 MMOL/L (8-16); BLOOD UREA NITROGEN 8 mg/dL (7-18); CALCIUM 8.5 mg/dL (8.5-10.1); CHLORIDE 99 mmol/L (98-107); CO2 31 mmol/L (21-32); CREATININE 0.7 mg/dL (0.55-1.3); GLUCOSE,RANDOM 114 mg/dL (74-106); PHOSPHOROUS 3.3 mg/dL (2.5-4.9); POTASSIUM 4.4 mmol/L (3.5-5.1); SODIUM 134 mmol/L (136-145)
[2018-11-30] MEDS ORDERED: PT OWN MED DRAWER 7, Y5N ONE (07:14)
[2018-11-30] MEDS: SYNTHROID 150 MCG PO SCH (07:23)
[2018-11-30] MEDS: LEVOTHYROXINE 100 MCG, LEVOTHYROXINE 50 MCG PO SCH ×2 (07:30→07:47)
[2018-11-30] MEDS: THYROID 60 MG TABLET PO SCH (07:46)
--- NOTE | 2018-11-30 07:46 | PN ---
Physical Exam: SUBJECTIVE: Patient seen and examined at bedside this morning. She endorses billious, non bloody vomiting overnight after the procedure. Currently endorses headache, and back pain. She denies subjective fevers, chills, shortness of breath, chest pain, palpitations. OBJECTIVE: Vital Signs Period Temp Pulse Resp BP Sys/Donnelly Pulse Ox Last 24 Hr 97.5 F-98.8 F 70-139 9-28 87-172/58-135 96-100 GGENERAL: Obese, female. Awake, alert, and fully oriented, in no acute distress. HEAD: Normocephalic, atraumatic. EYES: PERRLA, EOMI. Sclera anicteric, conjunctiva clear. EARS, NOSE, THROAT: Oropharynx clear without exudates. Dry mucous membranes. NECK: Normal range of motion, supple without lymphadenopathy, JVD, or masses. LUNGS: Breath sounds equal, clear to auscultation bilaterally. No wheezes, and no crackles. No accessory muscle use. HEART: Regular rate and rhythm, normal S1 and S2 without murmur, rub or gallop. ABDOMEN: Obese. Soft, not distended, nontender to light and deep palpation X4 quadrants. Hypoactive bowel sounds X4 quadrants. MUSCULOSKELETAL: Freely moves all 4 extremities, limited by back pain. UPPER EXTREMITIES: 2+ radial pulses bilaterally. Warm, well-perfused. LOWER EXTREMITIES: 2+ dorsalis pedis pulses bilaterally, warm, well-perfused. No calf tenderness. Trace lower extremity edema bilaterally. NEUROLOGICAL: Cranial nerves II-XII intact. Normal speech. PSYCHIATRIC: Anxious. Cooperative upon my encounter. SKIN: Warm, dry. Vertical spinal surgical site bandaged clean, dry, intact, with wound drains in place. Laboratory Results - last 24 hr 11/29/18 11/29/18 11/30/18 08:35 08:35 05:30 WBC 6.6 10.8 H RBC 4.23 4.68 Hgb 12.1 13.2 Hct 35.1 38.4 MCV 83.1 82.1 MCH 28.6 28.1 MCHC 34.4 34.3 RDW 14.4 14.4 Plt Count 353 445 H D MPV 7.6 7.6 Absolute Neuts (auto) 4.3 Neutrophils % 65.6 Lymphocytes % 24.5 Monocytes % 6.9 Eosinophils % 2.5 Basophils % 0.5 Nucleated RBC % 0 Sodium 140 Potassium 4.1 Chloride 104 Carbon Dioxide 28 Anion Gap 8 BUN 9 Creatinine 0.6 Creat Clearance w eGFR > 60 Random Glucose 85 Calcium 8.1 L Phosphorus Magnesium Total Bilirubin 0.2 AST 15 ALT 15 Alkaline Phosphatase 79 Total Protein 5.8 L Albumin 3.1 L 11/30/18 05:30 WBC RBC Hgb Hct MCV MCH MCHC RDW Plt Count MPV Absolute Neuts (auto) Neutrophils % Lymphocytes % Monocytes % Eosinophils % Basophils % Nucleated RBC % Sodium 134 L Potassium 4.4 Chloride 99 Carbon Dioxide 31 Anion Gap 5 L BUN 8 Creatinine 0.7 Creat Clearance w eGFR > 60 Random Glucose 114 H Calcium 8.5 Phosphorus 3.3 Magnesium 2.0 Total Bilirubin AST ALT Alkaline Phosphatase Total Protein Albumin Active Medications Generic Name Dose Route Start Last Admin Trade Name Freq PRN Reason Stop Dose Admin Acetaminophen 1,000 mg 11/28/18 18:00 11/30/18 07:21 Tylenol - PO 1,000 mg Q6HPO RANDAL Administration Cefazolin Sodium/Dextrose 2 gm 11/30/18 03:30 11/30/18 03:30 Ancef 2 Gm Premixed Ivpb - IVPB 12/07/18 03:29 2 gm Q8H RANDAL Administration Diazepam 10 mg 11/28/18 00:23 11/29/18 10:26 Valium - PO 10 mg DAILY PRN Administration ANXIETY Fentanyl 100 mcg 11/25/18 10:48 11/29/18 22:38 Sublimaze Injection - IVPUSH 100 mcg [id number] PRN Administration PAIN-PACU ORDER X 4 DOSES ONLY Hydromorphone HCl 10 mg 11/28/18 16:03 11/29/18 23:00 Dilaudid Motion Picture Projectionist - DIRECTOR ASSET 10 mg DIRECTOR ASSET RANDAL Administration Protocol Sodium Chloride 1,000 mls @ 100 mls/hr 11/28/18 08:00 11/28/18 08:28 Normal Saline - IV 100 mls/hr ASDIR RANDAL Administration Levothyroxine Sodium 100 mcg/ 150 mcg 11/27/18 07:00 11/29/18 06:31 Levothyroxine Sodium 50 mcg PO 150 mcg DAILY@0700 RANDAL Administration Non-Formulary Med ( 1 each 11/27/18 07:00 11/30/18 07:23 Synthroid 150mcg) PO 1 each DAILY@0700 RANDAL Administration Ondansetron HCl 4 mg 11/25/18 11:09 Zofran Injection IVPUSH Q6H PRN NAUSEA AND/OR VOMITING Pantoprazole Sodium 40 mg 11/26/18 10:00 11/28/18 09:51 Protonix - PO 40 mg DAILY RANDAL Administration Thyroid 60 mg 11/26/18 07:00 11/29/18 06:31 Wann Thyroid - PO 60 mg DAILY@0700 RANDAL Administration ASSESSMENT/PLAN: Patient is a 38 year old female with history of hypothyroidism, anxiety, gastro- esophageal reflux disease, and prior L4-S1 laminectomies, L4-L5 PLIF, L3-S1 PISF , and autograft, with subsequent right L4 nerve sheath durotomy presented s/p lumbar spine incision and drainage with wound vac application. She is now s/p wound vac removal, incision and drainage, and wound closure. Admitted to ICU for postoperative management. Neurological/ Psychiatric Anxiety -Patient is awake, alert, oriented. -Diazepam 10mg PO daily for anxiety -Neuro checks Q4 hours Pulmonary -Currently saturating well on room air. -Maintain oxygen saturation greater than 90% -Incentive spirometer Q15 minutes Cardiac Hypertension -Currently not on antihypertensive medication -Follow vital signs closely. Gastrointestinal Gastro-esophageal reflux -NPO until passing flatus -IV normal saline at 100mL/ hour -Omeprazole 40mg PO daily Genitourinary -Patient currently draining clear yellow urine within cruz catheter -Follow cruz catheter output Musculoskeletal -Patient is POD #1 s/p lumbar spine wound drain removal, incision and drainage , and wound closure. -Patient is POD #5 s/p lumbar spine incision and drainage with wound vac application. -Pain control with Dilaudid DIRECTOR ASSET, Acetaminophen 1000mg PO Q6H PRN -Monitor wound drain output -Physical therapy Endocrine Hypothyroidism -Synthroid 150mcg PO daily -Thyroid Wann 60mg PO daily ID -WBC 10.8. Leukocytosis likely reactive secondary to recent surgical procedure. Follow CBC. -Follow wound, tissue cultures. -Consider ID consult, pending culture results Fluids/ Electrolytes/ Nutrition -IV normal saline at 100mL/ hour -Follow CMP, replete as necessary -NPO Lines/ Tubes/ Drains -Wound vac placed intra-operatively 11/25, removed 11/29 -Wound drain x2 placed intra-operatively 11/29 -Curz catheter placed 02/21 Prophylaxis -No chemical anticoagulation per Dr. Arana. -SCDs, TEDs bilateral lower extremities -Omeprazole 40mg PO daily Disposition: -Continue care in ICU. Transfer to medical- surgical floor per orthopedic surgery. Visit type - Emergency Visit Emergency Visit: Yes ED Registration Date: 11/25/18 Care time: The patient presented to the Emergency Department on the above date and was hospitalized for further evaluation of their emergent condition. - New Patient This patient is new to me today: No - Critical Care Critical Care patient: Yes Total Critical Care Time (in minutes): 35 Critical Care Statement: The care of this patient involved high complexity decision making to prevent further life threatening deterioration of the patient 's condition and/or to evaluate & treat vital organ system(s) failure or risk of failure. - Discharge Referral Referred to [facility] Med P.C.: No
[2018-11-30] MEDS: SODIUM CHLORIDE 1,000 ML IV SCH ×2 (07:57→08:23)
[2018-11-30] MEDS: PANTOPRAZOLE 40 MG TABLET (FP) PO SCH ×2 (08:24→11:17)
--- NOTE | 2018-11-30 09:07 | OP ---
DATE OF OPERATION: SURGEON: Brant Arana MD ASSOCIATE BUYER: Wilian Arana MD PREOPERATIVE DIAGNOSIS: Second stage contaminated wound, thoracolumbar spine for possible delayed primary closure or repeat wound vacuum-assisted closure application. POSTOPERATIVE DIAGNOSIS: Thoracolumbar wound dealt with by delayed primary closure. See below. OPERATION PERFORMED: 1. Removal of wound vacuum-assisted closure. 2. Incision and drainage including wash-out and debridement of skin, subcutaneous tissue, muscle, and bone. 3. Delayed primary closure (complex wound closure, 45 cm). ANESTHESIA: General. ANTIBIOTICS GIVEN: Kefzol 2 g, vancomycin 1 g preoperatively. PROCEDURE: The patient was correctly identified, brought into the operating room. Under general anesthesia, patient was rolled in a prone position on a Nico frame. All bony prominences were padded appropriately. Attention to eyes noted. The skin was prepped with Betadine scrub solution, wiped with alcohol, DuraPrep applied. The wound VAC itself was removed. The tissues appeared to be healthy in terms of pink granulation tissue throughout. A few small areas of hemorrhage were dealt with by unipolar Bovie. The wounds were thoroughly lavaged with 5 L of saline. The tissues were also cleansed and scrubbed with Betadine scrub, this to get rid of biofilm. Once this had been performed, a repeat wound culture was taken. At that point, we elected to go with a delayed primary closure. This was a 5-layer closure, hence a complex wound closure as follows: Muscle 1 Vicryl, fascia 1 Vicryl, subcutaneous 1 and 2-0 Vicryl, skin 3-0 Monocryl with Steri-Strips. The tissues were beginning to become indurated, but healthy. We were able to manually approximate the tissues, hence the decision to go ahead with the delayed primary closure. In order to drain space, two Hemovac wounds were placed, one deep, one superficial. Patient tolerated the procedure well. No complications. Brant Arana MD [id number]
--- NOTE | 2018-11-30 11:55 | PN ---
Teaching Attending Note Name of Resident: Fly Cartwright ATTENDING PHYSICIAN STATEMENT I saw and evaluated the patient. I reviewed the resident's note and discussed the case with the resident. I agree with the resident's findings and plan as documented. SUBJECTIVE: Patient seen and examined in ICU. POD#1: ThoracoLumbar spine: 1. Removal of wound vac. 2. I&D. 3. Complex wound closure: 45cm. POD #5: 1. I&D lumbar spine. 2. Application lumbar spine wound vac. Still with significant pain/discomfort. Intake & Output 11/27/18 11/28/18 11/29/18 11/30/18 23:59 23:59 23:59 23:59 Intake Total 975 2500 966 Output Total 3500 1999 2225 1371 Balance -5 -1999 275 -405 Last Vital Signs Temp Pulse Resp BP Pulse Ox 98.8 F 100 H 9 L 121/70 96 11/30/18 06:00 11/30/18 07:00 11/30/18 07:00 11/30/18 07:00 11/30/18 00:15 Active Medications Acetaminophen (Tylenol -) 1,000 mg PO Q6HPO [facility] Last Admin: 11/30/18 07:21 Dose: 1,000 mg Cefazolin Sodium/Dextrose (Ancef 2 Gm Premixed Ivpb -) 2 gm IVPB Q8H [facility] Stop: 12/07/18 03:29 Last Admin: 11/30/18 11:18 Dose: 2 gm Diazepam (Valium -) 10 mg PO DAILY PRN PRN Reason: ANXIETY Last Admin: 11/29/18 10:26 Dose: 10 mg Fentanyl (Sublimaze Injection -) 100 mcg IVPUSH [id number] PRN PRN Reason: PAIN-PACU ORDER X 4 DOSES ONLY Last Admin: 11/29/18 22:38 Dose: 100 mcg Hydromorphone HCl (Dilaudid Vendor Specialist -) 10 mg SENIOR ACCOUNT DIRECTOR SENIOR ACCOUNT DIRECTOR [facility]; Protocol Last Admin: 11/29/18 23:00 Dose: 10 mg Sodium Chloride (Normal Saline -) 1,000 mls @ 100 mls/hr IV ASDIR [facility] Last Admin: 11/30/18 08:23 Dose: 100 mls/hr Levothyroxine Sodium 100 mcg/ (Levothyroxine Sodium 50 mcg) 150 mcg PO DAILY@ 0700 [facility] Last Admin: 11/30/18 07:47 Dose: 150 mcg Non-Formulary Med ( (Synthroid 150mcg)) 1 each PO DAILY@699 [facility] Last Admin: 11/30/18 07:23 Dose: 1 each Ondansetron HCl (Zofran Injection) 4 mg IVPUSH Q6H PRN PRN Reason: NAUSEA AND/OR VOMITING Pantoprazole Sodium (Protonix -) 40 mg PO DAILY [facility] Last Admin: 11/30/18 11:17 Dose: 40 mg Thyroid (Boswell Thyroid -) 60 mg PO DAILY@699 [facility] Last Admin: 11/30/18 07:46 Dose: 60 mg OBJECTIVE: GENERAL: The patient is awake, alert, oriented, uncomfortable due to pain HEAD: Normal with no signs of trauma. NECK: Trachea midline, full range of motion, supple. LUNGS: Clear to auscultation bilaterally, no wheezes, no crackles, no accessory muscle use. HEART: Regular rate and rhythm, S1, S2 without murmur, rub or gallop. ABDOMEN: Soft, nontender, nondistended, normoactive bowel sounds, no guarding, no rebound, no hepatosplenomegaly, no masses. EXTREMITIES: 2+ pulses, warm, well-perfused, no edema. NEUROLOGICAL: Non-focal. strength 5/5 SKIN: Wound VAC in place Laboratory Results - last 24 hr 11/30/18 11/30/18 05:30 05:30 WBC 10.8 H RBC 4.68 Hgb 13.2 Hct 38.4 MCV 82.1 MCH 28.1 MCHC 34.3 RDW 14.4 Plt Count 445 H D MPV 7.6 Sodium 134 L Potassium 4.4 Chloride 99 Carbon Dioxide 31 Anion Gap 5 L BUN 8 Creatinine 0.7 Creat Clearance w eGFR > 60 Random Glucose 114 H Calcium 8.5 Phosphorus 3.3 Magnesium 2.0 ASSESSMENT/PLAN: POD#1: ThoracoLumbar spine: 1. Removal of wound vac. 2. I&D. 3. Complex wound closure: 45cm. POD #5: 1. I&D lumbar spine. 2. Application lumbar spine wound vac. HPL Hypothyroidism Pain control SCDs for VTE prophylaxis ABX coverage Follow intra-op cultures: ID evaluation for (+) cultures Incentive Spirometry O2 as needed PO as tolerated Dr Valle
--- NOTE | 2018-11-30 14:19 | PN ---
Physical Exam: SUBJECTIVE: Patient seen and examined at bedside- patient states she was in a lot of pain overnight and had multiple episodes of vomiting; denies any fevers/ chills OBJECTIVE: Vital Signs Period Temp Pulse Resp BP Sys/Donnelly Pulse Ox Last 24 Hr 97.5 F-98.8 F 77-139 9-28 87-172/58-135 96-100 GENERAL: The patient is awake, alert, and fully oriented, in slight acute distress.. EYES: PEERLA: EOMI; no scleral icterus NECK: no JVD no lymphadenopathy LUNGS: CTA B/L; no rales, rhonchi HEART: Regular rate and rhythm, S1, S2 without murmur, rub or gallop. ABDOMEN: Soft, nontender, nondistended, normoactive bowel sounds, no guarding, no rebound, no hepatosplenomegaly, no masses. EXTREMITIES: 2+ pulses, warm, well-perfused, no edema. BACK: dressing clean/dry/intact PSYCH: Normal mood, normal affect. SKIN: Warm, dry, normal turgor, no rashes or lesions noted Laboratory Results - last 24 hr 11/30/18 11/30/18 05:30 05:30 WBC 10.8 H RBC 4.68 Hgb 13.2 Hct 38.4 MCV 82.1 MCH 28.1 MCHC 34.3 RDW 14.4 Plt Count 445 H D MPV 7.6 Sodium 134 L Potassium 4.4 Chloride 99 Carbon Dioxide 31 Anion Gap 5 L BUN 8 Creatinine 0.7 Creat Clearance w eGFR > 60 Random Glucose 114 H Calcium 8.5 Phosphorus 3.3 Magnesium 2.0 Active Medications Generic Name Dose Route Start Last Admin Trade Name Freq PRN Reason Stop Dose Admin Acetaminophen 1,000 mg 11/28/18 18:00 11/30/18 13:12 Tylenol - PO 1,000 mg Q6HPO RANDAL Administration Cefazolin Sodium/Dextrose 2 gm 11/30/18 03:30 11/30/18 11:18 Ancef 2 Gm Premixed Ivpb - IVPB 12/07/18 03:29 2 gm Q8H RANDAL Administration Diazepam 10 mg 11/28/18 00:23 11/29/18 10:26 Valium - PO 10 mg DAILY PRN Administration ANXIETY Fentanyl 100 mcg 11/25/18 10:48 11/29/18 22:38 Sublimaze Injection - IVPUSH 100 mcg [id number] PRN Administration PAIN-PACU ORDER X 4 DOSES ONLY Hydromorphone HCl 10 mg 11/28/18 16:03 11/29/18 23:00 Dilaudid Mid Level Clinician - BOATBUILDER APPRENTICE WOOD 10 mg BOATBUILDER APPRENTICE WOOD RANDAL Administration Protocol Sodium Chloride 1,000 mls @ 100 mls/hr 11/28/18 08:00 11/30/18 08:23 Normal Saline - IV 100 mls/hr ASDIR RANDAL Administration Levothyroxine Sodium 150 mcg 12/01/18 07:00 Synthroid - PO DAILY@0700 RANDAL Ondansetron HCl 4 mg 11/25/18 11:09 Zofran Injection IVPUSH Q6H PRN NAUSEA AND/OR VOMITING Pantoprazole Sodium 40 mg 11/26/18 10:00 11/30/18 11:17 Protonix - PO 40 mg DAILY RANDAL Administration Thyroid 60 mg 11/26/18 07:00 11/30/18 07:46 [place]er Thyroid - PO 60 mg DAILY@0700 RANDAL Administration ASSESSMENT/PLAN: 38 y/o F w/PMH of HLD, hypothyroidism, lumbar spine stenosis currently in the ICU after I&D of spinal wound. -I&D of lumbar spine wound -Patient is POD #1 s/p lumbar spine wound drain removal, incision and drainage, and wound closure. -Patient is POD #5 s/p lumbar spine incision and drainage with wound vac application. 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 - New Patient This patient is new to me today: No - Critical Care Critical Care patient: No
--- NOTE | 2018-11-30 15:14 | PN ---
Progress Note (short form) - Note Progress Note: Post op day#1.S/P Removal of L5-S1 hardware and L4-L5 revision laminectomy under ga uneventful.Patient stable and c/o lot of pain for which she is on medication.Noany anesthesia related problem.Patient Dc from the anesthesia care.
--- NOTE | 2018-11-30 15:20 | PN ---
Progress Note (short form) - Note Progress Note: Addendum.Patient stable and c/o pain score of 6-7/10 on Dilaudid DETAIL MAKER AND FITTER .Will continue international sales representative and will f/u tomorrow.
--- NOTE | 2018-11-30 19:04 | PN ---
Teaching Attending Note Name of Resident: Herlinda Rothman ATTENDING PHYSICIAN STATEMENT I saw and evaluated the patient. I reviewed the resident's note and discussed the case with the resident. I agree with the resident's findings and plan as documented. SUBJECTIVE: has back pain, no fever or chills, No BM. OBJECTIVE: NAD , comfortable ein bed. CV: RRR lungs: clear anteriorly , refused to turn due to pain Abd: soft, decreased breath sounds. NT. ext : no edema unable to do neuro exam due to cooperation form patient ASSESSMENT AND PLAN: 38 y/o lady with h/o Lumbar spinal stenosis s/p L4-S1 laminectomies and fusion 04/19/18, followed by r L4 nerve sheath durotomy on 04/26/18, hypothyroidism, obesity, HLP, who presented now for I&D of her lumbar spine wound . 1- S/p Lumbar wound I&D 11/25, then vac removal and wound closure yesterday. - Abx orederd per sx - spoke to Dr. Arana who indicated wound draiange redness as out pt with + cx for MSSA. She was given abx courses as out pt ( augmentin, bactrim and doxy ) . then debridment was done on due to worsening neurological sx . on yesterday 's sx , the wound looked clean and debridment was done to the fascia with 2 spaces left and 2 drains were placed. - will case d/w Dr. Morales in a consult - cont REAL ESTATE SALES AGENT and follow cultures 2- Hypothyroidism, cont synthroid and armor thyroid 3- GERD , cont PPI 4- Constipation : pt refuses laxatives Mechanical DVT px per sx
--- NOTE | 2018-11-30 19:20 | PN ---
Progress Note (short form) - Note Progress Note: ID consult to be dictated in am asked by hospitalist to see the patient today patient reports back pain diagnosed with spinal stenosis that led to surgery L3- S1 laminectomy 04/19, followed by revision due to csf leak 04/26 she reports continued back drainage from that time until one month ago no fevers back pain has been increasing she reports cultures done at Dr Delgadillo's office she saw him one to two times a week since her second surgery she has been on muli tiple antibiotics including augmentin, bactrim, doxycycline , erythromycin- continueously since her surgery until 3 weeks ago admitted 11/25 for incision and drainage lumbar spine with application of wound vac, the vac was removed on 11/29 and she had a washout and further debridement now she has a dressing and 2 hemovacs operative cultures from the first surgery on 11/25 are negative at 48 hours (am not sure they were held longer- no one asked micro to do that ) will ask micro to hold second specimen and see if they have the original specimen currently afebrile and feels well will contact dr delgadillo to discuss- I have asked him to fax the ICU the micro results/MRIs from his office- he states no MRSA in office cultures check esr/crp further reccd to follow continue cefazolin for now
[2018-11-30] MEDS ORDERED: HYDROmorphone *PCA* 10MG/50ML DISP.SYRIN PCA ONE (19:44)
[2018-11-30] MEDS: HYDROmorphone *PCA* 10MG/50ML DISP.SYRIN PCA SCH (20:30)
[2018-11-30] MEDS: diazePAM 5 MG TABLET PO SCH (21:10)
--- NOTE | 2018-11-30 21:16 | PN ---
Progress Note (short form) - Note Progress Note: C/O incisional pain Walked in the hallway Apyrexial Wound dry Drains insitu Continue in ICU
[2018-12-01] MEDS: HYDROmorphone *PCA* 10MG/50ML DISP.SYRIN PCA SCH ×3 (01:27→19:29)
[2018-12-01] MEDS: ACETAMINOPHEN 500 MG TABLET (FP) PO SCH ×4 (01:28→18:55)
[2018-12-01] MEDS: ceFAZolin 2 GRAM PREMIX BAG IVPB SCH ×2 (04:30→12:44)
[2018-12-01] MEDS: THYROID 60 MG TABLET PO SCH (06:29)
[2018-12-01] MEDS ORDERED: LEVOTHYROXINE NA 75 MCG TABLET (FP) PO SCH (07:00)
[2018-12-01 07:03] LABS: HEMATOCRIT 31.4 % (32.4-45.2); HEMOGLOBIN 10.6 GM/dL (10.7-15.3); MCH 27.9 pg (25.7-33.7); MCHC 33.8 g/dl (32.0-36.0); MEAN CELL VOLUME 82.5 fl (80-96); MEAN PLT VOLUME 7.8 fl (7.5-11.1); PLATELET COUNT 372 K/MM3 (134-434); RDW 14.7 % (11.6-15.6); WHITE BLOOD COUNT 9.4 K/mm3 (4.0-10.0)
[2018-12-01 07:44] LABS: ALK PHOS 71 U/L (45-117); ANION GAP 5 MMOL/L (8-16); BILIRUBIN,TOTAL 0.2 mg/dL (0.2-1); BLOOD UREA NITROGEN 11 mg/dL (7-18); CALCIUM 8.3 mg/dL (8.5-10.1); CHLORIDE 103 mmol/L (98-107); CO2 30 mmol/L (21-32); CREATININE 0.7 mg/dL (0.55-1.3); GLUCOSE,RANDOM 99 mg/dL (74-106); MAGNESIUM 2.3 mg/dL (1.8-2.4); POTASSIUM 4.3 mmol/L (3.5-5.1); SGOT/AST 12 U/L (15-37); SGPT/ALT 12 U/L (13-61); SODIUM 139 mmol/L (136-145); TOT PROT 5.6 g/dl (6.4-8.2)
[2018-12-01] MEDS: SODIUM CHLORIDE 1,000 ML IV SCH ×2 (08:41)
--- NOTE | 2018-12-01 08:50 | PN ---
Physical Exam: SUBJECTIVE: Patient seen and examined at bedside this morning. She endorses significant "burning" back pain. She is passing flatus, and tolerating sodium controlled diet without abdominal pain, nausea, vomiting. She has not yet passed bowel movement. Patient denies subjective fevers and chills. OBJECTIVE: Vital Signs Period Temp Pulse Resp BP Sys/Donnelly Pulse Ox Last 24 Hr 98.2 F-98.8 F 84-103 9-22 92-126/45-77 96-96 GENERAL: Obese, female. Awake, alert, and fully oriented, in no acute distress. HEAD: Normocephalic, atraumatic. EYES: PERRLA, EOMI. Sclera anicteric, conjunctiva clear. EARS, NOSE, THROAT: Oropharynx clear without exudates. Dry mucous membranes. NECK: Normal range of motion, supple without lymphadenopathy, JVD, or masses. LUNGS: Breath sounds equal, clear to auscultation bilaterally. No wheezes, and no crackles. No accessory muscle use. HEART: Regular rate and rhythm, normal S1 and S2 without murmur, rub or gallop. ABDOMEN: Obese. Soft, not distended, nontender to light and deep palpation X4 quadrants. Hypoactive bowel sounds X4 quadrants. MUSCULOSKELETAL: Freely moves all 4 extremities, limited by back pain. UPPER EXTREMITIES: 2+ radial pulses bilaterally. Warm, well-perfused. LOWER EXTREMITIES: 2+ dorsalis pedis pulses bilaterally, warm, well-perfused. No calf tenderness. Trace lower extremity edema bilaterally. NEUROLOGICAL: Cranial nerves II-XII intact. Normal speech. PSYCHIATRIC: Anxious, tearful affect. Cooperative upon my encounter. SKIN: Warm, dry. Vertical spinal surgical site bandaged clean, dry, intact, with wound drains in place. Laboratory Results - last 24 hr 12/01/18 12/01/18 12/01/18 05:30 05:30 05:30 WBC 9.4 RBC 3.80 Hgb 10.6 L Hct 31.4 L D MCV 82.5 MCH 27.9 MCHC 33.8 RDW 14.7 Plt Count 372 MPV 7.8 Sodium 139 Potassium 4.3 Chloride 103 Carbon Dioxide 30 Anion Gap 5 L BUN 11 Creatinine 0.7 Creat Clearance w eGFR > 60 Random Glucose 99 Calcium 8.3 L Phosphorus 4.0 Magnesium 2.3 Total Bilirubin 0.2 AST 12 L ALT 12 L Alkaline Phosphatase 71 C-Reactive Protein 1.2 H Total Protein 5.6 L Albumin 3.0 L Active Medications Generic Name Dose Route Start Last Admin Trade Name Freq PRN Reason Stop Dose Admin Acetaminophen 1,000 mg 11/28/18 18:00 12/01/18 06:27 Tylenol - PO Not Given Q6HPO RANDAL Cefazolin Sodium/Dextrose 2 gm 11/30/18 03:30 12/01/18 04:30 Ancef 2 Gm Premixed Ivpb - IVPB 12/07/18 03:29 2 gm Q8H RANDAL Administration Diazepam 10 mg 11/30/18 22:00 11/30/18 21:10 Valium - PO 10 mg BID RANDAL Administration Fentanyl 100 mcg 11/25/18 10:48 11/29/18 22:38 Sublimaze Injection - IVPUSH 100 mcg [id number] PRN Administration PAIN-PACU ORDER X 4 DOSES ONLY Hydromorphone HCl 10 mg 11/28/18 16:03 12/01/18 01:27 Dilaudid Gas Plant Specialist - BELT LACER 10 mg BELT LACER RANDAL Administration Protocol Sodium Chloride 1,000 mls @ 100 mls/hr 11/28/18 08:00 12/01/18 08:41 Normal Saline - IV Not Given ASDIR RANDAL Levothyroxine Sodium 150 mcg 12/01/18 07:00 12/01/18 06:33 Synthroid - PO 150 mcg DAILY@0700 RANDAL Administration Ondansetron HCl 4 mg 11/25/18 11:09 Zofran Injection IVPUSH Q6H PRN NAUSEA AND/OR VOMITING Pantoprazole Sodium 40 mg 11/26/18 10:00 11/30/18 11:17 Protonix - PO 40 mg DAILY RANDAL Administration Thyroid 60 mg 11/26/18 07:00 12/01/18 06:29 [place] Thyroid - PO 60 mg DAILY@0700 RANDAL Administration ASSESSMENT/PLAN: Patient is a 38 year old female with history of hypothyroidism, anxiety, gastro- esophageal reflux disease, and prior L4-S1 laminectomies, L4-L5 PLIF, L3-S1 PISF , and autograft, with subsequent right L4 nerve sheath durotomy presented s/p lumbar spine incision and drainage with wound vac application. She is now s/p wound vac removal, incision and drainage, and wound closure. Admitted to ICU for postoperative management. Neurological/ Psychiatric Anxiety -Patient is awake, alert, oriented. -Diazepam 10mg PO BID for anxiety -Neuro checks Q4 hours Pulmonary -Currently saturating well on room air. -Maintain oxygen saturation greater than 90% -Incentive spirometer Q15 minutes Cardiac Hypertension -Currently not on antihypertensive medication -Follow vital signs closely. Gastrointestinal Gastro-esophageal reflux -Sodium controlled diet. Patient is tolerating diet without abdominal pain, nausea, vomiting. -Omeprazole 40mg PO daily Genitourinary -Patient currently draining clear yellow urine within cruz catheter. Discontinue once patient is ambulating. -Follow cruz catheter output. Musculoskeletal -Patient is POD #2 s/p lumbar spine wound drain removal, incision and drainage , and wound closure. -Patient is POD #6 s/p lumbar spine incision and drainage with wound vac application. -Pain control with Dilaudid BELT LACER, Acetaminophen 1000mg PO Q6H PRN -Monitor wound drain output -Physical therapy evaluation. Endocrine Hypothyroidism -Synthroid 150mcg PO daily -Thyroid [place] 60mg PO daily ID -Leukocytosis resolved. Follow CBC -Wound cultures growing preliminary Staph aureus, coagulase negative. -Vancomycin 1500mg IV Q12 hours -Follow tissue cultures -ID consult (Dr. Morales) appreciated Fluids/ Electrolytes/ Nutrition -No IV fluids. -Follow CMP, replete as necessary -Sodium controlled diet Lines/ Tubes/ Drains -Wound vac placed intra-operatively 11/25, removed 11/29 -Wound drain x2 placed intra-operatively 11/29 -Cruz catheter placed 11/25 Prophylaxis -No chemical anticoagulation per Dr. Arana. -SCDs, TEDs bilateral lower extremities -Omeprazole 40mg PO daily Disposition: -Continue care in ICU. Transfer to medical- surgical floor per orthopedic surgery. Visit type - Emergency Visit Emergency Visit: Yes ED Registration Date: 11/25/18 Care time: The patient presented to the Emergency Department on the above date and was hospitalized for further evaluation of their emergent condition. - New Patient This patient is new to me today: No - Critical Care Critical Care patient: Yes Total Critical Care Time (in minutes): 35 Critical Care Statement: The care of this patient involved high complexity decision making to prevent further life threatening deterioration of the patient 's condition and/or to evaluate & treat vital organ system(s) failure or risk of failure.
--- NOTE | 2018-12-01 09:18 | PN ---
Physical Exam: SUBJECTIVE: Patient seen and examined at bedside- patient is still in a lot of pain ; does not feel that any of the medication is working and has not felt pain like this before, she walked with PT yesterday in the hallway and had a very difficult time a- she denies any CP/SOB/n/v OBJECTIVE: Vital Signs Period Temp Pulse Resp BP Sys/Donnelly Pulse Ox Last 24 Hr 98.2 F-98.8 F 84-103 9-22 92-126/45-77 96 GENERAL: The patient is awake, alert, tearful in pain. EYES: PEERLA; EOMI; no scleral icterus. NECK:no JVD; no lymphadenopathy LUNGS:CTA B/l; no rales, rhonchi or wheezing. HEART: Regular rate and rhythm, S1, S2 without murmur, rub or gallop. ABDOMEN: Soft, nontender, nondistended, normoactive bowel sounds, no guarding, no rebound, no hepatosplenomegaly, no masses. BACK; dressing clean/dry/intact; however, tenderness upon palpation EXTREMITIES: 2+ pulses, warm, well-perfused, trace edema. NEUROLOGICAL: Cranial nerves II through XII grossly intact. Normal speech, gait not observed. PSYCH: Normal mood, normal affect. SKIN: Warm, dry, normal turgor, no rashes or lesions noted Laboratory Results - last 24 hr 12/01/18 12/01/18 12/01/18 05:30 05:30 05:30 WBC 9.4 RBC 3.80 Hgb 10.6 L Hct 31.4 L D MCV 82.5 MCH 27.9 MCHC 33.8 RDW 14.7 Plt Count 372 MPV 7.8 Sodium 139 Potassium 4.3 Chloride 103 Carbon Dioxide 30 Anion Gap 5 L BUN 11 Creatinine 0.7 Creat Clearance w eGFR > 60 Random Glucose 99 Calcium 8.3 L Phosphorus 4.0 Magnesium 2.3 Total Bilirubin 0.2 AST 12 L ALT 12 L Alkaline Phosphatase 71 C-Reactive Protein 1.2 H Total Protein 5.6 L Albumin 3.0 L Active Medications Generic Name Dose Route Start Last Admin Trade Name Freq PRN Reason Stop Dose Admin Acetaminophen 1,000 mg 11/28/18 18:00 12/01/18 06:27 Tylenol - PO Not Given Q6HPO [facility] Cefazolin Sodium/Dextrose 2 gm 11/30/18 03:30 12/01/18 04:30 Ancef 2 Gm Premixed Ivpb - IVPB 12/07/18 03:29 2 gm Q8H RANDAL Administration Diazepam 10 mg 11/30/18 22:00 11/30/18 21:10 Valium - PO 10 mg BID RANDAL Administration Fentanyl 100 mcg 11/25/18 10:48 11/29/18 22:38 Sublimaze Injection - IVPUSH 100 mcg [id number] PRN Administration PAIN-PACU ORDER X 4 DOSES ONLY Hydromorphone HCl 10 mg 11/28/18 16:03 12/01/18 01:27 Dilaudid Workers' Compensation Claims Examiner - FURNACE ROASTER 10 mg FURNACE ROASTER RANDAL Administration Protocol Sodium Chloride 1,000 mls @ 100 mls/hr 11/28/18 08:00 12/01/18 08:41 Normal Saline - IV Not Given ASDIR RANDAL Levothyroxine Sodium 150 mcg 12/01/18 07:00 12/01/18 06:33 Synthroid - PO 150 mcg DAILY@0700 RANDAL Administration Ondansetron HCl 4 mg 11/25/18 11:09 Zofran Injection IVPUSH Q6H PRN NAUSEA AND/OR VOMITING Pantoprazole Sodium 40 mg 11/26/18 10:00 11/30/18 11:17 Protonix - PO 40 mg DAILY RANDAL Administration Thyroid 60 mg 11/26/18 07:00 12/01/18 06:29 [place] Thyroid - PO 60 mg DAILY@0700 RANDAL Administration ASSESSMENT/PLAN: 8 y/o F w/PMH of HLD, hypothyroidism, lumbar spine stenosis currently in the ICU after I&D of spinal wound. -I&D of lumbar spine wound -Patient is POD #2 s/p lumbar spine wound drain removal, incision and drainage, and wound closure. -Patient is POD #6 s/p lumbar spine incision and drainage with wound vac application. -Pain control with Dilaudid FURNACE ROASTER, Acetaminophen 1000mg PO Q6H PRN -Monitor wound drain output -cefazolin for 7 days total (day 3) -f/u cx; if positive ID on board and may broaden -Physical therapy -spoke to dr. 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 - New Patient This patient is new to me today: No - Critical Care Critical Care patient: No
--- NOTE | 2018-12-01 09:30 | PN ---
Teaching Attending Note Name of Resident: Herlinda Rothman ATTENDING PHYSICIAN STATEMENT I saw and evaluated the patient. I reviewed the resident's note and discussed the case with the resident. I agree with the resident's findings and plan as documented. SUBJECTIVE: Patient is c/o having low back pain, no fever or chills, no shortness of breath OBJECTIVE: Vital Signs Temperature 98.8 F 12/01/18 06:00 Pulse Rate 84 12/01/18 08:00 Respiratory Rate 16 12/01/18 08:00 Blood Pressure 99/56 L 12/01/18 08:00 O2 Sat by Pulse Oximetry (%) 96 11/30/18 20:26 GENERAL: The patient is awake, alert, tearful in pain. EYES: PEERLA; EOMI; no scleral icterus. NECK:no JVD; no lymphadenopathy LUNGS:CTA B/l; no rales, rhonchi or wheezing. HEART: Regular rate and rhythm, S1, S2 without murmur, rub or gallop. ABDOMEN: Soft, nontender, nondistended, normoactive bowel sounds, no guarding, no rebound, no hepatosplenomegaly, no masses. BACK; dressing clean/dry/intact; however, tenderness upon palpation EXTREMITIES: 2+ pulses, warm, well-perfused, trace edema. NEUROLOGICAL: as per 's exam. positive for 2 drains. PSYCH: Normal mood, normal affect. SKIN: Warm, dry, normal turgor, no rashes or lesions noted CMP Sodium 139 mmol/L (136-145) 12/01/18 05:30 Potassium 4.3 mmol/L (3.5-5.1) 12/01/18 05:30 Chloride 103 mmol/L (98-107) 12/01/18 05:30 Carbon Dioxide 30 mmol/L (21-32) 12/01/18 05:30 Anion Gap 5 MMOL/L (8-16) L 12/01/18 05:30 BUN 11 mg/dL (7-18) 12/01/18 05:30 Creatinine 0.7 mg/dL (0.55-1.3) 12/01/18 05:30 Creat Clearance w eGFR > 60 (>60) 12/01/18 05:30 Random Glucose 99 mg/dL (74-106) 12/01/18 05:30 Calcium 8.3 mg/dL (8.5-10.1) L 12/01/18 05:30 Phosphorus 4.0 mg/dL (2.5-4.9) 12/01/18 05:30 Magnesium 2.3 mg/dL (1.8-2.4) 12/01/18 05:30 Total Bilirubin 0.2 mg/dL (0.2-1) 12/01/18 05:30 AST 12 U/L (15-37) L 12/01/18 05:30 ALT 12 U/L (13-61) L 12/01/18 05:30 Alkaline Phosphatase 71 U/L (45-117) 12/01/18 05:30 C-Reactive Protein 1.2 MG/DL (0.00-0.3) H 12/01/18 05:30 Total Protein 5.6 g/dl (6.4-8.2) L 12/01/18 05:30 Albumin 3.0 g/dl (3.4-5.0) L 12/01/18 05:30 Serum , Qual Negative 11/25/18 07:04 Current Medications Generic Name Dose Route Start Last Admin Trade Name Freq PRN Reason Stop Dose Admin Acetaminophen 1,000 mg 11/28/18 18:00 12/01/18 06:27 Tylenol - PO Not Given Q6HPO [facility] Cefazolin Sodium/Dextrose 2 gm 11/30/18 03:30 12/01/18 04:30 Ancef 2 Gm Premixed Ivpb - IVPB 12/07/18 03:29 2 gm Q8H RANDAL Administration Diazepam 10 mg 11/30/18 22:00 11/30/18 21:10 Valium - PO 10 mg BID RANDAL Administration Fentanyl 100 mcg 11/25/18 10:48 11/29/18 22:38 Sublimaze Injection - IVPUSH 100 mcg [id number] PRN Administration PAIN-PACU ORDER X 4 DOSES ONLY Hydromorphone HCl 10 mg 11/28/18 16:03 12/01/18 01:27 Dilaudid Nursing Resident - AUTO SALVAGE WORKER 10 mg AUTO SALVAGE WORKER RANDAL Administration Protocol Sodium Chloride 1,000 mls @ 100 mls/hr 11/28/18 08:00 12/01/18 08:41 Normal Saline - IV Not Given ASDIR RANDAL Levothyroxine Sodium 150 mcg 12/01/18 07:00 02/27/19 06:33 Synthroid - PO 150 mcg DAILY@0700 RANDAL Administration Ondansetron HCl 4 mg 11/25/18 11:09 Zofran Injection IVPUSH Q6H PRN NAUSEA AND/OR VOMITING Pantoprazole Sodium 40 mg 11/26/18 10:00 11/30/18 11:17 Protonix - PO 40 mg DAILY RANDAL Administration Thyroid 60 mg 11/26/18 07:00 12/01/18 06:29 [place] Thyroid - PO 60 mg DAILY@0700 RANDAL Administration Home Medications Medication Instructions Recorded Cyclobenzaprine HCl 10 mg PO PRN PRN 04/09/18 Levothyroxine [Synthroid -] 150 mcg PO DAILY 04/09/18 Omeprazole 40 mg PO DAILY 04/09/18 Thyroid,Pork [[place] Thyroid] 60 mg PO DAILY 04/09/18 Diazepam 10 mg PO BID PRN 11/24/18 Oxycodone HCl 15 mg PO QID PRN 11/24/18 Hydrochlorothiazide [Hctz -] 12.5 mg PO DAILY 11/30/18 ASSESSMENT AND PLAN: Patient is a 38yo female with PMHx of Lumbar spinal stenosis s/p L4-S1 laminectomies and fusion 04/19/18, followed by r L4 nerve sheath durotomy on 04/26, hypothyroidism, obesity, HLP, who presented now for I&D of her lumbar spine wound . # S/p Lumbar wound I&D 11/25, s/p vac removal and wound closure , ID on the case on cefazolin 2gm. further care by ID and ortho As per Dr. Austin who discussed with to Dr. Arana who indicated wound drainage redness as out pt with + cx for MSSA. She was given abx courses as out pt ( augmentin, bactrim and doxy ) . then debridment was done on due to worsening neurological sx . as per surgeon: the wound looked clean and debridment was done to the fascia with 2 spaces left and 2 drains were placed. On AUTO SALVAGE WORKER pump for pain. in ICU # Hypothyroidism, cont synthroid and armor thyroid as per patient uses this combination works for her # GERD , cont PPI # Constipation : pt refuses laxatives Mechanical DVT px per sx
[2018-12-01] MEDS: PANTOPRAZOLE 40 MG TABLET (FP) PO SCH (10:29)
[2018-12-01] MEDS: diazePAM 5 MG TABLET PO SCH ×2 (10:30→21:49)
--- NOTE | 2018-12-01 12:55 | PN ---
Teaching Attending Note Name of Resident: Fly Cartwright ATTENDING PHYSICIAN STATEMENT I saw and evaluated the patient. I reviewed the resident's note and discussed the case with the resident. I agree with the resident's findings and plan as documented. SUBJECTIVE: Pt seen and examined in the ICU. Still with significant pain. +flatus. No nausea or vomiting. No fevers recorded. OBJECTIVE: Vital Signs Period Temp Pulse Resp BP Sys/Donnelly Pulse Ox Last 24 Hr 98.0 F-98.8 F 74-103 9-20 92-126/45-77 96 Intake & Output 11/28/18 11/29/18 11/30/18 12/01/18 23:59 23:59 23:59 23:59 Intake Total 2499 2166 Output Total 1999 8292 9624 40 Balance -1999 937 -760 -40 Gen: NAD at rest Heart: RRR Lung: decreased breath sounds at the bases Abd: soft, nontender Ext: no edema Drain with serous fluid CBC, BMP 12/01/18 05:30 12/01/18 05:30 Active Medications Acetaminophen (Tylenol -) 1,000 mg PO Q6HPO [facility] Last Admin: 12/01/18 06:27 Dose: Not Given Cefazolin Sodium/Dextrose (Ancef 2 Gm Premixed Ivpb -) 2 gm IVPB Q8H [facility] Stop: 12/07/18 03:29 Last Admin: 12/01/18 12:44 Dose: 2 gm Diazepam (Valium -) 10 mg PO BID [facility] Last Admin: 12/01/18 10:30 Dose: 10 mg Fentanyl (Sublimaze Injection -) 100 mcg IVPUSH [id number] PRN PRN Reason: PAIN-PACU ORDER X 4 DOSES ONLY Last Admin: 11/29/18 22:38 Dose: 100 mcg Hydromorphone HCl (Dilaudid Tooling Manager -) 10 mg HIGH PRESSURE FIRER HIGH PRESSURE FIRER [facility]; Protocol Last Admin: 12/01/18 01:27 Dose: 10 mg Sodium Chloride (Normal Saline -) 1,000 mls @ 100 mls/hr IV ASDIR [facility] Last Admin: 12/01/18 08:41 Dose: Not Given Levothyroxine Sodium (Synthroid -) 150 mcg PO DAILY@0700 [facility] Last Admin: 12/01/18 06:33 Dose: 150 mcg Ondansetron HCl (Zofran Injection) 4 mg IVPUSH Q6H PRN PRN Reason: NAUSEA AND/OR VOMITING Pantoprazole Sodium (Protonix -) 40 mg PO DAILY [facility] Last Admin: 12/01/18 10:29 Dose: 40 mg Thyroid ([place] Thyroid -) 60 mg PO DAILY@0700 [facility] Last Admin: 12/01/18 06:29 Dose: 60 mg ASSESSMENT AND PLAN: Wound Infection s/p I&D/Removal of Wound Vac/Complex Wound Closure Hyperlipidemia Hypothyroidism - pain control - incentive spirometry - bowel regimen - continue antibiotics - rehab/PT - PO as tolerated - DVT prophylaxis
--- NOTE | 2018-12-01 14:02 | PN ---
Progress Note (short form) - Note Progress Note: remains afebrile continues with back pain quite tearful today Vital Signs Period Temp Pulse Resp BP Sys/Donnelly Pulse Ox Last 24 Hr 98.0 F-98.8 F 74-103 9-20 92-126/45-77 96 cor-rrr lungs clear abd soft,nt ext no edema dressing intact CBC, BMP 12/01/18 05:30 12/01/18 05:30 Microbiology 11/29/18 20:51 Back Gram Stain - Final 11/29/18 20:51 Back Wound Culture - Preliminary Staphylococcus Coagulase Neg 11/29/18 20:49 Back Wound Culture - Preliminary Staphylococcus Coagulase Neg 11/25/18 10:30 Tissue-Other AFB Smear Concentration - Final 11/25/18 10:30 Tissue-Other Mycobacterial Culture - Preliminary 11/29/18 20:52 Back Gram Stain - Final 11/25/18 10:30 Wound AFB Smear Concentration - Final 11/25/18 10:30 Wound Mycobacterial Culture - Preliminary 11/25/18 10:30 Tissue-Other Gram Stain - Final 11/25/18 10:30 Tissue-Other Tissue Culture - Final NO GROWTH OF AEROBIC ORGANISMS AFTER 48 HOURS INCUBATION 11/25/18 10:30 Tissue-Other Anaerobic Culture - Final NO ANAEROBES WERE ISOLATED 11/25/18 10:30 Wound Gram Stain - Final 11/25/18 10:30 Wound Wound Culture - Final NO GROWTH AFTER 48 HOURS INCUBATION 11/25/18 10:30 Wound ALIYAH Preparation - Preliminary 11/25/18 10:30 Wound Fungal Culture - Preliminary 11/25/18 10:30 Tissue-Other ALIYAH Preparation - Preliminary 11/25/18 10:30 Tissue-Other Fungal Culture - Preliminary Laboratory Tests 12/01/18 12/01/18 05:30 05:30 ESR 13 C-Reactive Protein 1.2 H a/p s/p washout and debridement of back operative culture now with scn will switch to vancomycin and f/u patient aware d/w Dr Arana last night- will try to get prior records from his office- micro/ MRI- have asked ICU residents to assist with this spoke with Micro- they will hold all the OR specimen 2 weeks
[2018-12-01] MEDS: VANCOMYCIN HCL 1,500 MG in DEXTROSE 5%-WATER - 500 ML IVPB SCH (17:04)
--- NOTE | 2018-12-01 20:58 | CONS ---
DATE OF CONSULTATION: DATE OF DICTATION: 12/01/2018 INFECTIOUS DISEASE CONSULTATION REQUESTING PHYSICIAN: Hospitalist Service CONSULTING PHYSICIAN: Magnus Mcleod M.D. HISTORY OF PRESENT ILLNESS: This is a 38-year-old woman with a history of spinal stenosis. She underwent L3-S1 laminectomy in April 19, 2018, followed by revision for CSF spinal leak on the . She was subsequently discharged home and per the patient continued to have back pain and from that time onward. She also reports she was on antibiotics from that time onwards. She reports she has had intermittent continued drainage from her spinal wound. She was found to have an allergy to nickel in the rita, which were subsequently removed, and she had this intermittent drainage. She reports being on Augmentin, Bactrim, doxycycline, in a cyclical fashion from the time after surgery in April until 3 weeks before she was admitted, which would be November 05. She is unsure of what the last antibiotics she took was. She never had any fever during this time. She continued to have severe back pain. She returned to work briefly in July,, but the back pain worsened, and she had too much drainage, and she stopped going to work. She reports that she would have gauze in her lower back that would get soaked. She had been seeing her surgeon once or twice a week since the time of her discharge in April. She is now readmitted on the 25 of November, at which time she went incision and drainage of the lumbar spine, and she has had a spine wound VAC placed. Cultures were sent at that time of tissue, and that tissue reports few polys, no organisms, and no growth. she was taken back to the OR on the for removal of the wound VAC, washout and debridement of the skin, tissue, and muscle. I am asked to see her for evaluation of need for antibiotics. She has been on cephazolin since the time of her first surgery. She reports she was instructed to stop antibiotics 3 weeks before surgery. She is allergic to and LORAZEPAM. PAST MEDICAL HISTORY: Notable for hypothyroidism, anxiety, and GERD, as well as obesity. She has had prior laminectomies L4-S1, L4-L5, L3-S1. SOCIAL HISTORY: She is . 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 She also has a history of iron deficiency, vitamin D deficiency, restless leg syndrome, as well as the hypothyroidism. She has had a in the past. FAMILY HISTORY: Notable for father and mother who are both alive with history of hypertension, coronary artery disease, and diabetes. REVIEW OF SYSTEMS: Currently notable for back pain. She has never had any fevers or chills. PHYSICAL EXAMINATION: GENERAL: She is awake and alert, she is afebrile. VITAL SIGNS: Temperature 98.3, blood pressure 94/53, pulse 74, respiratory rate 16, saturating 96% on room air. HEENT: Normocephalic. Eyes are anicteric. NECK: Supple. LUNGS: Clear to auscultation. HEART: Regular rate and rhythm. ABDOMEN: Soft, nontender. She has a large dressing on her back with [address]. EXTREMITIES: Without edema. LABORATORY: White count is 10.8, hemoglobin 13.2, platelets of 45, and chemistries are notable for BUN and creatinine of 11 and 0.7. Normal LFTs. IMPRESSION: In summary, this is a complicated case of a young woman status post surgery for spinal stenosis with L3-S1 laminectomy on the with persistent back drainage status post operative washout and debridement. She has been on multiple oral antibiotics. Interestingly, the operative cultures from the 1st surgery are negative at 48 hours, and the cultures from the 2nd surgery are pending. She currently is afebrile and feels well besides her back pain. I spoke with Dr. Arana. I have asked him to fax the intensive care unit the micro results and MRI from his office. He states no methicillin-resistant Staphylococcus aureus was present in office cultures. Will check a sedimentation rate and C-reactive protein, with further recommendations to follow. Would continue the cephazolin for now as the first operative cultures are negative. Will contact micro in the morning to see if the prior cultures could be found and held as well as holding the present cultures. Would obtain a sedimentation rate and C-reactive protein. MAGNUS MCLEOD M.D. [id number]
[2018-12-02] MEDS: ACETAMINOPHEN 500 MG TABLET (FP) PO SCH ×5 (00:12→18:36)
[2018-12-02] MEDS: VANCOMYCIN HCL 1,500 MG in DEXTROSE 5%-WATER - 500 ML IVPB SCH ×2 (03:38→16:22)
[2018-12-02] MEDS: HYDROmorphone *PCA* 10MG/50ML DISP.SYRIN PCA SCH ×3 (04:53→20:25)
[2018-12-02] MEDS ORDERED: PT OWN MED DRAWER 7, Y5N ONE (06:36)
[2018-12-02] MEDS: THYROID 60 MG TABLET PO SCH (06:40)
[2018-12-02 06:58] LABS: HEMATOCRIT 31.1 % (32.4-45.2); HEMOGLOBIN 10.5 GM/dL (10.7-15.3); MCH 28.1 pg (25.7-33.7); MCHC 33.7 g/dl (32.0-36.0); MEAN CELL VOLUME 83.4 fl (80-96); MEAN PLT VOLUME 7.7 fl (7.5-11.1); PLATELET COUNT 307 K/MM3 (134-434); RBC 3.74 M/mm3 (3.60-5.2); RDW 15.1 % (11.6-15.6); WHITE BLOOD COUNT 6.7 K/mm3 (4.0-10.0)
[2018-12-02] MEDS ORDERED: LEVOTHYROXINE NA 150 MCG TABLET PO SCH (07:00)
[2018-12-02 07:37] LABS: ANION GAP 6 MMOL/L (8-16); BLOOD UREA NITROGEN 9 mg/dL (7-18); CALCIUM 7.8 mg/dL (8.5-10.1); CHLORIDE 105 mmol/L (98-107); CO2 28 mmol/L (21-32); CREATININE 0.5 mg/dL (0.55-1.3); GLUCOSE,RANDOM 112 mg/dL (74-106); PHOSPHOROUS 4.3 mg/dL (2.5-4.9); POTASSIUM 3.9 mmol/L (3.5-5.1); SODIUM 139 mmol/L (136-145)
--- NOTE | 2018-12-02 08:12 | PN ---
Physical Exam: SUBJECTIVE: Patient seen and examined at bedside this morning. She endorses that her pain is better controlled with Dilaudid BAIT TIER. She is tolerating diet without abdominal pain, nausea, vomiting. She is passing flatus, has not yet passed bowel movement. She denies subjective fevers, chills. OBJECTIVE: Vital Signs Period Temp Pulse Resp BP Sys/Donnelyl Pulse Ox Last 24 Hr 98.0 F 66-101 9-20 94-122/53-83 96-96 GENERAL: Obese, female. Awake, alert, and fully oriented, in no acute distress. HEAD: Normocephalic, atraumatic. EYES: PERRLA, EOMI. Sclera anicteric, conjunctiva clear. EARS, NOSE, THROAT: Oropharynx clear without exudates. Dry mucous membranes. NECK: Normal range of motion, supple without lymphadenopathy, JVD, or masses. LUNGS: Breath sounds equal, clear to auscultation bilaterally. No wheezes, and no crackles. No accessory muscle use. HEART: Regular rate and rhythm, normal S1 and S2 without murmur, rub or gallop. ABDOMEN: Obese. Soft, not distended, nontender to light and deep palpation X4 quadrants. Hypoactive bowel sounds X4 quadrants. MUSCULOSKELETAL: Freely moves all 4 extremities, limited by back pain. UPPER EXTREMITIES: 2+ radial pulses bilaterally. Warm, well-perfused. LOWER EXTREMITIES: 2+ dorsalis pedis pulses bilaterally, warm, well-perfused. No calf tenderness. Trace lower extremity edema bilaterally. NEUROLOGICAL: Cranial nerves II-XII intact. Normal speech. PSYCHIATRIC: Anxious, tearful affect. Cooperative upon my encounter. SKIN: Warm, dry. Vertical spinal surgical site bandaged clean, dry, intact, with wound drains in place. Laboratory Results - last 24 hr 12/01/18 12/02/18 12/02/18 05:30 05:30 05:30 WBC 6.7 RBC 3.74 Hgb 10.5 L Hct 31.1 L MCV 83.4 MCH 28.1 MCHC 33.7 RDW 15.1 Plt Count 307 MPV 7.7 ESR 13 Sodium 139 Potassium 3.9 Chloride 105 Carbon Dioxide 28 Anion Gap 6 L BUN 9 Creatinine 0.5 L Creat Clearance w eGFR > 60 Random Glucose 112 H Calcium 7.8 L Phosphorus 4.3 Magnesium 2.0 Active Medications Generic Name Dose Route Start Last Admin Trade Name Freq PRN Reason Stop Dose Admin Acetaminophen 1,000 mg 11/28/18 18:00 12/02/18 06:38 Tylenol - PO 1,000 mg Q6HPO RANDAL Administration Diazepam 10 mg 11/30/18 22:00 12/01/18 21:49 Valium - PO 10 mg BID RANDAL Administration Hydromorphone HCl 10 mg 11/28/18 16:03 12/01/18 19:29 Dilaudid Head Of Human Resources - BAIT TIER 10 mg BAIT TIER RANDAL Administration Protocol Sodium Chloride 1,000 mls @ 100 mls/hr 11/28/18 08:00 12/01/18 08:41 Normal Saline - IV Not Given ASDIR RANDAL Vancomycin HCl 1,500 mg/ 500 mls @ 250 mls/hr 12/01/18 15:00 12/02/18 03:38 Dextrose IVPB 250 mls/hr Q12H RANDAL Administration Protocol Levothyroxine Sodium 150 mcg 12/02/18 07:00 12/02/18 07:13 Synthroid - PO 150 mcg DAILY@0700 RANDAL Administration Ondansetron HCl 4 mg 11/25/18 11:09 Zofran Injection IVPUSH Q6H PRN NAUSEA AND/OR VOMITING Pantoprazole Sodium 40 mg 11/26/18 10:00 12/01/18 10:29 Protonix - PO 40 mg DAILY RANDAL Administration Thyroid 60 mg 11/26/18 07:00 12/02/18 06:40 Ruby Thyroid - PO 60 mg DAILY@0700 RANDAL Administration ASSESSMENT/PLAN: Patient is a 38 year old female with history of hypothyroidism, anxiety, gastro- esophageal reflux disease, and prior L4-S1 laminectomies, L4-L5 PLIF, L3-S1 PISF , and autograft, with subsequent right L4 nerve sheath durotomy presented s/p lumbar spine incision and drainage with wound vac application. She is now s/p wound vac removal, incision and drainage, and wound closure. Admitted to ICU for postoperative management. Neurological/ Psychiatric Anxiety -Patient is awake, alert, oriented. -Diazepam 10mg PO BID for anxiety -Neuro checks Q4 hours Pulmonary -Currently saturating well on room air. -Maintain oxygen saturation greater than 90% -Incentive spirometer Q15 minutes Cardiac Hypertension -Currently not on antihypertensive medication -Follow vital signs closely. Gastrointestinal Gastro-esophageal reflux -Sodium controlled diet. Patient is tolerating diet without abdominal pain, nausea, vomiting. -Begin Miralax 17grams PO BID -Colace 300mg PO HS -Omeprazole 40mg PO daily Genitourinary -Patient currently draining clear yellow urine within cruz catheter. Discontinue once patient is ambulating. -Follow cruz catheter output. Musculoskeletal -Patient is POD #3 s/p lumbar spine wound drain removal, incision and drainage , and wound closure. -Patient is POD #7 s/p lumbar spine incision and drainage with wound vac application. -Pain control with Dilaudid BAIT TIER, Acetaminophen 1000mg PO Q6H PRN -Monitor wound drain output -Physical therapy evaluation. Endocrine Hypothyroidism -Synthroid 150mcg PO daily -Thyroid Ruby 60mg PO daily ID -Leukocytosis resolved. Follow CBC -Wound cultures growing preliminary Staph epidermidis -Vancomycin 1500mg IV Q12 hours (day #2) -Follow tissue cultures -ID consult (Dr. Morales) appreciated Fluids/ Electrolytes/ Nutrition -No IV fluids. -Follow CMP, replete as necessary -Sodium controlled diet Lines/ Tubes/ Drains -Wound vac placed intra-operatively /, removed 11/29 -Wound drain x2 placed intra-operatively /25 -Cruz catheter placed / Prophylaxis -No chemical anticoagulation per Dr. Arana. -SCDs, TEDs bilateral lower extremities -Omeprazole 40mg PO daily Disposition: -Patient is medically stable for transfer to medical- surgical floor, per orthopedic surgery. Visit type - Emergency Visit Emergency Visit: No - New Patient This patient is new to me today: No - Critical Care Critical Care patient: Yes Total Critical Care Time (in minutes): 35 Critical Care Statement: The care of this patient involved high complexity decision making to prevent further life threatening deterioration of the patient 's condition and/or to evaluate & treat vital organ system(s) failure or risk of failure. - Discharge Referral Referred to [facility] No
[2018-12-02] MEDS: SODIUM CHLORIDE 1,000 ML IV SCH ×2 (09:47→17:00)
[2018-12-02] MEDS: PANTOPRAZOLE 40 MG TABLET (FP) PO SCH (09:47)
[2018-12-02] MEDS: diazePAM 5 MG TABLET PO SCH ×2 (09:47→23:23)
[2018-12-02] MEDS ORDERED: POLYETHYLENE GLYCOL 3350 119 GM BTL PO SCH (10:00)
--- NOTE | 2018-12-02 13:38 | PN ---
Teaching Attending Note Name of Resident: Fly Cartwright ATTENDING PHYSICIAN STATEMENT I saw and evaluated the patient. I reviewed the resident's note and discussed the case with the resident. I agree with the resident's findings and plan as documented. SUBJECTIVE: Patient seen and examined in ICU. POD#3: ThoracoLumbar spine: 1. Removal of wound vac. 2. I&D. 3. Complex wound closure: 45cm. POD #7: 1. I&D lumbar spine. 2. Application lumbar spine wound vac. Pain seems a little better. Intake & Output 11/29/18 11/30/18 12/01/18 12/02/18 23:59 23:59 23:59 23:59 Intake Total 2500 2166 2480 2560 Output Total 2225 2926 1620 3030 Balance 275 -760 860 -470 Last Vital Signs Temp Pulse Resp BP Pulse Ox 98.0 F 68 20 109/60 96 12/02/18 10:00 12/02/18 13:20 12/02/18 13:20 12/02/18 13:20 12/02/18 09:00 Active Medications Acetaminophen (Tylenol -) 1,000 mg PO Q6HPO [facility] Last Admin: 12/02/18 13:33 Dose: 1,000 mg Diazepam (Valium -) 10 mg PO BID [facility] Last Admin: 12/02/18 09:47 Dose: 10 mg Docusate Sodium (Colace -) 300 mg PO HS RANDAL Hydromorphone HCl (Dilaudid Hand Finisher -) 10 mg INTERACTIVE MULTIMEDIA DESIGNER INTERACTIVE MULTIMEDIA DESIGNER [facility]; Protocol Last Admin: 12/01/18 19:29 Dose: 10 mg Sodium Chloride (Normal Saline -) 1,000 mls @ 100 mls/hr IV ASDIR [facility] Last Admin: 12/02/18 09:47 Dose: Not Given Vancomycin HCl 1,500 mg/ (Dextrose) 500 mls @ 250 mls/hr IVPB Q12H [facility]; Protocol Last Admin: 12/02/18 03:38 Dose: 250 mls/hr Levothyroxine Sodium (Synthroid -) 150 mcg PO DAILY@0700 [facility] Last Admin: 12/02/18 07:13 Dose: 150 mcg Ondansetron HCl (Zofran Injection) 4 mg IVPUSH Q6H PRN PRN Reason: NAUSEA AND/OR VOMITING Pantoprazole Sodium (Protonix -) 40 mg PO DAILY [facility] Last Admin: 12/02/18 09:47 Dose: 40 mg Polyethylene Glycol (Miralax (For Daily Use) -) 17 gm PO BID [facility] Last Admin: 12/02/18 09:47 Dose: 17 gm Thyroid ([place] Thyroid -) 60 mg PO DAILY@0700 [facility] Last Admin: 12/02/18 06:40 Dose: 60 mg OBJECTIVE: GENERAL: The patient is awake, alert, oriented, more comfortable today HEAD: Normal with no signs of trauma. NECK: Trachea midline, full range of motion, supple. LUNGS: Clear to auscultation bilaterally, no wheezes, no crackles, no accessory muscle use. HEART: Regular rate and rhythm, S1, S2 without murmur, rub or gallop. ABDOMEN: Soft, nontender, nondistended, normoactive bowel sounds, no guarding, no rebound, no hepatosplenomegaly, no masses. EXTREMITIES: 2+ pulses, warm, well-perfused, no edema. NEUROLOGICAL: Non-focal. strength 5/5 SKIN: Wound VAC in place Laboratory Results - last 24 hr 12/02/18 12/02/18 05:30 05:30 WBC 6.7 RBC 3.74 Hgb 10.5 L Hct 31.1 L MCV 83.4 MCH 28.1 MCHC 33.7 RDW 15.1 Plt Count 307 MPV 7.7 Sodium 139 Potassium 3.9 Chloride 105 Carbon Dioxide 28 Anion Gap 6 L BUN 9 Creatinine 0.5 L Creat Clearance w eGFR > 60 Random Glucose 112 H Calcium 7.8 L Phosphorus 4.3 Magnesium 2.0 ASSESSMENT/PLAN: POD#3: ThoracoLumbar spine: 1. Removal of wound vac. 2. I&D. 3. Complex wound closure: 45cm. POD #8: 1. I&D lumbar spine. 2. Application lumbar spine wound vac. HPL Hypothyroidism Pain control SCDs for VTE prophylaxis ABX coverage per ID Incentive Spirometry O2 as needed PO as tolerated Floor when OK with Ortho Dr Valle
--- NOTE | 2018-12-02 13:52 | PN ---
Progress Note (short form) - Note Progress Note: remains afebrile continues with back pain Vital Signs Period Temp Pulse Resp BP Sys/Donnelly Pulse Ox Last 24 Hr 97.8 F-98.0 F 66-101 9-20 94-122/53-83 96-96 cor-rrr lungs clear abd soft,nt still with dressing on the back with 2 drains ext no edema CBC, BMP 12/02/18 05:30 12/02/18 05:30 Laboratory Tests 12/01/18 12/01/18 05:30 05:30 ESR 13 C-Reactive Protein 1.2 H Microbiology 11/29/18 20:52 Back Gram Stain - Final 11/29/18 20:52 Back Wound Culture - Preliminary Staphylococcus Epidermidis 11/29/18 20:51 Back Gram Stain - Final 11/29/18 20:51 Back Wound Culture - Preliminary Staphylococcus Epidermidis 11/29/18 20:49 Back Wound Culture - Preliminary Staphylococcus Epidermidis 11/25/18 10:30 Tissue-Other AFB Smear Concentration - Final 11/25/18 10:30 Tissue-Other Mycobacterial Culture - Preliminary 11/25/18 10:30 Wound AFB Smear Concentration - Final 11/25/18 10:30 Wound Mycobacterial Culture - Preliminary 11/25/18 10:30 Tissue-Other Gram Stain - Final 11/25/18 10:30 Tissue-Other Tissue Culture - Final NO GROWTH OF AEROBIC ORGANISMS AFTER 48 HOURS INCUBATION 11/25/18 10:30 Tissue-Other Anaerobic Culture - Final NO ANAEROBES WERE ISOLATED 11/25/18 10:30 Wound Gram Stain - Final 11/25/18 10:30 Wound Wound Culture - Final NO GROWTH AFTER 48 HOURS INCUBATION 11/25/18 10:30 Wound ALIYAH Preparation - Preliminary 11/25/18 10:30 Wound Fungal Culture - Preliminary 11/25/18 10:30 Tissue-Other ALIYAH Preparation - Preliminary 11/25/18 10:30 Tissue-Other Fungal Culture - Preliminary a/p s/p washout and debridement of back operative culture now with staph epidermis all cultures culture reviewed sensitive to daptomycin and rifampin will switch to daptomycin 700 mg daily and rifampin 300 mg po bid will need PICC line and prison iv antibiotics have asked the micro lab to send out doxycycline and minocycline MICS so that we have a good po antibiotic for f/u will speak with ortho as well-d/w Dr Arana- no plans to remove the implants at this time spoke with Micro- they will hold all the OR specimen 2 weeks
--- NOTE | 2018-12-02 14:52 | PN ---
Physical Exam: SUBJECTIVE: Patient seen and examined at bed side , no acute events over night , pain is 5/10 , alk with PT yesterday feeling better , no Fver, chills, N/V/D, no BM last 3 days. denies any chest pain or sob. OBJECTIVE: Vital Signs Period Temp Pulse Resp BP Sys/Donnelly Pulse Ox Last 24 Hr 97.8 F-98.0 F 66-93 9-20 94-122/53-83 96-96 GENERAL: Obese, in NAD HEAD: Normocephalic, atraumatic. EYES: PERRLA, EOMI. Sclera anicteric, conjunctiva clear. ENT: MMM NECK:supple, FROM LUNGS: CTA B/L HEART: Regular rate and rhythm, normal S1 and S2 without murmur, rub or gallop. ABDOMEN: Obese. Soft,ND/NT X4 quadrants. Hypoactive bowel sounds X4 quadrants. MUSCULOSKELETAL: Freely moves all 4 extremities, limited by back pain. LOWER EXTREMITIES: 2+ dorsalis pedis pulses bilaterally, warm, well-perfused. Trace lower extremity edema bilaterally. NEUROLOGICAL: Cranial nerves II-XII intact. Normal speech. PSYCHIATRIC: Anxious, tearful affect. Cooperative upon my encounter. SKIN: Warm, dry. Vertical spinal surgical site bandaged clean, dry, intact, with [address]superficial and deep Laboratory Results - last 24 hr 12/02/18 12/02/18 05:30 05:30 WBC 6.7 RBC 3.74 Hgb 10.5 L Hct 31.1 L MCV 83.4 MCH 28.1 MCHC 33.7 RDW 15.1 Plt Count 307 MPV 7.7 Sodium 139 Potassium 3.9 Chloride 105 Carbon Dioxide 28 Anion Gap 6 L BUN 9 Creatinine 0.5 L Creat Clearance w eGFR > 60 Random Glucose 112 H Calcium 7.8 L Phosphorus 4.3 Magnesium 2.0 Active Medications Generic Name Dose Route Start Last Admin Trade Name Freq PRN Reason Stop Dose Admin Acetaminophen 1,000 mg 11/28/18 18:00 12/02/18 13:33 Tylenol - PO 1,000 mg Q6HPO RANDAL Administration Diazepam 10 mg 11/30/18 22:00 12/02/18 09:47 Valium - PO 10 mg BID RANDAL Administration Docusate Sodium 300 mg 12/02/18 22:00 Colace - PO HS RANDAL Hydromorphone HCl 10 mg 11/28/18 16:03 12/01/18 19:29 Dilaudid Under Ground Miner - LOG DATA TECHNICIAN 10 mg LOG DATA TECHNICIAN RANDAL Administration Protocol Sodium Chloride 1,000 mls @ 100 mls/hr 11/28/18 08:00 12/02/18 09:47 Normal Saline - IV Not Given ASDIR RANDAL Vancomycin HCl 1,500 mg/ 500 mls @ 250 mls/hr 12/01/18 15:00 12/02/18 03:38 Dextrose IVPB 250 mls/hr Q12H RANDAL Administration Protocol Levothyroxine Sodium 150 mcg 12/02/18 07:00 12/02/18 07:13 Synthroid - PO 150 mcg DAILY@0700 RANDAL Administration Ondansetron HCl 4 mg 11/25/18 11:09 Zofran Injection IVPUSH Q6H PRN NAUSEA AND/OR VOMITING Pantoprazole Sodium 40 mg 11/26/18 10:00 12/02/18 09:47 Protonix - PO 40 mg DAILY RANDAL Administration Polyethylene Glycol 17 gm 12/02/18 10:00 12/02/18 09:47 Miralax (For Daily Use) - PO 17 gm BID RANDAL Administration Thyroid 60 mg 11/26/18 07:00 12/02/18 06:40 [place] Thyroid - PO 60 mg DAILY@0700 RANDAL Administration CBC, BMP 12/02/18 05:30 12/02/18 05:30 ASSESSMENT/PLAN: 38 y/o lady with h/o Lumbar spinal stenosis s/p L4-S1 laminectomies and fusion 04/19/18, followed by r L4 nerve sheath durotomy on 04/26/18, hypothyroidism, obesity, HLP, who presented now for I&D of her lumbar spine wound . # S/p Lumbar wound I&D 11/25, then vac removal and wound closure 11/30. * Cont abx vanco [address] Morales , Troph in AM , will need home paraprofessional IV abx through picc line * + cx for staph epidermidis . will hold for 2 weeks * She was given abx courses as out pt ( augmentin, bactrim and doxy ) . then debridment was done on due to worsening neurological sx . on 11/30 sx , the wound looked clean and debridment was done to the fascia with 2 spaces left and 2 drains were placed. * cont LOG DATA TECHNICIAN and pain control per surgery Valium and Tylenol # Hypothyroidism, cont synthroid 150 mcg and armor thyroid 60 mg po daily # GERD: cont PPI # Constipation: start Miralax BID and colace at bed time # DVT proph: mechanical no chemical per sx # GI proph: PPI 40 daily # Monitor IN ICU, transfer to floor if surgery approve Visit type - Emergency Visit Emergency Visit: Yes ED Registration Date: 11/25/18 Care time: The patient presented to the Emergency Department on the above date and was hospitalized for further evaluation of their emergent condition. - New Patient This patient is new to me today: No - Critical Care Critical Care patient: Yes Total Critical Care Time (in minutes): 45 Critical Care Statement: The care of this patient involved high complexity decision making to prevent further life threatening deterioration of the patient 's condition and/or to evaluate & treat vital organ system(s) failure or risk of failure.
--- NOTE | 2018-12-02 15:28 | PN ---
Progress Note (short form) - Note Progress Note: Patient stable P82,BP 109/60 and Spo2 98% on RA.Patient c/o pain score of 7-8/ 10 on movement.Will continue TUNNELING MACHINE OPERATOR today and will f/u tomorrow.
--- NOTE | 2018-12-02 16:15 | PN ---
Teaching Attending Note Name of Resident: Mayank Delgado ATTENDING PHYSICIAN STATEMENT I saw and evaluated the patient. I reviewed the resident's note and discussed the case with the resident. I agree with the resident's findings and plan as documented. SUBJECTIVE: Patient continues on RN LICENSED PRACTICAL pump, feels constipated. OBJECTIVE: Vital Signs Temperature 98.0 F 12/02/18 10:00 Pulse Rate 68 12/02/18 13:20 Respiratory Rate 20 12/02/18 13:20 Blood Pressure 109/60 12/02/18 13:20 O2 Sat by Pulse Oximetry (%) 96 12/02/18 09:00 GENERAL: The patient is awake, alert, tearful in pain. EYES: PEERLA; EOMI; no scleral icterus. NECK:no JVD; no lymphadenopathy LUNGS:CTA B/l; no rales, rhonchi or wheezing. HEART: Regular rate and rhythm, S1, S2 without murmur, rub or gallop. ABDOMEN: Soft, nontender, nondistended, normoactive bowel sounds, no guarding, no rebound, no hepatosplenomegaly, no masses. EXTREMITIES: 2+ pulses, warm, well-perfused, trace edema. NEUROLOGICAL: per surgeon , positive for drainage PSYCH: Normal mood, normal affect. SKIN: Warm, dry, normal turgor, no rashes or lesions noted CBCD WBC 6.7 K/mm3 (4.0-10.0) 12/02/18 05:30 RBC 3.74 M/mm3 (3.60-5.2) 12/02/18 05:30 Hgb 10.5 GM/dL (10.7-15.3) L 12/02/18 05:30 Hct 31.1 % (32.4-45.2) L 12/02/18 05:30 MCV 83.4 fl (80-96) 12/02/18 05:30 MCHC 33.7 g/dl (32.0-36.0) 12/02/18 05:30 RDW 15.1 % (11.6-15.6) 12/02/18 05:30 Plt Count 307 K/MM3 (134-434) 12/02/18 05:30 MPV 7.7 fl (7.5-11.1) 12/02/18 05:30 CMP Sodium 139 mmol/L (136-145) 12/02/18 05:30 Potassium 3.9 mmol/L (3.5-5.1) 12/02/18 05:30 Chloride 105 mmol/L (98-107) 12/02/18 05:30 Carbon Dioxide 28 mmol/L (21-32) 12/02/18 05:30 Anion Gap 6 MMOL/L (8-16) L 12/02/18 05:30 BUN 9 mg/dL (7-18) 12/02/18 05:30 Creatinine 0.5 mg/dL (0.55-1.3) L 12/02/18 05:30 Creat Clearance w eGFR > 60 (>60) 12/02/18 05:30 Random Glucose 112 mg/dL (74-106) H 12/02/18 05:30 Calcium 7.8 mg/dL (8.5-10.1) L 12/02/18 05:30 Total Bilirubin 0.2 mg/dL (0.2-1) 12/01/18 05:30 AST 12 U/L (15-37) L 12/01/18 05:30 ALT 12 U/L (13-61) L 12/01/18 05:30 Alkaline Phosphatase 71 U/L (45-117) 12/01/18 05:30 Total Protein 5.6 g/dl (6.4-8.2) L 12/01/18 05:30 Albumin 3.0 g/dl (3.4-5.0) L 12/01/18 05:30 Current Medications Generic Name Dose Route Start Last Admin Trade Name Freq PRN Reason Stop Dose Admin Acetaminophen 1,000 mg 11/28/18 18:00 12/02/18 13:33 Tylenol - PO 1,000 mg Q6HPO RANDAL Administration Diazepam 10 mg 11/30/18 22:00 12/02/18 09:47 Valium - PO 10 mg BID RANDAL Administration Docusate Sodium 300 mg 12/02/18 22:00 Colace - PO HS RANDAL Hydromorphone HCl 10 mg 11/28/18 16:03 12/01/18 19:29 Dilaudid Chairman & Chief Executive Officer - RN LICENSED PRACTICAL 10 mg RN LICENSED PRACTICAL RANDAL Administration Protocol Sodium Chloride 1,000 mls @ 100 mls/hr 11/28/18 08:00 12/02/18 09:47 Normal Saline - IV Not Given ASDIR RANDAL Vancomycin HCl 1,500 mg/ 500 mls @ 250 mls/hr 12/01/18 15:00 12/02/18 03:38 Dextrose IVPB 250 mls/hr Q12H RANDAL Administration Protocol Levothyroxine Sodium 150 mcg 12/02/18 07:00 12/02/18 07:13 Synthroid - PO 150 mcg DAILY@0700 RANDAL Administration Ondansetron HCl 4 mg 11/25/18 11:09 Zofran Injection IVPUSH Q6H PRN NAUSEA AND/OR VOMITING Pantoprazole Sodium 40 mg 11/26/18 10:00 12/02/18 09:47 Protonix - PO 40 mg DAILY RANDAL Administration Polyethylene Glycol 17 gm 12/02/18 10:00 12/02/18 09:47 Miralax (For Daily Use) - PO 17 gm BID RANDAL Administration Thyroid 60 mg 11/26/18 07:00 12/02/18 06:40 [place] Thyroid - PO 60 mg DAILY@0700 RANDAL Administration Home Medications Medication Instructions Recorded Cyclobenzaprine HCl 10 mg PO PRN PRN 04/09/18 Levothyroxine [Synthroid -] 150 mcg PO DAILY 04/09/18 Omeprazole 40 mg PO DAILY 04/09/18 Thyroid,Pork [[place] Thyroid] 60 mg PO DAILY 04/09/18 Diazepam 10 mg PO BID PRN 11/24/18 Oxycodone HCl 15 mg PO QID PRN 11/24/18 Hydrochlorothiazide [Hctz -] 12.5 mg PO DAILY 11/30/18 Microbiology 11/29/18 20:52 Back Gram Stain - Final 11/29/18 20:52 Back Wound Culture - Preliminary Staphylococcus Epidermidis Staphylococcus Coagulase Neg 11/29/18 20:51 Back Gram Stain - Final 11/29/18 20:51 Back Wound Culture - Preliminary Staphylococcus Epidermidis Staphylococcus Coagulase Neg 11/29/18 20:49 Back Gram Stain - Final 11/29/18 20:49 Back Wound Culture - Preliminary Staphylococcus Epidermidis Staphylococcus Coagulase Neg 11/25/18 10:30 Tissue-Other AFB Smear Concentration - Final 11/25/18 10:30 Tissue-Other Mycobacterial Culture - Preliminary 11/25/18 10:30 Wound AFB Smear Concentration - Final 11/25/18 10:30 Wound Mycobacterial Culture - Preliminary 11/25/18 10:30 Tissue-Other Gram Stain - Final 11/25/18 10:30 Tissue-Other Tissue Culture - Final NO GROWTH OF AEROBIC ORGANISMS AFTER 48 HOURS INCUBATION 11/25/18 10:30 Tissue-Other Anaerobic Culture - Final NO ANAEROBES WERE ISOLATED 11/25/18 10:30 Wound Gram Stain - Final 11/25/18 10:30 Wound Wound Culture - Final NO GROWTH AFTER 48 HOURS INCUBATION 11/25/18 10:30 Wound ALIYAH Preparation - Preliminary 11/25/18 10:30 Wound Fungal Culture - Preliminary 11/25/18 10:30 Tissue-Other ALIYAH Preparation - Preliminary 11/25/18 10:30 Tissue-Other Fungal Culture - Preliminary ASSESSMENT AND PLAN: Patient is a 38yo female with PMHx of Lumbar spinal stenosis s/p L4-S1 laminectomies and fusion 04/19/18, followed by r L4 nerve sheath durotomy on 04/26, hypothyroidism, obesity, HLP, who presented now for I&D of her lumbar spine wound . # staph epidermis on all wound cultures on Vancomycin IV further management per iD and ortho. will need PICC line and skilled nursing iv antibiotics S/p Lumbar wound I&D 11/25, s/p vac removal and wound closure , ID on the case on cefazolin 2gm. further care by ID and ortho As per Dr. Austin who discussed with to Dr. Arana who indicated wound drainage redness as out pt with + cx for MSSA. She was given abx courses as out pt ( augmentin, bactrim and doxy ) . then debridment was done on due to worsening neurological sx . as per surgeon: the wound looked clean and debridment was done to the fascia with 2 spaces left and 2 drains were placed. On RN LICENSED PRACTICAL pump for pain. in ICU # Hypothyroidism, cont synthroid and armor thyroid as per patient uses this combination works for her # GERD , cont PPI # Constipation : pt refuses laxatives Mechanical DVT px per sx
[2018-12-02] MEDS ORDERED: ONDANSETRON 4 MG/2 ML VIAL IVPUSH PRN (16:20)
[2018-12-02] MEDS: DAPTOMYCIN 700 MG in SODIUM CHLORIDE 100 ML IVPB SCH (18:36)
[2018-12-02] MEDS ORDERED: DOCUSATE SODIUM 100 MG CAPSULE (FP) PO SCH (22:00)
[2018-12-02] MEDS: POLYETHYLENE GLYCOL 3350 119 GM BTL PO SCH (23:23)
[2018-12-02] MEDS: DOCUSATE SODIUM 100 MG CAPSULE (FP) PO SCH (23:24)
[2018-12-02] MEDS: RIFAMPIN 300 MG CAPSULE PO SCH (23:43)
[2018-12-03] MEDS: ACETAMINOPHEN 500 MG TABLET (FP) PO SCH ×4 (01:37→18:26)
[2018-12-03] MEDS ORDERED: PT OWN MED DRAWER 7, Y5N ONE ×3 (06:05→21:02)
[2018-12-03] MEDS: SYNTHROID 150 MCG PO SCH (06:10)
[2018-12-03] MEDS: THYROID 60 MG TABLET PO SCH (06:10)
[2018-12-03] MEDS: diazePAM 5 MG TABLET PO SCH ×3 (06:58→21:08)
[2018-12-03] MEDS ORDERED: LEVOTHYROXINE NA 75 MCG TABLET (FP) PO SCH (07:00)
[2018-12-03] MEDS ORDERED: MORPHINE SULFATE 2 MG/ML VIAL IVPUSH ONE (07:15)
[2018-12-03] MEDS ORDERED: oxyCODONE HCL 5 MG TABLET PO ONE (07:41)
--- NOTE | 2018-12-03 08:33 | PN ---
Physical Exam: SUBJECTIVE: Patient seen and examined at bedside- patient is still having horrible pain despite being on ACID OPERATOR/valium/tylenol- states her pain is worse in the morning; denies CP/SOB/N/V fevers or chills OBJECTIVE: Vital Signs Period Temp Pulse Resp BP Sys/Donnelly Pulse Ox Last 24 Hr 97.7 F-98.1 F 68-86 12-20 101-126/56-70 96 GENERAL: The patient is awake, alert, tearful in acute distress EYES: PEERLA; EOMI; no scleral icterus. NECK: no JVD; no lymphadenoapthy LUNGS: CTA B/L; no rales, rhonchi or wheezing HEART: Regular rate and rhythm, S1, S2 without murmur, rub or gallop. ABDOMEN: soft; n/t, n/d +BS in all four quadrants EXTREMITIES: 2+ pulses, warm, well-perfused, no edema. NEUROLOGICAL: as per surgeon PSYCH: Normal mood, normal affect. SKIN: Warm, dry, normal turgor, no rashes or lesions noted Active Medications Generic Name Dose Route Start Last Admin Trade Name Ramírezq PRN Reason Stop Dose Admin Acetaminophen 1,000 mg 12/02/18 18:00 12/03/18 06:09 Tylenol - PO 1,000 mg Q6HPO RANDAL Administration Diazepam 10 mg 12/02/18 22:00 12/03/18 06:58 Valium - PO 10 mg BID RANDAL Administration Docusate Sodium 300 mg 12/02/18 22:00 12/02/18 23:24 Colace - PO 300 mg HS RANDAL Administration Hydromorphone HCl 10 mg 12/02/18 16:20 12/02/18 20:25 Dilaudid Operations Chief - ACID OPERATOR 10 mg ACID OPERATOR RANDAL Administration Protocol Daptomycin 700 mg/ Sodium 114 mls @ 228 mls/hr 12/02/18 16:30 12/02/18 18:36 Chloride IVPB 228 mls/hr DAILY RANDAL Administration Protocol Sodium Chloride 1,000 mls @ 100 mls/hr 12/02/18 16:20 12/02/18 17:00 Normal Saline - IV 100 mls/hr ASDIR RANDAL Administration Patients Own Med ( 1 each 12/03/18 07:00 12/03/18 06:10 Synthroid 150 Mcg) PO 1 each Non-Formulary Med DAILY@0700 RANDAL Administration Ondansetron HCl 4 mg 12/02/18 16:20 Zofran Injection IVPUSH Q6H PRN NAUSEA AND/OR VOMITING Pantoprazole Sodium 40 mg 12/03/18 10:00 Protonix - PO DAILY RANDAL Polyethylene Glycol 17 gm 12/02/18 22:00 12/02/18 23:23 Miralax (For Daily Use) - PO 17 gm BID RANDAL Administration Rifampin 300 mg 12/02/18 22:00 12/02/18 23:43 Rifadin - PO 300 mg BID RANDAL Administration Thyroid 60 mg 12/03/18 07:00 12/03/18 06:10 [place] Thyroid - PO 60 mg DAILY@0700 RANDAL Administration ASSESSMENT/PLAN: 38 y/o lady with h/o Lumbar spinal stenosis s/p L4-S1 laminectomies and fusion 04/19/18, followed by r L4 nerve sheath durotomy on 04/26/18, hypothyroidism, obesity, HLP, who presented now for I&D of her lumbar spine wound . # S/p Lumbar wound I&D 11/25, then vac removal and wound closure 11/30. * patient started on daptomycin 700 and rifampin 300 BID yesterday , will need termite control representative IV abx through picc line * + cx for staph epidermidis . 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 - New Patient This patient is new to me today: No - Critical Care Critical Care patient: No
--- NOTE | 2018-12-03 08:41 | PN ---
Progress Note (short form) - Note Progress Note: Patient doing better.Pain score of 5-6/10 on Dilaudid DENTAL SERVICE CHIEF.Wll continue DENTAL SERVICE CHIEF today and will f/u tomorrow.
[2018-12-03 09:10] LABS: BASO % 0.7 % (0-2.0); EOS % 3.5 % (0-4.5); HEMATOCRIT 32.3 % (32.4-45.2); HEMOGLOBIN 10.8 GM/dL (10.7-15.3); LYMPH % 29.9 % (8-40); MCH 27.6 pg (25.7-33.7); MCHC 33.6 g/dl (32.0-36.0); MEAN CELL VOLUME 82.2 fl (80-96); MEAN PLT VOLUME 7.5 fl (7.5-11.1); MONO % 7.7 % (3.8-10.2); NEUT % 58.2 % (42.8-82.8); PLATELET COUNT 344 K/MM3 (134-434); RBC 3.93 M/mm3 (3.60-5.2); RDW 14.4 % (11.6-15.6); WHITE BLOOD COUNT 6.3 K/mm3 (4.0-10.0)
[2018-12-03] MEDS: PANTOPRAZOLE 40 MG TABLET (FP) PO SCH (10:46)
[2018-12-03] MEDS: RIFAMPIN 300 MG CAPSULE PO SCH ×2 (10:47→21:12)
[2018-12-03] MEDS: POLYETHYLENE GLYCOL 3350 119 GM BTL PO SCH ×2 (10:51→22:16)
[2018-12-03 11:48] LABS: ALK PHOS 69 U/L (45-117); ANION GAP 7 MMOL/L (8-16); BILIRUBIN,TOTAL 0.6 mg/dL (0.2-1); BLOOD UREA NITROGEN 9 mg/dL (7-18); CALCIUM 8.2 mg/dL (8.5-10.1); CHLORIDE 104 mmol/L (98-107); CO2 27 mmol/L (21-32); CREATININE 0.5 mg/dL (0.55-1.3); GLUCOSE,RANDOM 87 mg/dL (74-106); MAGNESIUM 1.9 mg/dL (1.8-2.4); PHOSPHOROUS 4.9 mg/dL (2.5-4.9); POTASSIUM 3.8 mmol/L (3.5-5.1); SGOT/AST 17 U/L (15-37); SGPT/ALT 15 U/L (13-61); SODIUM 138 mmol/L (136-145); TOT PROT 5.6 g/dl (6.4-8.2)
[2018-12-03] MEDS: DAPTOMYCIN 700 MG in SODIUM CHLORIDE 100 ML IVPB SCH (12:02)
--- NOTE | 2018-12-03 15:23 | PN ---
Progress Note (short form) - Note Progress Note: remains afebrile continues with back pain stilll has cruz using incentive spirometry +constipation Vital Signs Period Temp Pulse Resp BP Sys/Donenlly Pulse Ox Last 24 Hr 97.7 F-98.1 F 68-86 18-20 102-130/56-70 cor-rrr llungs clear abd soft,nt dressing on back with drains in place +cruz ext no edema CBC, BMP 12/03/18 08:40 12/03/18 08:40 Microbiology 11/29/18 20:52 Back Gram Stain - Final 11/29/18 20:52 Back Wound Culture - Preliminary Staphylococcus Epidermidis Gram Positive Cocci 11/29/18 20:49 Back Wound Culture - Preliminary Staphylococcus Epidermidis Pending Organism 11/29/18 20:51 Back Gram Stain - Final 11/29/18 20:51 Back Wound Culture - Preliminary Staphylococcus Epidermidis Pending Organism 11/25/18 10:30 Tissue-Other AFB Smear Concentration - Final 11/25/18 10:30 Tissue-Other Mycobacterial Culture - Preliminary 11/25/18 10:30 Wound AFB Smear Concentration - Final 11/25/18 10:30 Wound Mycobacterial Culture - Preliminary 11/25/18 10:30 Tissue-Other Gram Stain - Final 11/25/18 10:30 Tissue-Other Tissue Culture - Final NO GROWTH OF AEROBIC ORGANISMS AFTER 48 HOURS INCUBATION 11/25/18 10:30 Tissue-Other Anaerobic Culture - Final NO ANAEROBES WERE ISOLATED 11/25/18 10:30 Wound Gram Stain - Final 11/25/18 10:30 Wound Wound Culture - Final NO GROWTH AFTER 48 HOURS INCUBATION 11/25/18 10:30 Wound ALIYAH Preparation - Preliminary 11/25/18 10:30 Wound Fungal Culture - Preliminary 11/25/18 10:30 Tissue-Other ALIYAH Preparation - Preliminary 11/25/18 10:30 Tissue-Other Fungal Culture - Preliminary a/p s/p washout and debridement of back operative culture now with staph epidermis all cultures continue rifampin po and iv daptomycin will need PICC line and group home iv antibiotics have asked the [facility] lab to send out doxycycline and minocycline MICS so that we have a good po antibiotic for f/u d/w Dr Arana yesterday hopefully cruz will be removed soon spoke with [facility]- they will hold all the OR specimen 2 weeks
[2018-12-03] MEDS: SODIUM CHLORIDE 1,000 ML IV SCH (18:27)
--- NOTE | 2018-12-03 18:30 | PN ---
Progress Note (short form) - Note Progress Note: C/O incisional pain Walked in the hallway Apyrexial Wound dry Drains insitu Continue Daptomycin for antibiotic coverage No clear indication to continue Rifampin. Rifampin causing violent vomiting which compromises wound closure. Recommend discontinuing Rifampin. Continue in ICU
[2018-12-03] MEDS: HYDROmorphone *PCA* 10MG/50ML DISP.SYRIN PCA SCH (20:32)
[2018-12-03] MEDS: DOCUSATE SODIUM 100 MG CAPSULE (FP) PO SCH (21:07)
--- NOTE | 2018-12-03 21:27 | PN ---
Teaching Attending Note Name of Resident: Herlinda Rothman ATTENDING PHYSICIAN STATEMENT I saw and evaluated the patient. I reviewed the resident's note and discussed the case with the resident. I agree with the resident's findings and plan as documented. SUBJECTIVE: Patient is feeling better with no acute distress. OBJECTIVE: Vital Signs Temperature 98 F 12/03/18 15:00 Pulse Rate 92 H 12/03/18 20:32 Respiratory Rate 19 12/03/18 20:32 Blood Pressure 114/65 12/03/18 20:32 O2 Sat by Pulse Oximetry (%) 96 12/02/18 09:00 GENERAL: The patient is awake, alert, tearful in pain. EYES: PEERLA; EOMI; no scleral icterus. NECK:no JVD; no lymphadenopathy LUNGS:CTA B/l; no rales, rhonchi or wheezing. HEART: Regular rate and rhythm, S1, S2 without murmur, rub or gallop. ABDOMEN: Soft, nontender, nondistended, normoactive bowel sounds, no guarding, no rebound, no hepatosplenomegaly, no masses. BACK; dressing clean/dry/intact; however, tenderness upon palpation EXTREMITIES: 2+ pulses, warm, well-perfused, trace edema. NEUROLOGICAL: Cranial nerves II through XII grossly intact. Normal speech, gait not observed. PSYCH: Normal mood, normal affect. SKIN: Warm, dry, normal turgor, no rashes or lesions noted CBCD WBC 6.3 K/mm3 (4.0-10.0) 12/03/18 08:40 RBC 3.93 M/mm3 (3.60-5.2) 12/03/18 08:40 Hgb 10.8 GM/dL (10.7-15.3) 12/03/18 08:40 Hct 32.3 % (32.4-45.2) L 12/03/18 08:40 MCV 82.2 fl (80-96) 12/03/18 08:40 MCHC 33.6 g/dl (32.0-36.0) 12/03/18 08:40 RDW 14.4 % (11.6-15.6) 12/03/18 08:40 Plt Count 344 K/MM3 (134-434) 12/03/18 08:40 MPV 7.5 fl (7.5-11.1) 12/03/18 08:40 CMP Sodium 138 mmol/L (136-145) 12/03/18 08:40 Potassium 3.8 mmol/L (3.5-5.1) 12/03/18 08:40 Chloride 104 mmol/L (98-107) 12/03/18 08:40 Carbon Dioxide 27 mmol/L (21-32) 12/03/18 08:40 Anion Gap 7 MMOL/L (8-16) L 12/03/18 08:40 BUN 9 mg/dL (7-18) 12/03/18 08:40 Creatinine 0.5 mg/dL (0.55-1.3) L 12/03/18 08:40 Creat Clearance w eGFR > 60 (>60) 12/03/18 08:40 Random Glucose 87 mg/dL (74-106) 12/03/18 08:40 Calcium 8.2 mg/dL (8.5-10.1) L 12/03/18 08:40 Total Bilirubin 0.6 mg/dL (0.2-1) 12/03/18 08:40 AST 17 U/L (15-37) 12/03/18 08:40 ALT 15 U/L (13-61) 12/03/18 08:40 Alkaline Phosphatase 69 U/L (45-117) 12/03/18 08:40 Total Protein 5.6 g/dl (6.4-8.2) L 12/03/18 08:40 Albumin 3.0 g/dl (3.4-5.0) L 12/03/18 08:40 Current Medications Generic Name Dose Route Start Last Admin Trade Name Rocio PRN Reason Stop Dose Admin Acetaminophen 1,000 mg 12/02/18 18:00 12/03/18 18:26 Tylenol - PO Not Given Q6HPO RANDAL Diazepam 10 mg 12/02/18 22:00 12/03/18 21:08 Valium - PO 10 mg BID RANDAL Administration Docusate Sodium 300 mg 12/02/18 22:00 12/03/18 21:07 Colace - PO 300 mg HS RANDAL Administration Hydromorphone HCl 10 mg 12/02/18 16:20 12/03/18 20:32 Dilaudid Livestock Brands Inspector - SYRUP MAKER COOK 10 mg SYRUP MAKER COOK RANDAL Administration Protocol Hydromorphone HCl 2 mg 12/03/18 18:26 Dilaudid Injection - SQ Q6H PRN PAIN LEVEL 6-10 Daptomycin 700 mg/ Sodium 114 mls @ 228 mls/hr 12/02/18 16:30 12/03/18 12:02 Chloride IVPB 228 mls/hr DAILY RANDAL Administration Protocol Sodium Chloride 1,000 mls @ 100 mls/hr 12/02/18 16:20 12/03/18 18:27 Normal Saline - IV 100 mls/hr ASDIR RANDAL Administration Patients Own Med ( 1 each 12/03/18 07:00 12/03/18 06:10 Synthroid 150 Mcg) PO 1 each Non-Formulary Med DAILY@0700 RANDAL Administration Ondansetron HCl 4 mg 12/02/18 16:20 12/03/18 12:20 Zofran Injection IVPUSH 4 mg Q6H PRN Administration NAUSEA AND/OR VOMITING Pantoprazole Sodium 40 mg 12/03/18 10:00 12/03/18 10:46 Protonix - PO 40 mg DAILY RANDAL Administration Polyethylene Glycol 17 gm 12/02/18 22:00 12/03/18 10:51 Miralax (For Daily Use) - PO 17 gm BID RANDAL Administration Rifampin 300 mg 12/02/18 22:00 12/03/18 21:12 Rifadin - PO 300 mg BID RANDAL Administration Thyroid 60 mg 12/03/18 07:00 12/03/18 06:10 [place] Thyroid - PO 60 mg DAILY@0700 RANDAL Administration Home Medications Medication Instructions Recorded Cyclobenzaprine HCl 10 mg PO PRN PRN 04/09/18 Levothyroxine [Synthroid -] 150 mcg PO DAILY 04/09/18 Omeprazole 40 mg PO DAILY 04/09/18 Thyroid,Pork [[place] Thyroid] 60 mg PO DAILY 04/09/18 Diazepam 10 mg PO BID PRN 11/24/18 Oxycodone HCl 15 mg PO QID PRN 11/24/18 Hydrochlorothiazide [Hctz -] 12.5 mg PO DAILY 11/30/18 Microbiology 11/29/18 20:52 Back Gram Stain - Final 11/29/18 20:52 Back Wound Culture - Preliminary Staphylococcus Epidermidis Gram Positive Cocci 11/29/18 20:49 Back Wound Culture - Preliminary Staphylococcus Epidermidis Pending Organism 11/29/18 20:51 Back Gram Stain - Final 11/29/18 20:51 Back Wound Culture - Preliminary Staphylococcus Epidermidis Pending Organism 11/25/18 10:30 Tissue-Other AFB Smear Concentration - Final 11/25/18 10:30 Tissue-Other Mycobacterial Culture - Preliminary 11/25/18 10:30 Wound AFB Smear Concentration - Final 11/25/18 10:30 Wound Mycobacterial Culture - Preliminary 11/25/18 10:30 Tissue-Other Gram Stain - Final 11/25/18 10:30 Tissue-Other Tissue Culture - Final NO GROWTH OF AEROBIC ORGANISMS AFTER 48 HOURS INCUBATION 11/25/18 10:30 Tissue-Other Anaerobic Culture - Final NO ANAEROBES WERE ISOLATED 11/25/18 10:30 Wound Gram Stain - Final 11/25/18 10:30 Wound Wound Culture - Final NO GROWTH AFTER 48 HOURS INCUBATION 11/25/18 10:30 Wound ALIYAH Preparation - Preliminary 11/25/18 10:30 Wound Fungal Culture - Preliminary 11/25/18 10:30 Tissue-Other ALIYAH Preparation - Preliminary 11/25/18 10:30 Tissue-Other Fungal Culture - Preliminary Microbiology 11/29/18 20:49 Back Gram Stain - Final 11/29/18 20:49 Back Wound Culture - Preliminary Staphylococcus Epidermidis Staphylococcus Epidermidis#2 11/29/18 20:51 Back Gram Stain - Final 11/29/18 20:51 Back Wound Culture - Preliminary Staphylococcus Epidermidis Staphylococcus Epidermidis#2 11/29/18 20:52 Back Gram Stain - Final 11/29/18 20:52 Back Wound Culture - Preliminary Staphylococcus Epidermidis Staphylococcus Epidermidis#2 ASSESSMENT AND PLAN: Patient is a 38yo female with PMHx of Lumbar spinal stenosis s/p L4-S1 laminectomies and fusion 04/19/18, followed by r L4 nerve sheath durotomy on 04/26, hypothyroidism, obesity, HLP, who presented now for I&D of her lumbar spine wound . # staph epidermis on 3 sets of wound cultureaaa; On po Rifampin and Daptomycin IV further management per iD and ortho. will need PICC line and long-term iv antibiotics S/p Lumbar wound I&D 11/25, s/p vac removal and wound closure , on IV vanco/ dapto continue ,further care by ID and ortho as per surgeon: the wound looked clean and debridment was done to the fascia with 2 spaces left and 2 drains were placed. On SYRUP MAKER COOK pump for pain. in ICU # Hypothyroidism, cont synthroid and armor thyroid as per patient uses this combination works for her # GERD , cont PPI # Constipation : pt refuses laxatives Mechanical DVT px per sx
[2018-12-04] MEDS: SODIUM CHLORIDE 1,000 ML IV SCH ×4 (01:11→21:51)
[2018-12-04] MEDS: ACETAMINOPHEN 500 MG TABLET (FP) PO SCH ×5 (05:13→23:17)
[2018-12-04] MEDS: SYNTHROID 150 MCG PO SCH (06:15)
[2018-12-04] MEDS: THYROID 60 MG TABLET PO SCH (06:15)
--- NOTE | 2018-12-04 08:38 | PN ---
Progress Note (short form) - Note Progress Note: Anesthesia/pain Pt seen and examined S:Alert and awake comfortable O: Vital Signs Temperature 98.3 F 12/04/18 08:05 Pulse Rate 83 12/04/18 08:05 Respiratory Rate 20 12/04/18 08:05 Blood Pressure 133/72 12/04/18 08:05 O2 Sat by Pulse Oximetry (%) 96 12/02/18 09:00 A/P: s/p Doing well post op Uses ACCOUNTING MANAGER Continue current care Miguel Story MD
[2018-12-04 08:51] LABS: BASO % 0.6 % (0-2.0); HEMATOCRIT 32.2 % (32.4-45.2); LYMPH % 20.4 % (8-40); MCH 28.1 pg (25.7-33.7); MCHC 34.1 g/dl (32.0-36.0); MEAN CELL VOLUME 82.2 fl (80-96); MEAN PLT VOLUME 7.5 fl (7.5-11.1); MONO % 7.9 % (3.8-10.2); NEUT % 68.1 % (42.8-82.8); PLATELET COUNT 366 K/MM3 (134-434); RBC 3.91 M/mm3 (3.60-5.2); RDW 14.5 % (11.6-15.6); WHITE BLOOD COUNT 7.5 K/mm3 (4.0-10.0)
[2018-12-04 09:40] LABS: ANION GAP 8 MMOL/L (8-16); BLOOD UREA NITROGEN 7 mg/dL (7-18); CALCIUM 8.1 mg/dL (8.5-10.1); CHLORIDE 104 mmol/L (98-107); CO2 27 mmol/L (21-32); CREATININE 0.6 mg/dL (0.55-1.3); GLUCOSE,RANDOM 87 mg/dL (74-106); MAGNESIUM 1.8 mg/dL (1.8-2.4); SODIUM 139 mmol/L (136-145)
[2018-12-04] MEDS: PANTOPRAZOLE 40 MG TABLET (FP) PO SCH (10:31)
[2018-12-04] MEDS: RIFAMPIN 300 MG CAPSULE PO SCH ×2 (10:31→22:29)
[2018-12-04] MEDS: diazePAM 5 MG TABLET PO SCH ×2 (10:31→21:52)
[2018-12-04] MEDS: POLYETHYLENE GLYCOL 3350 119 GM BTL PO SCH ×2 (10:35→21:51)
[2018-12-04] MEDS ORDERED: PT OWN MED DRAWER 7, Y5N ONE ×2 (10:42→20:41)
[2018-12-04] MEDS: DAPTOMYCIN 700 MG in SODIUM CHLORIDE 100 ML IVPB SCH (11:39)
[2018-12-04] MEDS: HYDROmorphone *PCA* 10MG/50ML DISP.SYRIN PCA SCH ×2 (12:41→19:48)
--- NOTE | 2018-12-04 16:46 | PN ---
Progress Note (short form) - Note Progress Note: remains afebrile continues with back pain cruz out ambulating to the bathroom finally had a BM thinks her nausea may have been due to her constipation- Vital Signs Period Temp Pulse Resp BP Sys/Donnelly Pulse Ox Last 24 Hr 97.7 F-98.3 F 80-107 18-20 114-161/54-88 96 cor-rrr lungs clear back with operative dressing, +drains abd soft,nt ext no edema CBC, BMP 12/04/18 07:00 12/04/18 07:00 Microbiology 11/29/18 20:52 Back Gram Stain - Final 11/29/18 20:52 Back Wound Culture - Preliminary Staphylococcus Epidermidis Staphylococcus Coagulase Neg 11/29/18 20:51 Back Gram Stain - Final 11/29/18 20:51 Back Wound Culture - Preliminary Staphylococcus Epidermidis Staphylococcus Coagulase Neg 11/29/18 20:49 Back Gram Stain - Final 11/29/18 20:49 Back Wound Culture - Preliminary Staphylococcus Epidermidis Staphylococcus Coagulase Neg 11/25/18 10:30 Tissue-Other AFB Smear Concentration - Final 11/25/18 10:30 Tissue-Other Mycobacterial Culture - Preliminary 11/25/18 10:30 Wound AFB Smear Concentration - Final 11/25/18 10:30 Wound Mycobacterial Culture - Preliminary 11/25/18 10:30 Tissue-Other Gram Stain - Final 11/25/18 10:30 Tissue-Other Tissue Culture - Final NO GROWTH OF AEROBIC ORGANISMS AFTER 48 HOURS INCUBATION 11/25/18 10:30 Tissue-Other Anaerobic Culture - Final NO ANAEROBES WERE ISOLATED 11/25/18 10:30 Wound Gram Stain - Final 11/25/18 10:30 Wound Wound Culture - Final NO GROWTH AFTER 48 HOURS INCUBATION 11/25/18 10:30 Wound ALIYAH Preparation - Preliminary 11/25/18 10:30 Wound Fungal Culture - Preliminary 11/25/18 10:30 Tissue-Other ALIYAH Preparation - Preliminary 11/25/18 10:30 Tissue-Other Fungal Culture - Preliminary a/p s/p washout and debridement of back operative culture now with staph epidermis all cultures continue rifampin po and iv daptomycin will need PICC line and fdc iv antibiotics have asked the [facility] lab to send out doxycycline and minocycline MICS so that we have a good po antibiotic for f/u spoke with Nadine- she would like to try the rifampin again, thinks her nausea may have been related to her severe constipation will try but have told her we can stop if she cannot tolerate it spoke with [facility]- they will hold all the OR specimen 2 weeks
--- NOTE | 2018-12-04 16:56 | PN ---
Progress Note (short form) - Note Progress Note: POD #5 Looking better S Epidermidis with multiresistant ANGEL As per ID team Daptomycin Rifampin Wound bandage dry Drains in situ CVS Stable RESP Clear ABDOMEN Soft no B/A as yet but flatus Wound Bandage is dry Drains in situ Neuro All levels are 5/5 PLAN Wound inspection and will pull the drains on Thursday D/C cruz catheter For PICC line Thursday with Radiology Pain MX D/C planning home later in the week
--- NOTE | 2018-12-04 21:38 | PN ---
Progress Note (short form) - Note Progress Note: Patient is feeling better since had a bowel movement today , cruz is removed today. No fever or chills. Vital Signs Temperature 98.1 F 12/04/18 15:25 Pulse Rate 80 12/04/18 16:41 Respiratory Rate 18 12/04/18 16:41 Blood Pressure 130/76 12/04/18 16:41 O2 Sat by Pulse Oximetry (%) 96 12/04/18 09:00 GENERAL: The patient is awake, alert, tearful in pain. EYES: PEERLA; EOMI; no scleral icterus. NECK:no JVD; no lymphadenopathy LUNGS:CTA B/l; no rales, rhonchi or wheezing. HEART: Regular rate and rhythm, S1, S2 without murmur, rub or gallop. ABDOMEN: Soft, nontender, nondistended, normoactive bowel sounds, no guarding, no rebound. BACK; dressing clean/dry/intact; however, tenderness upon palpation EXTREMITIES: 2+ pulses, warm, well-perfused, trace edema. NEUROLOGICAL: as per ortho. PSYCH: Normal mood, normal affect. SKIN: Warm, dry, normal turgor, no rashes or lesions noted CBCD WBC 7.5 K/mm3 (4.0-10.0) 12/04/18 07:00 RBC 3.91 M/mm3 (3.60-5.2) 12/04/18 07:00 Hgb 11.0 GM/dL (10.7-15.3) 12/04/18 07:00 Hct 32.2 % (32.4-45.2) L 12/04/18 07:00 MCV 82.2 fl (80-96) 12/04/18 07:00 MCHC 34.1 g/dl (32.0-36.0) 12/04/18 07:00 RDW 14.5 % (11.6-15.6) 12/04/18 07:00 Plt Count 366 K/MM3 (134-434) 12/04/18 07:00 MPV 7.5 fl (7.5-11.1) 12/04/18 07:00 CMP Sodium 139 mmol/L (136-145) 12/04/18 07:00 Potassium 4.0 mmol/L (3.5-5.1) 12/04/18 07:00 Chloride 104 mmol/L (98-107) 12/04/18 07:00 Carbon Dioxide 27 mmol/L (21-32) 12/04/18 07:00 Anion Gap 8 MMOL/L (8-16) 12/04/18 07:00 BUN 7 mg/dL (7-18) 12/04/18 07:00 Creatinine 0.6 mg/dL (0.55-1.3) 12/04/18 07:00 Creat Clearance w eGFR > 60 (>60) 12/04/18 07:00 Random Glucose 87 mg/dL (74-106) 12/04/18 07:00 Calcium 8.1 mg/dL (8.5-10.1) L 12/04/18 07:00 Total Bilirubin 0.6 mg/dL (0.2-1) 12/03/18 08:40 AST 17 U/L (15-37) 12/03/18 08:40 ALT 15 U/L (13-61) 12/03/18 08:40 Alkaline Phosphatase 69 U/L (45-117) 12/03/18 08:40 Total Protein 5.6 g/dl (6.4-8.2) L 12/03/18 08:40 Albumin 3.0 g/dl (3.4-5.0) L 12/03/18 08:40 CARDIAC ENZYMES Creatine Kinase 142 U/L (26-192) 12/04/18 07:00 Current Medications Generic Name Dose Route Start Last Admin Trade Name Freq PRN Reason Stop Dose Admin Acetaminophen 1,000 mg 12/02/18 18:00 12/04/18 17:51 Tylenol - PO 1,000 mg Q6HPO RANDAL Administration Diazepam 10 mg 12/02/18 22:00 12/04/18 10:31 Valium - PO 10 mg BID RANDAL Administration Docusate Sodium 300 mg 12/02/18 22:00 12/03/18 21:07 Colace - PO 300 mg HS RANDAL Administration Hydromorphone HCl 10 mg 12/02/18 16:20 12/04/18 19:48 Dilaudid Rotary Adjuster - TYPEWRITER TESTER 10 mg TYPEWRITER TESTER RANDAL Administration Protocol Hydromorphone HCl 2 mg 12/03/18 18:26 Dilaudid Vial - SQ Q6H PRN PAIN LEVEL 6-10 Daptomycin 700 mg/ Sodium 114 mls @ 228 mls/hr 12/02/18 16:30 12/04/18 11:39 Chloride IVPB 228 mls/hr DAILY [facility] Administration Protocol Sodium Chloride 1,000 mls @ 100 mls/hr 12/02/18 16:20 12/04/18 17:34 Normal Saline - IV Not Given ASDIR [facility] Patients Own Med ( 1 each 12/03/18 07:00 12/04/18 06:15 Synthroid 150 Mcg) PO 1 each Non-Formulary Med DAILY@0700 RANDAL Administration Ondansetron HCl 4 mg 12/02/18 16:20 12/03/18 12:20 Zofran Injection IVPUSH 4 mg Q6H PRN Administration NAUSEA AND/OR VOMITING Pantoprazole Sodium 40 mg 12/03/18 10:00 12/04/18 10:31 Protonix - PO 40 mg DAILY RANDAL Administration Polyethylene Glycol 17 gm 12/02/18 22:00 12/04/18 10:35 Miralax (For Daily Use) - PO 17 gm BID RANDAL Administration Rifampin 300 mg 12/02/18 22:00 12/04/18 10:31 Rifadin - PO 300 mg BID RANDAL Administration Thyroid 60 mg 12/03/18 07:00 12/04/18 06:15 [employer] [place] [employer] [place] Thyroid - PO 60 mg DAILY@0700 [facility] Administration Home Medications Medication Instructions Recorded Cyclobenzaprine HCl 10 mg PO PRN PRN 04/09/18 Levothyroxine [Synthroid -] 150 mcg PO DAILY 04/09/18 Omeprazole 40 mg PO DAILY 04/09/18 Thyroid,Pork [[employer] [place] Thyroid] 60 mg PO DAILY 04/09/18 Diazepam 10 mg PO BID PRN 11/24/18 Oxycodone HCl 15 mg PO QID PRN 11/24/18 Hydrochlorothiazide [Hctz -] 12.5 mg PO DAILY 11/30/18 Assessment and Plan; Patient is a 38yo female with PMHx of Lumbar spinal stenosis s/p L4-S1 laminectomies and fusion 04/19/18, followed by r L4 nerve sheath durotomy on 04/26, hypothyroidism, obesity, HLP, who presented now for I&D of her lumbar spine wound . # staph epidermis on 3 sets of wound cultures; continue Rifampin and Daptomycin as per ID, will need PICC line and termite treater helper iv antibiotics S/p Lumbar wound I&D 11/25, s/p vac removal and wound closure , on IV vanco/ dapto continue ,further care by ID and ortho as per surgeon: the wound looked clean and debridment was done to the fascia with 2 spaces left and 2 drains were placed. On TYPEWRITER TESTER pump for pain. in ICU # Hypothyroidism, cont synthroid and armor thyroid as per patient uses this combination works for her # GERD , cont PPI # Constipation : patient had a bm after removal of Cruz catheter Mechanical DVT px per sx Visit type - Emergency Visit Emergency Visit: Yes ED Registration Date: 11/25/18 Care time: The patient presented to the Emergency Department on the above date and was hospitalized for further evaluation of their emergent condition. - New Patient This patient is new to me today: No - Critical Care Critical Care patient: No - Discharge Referral Referred to [facility] Med P.C.: No
[2018-12-04] MEDS: DOCUSATE SODIUM 100 MG CAPSULE (FP) PO SCH (21:52)
[2018-12-04] MEDS ORDERED: diphenhydrAMINE HCL 25 MG CAPSULE (FP) PO ONE (22:58)
[2018-12-05] MEDS: HYDROmorphone HCl 2 MG/ML VIAL SQ PRN ×3 (01:09→21:47)
[2018-12-05] MEDS: ACETAMINOPHEN 500 MG TABLET (FP) PO SCH ×4 (06:25→23:03)
[2018-12-05] MEDS: SYNTHROID 150 MCG PO SCH (06:26)
[2018-12-05] MEDS: THYROID 60 MG TABLET PO SCH (06:27)
--- NOTE | 2018-12-05 10:08 | PN ---
Progress Note (short form) - Note Progress Note: Anesthesiology Pain Service 38 y.o. woman POD#9 s/p lumbar spine surgery under GA with post-op HOSPITAL SCIENTIST. She is asleep, resting comfortably this morning. VSS. She is using HOSPITAL SCIENTIST but taking PO without difficulty. 38 y.o. with stable post-operative course. I have d/c'd HOSPITAL SCIENTIST and ordered PO pain meds. D/W RN.
[2018-12-05] MEDS: oxyCODONE HCL 10 MG SUSTAINED ACTING TABLET PO SCH ×2 (11:11→21:25)
[2018-12-05] MEDS: RIFAMPIN 300 MG CAPSULE PO SCH ×2 (11:12→21:55)
[2018-12-05] MEDS: PANTOPRAZOLE 40 MG TABLET (FP) PO SCH (11:12)
[2018-12-05] MEDS: POLYETHYLENE GLYCOL 3350 119 GM BTL PO SCH ×2 (11:12→21:13)
[2018-12-05] MEDS: diazePAM 5 MG TABLET PO SCH ×2 (11:12→21:25)
[2018-12-05] MEDS: DAPTOMYCIN 700 MG in SODIUM CHLORIDE 100 ML IVPB SCH (11:16)
--- NOTE | 2018-12-05 11:55 | PN ---
Progress Note (short form) - Note Progress Note: remains afebrile Vital Signs Period Temp Pulse Resp BP Sys/Donnelly Pulse Ox Last 24 Hr 97.9 F-98.1 F 78-95 18-20 112-136/52-88 96 dressing in back intact drains in place CBC, BMP 12/04/18 07:00 12/04/18 07:00 Microbiology 11/29/18 20:49 Back Gram Stain - Final 11/29/18 20:49 Back Wound Culture - Preliminary Staphylococcus Epidermidis Staphylococcus Epidermidis#2 11/29/18 20:51 Back Gram Stain - Final 11/29/18 20:51 Back Wound Culture - Preliminary Staphylococcus Epidermidis Staphylococcus Epidermidis#2 11/29/18 20:52 Back Gram Stain - Final 11/29/18 20:52 Back Wound Culture - Preliminary Staphylococcus Epidermidis Staphylococcus Epidermidis#2 11/25/18 10:30 Tissue-Other AFB Smear Concentration - Final 11/25/18 10:30 Tissue-Other Mycobacterial Culture - Preliminary 11/25/18 10:30 Wound AFB Smear Concentration - Final 11/25/18 10:30 Wound Mycobacterial Culture - Preliminary 11/25/18 10:30 Tissue-Other Gram Stain - Final 11/25/18 10:30 Tissue-Other Tissue Culture - Final NO GROWTH OF AEROBIC ORGANISMS AFTER 48 HOURS INCUBATION 11/25/18 10:30 Tissue-Other Anaerobic Culture - Final NO ANAEROBES WERE ISOLATED 11/25/18 10:30 Wound Gram Stain - Final 11/25/18 10:30 Wound Wound Culture - Final NO GROWTH AFTER 48 HOURS INCUBATION 11/25/18 10:30 Wound ALIYAH Preparation - Preliminary 11/25/18 10:30 Wound Fungal Culture - Preliminary 11/25/18 10:30 Tissue-Other ALIYAH Preparation - Preliminary 11/25/18 10:30 Tissue-Other Fungal Culture - Preliminary a/p s/p washout and debridement of back operative culture now with staph epidermis all cultures continue rifampin po and iv daptomycin will need PICC line and alf iv antibiotics have asked the micro lab to send out doxycycline and minocycline MICS so that we have a good po antibiotic for f/u tolerating rifampin, she wishes to continue for dressing chage in am, per patient
--- NOTE | 2018-12-05 14:11 | PN ---
Physical Exam: SUBJECTIVE: Patient seen and examined at bedside. Feeling better. OBJECTIVE: Vital Signs Period Temp Pulse Resp BP Sys/Donnelly Pulse Ox Last 24 Hr 97.9 F-98.1 F 78-95 18-20 112-130/52-80 96 GENERAL: The patient is awake, alert, and fully oriented, in no acute distress. HEAD: Normal with no signs of trauma. EYES: extraocular movements intact ENT: Ears normal, nares patent, NECK: Trachea midline, full range of motion, supple. LUNGS: Breath sounds equal, clear to auscultation bilaterally HEART: Regular rate and rhythm, S1, S2 ABDOMEN: Soft, nontender, nondistended, normoactive bowel sounds EXTREMITIES: 2+ pulses, warm, well-perfused, no edema. NEUROLOGICAL: Cranial nerves II through XII grossly intact. Normal speech, gait not observed. 2 drains from back. 20-30ml drainage/day. PSYCH: Normal mood, normal affect. SKIN: Warm, dry Laboratory Results - last 24 hr 12/04/18 07:00 Free T3 3.8 Active Medications Generic Name Dose Route Start Last Admin Trade Name Freq PRN Reason Stop Dose Admin Acetaminophen 1,000 mg 12/02/18 18:00 12/05/18 11:48 Tylenol - PO 1,000 mg Q6HPO RANDAL Administration Diazepam 10 mg 12/02/18 22:00 12/05/18 11:12 Valium - PO 10 mg BID RANDAL Administration Docusate Sodium 300 mg 12/02/18 22:00 12/04/18 21:52 Colace - PO 300 mg HS RANDAL Administration Daptomycin 700 mg/ Sodium 114 mls @ 228 mls/hr 12/02/18 16:30 12/05/18 11:16 Chloride IVPB 228 mls/hr DAILY RANDAL Administration Protocol Patients Own Med ( 1 each 12/03/18 07:00 12/05/18 06:26 Synthroid 150 Mcg) PO 1 each Non-Formulary Med DAILY@0700 RANDAL Administration Ondansetron HCl 4 mg 12/02/18 16:20 12/03/18 12:20 Zofran Injection IVPUSH 4 mg Q6H PRN Administration NAUSEA AND/OR VOMITING Oxycodone HCl 5 mg 12/05/18 10:04 Roxicodone - PO Q3H PRN PAIN LEVEL 1-5 Oxycodone HCl 10 mg 12/05/18 10:04 Roxicodone - PO Q3H PRN PAIN LEVEL 6-10 Oxycodone HCl 10 mg 12/05/18 10:15 12/05/18 11:11 Oxycontin - PO 12/08/18 10:04 10 mg BID RANDAL Administration Pantoprazole Sodium 40 mg 12/03/18 10:00 12/05/18 11:12 Protonix - PO 40 mg DAILY RANDAL Administration Polyethylene Glycol 17 gm 12/02/18 22:00 12/05/18 11:12 Miralax (For Daily Use) - PO Not Given BID RANDAL Rifampin 300 mg 12/02/18 22:00 12/05/18 11:12 Rifadin - PO 300 mg BID RANDAL Administration Thyroid 60 mg 12/03/18 07:00 12/05/18 06:27 [place] Thyroid - PO 60 mg DAILY@0700 RANDAL Administration ASSESSMENT/PLAN: 38 y/o F w/PMH of lumbar spine stenosis s/p L4-S1 laminectomies and fusion (04/19), followed by L4 nerve sheath durotomy (04/26/18), hypothyroidism, obesity, HLD is now admitted s/p I&D of her lumbar spine wound. -Lumbar spine wound s/p I&D -Pain control with oxycodone and tylenol. FOOD CHECKER to be stopped today -zofran PRN for nausea -ID on board. c/w rifampin, daptomycin -Valium 10 mg bid -Possible d/cing of drains tomorrow if ok with surgery -Will need PICC line on d/c for custodial abx. -Hypothyroidism -c/w armour thyroid 60 mg po qd, synthroid 150 mcg -Constipation -colace and miralax -GERD -c/w protonix -DVT ppx -TEDS -FEN -No fluids -monitor electrolytes -Sodium controlled diet -Dispo: -continue to monitor on m/s. 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 Visit type - Emergency Visit Emergency Visit: Yes ED Registration Date: 11/25/18 Care time: The patient presented to the Emergency Department on the above date and was hospitalized for further evaluation of their emergent condition. - New Patient This patient is new to me today: No - Critical Care Critical Care patient: No
[2018-12-05] MEDS: oxyCODONE HCL 5 MG TABLET PO PRN ×3 (14:44→19:42)
[2018-12-05] MEDS: DOCUSATE SODIUM 100 MG CAPSULE (FP) PO SCH ×2 (18:00→21:13)
[2018-12-05] MEDS ORDERED: PT OWN MED DRAWER 7, Y5N ONE (20:35)
--- NOTE | 2018-12-05 23:02 | PN ---
Teaching Attending Note Name of Resident: Erickson Terrell ATTENDING PHYSICIAN STATEMENT I saw and evaluated the patient. I reviewed the resident's note and discussed the case with the resident. I agree with the resident's findings and plan as documented. SUBJECTIVE: Patient is feeling better with no acute distress. OBJECTIVE: Vital Signs Temperature 98.3 F 12/05/18 17:27 Pulse Rate 98 H 12/05/18 17:27 Respiratory Rate 20 12/05/18 17:27 Blood Pressure 132/52 L 12/05/18 17:27 O2 Sat by Pulse Oximetry (%) 97 12/05/18 09:00 GENERAL: The patient is awake, alert, tearful in pain. EYES: PEERLA; EOMI; no scleral icterus. NECK:no JVD; no lymphadenopathy LUNGS:CTA B/l; no rales, rhonchi or wheezing. HEART: Regular rate and rhythm, S1, S2 without murmur, rub or gallop. ABDOMEN: Soft, nontender, nondistended, normoactive bowel sounds, no guarding, no rebound. BACK; dressing clean/dry/intact; however, tenderness upon palpation EXTREMITIES: 2+ pulses, warm, well-perfused, trace edema. NEUROLOGICAL: as per ortho. PSYCH: Normal mood, normal affect. SKIN: Warm, dry, normal turgor, no rashes or lesions noted CBCD WBC 7.5 K/mm3 (4.0-10.0) 12/04/18 07:00 RBC 3.91 M/mm3 (3.60-5.2) 12/04/18 07:00 Hgb 11.0 GM/dL (10.7-15.3) 12/04/18 07:00 Hct 32.2 % (32.4-45.2) L 12/04/18 07:00 MCV 82.2 fl (80-96) 12/04/18 07:00 MCHC 34.1 g/dl (32.0-36.0) 12/04/18 07:00 RDW 14.5 % (11.6-15.6) 12/04/18 07:00 Plt Count 366 K/MM3 (134-434) 12/04/18 07:00 MPV 7.5 fl (7.5-11.1) 12/04/18 07:00 CMP Sodium 139 mmol/L (136-145) 12/04/18 07:00 Potassium 4.0 mmol/L (3.5-5.1) 12/04/18 07:00 Chloride 104 mmol/L (98-107) 12/04/18 07:00 Carbon Dioxide 27 mmol/L (21-32) 12/04/18 07:00 Anion Gap 8 MMOL/L (8-16) 12/04/18 07:00 BUN 7 mg/dL (7-18) 12/04/18 07:00 Creatinine 0.6 mg/dL (0.55-1.3) 12/04/18 07:00 Creat Clearance w eGFR > 60 (>60) 12/04/18 07:00 Random Glucose 87 mg/dL (74-106) 12/04/18 07:00 Calcium 8.1 mg/dL (8.5-10.1) L 12/04/18 07:00 Total Bilirubin 0.6 mg/dL (0.2-1) 12/03/18 08:40 AST 17 U/L (15-37) 12/03/18 08:40 ALT 15 U/L (13-61) 12/03/18 08:40 Alkaline Phosphatase 69 U/L (45-117) 12/03/18 08:40 Total Protein 5.6 g/dl (6.4-8.2) L 12/03/18 08:40 Albumin 3.0 g/dl (3.4-5.0) L 12/03/18 08:40 CARDIAC ENZYMES Creatine Kinase 142 U/L (26-192) 12/04/18 07:00 Current Medications Generic Name Dose Route Start Last Admin Trade Name Ramírezq PRN Reason Stop Dose Admin Acetaminophen 1,000 mg 12/02/18 18:00 12/05/18 18:06 Tylenol - PO 1,000 mg Q6HPO RANDAL Administration Diazepam 10 mg 12/02/18 22:00 12/05/18 21:25 Valium - PO 10 mg BID RANDAL Administration Docusate Sodium 300 mg 12/02/18 22:00 12/05/18 21:13 Colace - PO Not Given HS RANDAL Hydromorphone HCl 2 mg 12/05/18 21:31 12/05/18 21:47 Dilaudid Vial - SQ 2 mg Q6H PRN Administration PAIN LEVEL 7 - 10 Daptomycin 700 mg/ Sodium 114 mls @ 228 mls/hr 12/02/18 16:30 12/05/18 11:16 Chloride IVPB 228 mls/hr DAILY RANDAL Administration Protocol Patients Own Med ( 1 each 12/03/18 07:00 12/05/18 06:26 Synthroid 150 Mcg) PO 1 each Non-Formulary Med DAILY@0700 RANDAL Administration Ondansetron HCl 4 mg 12/02/18 16:20 12/03/18 12:20 Zofran Injection IVPUSH 4 mg Q6H PRN Administration NAUSEA AND/OR VOMITING Oxycodone HCl 5 mg 12/05/18 10:04 12/05/18 19:42 Roxicodone - PO 5 mg Q3H PRN Administration PAIN LEVEL 1-3 Oxycodone HCl 10 mg 12/05/18 10:04 12/05/18 18:05 Roxicodone - PO 10 mg Q3H PRN Administration PAIN LEVEL 4-6 Oxycodone HCl 10 mg 12/05/18 10:15 12/05/18 21:25 Oxycontin - PO 12/08/18 10:04 10 mg BID RANDAL Administration Pantoprazole Sodium 40 mg 12/03/18 10:00 12/05/18 11:12 Protonix - PO 40 mg DAILY RANDAL Administration Polyethylene Glycol 17 gm 12/02/18 22:00 12/05/18 21:13 Miralax (For Daily Use) - PO Not Given BID RANDAL Rifampin 300 mg 12/02/18 22:00 12/05/18 21:55 Rifadin - PO Not Given BID [facility] Thyroid 60 mg 12/03/18 07:00 12/05/18 06:27 [place] Thyroid - PO 60 mg DAILY@0700 RANDAL Administration Home Medications Medication Instructions Recorded Cyclobenzaprine HCl 10 mg PO PRN PRN 04/09/18 Levothyroxine [Synthroid -] 150 mcg PO DAILY 04/09/18 Omeprazole 40 mg PO DAILY 04/09/18 Thyroid,Pork [[place] Thyroid] 60 mg PO DAILY 04/09/18 Diazepam 10 mg PO BID PRN 11/24/18 Oxycodone HCl 15 mg PO QID PRN 11/24/18 Hydrochlorothiazide [Hctz -] 12.5 mg PO DAILY 11/30/18 Microbiology 11/29/18 20:51 Back Gram Stain - Final 11/29/18 20:51 Back Wound Culture - Preliminary Staphylococcus Epidermidis Staphylococcus Epidermidis#2 11/29/18 20:49 Back Gram Stain - Final 11/29/18 20:49 Back Wound Culture - Preliminary Staphylococcus Epidermidis Staphylococcus Epidermidis#2 11/29/18 20:52 Back Gram Stain - Final 11/29/18 20:52 Back Wound Culture - Preliminary Staphylococcus Epidermidis Staphylococcus Epidermidis#2 11/25/18 10:30 Tissue-Other AFB Smear Concentration - Final 11/25/18 10:30 Tissue-Other Mycobacterial Culture - Preliminary 11/25/18 10:30 Wound AFB Smear Concentration - Final 11/25/18 10:30 Wound Mycobacterial Culture - Preliminary 11/25/18 10:30 Tissue-Other Gram Stain - Final 11/25/18 10:30 Tissue-Other Tissue Culture - Final NO GROWTH OF AEROBIC ORGANISMS AFTER 48 HOURS INCUBATION 11/25/18 10:30 Tissue-Other Anaerobic Culture - Final NO ANAEROBES WERE ISOLATED 11/25/18 10:30 Wound Gram Stain - Final 11/25/18 10:30 Wound Wound Culture - Final NO GROWTH AFTER 48 HOURS INCUBATION 11/25/18 10:30 Wound ALIYAH Preparation - Preliminary 11/25/18 10:30 Wound Fungal Culture - Preliminary 11/25/18 10:30 Tissue-Other ALIYAH Preparation - Preliminary 11/25/18 10:30 Tissue-Other Fungal Culture - Preliminary ASSESSMENT AND PLAN: Patient is a 38yo female with PMHx of Lumbar spinal stenosis s/p L4-S1 laminectomies and fusion 04/19/18, followed by r L4 nerve sheath durotomy on 04/26, hypothyroidism, obesity, HLP, who presented now for I&D of her lumbar spine wound . # staph epidermis on 3 sets of wound cultures; continue Rifampin and Daptomycin as per ID, will need PICC line for enrollment specialist iv antibiotics for total 8 weeks s/p Lumbar wound I&D 11/25, s/p vac removal and wound closure by dr. Bennett , on IV dapto continue ,further care by ID and ortho as per surgeon. RN HYPERBARIC pump discontinued by anesthesia # Hypothyroidism, cont synthroid and armor thyroid as per patient uses this combination works for her # GERD , cont PPI # Constipation : patient had a bm after removal of Lan catheter Mechanical DVT px per sx picc line for possible dc in am.
[2018-12-06] MEDS: oxyCODONE HCL 5 MG TABLET PO PRN ×4 (00:28→13:03)
[2018-12-06] MEDS: HYDROmorphone HCl 2 MG/ML VIAL SQ PRN (05:04)
[2018-12-06] MEDS: ACETAMINOPHEN 500 MG TABLET (FP) PO SCH ×4 (05:05→23:08)
[2018-12-06] MEDS ORDERED: CYCLOBENZAPRINE HCL 10 MG TABLET (FP) PO ONE ×2 (05:19→18:15)
[2018-12-06] MEDS: SYNTHROID 150 MCG PO SCH (06:05)
[2018-12-06] MEDS: THYROID 60 MG TABLET PO SCH (06:05)
[2018-12-06] MEDS: HYDROmorphone *PCA* 10MG/50ML DISP.SYRIN PCA SCH (06:58)
[2018-12-06 07:39] LABS: BASO % 0.9 % (0-2.0); EOS % 3.4 % (0-4.5); HEMATOCRIT 37.6 % (32.4-45.2); HEMOGLOBIN 12.7 GM/dL (10.7-15.3); LYMPH % 23.1 % (8-40); MCH 28.2 pg (25.7-33.7); MCHC 33.7 g/dl (32.0-36.0); MEAN CELL VOLUME 83.7 fl (80-96); MEAN PLT VOLUME 8.1 fl (7.5-11.1); MONO % 6.2 % (3.8-10.2); NEUT % 66.4 % (42.8-82.8); PLATELET COUNT 457 K/MM3 (134-434); RDW 14.9 % (11.6-15.6)
[2018-12-06 08:02] LABS: ALBUMIN 3.8 g/dl (3.4-5.0); ALK PHOS 97 U/L (45-117); ANION GAP 11 MMOL/L (8-16); BILIRUBIN,TOTAL 0.5 mg/dL (0.2-1); BLOOD UREA NITROGEN 7 mg/dL (7-18); CALCIUM 9.5 mg/dL (8.5-10.1); CHLORIDE 104 mmol/L (98-107); CO2 24 mmol/L (21-32); CREATININE 0.7 mg/dL (0.55-1.3); GLUCOSE,RANDOM 100 mg/dL (74-106); POTASSIUM 4.1 mmol/L (3.5-5.1); SGOT/AST 27 U/L (15-37); SGPT/ALT 25 U/L (13-61); SODIUM 139 mmol/L (136-145); TOT PROT 7.2 g/dl (6.4-8.2)
[2018-12-06] MEDS ORDERED: PT OWN MED DRAWER 7, Y5N ONE ×3 (09:52→19:04)
[2018-12-06] MEDS: PANTOPRAZOLE 40 MG TABLET (FP) PO SCH (09:58)
[2018-12-06] MEDS: oxyCODONE HCL 10 MG SUSTAINED ACTING TABLET PO SCH ×2 (11:52→21:28)
[2018-12-06] MEDS: diazePAM 5 MG TABLET PO SCH ×2 (11:54→21:29)
[2018-12-06] MEDS: RIFAMPIN 300 MG CAPSULE PO SCH (11:55)
[2018-12-06] MEDS: POLYETHYLENE GLYCOL 3350 119 GM BTL PO SCH ×2 (12:29→21:30)
--- NOTE | 2018-12-06 12:30 | PN ---
Progress Note (short form) - Note Progress Note: crying, miserable in spasm nausea with rifampin refusing rifampin Vital Signs Period Temp Pulse Resp BP Sys/Donnelly Pulse Ox Last 24 Hr 97.8 F-98.3 F 88-101 18-20 129-148/52-98 97 cor-rrr lungs clear abd soft, nt ext no edema operative dressing intact CBC, BMP 12/06/18 06:00 12/06/18 06:00 Microbiology 11/29/18 20:49 Back Gram Stain - Final 11/29/18 20:49 Back Wound Culture - Preliminary Staphylococcus Epidermidis Staphylococcus Epidermidis#2 11/29/18 20:51 Back Gram Stain - Final 11/29/18 20:51 Back Wound Culture - Preliminary Staphylococcus Epidermidis Staphylococcus Epidermidis#2 11/29/18 20:52 Back Gram Stain - Final 11/29/18 20:52 Back Wound Culture - Preliminary Staphylococcus Epidermidis Staphylococcus Epidermidis#2 11/25/18 10:30 Tissue-Other AFB Smear Concentration - Final 11/25/18 10:30 Tissue-Other Mycobacterial Culture - Preliminary 11/25/18 10:30 Wound AFB Smear Concentration - Final 11/25/18 10:30 Wound Mycobacterial Culture - Preliminary 11/25/18 10:30 Tissue-Other Gram Stain - Final 11/25/18 10:30 Tissue-Other Tissue Culture - Final NO GROWTH OF AEROBIC ORGANISMS AFTER 48 HOURS INCUBATION 11/25/18 10:30 Tissue-Other Anaerobic Culture - Final NO ANAEROBES WERE ISOLATED 11/25/18 10:30 Wound Gram Stain - Final 11/25/18 10:30 Wound Wound Culture - Final NO GROWTH AFTER 48 HOURS INCUBATION 11/25/18 10:30 Wound ALIYAH Preparation - Preliminary 11/25/18 10:30 Wound Fungal Culture - Preliminary 11/25/18 10:30 Tissue-Other ALIYAH Preparation - Preliminary 11/25/18 10:30 Tissue-Other Fungal Culture - Preliminary a/p s/p washout and debridement of back operative culture now with staph epidermis all cultures day #5 daptomycin, will d/c rifampin as patient is not tolerating and refusing planning 8 weeks daptomycin should have weekly labs-cbc, cmp and weekly cpk can f/u in our office in [address] Arana is in agreement with this plan she is to have her dressing change today needs better pain control prior to discharge home will need PICC line and skilled nursing iv antibiotics have asked the micro lab to send out doxycycline and minocycline MICS so that we have a good po antibiotic for f/u d/w primary service d/w patient at length we would be happy to assist in her followup care - labs, duration antibiotics etc but she will need to come to our [place] office for f/u she is aware and currently agreeable to this plan
[2018-12-06] MEDS: DAPTOMYCIN 700 MG in SODIUM CHLORIDE 100 ML IVPB SCH (13:06)
--- NOTE | 2018-12-06 15:02 | PN ---
Physical Exam: SUBJECTIVE: Patient seen and examined at bedside- patient is still having an immense amount of pain; complains of back spasm and feels like her wound is opening up she is very tearful in distress and wants to go home. she also refused her rifampin this AM as she states it makes her nauseous OBJECTIVE: Vital Signs Period Temp Pulse Resp BP Sys/Donnelly Pulse Ox Last 24 Hr 97.8 F-98.3 F 88-101 18-20 129-148/52-98 97 GENERAL: The patient is awake, alert, and fully oriented, in acute distress. EYES: PEERLA: EOMI: no scleral icterus. NECK: no JVD; no lymphadenopathy. LUNGS: CTA B/L; no rales, rhonchi or wheezing HEART: Regular rate and rhythm, S1, S2 without murmur, rub or gallop. ABDOMEN: Soft, nontender, nondistended, normoactive bowel sounds, no guarding, no rebound, no hepatosplenomegaly, no masses. EXTREMITIES: 2+ pulses, warm, well-perfused, no edema. NEUROLOGICAL: as per surgeon PSYCH: Normal mood, normal affect. SKIN: Warm, dry, normal turgor, no rashes or lesions noted Laboratory Results - last 24 hr 12/06/18 12/06/18 12/06/18 06:00 06:00 06:35 WBC 9.0 RBC 4.50 Hgb 12.7 Hct 37.6 D MCV 83.7 MCH 28.2 MCHC 33.7 RDW 14.9 Plt Count 457 H D MPV 8.1 Absolute Neuts (auto) 6.0 Neutrophils % 66.4 Lymphocytes % 23.1 Monocytes % 6.2 Eosinophils % 3.4 Basophils % 0.9 Nucleated RBC % 0 Sodium 139 Potassium 4.1 Chloride 104 Carbon Dioxide 24 Anion Gap 11 BUN 7 Creatinine 0.7 Creat Clearance w eGFR > 60 Random Glucose 100 Calcium 9.5 Total Bilirubin 0.5 AST 27 ALT 25 Alkaline Phosphatase 97 Creatine Kinase 149 Cancelled Troponin I < 0.02 Cancelled Total Protein 7.2 Albumin 3.8 Active Medications Generic Name Dose Route Start Last Admin Trade Name Freq PRN Reason Stop Dose Admin Acetaminophen 1,000 mg 12/02/18 18:00 12/06/18 11:57 Tylenol - PO 1,000 mg Q6HPO RANDAL Administration Diazepam 10 mg 12/02/18 22:00 12/06/18 11:54 Valium - PO 10 mg BID RANDAL Administration Docusate Sodium 300 mg 12/02/18 22:00 12/05/18 21:13 Colace - PO Not Given HS RANDAL Daptomycin 700 mg/ Sodium 114 mls @ 228 mls/hr 12/02/18 16:30 12/06/18 13:06 Chloride IVPB 228 mls/hr DAILY RANDAL Administration Protocol Patients Own Med ( 1 each 12/03/18 07:00 12/06/18 06:05 Synthroid 150 Mcg) PO 1 each Non-Formulary Med DAILY@0700 RANDAL Administration Ondansetron HCl 4 mg 12/02/18 16:20 12/03/18 12:20 Zofran Injection IVPUSH 4 mg Q6H PRN Administration NAUSEA AND/OR VOMITING Oxycodone HCl 5 mg 12/05/18 10:04 12/06/18 05:53 Roxicodone - PO 5 mg Q3H PRN Administration PAIN LEVEL 1-3 Oxycodone HCl 10 mg 12/05/18 10:04 12/06/18 13:03 Roxicodone - PO 10 mg Q3H PRN Administration PAIN LEVEL 4-6 Oxycodone HCl 10 mg 12/05/18 10:15 12/06/18 11:52 Oxycontin - PO 12/08/18 10:04 10 mg BID RANDAL Administration Pantoprazole Sodium 40 mg 12/03/18 10:00 12/06/18 09:58 Protonix - PO 40 mg DAILY RANDAL Administration Polyethylene Glycol 17 gm 12/02/18 22:00 12/06/18 12:29 Miralax (For Daily Use) - PO Not Given BID RANDAL Thyroid 60 mg 12/03/18 07:00 12/06/18 06:05 [place] Thyroid - PO 60 mg DAILY@0700 RANDAL Administration ASSESSMENT/PLAN: 38 y/o F w/PMH of lumbar spine stenosis s/p L4-S1 laminectomies and fusion (04/19), followed by L4 nerve sheath durotomy (04/26/18), hypothyroidism, obesity, HLD is now admitted s/p I&D of her lumbar spine wound. -Lumbar spine wound s/p I&D -Pain control with oxycodone and tylenol. 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 hughes consulted since patient is still having a lot of pain -zofran PRN for nausea -ID on board. c/w rifampin, daptomycin day 5 -Valium 10 mg bid -Possible d/cing of drains today by dr delgadillo -Will need PICC line on d/c for residential abx. -Hypothyroidism -c/w armour thyroid 60 mg po qd, synthroid 150 mcg -Constipation -colace and miralax -GERD -c/w protonix -DVT ppx -TEDS -FEN -No fluids -monitor electrolytes -Sodium controlled diet -Dispo: -continue to monitor on m/s. 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 - New Patient This patient is new to me today: No - Critical Care Critical Care patient: No
--- NOTE | 2018-12-06 16:11 | PN ---
Progress Note (short form) - Note Progress Note: C/O spasms at the lower spine Awake fully orientated Neuro Fully intact Walking in the hallway Vitals as from chart All stable Wound Dressings and drain removed New dressing applied Dry Clean no erythema Awaiting PICC line and 6 weeks antibiotic Pain spasm are increasing ? reason PLAN PT Mobilize Pain management Change dressing in 5 days unless becomes moist PICC line Continue antibiotics D/C planning See in office in 5 to 7 days.
--- NOTE | 2018-12-06 16:14 | EKG ---
Test Reason : Blood Pressure : / mmHG Vent. Rate : 083 BPM Atrial Rate : 083 BPM P-R Int : 134 ms QRS Dur : 098 ms QT Int : 400 ms P-R-T Axes : 068 023 018 degrees QTc Int : 470 ms NORMAL SINUS RHYTHM POSSIBLE LEFT ATRIAL ENLARGEMENT BORDERLINE ECG NO PREVIOUS ECGS AVAILABLE Confirmed by DUGLAS BENITEZ, SHAMIR ([id number]) on 12/06/2018 4:13:46 PM Referred By: Brant Arana Confirmed By:SHAMIR ARDON MD
[2018-12-06] MEDS: HYDROmorphone HCl 2 MG/ML VIAL IVPB PRN (16:50)
[2018-12-06] MEDS ORDERED: KETOROLAC TROMETHAMINE 30 MG/1 ML VIAL IVPUSH ONE (18:15)
--- NOTE | 2018-12-06 18:35 | PN ---
Teaching Attending Note Name of Resident: Herlinda Rothman ATTENDING PHYSICIAN STATEMENT I saw and evaluated the patient. I reviewed the resident's note and discussed the case with the resident. I agree with the resident's findings and plan as documented. SUBJECTIVE: Patient is crying today for having spasm of her back. OBJECTIVE: Vital Signs Temperature 98.7 F 12/06/18 10:00 Pulse Rate 90 12/06/18 10:00 Respiratory Rate 18 12/06/18 10:00 Blood Pressure 140/85 12/06/18 10:00 O2 Sat by Pulse Oximetry (%) 97 12/05/18 21:00 GENERAL: The patient is awake, alert, tearful in pain. EYES: PEERLA; EOMI; no scleral icterus. NECK:no JVD; no lymphadenopathy LUNGS:CTA B/l; no rales, rhonchi or wheezing. HEART: Regular rate and rhythm, S1, S2 without murmur, rub or gallop. ABDOMEN: Soft, nontender, nondistended, normoactive bowel sounds, no guarding, no rebound. EXTREMITIES: 2+ pulses, warm, well-perfused, no edema. NEUROLOGICAL: as per ortho. PSYCH: Normal mood, normal affect. SKIN: Warm, dry, normal turgor, no rashes or lesions noted CBCD WBC 9.0 K/mm3 (4.0-10.0) 12/06/18 06:00 RBC 4.50 M/mm3 (3.60-5.2) 12/06/18 06:00 Hgb 12.7 GM/dL (10.7-15.3) 12/06/18 06:00 Hct 37.6 % (32.4-45.2) D 12/06/18 06:00 MCV 83.7 fl (80-96) 12/06/18 06:00 MCHC 33.7 g/dl (32.0-36.0) 12/06/18 06:00 RDW 14.9 % (11.6-15.6) 12/06/18 06:00 Plt Count 457 K/MM3 (134-434) H D 12/06/18 06:00 MPV 8.1 fl (7.5-11.1) 12/06/18 06:00 CMP Sodium 139 mmol/L (136-145) 12/06/18 06:00 Potassium 4.1 mmol/L (3.5-5.1) 12/06/18 06:00 Chloride 104 mmol/L (98-107) 12/06/18 06:00 Carbon Dioxide 24 mmol/L (21-32) 12/06/18 06:00 Anion Gap 11 MMOL/L (8-16) 12/06/18 06:00 BUN 7 mg/dL (7-18) 12/06/18 06:00 Creatinine 0.7 mg/dL (0.55-1.3) 12/06/18 06:00 Creat Clearance w eGFR > 60 (>60) 12/06/18 06:00 Random Glucose 100 mg/dL (74-106) 12/06/18 06:00 Calcium 9.5 mg/dL (8.5-10.1) 12/06/18 06:00 Total Bilirubin 0.5 mg/dL (0.2-1) 12/06/18 06:00 AST 27 U/L (15-37) 12/06/18 06:00 ALT 25 U/L (13-61) 12/06/18 06:00 Alkaline Phosphatase 97 U/L (45-117) 12/06/18 06:00 Total Protein 7.2 g/dl (6.4-8.2) 12/06/18 06:00 Albumin 3.8 g/dl (3.4-5.0) 12/06/18 06:00 CARDIAC ENZYMES Creatine Kinase 149 U/L (26-192) 12/06/18 06:00 Troponin I Cancelled 12/06/18 06:35 Current Medications Generic Name Dose Route Start Last Admin Trade Name Rocio PRN Reason Stop Dose Admin Acetaminophen 1,000 mg 12/02/18 18:00 12/06/18 18:30 Tylenol - PO Not Given Q6HPO RANDAL Diazepam 10 mg 12/02/18 22:00 12/06/18 11:54 Valium - PO 10 mg BID RANDAL Administration Docusate Sodium 300 mg 12/02/18 22:00 12/05/18 21:13 Colace - PO Not Given HS RANDAL Hydromorphone HCl 2 mg 12/06/18 16:12 12/06/18 16:50 Dilaudid Vial - IVPB 12/08/18 23:59 2 mg Q8H PRN Administration PAIN LEVEL 7 - 10 Protocol Daptomycin 700 mg/ Sodium 114 mls @ 228 mls/hr 12/02/18 16:30 12/06/18 13:06 Chloride IVPB 228 mls/hr DAILY RANDAL Administration Protocol Patients Own Med ( 1 each 12/03/18 07:00 12/06/18 06:05 Synthroid 150 Mcg) PO 1 each Non-Formulary Med DAILY@0700 RANDAL Administration Ondansetron HCl 4 mg 12/02/18 16:20 12/03/18 12:20 Zofran Injection IVPUSH 4 mg Q6H PRN Administration NAUSEA AND/OR VOMITING Oxycodone HCl 5 mg 12/05/18 10:04 12/06/18 05:53 Roxicodone - PO 5 mg Q3H PRN Administration PAIN LEVEL 1-3 Oxycodone HCl 10 mg 12/05/18 10:04 12/06/18 13:03 Roxicodone - PO 10 mg Q3H PRN Administration PAIN LEVEL 4-6 Oxycodone HCl 10 mg 12/05/18 10:15 12/06/18 11:52 Oxycontin - PO 12/08/18 10:04 10 mg BID RANDAL Administration Pantoprazole Sodium 40 mg 12/03/18 10:00 12/06/18 09:58 Protonix - PO 40 mg DAILY RANDAL Administration Polyethylene Glycol 17 gm 12/02/18 22:00 12/06/18 12:29 Miralax (For Daily Use) - PO Not Given BID RANDAL Thyroid 60 mg 12/03/18 07:00 12/06/18 06:05 [place] Thyroid - PO 60 mg DAILY@0700 RANDAL Administration Microbiology 11/29/18 20:51 Back Gram Stain - Final 11/29/18 20:51 Back Wound Culture - Preliminary Staphylococcus Epidermidis Staphylococcus Epidermidis#2 11/29/18 20:49 Back Gram Stain - Final 11/29/18 20:49 Back Wound Culture - Preliminary Staphylococcus Epidermidis Staphylococcus Epidermidis#2 11/29/18 20:52 Back Gram Stain - Final 11/29/18 20:52 Back Wound Culture - Preliminary Staphylococcus Epidermidis Staphylococcus Epidermidis#2 11/25/18 10:30 Tissue-Other AFB Smear Concentration - Final 11/25/18 10:30 Tissue-Other Mycobacterial Culture - Preliminary 11/25/18 10:30 Wound AFB Smear Concentration - Final 11/25/18 10:30 Wound Mycobacterial Culture - Preliminary 11/25/18 10:30 Tissue-Other Gram Stain - Final 11/25/18 10:30 Tissue-Other Tissue Culture - Final NO GROWTH OF AEROBIC ORGANISMS AFTER 48 HOURS INCUBATION 11/25/18 10:30 Tissue-Other Anaerobic Culture - Final NO ANAEROBES WERE ISOLATED 11/25/18 10:30 Wound Gram Stain - Final 11/25/18 10:30 Wound Wound Culture - Final NO GROWTH AFTER 48 HOURS INCUBATION 11/25/18 10:30 Wound ALIYAH Preparation - Preliminary 11/25/18 10:30 Wound Fungal Culture - Preliminary 11/25/18 10:30 Tissue-Other ALIYAH Preparation - Preliminary 11/25/18 10:30 Tissue-Other Fungal Culture - Preliminary ASSESSMENT AND PLAN: Patient is a 38yo female with PMHx of Lumbar spinal stenosis s/p L4-S1 laminectomies and fusion 04/19/18, followed by r L4 nerve sheath durotomy on 04/26, hypothyroidism, obesity, HLP, who presented now for I&D of her lumbar spine wound . # staph epidermis on 3 sets of wound cultures; continue Rifampin( but patient is refusing Rifampin due to making her nauseas) and Daptomycin as per ID, will need PICC line for shelter iv antibiotics for total 8 weeks. Daptomycin is approved now for home infusion s/p Lumbar wound I&D 11/25, s/p vac removal and wound closure by dr. Bennett , on IV dapto continue for total of 8 weeks, further care by ID and ortho Pain management consult Dr.Binod hughes as per . Removal of drains today by (12/06/2018) and change of wound dressing. # Hypothyroidism, cont synthroid and armor thyroid as per patient uses this combination works for her # GERD , cont PPI # Constipation : patient had a bm after removal of Lan catheter Mechanical DVT px per sx picc line for possible dc in am
[2018-12-06] MEDS: DOCUSATE SODIUM 100 MG CAPSULE (FP) PO SCH (21:28)
[2018-12-07] MEDS: HYDROmorphone HCl 2 MG/ML VIAL IVPB PRN ×2 (00:29→09:30)
[2018-12-07] MEDS: oxyCODONE HCL 5 MG TABLET PO PRN (04:40)
[2018-12-07] MEDS ORDERED: PT OWN MED DRAWER 7, Y5N ONE ×2 (06:05→12:02)
[2018-12-07] MEDS: ACETAMINOPHEN 500 MG TABLET (FP) PO SCH ×2 (06:15→12:10)
[2018-12-07] MEDS: THYROID 60 MG TABLET PO SCH (06:15)
[2018-12-07] MEDS: SYNTHROID 150 MCG PO SCH (06:18)
[2018-12-07] MEDS ORDERED: diphenhydrAMINE HCL 25 MG CAPSULE (FP) PO ONE (07:02)
[2018-12-07 07:29] LABS: HEMOGLOBIN 11.6 GM/dL (10.7-15.3); MCH 28.2 pg (25.7-33.7); MEAN CELL VOLUME 82.9 fl (80-96); MEAN PLT VOLUME 7.7 fl (7.5-11.1); PLATELET COUNT 388 K/MM3 (134-434); RDW 15.3 % (11.6-15.6); WHITE BLOOD COUNT 7.2 K/mm3 (4.0-10.0)
[2018-12-07 08:19] LABS: ANION GAP 10 MMOL/L (8-16); BLOOD UREA NITROGEN 10 mg/dL (7-18); CHLORIDE 104 mmol/L (98-107); CO2 24 mmol/L (21-32); CREATININE 0.7 mg/dL (0.55-1.3); GLUCOSE,RANDOM 88 mg/dL (74-106); MAGNESIUM 2.5 mg/dL (1.8-2.4); PHOSPHOROUS 5.6 mg/dL (2.5-4.9); POTASSIUM 3.8 mmol/L (3.5-5.1); SODIUM 138 mmol/L (136-145)
[2018-12-07] MEDS: PANTOPRAZOLE 40 MG TABLET (FP) PO SCH (09:32)
[2018-12-07] MEDS: POLYETHYLENE GLYCOL 3350 119 GM BTL PO SCH (09:32)
--- NOTE | 2018-12-07 09:55 | PN ---
Teaching Attending Note Name of Resident: Herlinda Rothman ATTENDING PHYSICIAN STATEMENT I saw and evaluated the patient. I reviewed the resident's note and discussed the case with the resident. I agree with the resident's findings and plan as documented. SUBJECTIVE: Patient is better today , feels happier that she is going home. OBJECTIVE: Vital Signs Temperature 98 F 12/07/18 06:00 Pulse Rate 92 H 12/07/18 06:00 Respiratory Rate 22 H 12/07/18 06:00 Blood Pressure 144/78 12/07/18 06:00 O2 Sat by Pulse Oximetry (%) 97 12/05/18 21:00 GENERAL: The patient is awake, alert, happy today. EYES: PEERLA; EOMI; no scleral icterus. NECK:no JVD; no lymphadenopathy LUNGS:CTA B/l; no rales, rhonchi or wheezing. HEART: Regular rate and rhythm, S1, S2 without murmur, rub or gallop. ABDOMEN: Soft, nontender, nondistended, normoactive bowel sounds, no guarding, no rebound. EXTREMITIES: 2+ pulses, warm, well-perfused, no edema. NEUROLOGICAL: as per ortho. PSYCH: Normal mood, normal affect. SKIN: Warm, dry, normal turgor, no rashes or lesions noted CBCD WBC 7.2 K/mm3 (4.0-10.0) 12/07/18 05:30 RBC 4.10 M/mm3 (3.60-5.2) 12/07/18 05:30 Hgb 11.6 GM/dL (10.7-15.3) 12/07/18 05:30 Hct 34.0 % (32.4-45.2) 12/07/18 05:30 MCV 82.9 fl (80-96) 12/07/18 05:30 MCHC 34.0 g/dl (32.0-36.0) 12/07/18 05:30 RDW 15.3 % (11.6-15.6) 12/07/18 05:30 Plt Count 388 K/MM3 (134-434) 12/07/18 05:30 MPV 7.7 fl (7.5-11.1) 12/07/18 05:30 CMP Sodium 138 mmol/L (136-145) 12/07/18 05:30 Potassium 3.8 mmol/L (3.5-5.1) 12/07/18 05:30 Chloride 104 mmol/L (98-107) 12/07/18 05:30 Carbon Dioxide 24 mmol/L (21-32) 12/07/18 05:30 Anion Gap 10 MMOL/L (8-16) 12/07/18 05:30 BUN 10 mg/dL (7-18) 12/07/18 05:30 Creatinine 0.7 mg/dL (0.55-1.3) 12/07/18 05:30 Creat Clearance w eGFR > 60 (>60) 12/07/18 05:30 Random Glucose 88 mg/dL (74-106) 12/07/18 05:30 Calcium 9.0 mg/dL (8.5-10.1) 12/07/18 05:30 Total Bilirubin 0.5 mg/dL (0.2-1) 12/06/18 06:00 AST 27 U/L (15-37) 12/06/18 06:00 ALT 25 U/L (13-61) 12/06/18 06:00 Alkaline Phosphatase 97 U/L (45-117) 12/06/18 06:00 Total Protein 7.2 g/dl (6.4-8.2) 12/06/18 06:00 Albumin 3.8 g/dl (3.4-5.0) 12/06/18 06:00 CARDIAC ENZYMES Creatine Kinase 149 U/L (26-192) 12/06/18 06:00 Troponin I Cancelled 12/06/18 06:35 Current Medications Generic Name Dose Route Start Last Admin Trade Name Rocio PRN Reason Stop Dose Admin Acetaminophen 1,000 mg 12/02/18 18:00 12/07/18 06:15 Tylenol - PO 1,000 mg Q6HPO RANDAL Administration Diazepam 10 mg 12/02/18 22:00 12/06/18 21:29 Valium - PO 10 mg BID RANDAL Administration Docusate Sodium 300 mg 12/02/18 22:00 12/06/18 21:28 Colace - PO 300 mg HS RANDAL Administration Daptomycin 700 mg/ Sodium 114 mls @ 228 mls/hr 12/02/18 16:30 12/06/18 13:06 Chloride IVPB 228 mls/hr DAILY RANDAL Administration Protocol Patients Own Med ( 1 each 12/03/18 07:00 12/07/18 06:18 Synthroid 150 Mcg) PO 1 each Non-Formulary Med DAILY@0700 RANDAL Administration Ondansetron HCl 4 mg 12/02/18 16:20 12/03/18 12:20 Zofran Injection IVPUSH 4 mg Q6H PRN Administration NAUSEA AND/OR VOMITING Oxycodone HCl 5 mg 12/05/18 10:04 12/06/18 05:53 Roxicodone - PO 5 mg Q3H PRN Administration PAIN LEVEL 1-3 Oxycodone HCl 10 mg 12/05/18 10:04 12/07/18 04:40 Roxicodone - PO 10 mg Q3H PRN Administration PAIN LEVEL 4-6 Oxycodone HCl 10 mg 12/05/18 10:15 12/06/18 21:28 Oxycontin - PO 12/08/18 10:04 10 mg BID RANDAL Administration Pantoprazole Sodium 40 mg 12/03/18 10:00 12/07/18 09:32 Protonix - PO 40 mg DAILY RANDAL Administration Polyethylene Glycol 17 gm 12/02/18 22:00 12/07/18 09:32 Miralax (For Daily Use) - PO Not Given BID [facility] Thyroid 60 mg 12/03/18 07:00 12/07/18 06:15 [place] Thyroid - PO 60 mg DAILY@0700 RANDAL Administration Home Medications Medication Instructions Recorded Cyclobenzaprine HCl 10 mg PO PRN PRN 04/09/18 Levothyroxine [Synthroid -] 150 mcg PO DAILY 04/09/18 Omeprazole 40 mg PO DAILY 04/09/18 Thyroid,Pork [[place] Thyroid] 60 mg PO DAILY 04/09/18 Diazepam 10 mg PO BID PRN 11/24/18 Oxycodone HCl 15 mg PO QID PRN 11/24/18 Hydrochlorothiazide [Hctz -] 12.5 mg PO DAILY 11/30/18 ASSESSMENT AND PLAN: Patient is a 38yo female with PMHx of Lumbar spinal stenosis s/p L4-S1 laminectomies and fusion 04/19/18, followed by r L4 nerve sheath durotomy on 04/26, hypothyroidism, obesity, HLP, who presented now for I&D of her lumbar spine wound . # staph epidermis on 3 sets of wound cultures; patient will continue Daptomycin as home infusion is approved for dapto., picc line in place, for alf iv antibiotics for total 8 weeks. s/p Lumbar wound I&D 11/25, s/p vac removal and wound closure by dr. Bennett , on IV dapto continue for total of 8 weeks, further care by ID and ortho. Pain management consult Dr.Binod hughes as per .ordered, s/p Removal of drains by (12/06/2018) and change of wound dressing. # Hypothyroidism, cont synthroid and armor thyroid as per patient uses this combination works for her # GERD , cont PPI # Constipation : patient had a bm after removal of Lan catheter Mechanical DVT px per sx patient can go home today all her Rxs are being prescribed by david. narcotics.
[2018-12-07] MEDS ORDERED: BACLOFEN 10 MG TABLET (FP) PO SCH ×2 (10:15→14:00)
--- NOTE | 2018-12-07 10:29 | PN ---
Progress Note (short form) - Note Progress Note: PT states that she is having itching on her back today. Complains of some spasm to lower back overnight. Vital Signs Period Temp Pulse Resp BP Sys/Donnelly Pulse Ox Last 24 Hr 98 F-98 F 92-102 22-22 144-164/78-83 GEN: A&0x3, NAD Back: Aquacel dressing in place. Rash in the pattern of a square to her back. No erythema, dressing intact and dry. LE: 5/5 dorsi/plantar flexion b/l. CBC, BMP 12/07/18 05:30 12/07/18 05:30 Microbiology 11/29/18 20:52 Back Gram Stain - Final 11/29/18 20:51 Back Gram Stain - Final 11/29/18 20:49 Back Gram Stain - Final 11/29/18 20:52 Back Wound Culture - Preliminary Staphylococcus Epidermidis Staphylococcus Epidermidis#2 11/29/18 20:51 Back Wound Culture - Preliminary Staphylococcus Epidermidis Staphylococcus Epidermidis#2 11/29/18 20:49 Back Wound Culture - Preliminary Staphylococcus Epidermidis Staphylococcus Epidermidis#2 A/p: 38 yo female s/p I&D of lumbar wound with complex wound closure Dressing changed and drains removed yesterday by Dr. Arana D/w Dr. Arana and plan for discharge today Spoke with radiology to coordinate PICC line insertion today Scripts for narcotics and baclofen written for discharge IV abx as an outpt Follow-up with Dr. Arana next week and Dr. Morales as an outpt
[2018-12-07] MEDS: oxyCODONE HCL 10 MG SUSTAINED ACTING TABLET PO SCH (12:08)
[2018-12-07] MEDS: DAPTOMYCIN 700 MG in SODIUM CHLORIDE 100 ML IVPB SCH (12:08)
--- NOTE | 2018-12-07 13:18 | DS ---
"Physical Exam: SUBJECTIVE: Patient seen and examined OBJECTIVE: Vital Signs Period Temp Pulse Resp BP Sys/Donnelly Pulse Ox Last 24 Hr 98 F-98 F 92-102 22-22 144-164/78-83 PHYSICAL EXAM GENERAL: The patient is awake, alert, and fully oriented, in no acute distress. HEAD: Normal with no signs of trauma. EYES: PERRL, extraocular movements intact, sclera anicteric, conjunctiva clear. ENT: Ears normal, nares patent, oropharynx clear without exudates, moist mucous membranes. NECK: Trachea midline, full range of motion, supple. LUNGS: Breath sounds equal, clear to auscultation bilaterally, no wheezes, no crackles, no accessory muscle use. HEART: Regular rate and rhythm, S1, S2 without murmur, rub or gallop. ABDOMEN: Soft, nontender, nondistended, normoactive bowel sounds, no guarding, no rebound, no hepatosplenomegaly, no masses. EXTREMITIES: 2+ pulses, warm, well-perfused, no edema. NEUROLOGICAL: Cranial nerves II through XII grossly intact. Normal speech, gait not observed. PSYCH: Normal mood, normal affect. SKIN: Warm, dry, normal turgor, no rashes or lesions noted. LABS Laboratory Results - last 24 hr 12/07/18 12/07/18 05:30 05:30 WBC 7.2 RBC 4.10 Hgb 11.6 Hct 34.0 MCV 82.9 MCH 28.2 MCHC 34.0 RDW 15.3 Plt Count 388 MPV 7.7 Sodium 138 Potassium 3.8 Chloride 104 Carbon Dioxide 24 Anion Gap 10 BUN 10 Creatinine 0.7 Creat Clearance w eGFR > 60 Random Glucose 88 Calcium 9.0 Phosphorus 5.6 H Magnesium 2.5 H Microbiology 11/29/18 20:51 Back Gram Stain - Final 11/29/18 20:51 Back Wound Culture - Preliminary Staphylococcus Epidermidis Staphylococcus Epidermidis#2 11/29/18 20:49 Back Gram Stain - Final 11/29/18 20:49 Back Wound Culture - Preliminary Staphylococcus Epidermidis Staphylococcus Epidermidis#2 11/29/18 20:52 Back Gram Stain - Final 11/29/18 20:52 Back Wound Culture - Preliminary Staphylococcus Epidermidis Staphylococcus Epidermidis#2 11/25/18 10:30 Tissue-Other AFB Smear Concentration - Final 11/25/18 10:30 Tissue-Other Mycobacterial Culture - Preliminary 11/25/18 10:30 Wound AFB Smear Concentration - Final 11/25/18 10:30 Wound Mycobacterial Culture - Preliminary 11/25/18 10:30 Tissue-Other Gram Stain - Final 11/25/18 10:30 Tissue-Other Tissue Culture - Final NO GROWTH OF AEROBIC ORGANISMS AFTER 48 HOURS INCUBATION 11/25/18 10:30 Tissue-Other Anaerobic Culture - Final NO ANAEROBES WERE ISOLATED 11/25/18 10:30 Wound Gram Stain - Final 11/25/18 10:30 Wound Wound Culture - Final NO GROWTH AFTER 48 HOURS INCUBATION 11/25/18 10:30 Wound ALIYAH Preparation - Preliminary 11/25/18 10:30 Wound Fungal Culture - Preliminary 11/25/18 10:30 Tissue-Other ALIYAH Preparation - Preliminary 11/25/18 10:30 Tissue-Other Fungal Culture - Preliminary HOSPITAL COURSE: Date of Admission:11/25/18 38 y/o female with PMH of lumbar spine stenosis s/p L4-S1 laminectomies and fusion (04/19/18) followed by L4 nerve sheath durotomy (04/26/18), hypothyroidism , obesity presented to the emergency room with chronic back pain who underwent incision and drainage of wound with wound vac application, and subsequent removal of the drains. Cultures of the wound were taken and were found to be growing staph epidermidis. she was started on vancomycin then she was switched to daptomycin and vancomycin. patient had a very tough hospital course- her pain was immense and she ahd constant back spasms- for pain she was given the [employer] pump with dilaudid in addition to valium. she was then switched to PO poxycodone in addition to the valium and flexeril. after a 12 day stay she was discharged home with a PICC line requiring 8 weeks of daptomycin. patient should have also been sent home on rifamin however she refused due to nausea side efects. she was also discharged home with baclofen/ oxycodone and with appointments to see dr delgadillo in 5 days and to see dr morales in 2 weeks. Date of Discharge: 12/07/18 Minutes to complete discharge: 39 Discharge Summary Reason For Visit: FUSION OF SPINE Condition: Stable - Instructions Diet, Activity, Other Instructions: You came to the emergency room with back pain and underwent two surgical procedures with Dr. Delgadillo. Wound cultures were taken from the back surgical sites which came back positive for staph epidermidis. We started you on antibiotics, for which you will need senior living for 8 weeks Please resume all of your home medications in addition: You will be taking the antibiotic daptomycin for 8 weeks through your PICC line You were also supposed to be on Rifampin however you refused due to the side effects you were experiencing Dr. Delgadillo will be prescribing you pain medications CBC with diff, complete metabolic panel, magnesium needs to be done on a weekly basis. Please following up with Dr. Delgadillo in 5-7 days as you will need your dressing to be changed, leave it in place. Sponge bath only. Please follow up with Dr. Morales, the infectious disease specialist in 2 weeks Please follow up with your primary care physician within one week *if you begin to experience any numbness/tingling/weakness, chest pain, shortness of breath please return to the emergency room immediately This report was requested by: Jeni Stover | Reference #: [id number] Referrals: Nayana Morales MD [Staff Physician] - 2 Weeks Brant Delgadillo MD [Staff Physician] - 1 Week Disposition: HOME - Home Medications Comprehensive Discharge Medication List: Ambulatory Orders Levothyroxine [Synthroid -] 150 mcg PO DAILY 04/09/18 Omeprazole 40 mg PO DAILY 04/09/18 Thyroid,Pork [[place] Thyroid] 60 mg PO DAILY 04/09/18 Hydrochlorothiazide [Hctz -] 12.5 mg PO DAILY 11/30/18 Baclofen [Lioresal -] 5 mg PO TID #30 tablet 12/07/18 Daptomycin [Cubicin (Restricted To Id) -] 700 mg IVPB DAILY vial 12/07/18 Docusate Sodium [Colace -] 100 mg PO BID PRN #14 capsule 12/07/18 Oxycodone HCl 5 mg PO Q6H PRN #40 tablet MDD 8 12/07/18 Problem List - Problems (1) Chronic back pain Code(s): M54.9 - DORSALGIA, UNSPECIFIED; G89.29 - OTHER CHRONIC PAIN (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 Critical Care patient: No - Discharge Referral Referred to [facility] No"
[2018-12-07 13:54] VITALS: BP 135/76; PULSE 87; TEMP 98.5
== END 2018-12-07 15:33 | disposition home or self-care (01) | DRG 856 ==
LOC: JSAMEDAYSX 06:50 → JICU 10:50 → J8W 12-02 19:26
PROVIDERS: ADMIT Orthopaedic Surgery Orthopaedic Surgery of the Spine; ATTEND Internal Medicine
PROC: 0JB70ZZ Excision of Back Subcutaneous Tissue and Fascia, Open Approach (ICD-10-PCS; 2018-11-25)
PROC: 3E10X8Z Irrigation of Skin and Mucous Membranes using Irrigating Substance (ICD-10-PCS; 2018-11-25)
PROC: 2W15X6Z Compression of Back using Pressure Dressing (ICD-10-PCS; 2018-11-25)
PROC: 0QB00ZZ Excision of Lumbar Vertebra, Open Approach (ICD-10-PCS; principal; 2018-11-25 08:00)
PROC: 0JB70ZZ Excision of Back Subcutaneous Tissue and Fascia, Open Approach (ICD-10-PCS; 2018-11-29)
PROC: 0JQ70ZZ Repair Back Subcutaneous Tissue and Fascia, Open Approach (ICD-10-PCS; 2018-11-29)
PROC: 2W55X6Z Removal of Pressure Dressing on Back (ICD-10-PCS; 2018-11-29)
PROC: 3E10X8Z Irrigation of Skin and Mucous Membranes using Irrigating Substance (ICD-10-PCS; 2018-11-29)
PROC: 02HV33Z Insertion of Infusion Device into Superior Vena Cava, Percutaneous Approach (ICD-10-PCS; 2018-12-07)
PROC: B518ZZA Fluoroscopy of Superior Vena Cava, Guidance (ICD-10-PCS; 2018-12-07)
DX: T81.43XA Infection following a procedure, organ and space surgical site, initial encounter (principal); G06.1 Intraspinal abscess and granuloma; B95.7 Other staphylococcus as the cause of diseases classified elsewhere; K21.9 Gastro-esophageal reflux disease without esophagitis; I10 Essential (primary) hypertension; Y83.8 Other surgical procedures as the cause of abnormal reaction of the patient, or of later complication, without mention of misadventure at the time of the procedure; F41.9 Anxiety disorder, unspecified; E66.9 Obesity, unspecified; Z68.37 Body mass index [BMI] 37.0-37.9, adult; E06.3 Autoimmune thyroiditis; M48.061 Spinal stenosis, lumbar region without neurogenic claudication; K59.00 Constipation, unspecified
CPT/HCPCS: 36415; 36569; 77001-TC-FY; 80048; 80053; 82550; 83735; 84100; 84439; 84443; 84481; 84484; 84703; 85025; 85027; 85651; 86140; 86850; 86900; 86901; 87070; 87075; 87102; 87116; 87186; 87205; 87206; 87210; 88304-TC; 93005; 93010; 97116-GP; 97162-GP; C1751; J0131; J0475; J0878; J1170; J1644; J7030

== ENCOUNTER 2021-03-25 14:30 | Inpatient (IN) | payer BC, OTHER ==
[2021-03-25 11:12] VITALS: BMI 39.5
[2021-03-26] MEDS ORDERED: LIDOCAINE HCL/PF 2% SDV 5ML VIAL ONE (07:40)
[2021-03-26] MEDS ORDERED: fentaNYL CITRATE 250 MCG/5 ML VIAL ONE (07:40)
[2021-03-26] MEDS ORDERED: PROPOFOL 20 ML ONE ×3 (07:41→08:40)
[2021-03-26] MEDS ORDERED: MIDAZOLAM HCL 2 MG/2 ML SINGLE DOSE VIAL ONE ×2 (07:41→08:07)
[2021-03-26] MEDS ORDERED: ROCURONIUM BROMIDE 50 MG/5 ML SYRINGE ONE ×2 (07:41→10:05)
[2021-03-26] MEDS ORDERED: LIDOCAINE 1%/EPI 1:100000 (50 ML MULTI DOSE VIAL) ONE (07:50)
[2021-03-26] MEDS ORDERED: BUPIVACAINE LIPOSOME/PF (EXPAREL) 266 MG/20 ML VIAL ONE (07:50)
[2021-03-26] MEDS ORDERED: GENTAMICIN SO4 80 MG/2 ML VIAL ONE (07:50)
[2021-03-26] MEDS ORDERED: BUPIVACAINE HCL/PF 0.5% (5MG/ML) 10 ML VIAL ONE (07:50)
[2021-03-26] MEDS ORDERED: THROMBIN (BOVINE) 20,000 UNIT VIAL TP ONE (07:51)
[2021-03-26] MEDS ORDERED: ceFAZolin SODIUM 1 GM VIAL ONE ×3 (08:07→15:27)
[2021-03-26] MEDS ORDERED: VANCOMYCIN 1,000 MG VIAL (RESTRICTED TO ID ONLY) ONE ×2 (08:07→12:35)
[2021-03-26] MEDS ORDERED: TRANEXAMIC ACID 1000 MG/10 ML VIAL ONE ×2 (08:07→09:25)
[2021-03-26] MEDS ORDERED: ceFAZolin SODIUM 1 GM VIAL IVPB ONE (08:25)
[2021-03-26] MEDS ORDERED: VANCOMYCIN 1,000 MG VIAL (RESTRICTED TO ID ONLY) IVPB ONE ×2 (08:37→12:38)
[2021-03-26] MEDS ORDERED: HYDROmorphone HCl 2 MG/ML VIAL ONE ×4 (08:40→14:02)
[2021-03-26] MEDS ORDERED: ONDANSETRON 4 MG/2 ML VIAL ONE ×2 (09:01→09:25)
[2021-03-26] MEDS ORDERED: DEXAMETHASONE SOD PHOSPHATE 4 MG/1 ML VIAL ONE (09:01)
[2021-03-26] MEDS ORDERED: SEVOFLURANE 250 ML BTL ONE (09:01)
[2021-03-26] MEDS ORDERED: BACITRACIN 50,000 UNITS VIAL TP ONE (09:18)
[2021-03-26] MEDS ORDERED: GENTAMICIN SO4 80 MG/2 ML VIAL IVPB ONE (09:18)
[2021-03-26] MEDS ORDERED: IBUPROFEN 800 MG/8 ML IJ IVPB ONE ×3 (10:24→12:50)
[2021-03-26] MEDS ORDERED: GLYCOPYRROLATE 0.2 MG/1 ML VIAL ONE (12:12)
[2021-03-26] MEDS ORDERED: NEOSTIGMINE METHYLSULFATE 0.5 MG/1 ML - 10 ML MDV ONE (12:13)
[2021-03-26] MEDS ORDERED: MORPHINE 5 MG/10 ML AMP - FOR COMPOUNDING USE ONLY ONE (12:31)
[2021-03-26] MEDS ORDERED: BUPIVACAINE LIPOSOME/PF (EXPAREL) 266 MG/20 ML VIAL NR ONE (12:35)
[2021-03-26] MEDS ORDERED: BUPIVACAINE HCL/PF 0.5% (5MG/ML) 10 ML VIAL IJ ONE (12:35)
[2021-03-26] MEDS ORDERED: ACETAMINOPHEN INJECTION 100 ML IVPB ONE (14:02)
[2021-03-26] MEDS ORDERED: PROMETHAZINE HCL 25 MG/1 ML VIAL IVPB PRN (14:05)
[2021-03-26] MEDS ORDERED: ACETAMINOPHEN 1000 MG/100 ML VIAL (NON FORMULARY) IVPB ONE (14:05)
[2021-03-26] MEDS ORDERED: ACETAMINOPHEN 1000 MG/100 ML VIAL (NON FORMULARY) IVPB PRN (14:06)
[2021-03-26] MEDS ORDERED: FAMOTIDINE 20 MG/50 ML IVPB 20 MG/50 ML MG IVPB ONE ×2 (14:06→14:07)
[2021-03-26] MEDS ORDERED: MIDAZOLAM HCL 2 MG/2 ML SINGLE DOSE VIAL IVPUSH ONE ×2 (14:07→14:20)
[2021-03-26] MEDS ORDERED: HYDROmorphone HCl 2 MG/ML VIAL IVPUSH ONE ×3 (14:08→16:08)
[2021-03-26] MEDS ORDERED: LACTATED RINGERS SOLUTION 1,000 ML IV SCH ×2 (14:15→15:00)
[2021-03-26] MEDS ORDERED: FAMOTIDINE 20 MG PREMIXED IVPB IVPB ONE (14:25)
[2021-03-26] MEDS ORDERED: ONDANSETRON 4 MG/2 ML VIAL IVPUSH PRN ×2 (14:39→14:51)
[2021-03-26] MEDS ORDERED: oxyCODONE HCL 5 MG TABLET PO PRN (14:39)
[2021-03-26] MEDS ORDERED: NALOXONE HCL 0.4 MG/ML VIAL IVPUSH PRN (14:39)
[2021-03-26] MEDS ORDERED: ACETAMINOPHEN 325 MG TABLET (FP) PO SCH (14:45)
[2021-03-26] MEDS ORDERED: HYDROmorphone HCL CARPU-JECT 2 MG/1 ML DISP.SYRIN IVPUSH ONE (16:31)
[2021-03-26] MEDS: CEFAZOLIN 2 GM/D5W 2 GM/50 ML ML IVPB SCH ×2 (17:30→20:23)
[2021-03-26] MEDS ORDERED: oxyCODONE HCL 10 MG SUSTAINED ACTING TABLET ONE (18:05)
[2021-03-26] MEDS ORDERED: oxyCODONE HCL 10 MG SUSTAINED ACTING TABLET PO ONE (18:13)
[2021-03-26] MEDS: oxyCODONE HCL 20 MG SUSTAINED ACTING TABLET PO SCH (18:14)
[2021-03-26] MEDS: oxyCODONE HCL 5 MG TABLET PO PRN (20:24)
[2021-03-26] MEDS: MONTELUKAST NA 10 MG TABLET PO SCH (20:59)
[2021-03-26] MEDS: CYCLOBENZAPRINE HCL 10 MG TABLET (FP) PO SCH (20:59)
[2021-03-27] MEDS: oxyCODONE HCL 5 MG TABLET PO PRN ×5 (01:17→22:21)
[2021-03-27] MEDS: CEFAZOLIN 2 GM/D5W 2 GM/50 ML ML IVPB SCH (03:29)
[2021-03-27] MEDS: oxyCODONE HCL 20 MG SUSTAINED ACTING TABLET PO SCH ×2 (05:46→18:28)
[2021-03-27] MEDS: ACETAMINOPHEN 1000 MG/100 ML VIAL (NON FORMULARY) IVPB PRN ×2 (05:51→12:40)
[2021-03-27] MEDS: LEVOTHYROXINE NA 150 MCG TABLET PO SCH (06:28)
[2021-03-27] MEDS ORDERED: PT OWN MED DRAWER 7, Y5N ONE (06:28)
[2021-03-27] MEDS ORDERED: THYROID 30 MG TABLET PO SCH (07:00)
[2021-03-27 07:29] LABS: HEMATOCRIT 27.6 % (32.4-45.2); HEMOGLOBIN 9.4 GM/dL (10.7-15.3); MCH 29.5 pg (25.7-33.7); MCHC 33.9 g/dl (32.0-36.0); MEAN CELL VOLUME 86.9 fl (80-96); MEAN PLT VOLUME 8.1 fl (7.5-11.1); PLATELET COUNT 281 10^3/uL (134-434); RBC 3.17 M/mm3 (3.60-5.2); RDW 13.9 % (11.6-15.6); WHITE BLOOD COUNT 11.8 K/mm3 (4.0-10.0)
[2021-03-27 08:06] LABS: CALCIUM 7.8 mg/dL (8.5-10.1)
[2021-03-27 08:07] LABS: BLOOD UREA NITROGEN 12.6 mg/dL (7-18)
[2021-03-27 08:10] LABS: CREATININE 0.6 mg/dL (0.55-1.3)
[2021-03-27] MEDS ORDERED: diazePAM 5 MG TABLET PO ONE (09:41)
[2021-03-27] MEDS: DOCUSATE SODIUM 100 MG CAPSULE (FP) PO SCH (10:07)
[2021-03-27] MEDS: HYDROCHLOROTHIAZIDE 25 MG TABLET (FP) PO SCH (10:07)
[2021-03-27] MEDS: PANTOPRAZOLE 40 MG TABLET PO SCH (10:07)
[2021-03-27] MEDS: LIDOCAINE 5% TOPICAL PATCH TP SCH (10:08)
[2021-03-27] MEDS: diazePAM 5 MG TABLET PO ONE ×2 (10:08→10:10)
[2021-03-27] MEDS ORDERED: CYCLOBENZAPRINE HCL 10 MG TABLET (FP) PO ONE (11:00)
[2021-03-27] MEDS: CYCLOBENZAPRINE HCL 10 MG TABLET (FP) PO SCH ×2 (11:08→22:22)
[2021-03-27] MEDS ORDERED: oxyCODONE HCL 5 MG TABLET PO PRN (13:23)
[2021-03-27] MEDS: GABAPENTIN 100 MG CAPSULE PO ONE ×2 (13:44→13:46)
[2021-03-27] MEDS ORDERED: oxyCODONE HCL 10 MG SUSTAINED ACTING TABLET PO SCH (14:39)
[2021-03-27] MEDS ORDERED: SENNOSIDES 8.6MG TABLET (FP) PO PRN (15:14)
[2021-03-27] MEDS: oxyCODONE HCL 10 MG SUSTAINED ACTING TABLET PO SCH (18:26)
[2021-03-27] MEDS: MONTELUKAST NA 10 MG TABLET PO SCH (22:21)
[2021-03-27] MEDS: LIDOCAINE PATCH REMOVAL MC SCH (22:22)
[2021-03-28] MEDS: ACETAMINOPHEN 1000 MG/100 ML VIAL (NON FORMULARY) IVPB PRN (00:17)
[2021-03-28] MEDS: diazePAM 5 MG TABLET PO PRN ×3 (00:27→21:03)
[2021-03-28] MEDS: oxyCODONE HCL 5 MG TABLET PO PRN ×6 (01:37→21:03)
[2021-03-28] MEDS ORDERED: PT OWN MED DRAWER 7, Y5N ONE ×3 (05:18→10:18)
[2021-03-28] MEDS: oxyCODONE HCL 10 MG SUSTAINED ACTING TABLET PO SCH ×2 (06:07→18:33)
[2021-03-28] MEDS: ARMOUR THYROID 60 MG PO SCH (06:07)
[2021-03-28] MEDS: LEVOTHYROXINE NA 150 MCG TABLET PO SCH (06:07)
[2021-03-28] MEDS: VITAMINS A AND D TOPICAL OINTMENT 60 GM TUBE TP SCH ×3 (06:07→17:30)
[2021-03-28] MEDS: LIDOCAINE 5% TOPICAL PATCH TP SCH (10:20)
[2021-03-28] MEDS: DOCUSATE SODIUM 100 MG CAPSULE (FP) PO SCH (10:21)
[2021-03-28] MEDS: PANTOPRAZOLE 40 MG TABLET PO SCH (10:21)
[2021-03-28] MEDS: CYCLOBENZAPRINE HCL 10 MG TABLET (FP) PO SCH ×2 (10:21→21:02)
[2021-03-28] MEDS: HYDROCHLOROTHIAZIDE 25 MG TABLET (FP) PO SCH (11:30)
[2021-03-28 12:07] LABS: BASO % 0.2 % (0-2.0); EOS % 0.3 % (0-4.5); HEMATOCRIT 25.2 % (32.4-45.2); HEMOGLOBIN 8.6 GM/dL (10.7-15.3); LYMPH % 27.6 % (8-40); MCH 29.8 pg (25.7-33.7); MCHC 34.2 g/dl (32.0-36.0); MEAN CELL VOLUME 87.2 fl (80-96); MEAN PLT VOLUME 7.7 fl (7.5-11.1); MONO % 8.3 % (3.8-10.2); NEUT % 63.6 % (42.8-82.8); PLATELET COUNT 221 10^3/uL (134-434); RBC 2.89 M/mm3 (3.60-5.2); RDW 14.2 % (11.6-15.6); WHITE BLOOD COUNT 7.6 K/mm3 (4.0-10.0)
[2021-03-28 12:33] LABS: ALBUMIN 3.2 g/dl (3.4-5.0); CALCIUM 8.2 mg/dL (8.5-10.1); MAGNESIUM 2.1 mg/dL (1.8-2.4)
[2021-03-28 12:35] LABS: BLOOD UREA NITROGEN 13.8 mg/dL (7-18)
[2021-03-28 12:38] LABS: CREATININE 0.7 mg/dL (0.55-1.3)
[2021-03-28 12:39] LABS: BILIRUBIN,TOTAL 0.2 mg/dL (0.2-1); TOT PROT 5.6 g/dl (6.4-8.2)
[2021-03-28] MEDS: MONTELUKAST NA 10 MG TABLET PO SCH (21:02)
[2021-03-28] MEDS: LIDOCAINE PATCH REMOVAL MC SCH (21:02)
[2021-03-29] MEDS ORDERED: diphenhydrAMINE HCL 25 MG CAPSULE (FP) PO ONE ×2 (00:09→08:24)
[2021-03-29] MEDS: oxyCODONE HCL 5 MG TABLET PO PRN ×6 (00:21→21:21)
[2021-03-29] MEDS: VITAMINS A AND D TOPICAL OINTMENT 60 GM TUBE TP SCH ×4 (00:22→18:36)
[2021-03-29] MEDS ORDERED: PT OWN MED DRAWER 7, Y5N ONE ×2 (05:54→07:03)
[2021-03-29] MEDS: oxyCODONE HCL 10 MG SUSTAINED ACTING TABLET PO SCH ×2 (06:27→18:36)
[2021-03-29] MEDS: LEVOTHYROXINE NA 150 MCG TABLET PO SCH (06:28)
[2021-03-29] MEDS: ARMOUR THYROID 60 MG PO SCH (06:29)
[2021-03-29 06:34] LABS: BASO % 0.4 % (0-2.0); EOS % 1.7 % (0-4.5); HEMATOCRIT 26.6 % (32.4-45.2); HEMOGLOBIN 8.8 GM/dL (10.7-15.3); LYMPH % 28.9 % (8-40); MCH 29.2 pg (25.7-33.7); MEAN CELL VOLUME 88.4 fl (80-96); MEAN PLT VOLUME 7.9 fl (7.5-11.1); MONO % 8.1 % (3.8-10.2); NEUT % 60.9 % (42.8-82.8); PLATELET COUNT 233 10^3/uL (134-434); RBC 3.01 M/mm3 (3.60-5.2); RDW 13.9 % (11.6-15.6); WHITE BLOOD COUNT 7.6 K/mm3 (4.0-10.0)
[2021-03-29 06:52] LABS: ALBUMIN 3.1 g/dl (3.4-5.0); BLOOD UREA NITROGEN 12.8 mg/dL (7-18)
[2021-03-29 06:54] LABS: CALCIUM 7.6 mg/dL (8.5-10.1)
[2021-03-29 06:55] LABS: CREATININE 0.7 mg/dL (0.55-1.3)
[2021-03-29 06:56] LABS: BILIRUBIN,TOTAL 0.2 mg/dL (0.2-1); TOT PROT 5.7 g/dl (6.4-8.2)
[2021-03-29] MEDS ORDERED: POTASSIUM CHLORIDE TABS 20 MEQ TABLET.ER (FP) PO ONE (08:00)
[2021-03-29] MEDS: PANTOPRAZOLE 40 MG TABLET PO SCH (10:39)
[2021-03-29] MEDS: diazePAM 5 MG TABLET PO PRN ×2 (10:39→21:20)
[2021-03-29] MEDS: CYCLOBENZAPRINE HCL 10 MG TABLET (FP) PO SCH ×2 (10:39→21:21)
[2021-03-29] MEDS: HYDROCHLOROTHIAZIDE 25 MG TABLET (FP) PO SCH (10:39)
[2021-03-29] MEDS: DOCUSATE SODIUM 100 MG CAPSULE (FP) PO SCH (10:39)
[2021-03-29] MEDS: LIDOCAINE 5% TOPICAL PATCH TP SCH (10:40)
[2021-03-29] MEDS: MONTELUKAST NA 10 MG TABLET PO SCH (21:21)
[2021-03-29] MEDS: LIDOCAINE PATCH REMOVAL MC SCH (21:21)
[2021-03-30] MEDS: VITAMINS A AND D TOPICAL OINTMENT 60 GM TUBE TP SCH ×3 (01:11→11:08)
[2021-03-30] MEDS: oxyCODONE HCL 5 MG TABLET PO PRN ×3 (01:45→13:30)
[2021-03-30] MEDS: diphenhydrAMINE HCL 25 MG CAPSULE (FP) PO PRN ×2 (02:45→09:11)
[2021-03-30] MEDS: LEVOTHYROXINE NA 150 MCG TABLET PO SCH (06:43)
[2021-03-30] MEDS ORDERED: PT OWN MED DRAWER 7, Y5N ONE ×2 (06:43→14:45)
[2021-03-30] MEDS: oxyCODONE HCL 10 MG SUSTAINED ACTING TABLET PO SCH (06:44)
[2021-03-30] MEDS: ARMOUR THYROID 60 MG PO SCH (06:44)
[2021-03-30 08:44] LABS: BASO % 0.3 % (0-2.0); EOS % 2.9 % (0-4.5); HEMATOCRIT 28.6 % (32.4-45.2); HEMOGLOBIN 9.6 GM/dL (10.7-15.3); LYMPH % 22.9 % (8-40); MCH 29.1 pg (25.7-33.7); MCHC 33.6 g/dl (32.0-36.0); MEAN CELL VOLUME 86.6 fl (80-96); MEAN PLT VOLUME 7.8 fl (7.5-11.1); MONO % 7.2 % (3.8-10.2); NEUT % 66.7 % (42.8-82.8); PLATELET COUNT 285 10^3/uL (134-434); RDW 13.7 % (11.6-15.6)
[2021-03-30 08:54] LABS: ALBUMIN 3.3 g/dl (3.4-5.0); BLOOD UREA NITROGEN 13.2 mg/dL (7-18); CALCIUM 7.9 mg/dL (8.5-10.1); MAGNESIUM 1.9 mg/dL (1.8-2.4)
[2021-03-30] MEDS ORDERED: POTASSIUM CHLORIDE TABS 20 MEQ TABLET.ER (FP) PO ONE (08:56)
[2021-03-30 08:57] LABS: CREATININE 0.7 mg/dL (0.55-1.3)
[2021-03-30 08:59] LABS: BILIRUBIN,TOTAL 0.5 mg/dL (0.2-1); TOT PROT 5.9 g/dl (6.4-8.2)
[2021-03-30] MEDS: LIDOCAINE 5% TOPICAL PATCH TP SCH (09:10)
[2021-03-30] MEDS: DOCUSATE SODIUM 100 MG CAPSULE (FP) PO SCH (09:12)
[2021-03-30] MEDS: PANTOPRAZOLE 40 MG TABLET PO SCH (09:14)
[2021-03-30] MEDS: HYDROCHLOROTHIAZIDE 25 MG TABLET (FP) PO SCH (09:14)
[2021-03-30] MEDS: CYCLOBENZAPRINE HCL 10 MG TABLET (FP) PO SCH (09:14)
[2021-03-30] MEDS: diazePAM 5 MG TABLET PO PRN (13:38)
[2021-03-30 13:46] VITALS: BP 142/90; PULSE 124; TEMP 98.2
== END 2021-03-30 16:21 | disposition home or self-care (01) | DRG 460 ==
LOC: J2C 03-26 04:23 → J4S 03-26 18:44
PROVIDERS: ADMIT Orthopaedic Surgery Orthopaedic Surgery of the Spine; ATTEND Nurse Practitioner Family
PROC: 0SG3071 Fusion of Lumbosacral Joint with Autologous Tissue Substitute, Posterior Approach, Posterior Column, Open Approach (ICD-10-PCS; 2021-03-26)
PROC: 01NB0ZZ Release Lumbar Nerve, Open Approach (ICD-10-PCS; 2021-03-26)
PROC: 0SP004Z Removal of Internal Fixation Device from Lumbar Vertebral Joint, Open Approach (ICD-10-PCS; 2021-03-26)
PROC: 0SP304Z Removal of Internal Fixation Device from Lumbosacral Joint, Open Approach (ICD-10-PCS; 2021-03-26)
PROC: 07DR0ZZ Extraction of Iliac Bone Marrow, Open Approach (ICD-10-PCS; 2021-03-26)
PROC: B01BZZZ Fluoroscopy of Spinal Cord (ICD-10-PCS; 2021-03-26)
PROC: 0SG0071 Fusion of Lumbar Vertebral Joint with Autologous Tissue Substitute, Posterior Approach, Posterior Column, Open Approach (ICD-10-PCS; principal; 2021-03-26 08:00)
DX: M48.061 Spinal stenosis, lumbar region without neurogenic claudication (principal); M54.16 Radiculopathy, lumbar region; E03.9 Hypothyroidism, unspecified; F41.9 Anxiety disorder, unspecified; K21.9 Gastro-esophageal reflux disease without esophagitis; E66.01 Morbid (severe) obesity due to excess calories; E06.3 Autoimmune thyroiditis; Z68.39 Body mass index [BMI] 39.0-39.9, adult
CPT/HCPCS: 36415; 72131-TC; 76000-TC-FY; 80048; 80053; 81025; 83735; 85025; 85027; 86850; 86900; 86901; 87070; 87075; 87205; 93970-TC; 94010; 94760; 97116-GP; 97161-GP; C9803; J0131; U0003; U0005